=== PATIENT | male | born 1950 | race Caucasian/White ===

== ENCOUNTER → 2019-04-24 | Outpatient (CLI) | payer MEDICARE, OTHER ==
[2019-04-24 14:38] LABS: Basophils % (A) 1 %; Eosinophils # (A) 0.2 k/uL (0-0.7); Eosinophils % (A) 5 %; HCT 40.6 % (39.0-53.0); HGB 12.9 gm/dL (13.0-17.5); Lymphocytes # (A) 1.6 k/uL (1.0-4.8); Lymphocytes % (A) 30 %; MCH 29.3 pg (25.0-35.0); MCHC 31.7 g/dL (31.0-37.0); MCV 92.4 fL (80.0-100.0); Mean Platelet Volume 7.8; Monocytes # (A) 0.3 k/uL (0-1.0); Monocytes % (A) 6 %; Neutrophils % (A) 58 %; Platelet Count 178 k/uL (150-450); RBC 4.39 m/uL (4.30-5.90); RDW 13.8 % (11.5-15.5); WBC 5.3 k/uL (3.8-10.6)
[2019-04-24 14:41] LABS: Appearance,Urine Clear (Clear); Bilirubin,Urine Negative (Negative); Blood,Urine Negative (Negative); Color,Urine Light Yellow; Glucose,Urine (UA) Negative (Negative); Ketones,Urine Negative (Negative); Leukocyte Esterase,Urine Negative (Negative); Nitrite,Urine Negative (Negative); Protein,Urine Negative (Negative); Urobilinogen,Urine <2.0 mg/dL (<2.0)
[2019-04-24 14:49] LABS: Magnesium 1.8 mg/dL (1.6-2.3); Potassium 4.3 mmol/L (3.5-5.1)
[2019-04-24 14:54] LABS: INR 0.9 (<1.2); Partial Thromboplastin Time 28.3 sec (22.0-30.0); Prothrombin Time 9.8 sec (9.0-12.0)
== END | disposition home or self-care (01) ==
LOC: LABPAT 14:08
PROVIDERS: ATTEND Thoracic Surgery (Cardiothoracic Vascular Surgery)
DX: Z01.812 Encounter for preprocedural laboratory examination (principal); C34.11 Malignant neoplasm of upper lobe, right bronchus or lung
CPT/HCPCS: 36415; 80051; 81003; 82565; 83735; 84520; 85025; 85610; 85730; 86850; 86900; 86901; 87086

== ENCOUNTER 2019-04-30 05:58 | Inpatient (IN) | payer MEDICARE, OTHER ==
[~2019-04-30 05:58] MED LIST: DEXAMETHASONE SOD PHOSPHATE 10 MG/ML 1 ML VIAL IV ONE; HYDROmorphone 0.5 MG/0.5 ML SYRINGE IVP PRN; MIDAZOLAM 2 MG/2 ML VIAL IV PRN; ONDANSETRON 4 MG/2 ML VIAL IVP ONE; SCOPOLAMINE 1.5MG/72HR PATCH TRANSDERM ONE
[2019-04-30 06:24] LABS: Glucose,Whole Blood 106 mg/dL (75-99)
[2019-04-30] MEDS: LACTATED RINGERS 1,000 ML IV SCH ×3 (06:24→07:44)
[2019-04-30] MEDS: LIDOCAINE 1% 20 ML VIAL (10MG/ML) FOR IV START INTRADERMA PRN ×2 (06:25→06:48)
[2019-04-30] MEDS ORDERED: fentaNYL (PF) 50 MCG/ML 2 ML AMP ONE (07:32)
[2019-04-30] MEDS ORDERED: ROCURONIUM BROMIDE 10 MG/ML 10 ML VIAL IV ONE (07:32)
[2019-04-30] MEDS ORDERED: NEOSTIGMINE 1 MG/ML 10 ML VIAL ONE (07:32)
[2019-04-30] MEDS ORDERED: ePHEDrine SULFATE/0.9% NACL/PF 50 MG/5 ML SYRINGE IV ONE (07:32)
[2019-04-30] MEDS ORDERED: PROPOFOL 10 MG/ML 20 ML VIAL IV ONE (07:32)
[2019-04-30] MEDS ORDERED: HYDROmorphone (PF) 1 MG/ML ONE (07:32)
[2019-04-30] MEDS ORDERED: DOXAPRAM 20 MG/ML 20 ML VIAL IV ONE (07:32)
[2019-04-30] MEDS ORDERED: GLYCOPYRROLATE 0.2 MG/ML 2 ML VIAL ONE (07:32)
[2019-04-30] MEDS ORDERED: SUCCINYLCHOLINE CHLORIDE 100 MG/5 ML SYR IV ONE (07:32)
[2019-04-30] MEDS ORDERED: hydrALAZINE HCL 20 MG/ML 1 ML VIAL ONE (07:32)
[2019-04-30] MEDS ORDERED: diphenhydrAMINE 50 MG/ML 1 ML VIAL ONE (07:32)
[2019-04-30] MEDS ORDERED: BUPIVACAINE (PF) 0.25% 30 ML VIAL MISCELLANE ONE ×2 (10:42)
--- NOTE | 2019-04-30 12:24 | P.OP ---
Date of Procedure: 04/30/19 Preoperative Diagnosis: Right upper lobe mass consistent with carcinoma Postoperative Diagnosis: Same, squamous cell carcinoma right upper lobe Procedure(s) Performed: Right thoracoscopy, robotic-assisted thoracoscopic right upper lobectomy with mediastinal lymph node dissection, fiberoptic bronchoscopy Anesthesia: SIDDHARTHA Surgeon: Rhys Brock Psychiatric Technician Assistant #1: Benson Chow Estimated Blood Loss (ml): 50 IV fluids (ml): 1,200 Urine output (ml): 160 Pathology: other (Right upper lobe with frozen section of bronchial margin negative and primary tumor positive for squamous cell carcinoma, lymph node stations 4R, 7, 8R, 10 R, 11 R) Condition: stable Disposition: PACU Indications for Procedure: 69-year-old male presents with new mass in right upper lobe. This is suspicious for carcinoma on CT. He has significant lymphadenopathy with calcification suggesting chronicity. PET scan was highly positive for uptake in the tumor and negative for uptake elsewhere. Was high suspicion for carcinoma of the lung. This was felt to likely be early stage. The patient had significant lung disease which made him high risk for pneumothorax in the event of needle biopsy. Pulmonary function was adequate to tolerate lobectomy. Lobectomy was recommended by Dr. Soliman and discussed with the patient. The patient was agreeable.'s surgery was scheduled. Operative Findings: Fissures were only partially complete. The lung was markedly emphysematous. There was a palpable tumor was overlying pleural retraction consistent with pulmonary malignancy in the right upper lobe. There was extensive hilar and mediastinal adenopathy. Some of this was heavily calcified. Some was just anthracotic and soft. There was marketed inflammation in the hilum throughout Description of Procedure: The patient was brought to the operating room, placed supine on the operating table, anesthetized and intubated with a double-lumen endotracheal tube. Tube was positioned with fiberoptic bronchoscopy and secured. The patient was turned in the left lateral decubitus position and appropriately positioned for robotic lobectomy. The right chest was sterilely prepped and draped. Initial incision was made in the anterior axillary line in the seventh interspace and a 8 mm robotic port was placed here. Thoracoscopy confirm presence within the pleural space along was deflated and CO2 insufflation was begun. A 12 mm port was placed posterior to this and the posterior axillary line in the eighth interspace. A second 12 mm port was placed 12 cm anterior to the initial port in the seventh interspace. A second 8 mm port was placed posteriorly and the paraspinous position in the fourth interspace. The robot was docked. A working port was placed between the 2 most anterior ports in the 10th interspace. The chest was explored with the robot with findings as noted above. Inferior pulmonary ligament was taken down. Dissection was carried posteriorly along the pleural reflection and the level VIII and level VII lymph nodes were dissected and sent for permanent section. Dissection was begun around the right upper lobe bronchus. There were actually 2 branches of the right upper lobe bronchus that bifurcated very early and led to the right upper lobe. These were taken separately with a thick robotic stapler.. The second one developed a tear in the membranous portion requiring a couple of 4-0 Vicryl suture placements prior to stapling. Further dissection was carried out and the R 11 lymph nodes were resected. The posterior segmental branch to the upper lobe of the pulmonary artery was encircled and ligated and divided with robotic stapler. We now moved anteriorly. There were lymph nodes along the phrenic nerve overlying the superior pulmonary vein. These were resected and sent as level X lymph nodes. Dissection was carried out over brown the superior pulmonary vein branches draining the upper lobe sparing the middle lobe branches. These branches were then taken with a robotic vascular stapler. Dissection was carried onto the pulmonary artery. The truncus anteriosus this was dissected out. Further R 11 lymph nodes were resected in order to clear the truncus anteriosus. This branch of the pulmonary artery was then encircled and ligated and divided with a robotic vascular stapler. Further hilar lymph nodes were resected en bloc with the specimen. Dissection was carried back connecting the anterior and posterior portions of the dissection. The fissures were then completed with multiple firings of a robotic medium stapler. The lobectomy specimen was retracted into the apex and the lymph nodes just inferior to the azygos vein were resected and sent as R 10 lymph nodes. This dissection was then carried up above the azygos vein and the R4 lymph nodes were resected. The lobectomy specimen was then placed in an Endo Catch bag. The robot was undocked and the Endo Catch bag was brought through the working port after enlarging it adequately to allow passage of the specimen. The specimen was sent for frozen section with findings as noted above. The chest was irrigated with warm water. There was some air leak from diffusely from the staple lines of the pulmonary parenchyma but there was no air leak from the bronchial stump. A 28-Portuguese chest tube was placed through separate leak. Good hemostasis observed lung wasn't the thoracoscope was removed. The chest tube was secured with 0 Ethibond suture. Rib blocks were performed at the level of the incisions with half percent Marcaine. Incisions were closed with layers of Vicryl suture. Dry sterile dressings were applied the patient was extubated and transferred to recovery in stable condition. Prior to leaving the operating room and prior to extubation we did re-bronchoscoped the patient due to presence of significant air leak. The upper lobe bronchial stump was intact and there was no evidence of leak here. This completes the dictation
[2019-04-30 12:25] LABS: Glucose,Whole Blood 173 mg/dL (75-99)
[2019-04-30] MEDS ORDERED: CHLORHEXIDINE GLUCONATE 15 ML CUP MUCOUS MEM ONE (12:29)
[2019-04-30] MEDS ORDERED: BISACODYL 10 MG SUPP RECTAL PRN (12:52)
[2019-04-30] MEDS: IPRATROPIUM-ALBUTEROL 3 ML NEB IH SCH ×3 (12:55→19:42)
[2019-04-30 13:06] LABS: Basophils % (A) 0 %; Eosinophils # (A) 0.1 k/uL (0-0.7); Eosinophils % (A) 1 %; HCT 40.2 % (39.0-53.0); Lymphocytes # (A) 0.5 k/uL (1.0-4.8); Lymphocytes % (A) 5 %; MCH 29.4 pg (25.0-35.0); MCHC 32.3 g/dL (31.0-37.0); MCV 90.8 fL (80.0-100.0); Mean Platelet Volume 8.2; Monocytes # (A) 0.4 k/uL (0-1.0); Monocytes % (A) 4 %; Neutrophils # (A) 9.1 k/uL (1.3-7.7); Neutrophils % (A) 90 %; Platelet Count 159 k/uL (150-450); RBC 4.42 m/uL (4.30-5.90); WBC 10.2 k/uL (3.8-10.6)
[2019-04-30 13:24] LABS: ALT 35 U/L (21-72); AST 36 U/L (17-59); African American GFR (CKD) >90 (>60 ml/min/1.73 sqM); Albumin 3.3 g/dL (3.5-5.0); Alkaline Phosphatase 166 U/L (38-126); Anion Gap 8 mmol/L; Blood Urea Nitrogen 11 mg/dL (9-20); Calcium 8.4 mg/dL (8.4-10.2); Carbon Dioxide 25 mmol/L (22-30); Chloride 108 mmol/L (98-107); Glucose 166 mg/dL (74-99); Potassium 3.9 mmol/L (3.5-5.1); Sodium 141 mmol/L (137-145); Total Bilirubin 0.3 mg/dL (0.2-1.3); Total Protein 6.3 g/dL (6.3-8.2)
--- NOTE | 2019-04-30 13:27 | XR ---
EXAMINATION TYPE: XR chest 1V DATE OF EXAM: 04/30/2019 COMPARISON: Prior chest x-ray 03/04/2019 HISTORY: Postop right upper lobectomy TECHNIQUE: Single frontal view of the chest is obtained. FINDINGS: Left-sided pacemaker shows a stable appearance, there are leads in the right atrium and ve ntricle. There is volume loss in the right hemithorax, right-sided chest tube is present. There is teixeira bcutaneous emphysema the right chest and neck. Apical right-sided pneumothorax is present. Postop fadia nges are noted in the right hilar region, there are surgical quincy. There are overlying cardiac shade ds. Some right lung parenchymal density may be due to postop contusion or atelectasis. No sizable eff usion. Surgical clips present at the lower chest upper abdomen level superimposed over the midline. IMPRESSION: Postop changes as described.
[2019-04-30] MEDS: KETOROLAC 30 MG/ML 1 ML VIAL IVP SCH ×3 (13:31→23:59)
[2019-04-30] MEDS: DEXTROSE 5%-0.45% NACL 1,000 ML IV SCH (13:47)
--- NOTE | 2019-04-30 13:53 | P.CNPUL ---
History of Present Illness Consult date: 04/30/19 Requesting physician: Rhys Brock Reason for consult: other (Pulmonary and Critical care management) Chief complaint: Right lung nodule History of present illness: This is a very pleasant 69-year-old gentleman who follows with Dr. Vanessa as his primary care physician. 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 He had been seen and evaluated by Dr. Soliman after being found to have a right lung pulmonary nodule. He performed a PET scan which did show significant hypermetabolic uptake without metastasis and subsequently referred to Dr. Brock. He was admitted here today and had undergone a right thoracoscopy, robotic-assisted thoracoscopic right upper lobectomy and mediastinal lymph node dissection with fiberoptic bronchoscopy. Primary tumor positive for squamous cell carcinoma. He is seen in consultation in the intensive care unit. He is awake and alert in no acute distress. His pain is well controlled at this point. He has a right-sided chest tube in place is positive for a leak and currently to low continuous suction. He denies any worsening shortness of breath. He has a loose nonproductive cough. No chills or night sweats. Continue and O2 saturation in the 90s on 6 L/m per nasal cannula. White count 10.2. Hemoglobin 13.0. Creatinine 0.79. He's been initiated on DuoNeb inhalations, cefazolin, subcutaneous heparin. He has an IV of D5.45 at 40 ML's per hour. Review of Systems REVIEW OF SYSTEMS: CONSTITUTIONAL: Denies any recent significant weight loss or weight gain. EYES: Denies change in vision. EARS, NOSE, MOUTH, THROAT: Denies headaches, denies sore throat. CARDIOVASCULAR: Positive for surgical site right-sided chest pain, no palpitations or syncopal episodes. RESPIRATORY: Positive for shortness of breath, cough, congestion no hemoptysis. GASTROINTESTINAL: Denies change in appetite, denies abdominal pain GENITOURINARY: Denies hematuria, denies infections. MUSKULOSKELETAL: Denies pain, denies swelling. INTEGUMENTARY: Denies rash, denies eczema. NEUROLOGICAL: Denies recent memory loss, no recent seizure activity. PSYCHIATRIC: Denies anxiety, denies depression. HEMATOLOGIC/LYMPHATIC: Denies anemia, denies enlarged lymph nodes. Past Medical History Past Medical History: COPD, GERD/Reflux, Hyperlipidemia, Hypertension, Musculoskeletal Disorder, Osteoarthritis (OA), Seizure Disorder, Vascular Disorder Additional Past Medical History / Comment(s): chronic back pain, lung mass, SOB w/exertion, had some kind of ?seizure activity couple months ago, sitting outside, started having shaking-weren't sure if it had something to do w/pacemaker-went to [facility] for observation & sent home-not sure what it was History of Any Multi-Drug Resistant Organisms: None Reported Past Surgical History: Appendectomy, Heart Catheterization, Orthopedic Surgery, Pacemaker Additional Past Surgical History / Comment(s): recent battery change to pacemaker 04-21-19-healing incision, stent right leg, right hand surg., trigger finger left hand Past Anesthesia/Blood Transfusion Reactions: No Reported Reaction Type of Cardiac Device: Permanent Pacemaker Device Placement Date:: 2010 Smoking Status: Current every day smoker - Past Family History Mother Family Medical History: No Reported History Medications and Allergies Home Medications Medication Instructions Recorded Confirmed Type ALPRAZolam [Xanax] 1 mg PO BID PRN 04/24/19 04/30/19 History ARIPiprazole [Abilify] 30 mg PO HS 04/24/19 04/30/19 History Albuterol Inhaler [Ventolin Hfa 1 - 2 puff INHALATION RT-Q6H PRN 04/24/19 04/30/19 History Inhaler] Aspirin 81 mg PO DAILY 04/24/19 04/30/19 History Atorvastatin [Lipitor] 40 mg PO HS 04/24/19 04/30/19 History Cephalexin [Keflex] 500 mg PO Q8HR 04/24/19 04/30/19 History Clopidogrel [Plavix] 75 mg PO DAILY 04/24/19 04/30/19 History DULoxetine HCL [Cymbalta] 60 mg PO HS 04/24/19 04/30/19 History Donepezil [Aricept] 5 mg PO HS 04/24/19 04/30/19 History HYDROcodone/APAP 10-325MG [[place] 1 tab PO Q6HR PRN 04/24/19 04/30/19 History 10-325] Losartan [Cozaar] 50 mg PO DAILY 04/24/19 04/30/19 History Lyrica(Unknown Dose) 1 tab PO HS 04/24/19 04/30/19 History Metoprolol Tartrate [Lopressor] 100 mg PO BID 04/24/19 04/30/19 History Nitroglycerin Sl Tabs [Nitrostat] 0.4 mg SUBLINGUAL Q5M PRN 04/24/19 04/30/19 History Pantoprazole Sodium [Protonix] 40 mg PO DAILY 04/24/19 04/30/19 History Allergies Allergy/AdvReac Type Severity Reaction Status Date / Time adhesive tape Allergy Rash/Hives Verified 04/30/19 06:20 Latex, Natural Rubber Allergy Rash/Hives Verified 04/30/19 06:20 silicone Allergy Rash/Hives Verified 04/30/19 06:20 Physical Exam Vitals: Vital Signs Temp Pulse Resp BP BP Pulse Ox 04/30/19 12:40 96 04/30/19 06:53 97.0 F L 60 16 137/78 143/80 96 04/30/19 06:09 97.0 F L 60 16 143/80 96 Intake and Output 04/29/19 04/30/19 04/30/19 22:59 06:59 14:59 Intake Total 900 Output Total 750 Balance 150 Intake: IV 900 Output: Chest Tube Drainage 270 Chest Tube Right 270 Urine 430 Estimated Blood Loss 50 GENERAL EXAM: Frail, cachectic 69-year-old gentleman. Alert, fairly comfortable in no apparent distress. On 6 L nasal cannula HEAD: Normocephalic. EYES: Normal reaction of pupils, equal size. NOSE: Clear with pink turbinates. THROAT: No erythema or exudates. NECK: No masses, no JVD. CHEST: No chest wall deformity. Right-sided chest tube in place. Positive air leak. To low continuous suction. LUNGS: Equal air entry with bilateral scattered rhonchi more so on the right. CVS: S1 and S2 normal with no audible murmur, regular rhythm. ABDOMEN: No hepatosplenomegaly, normal bowel sounds, no guarding or rigidity. SPINE: No scoliosis or deformity SKIN: No rashes CENTRAL NERVOUS SYSTEM: No focal deficits, tone is normal in all 4 extremities. EXTREMITIES: There is no peripheral edema. No clubbing, no cyanosis. Peripheral pulses are intact. Results - Laboratory Findings CBC and BMP: 04/30/19 12:56 04/30/19 12:56 Abnormal lab findings: Abnormal Labs 04/30/19 04/30/19 04/30/19 06:21 12:23 12:56 Neutrophils # Lymphocytes # Chloride 108 H Glucose 166 H POC Glucose (mg/dL) 106 H 173 H Alkaline Phosphatase 166 H Albumin 3.3 L 04/30/19 12:56 Neutrophils # 9.1 H Lymphocytes # 0.5 L Chloride Glucose POC Glucose (mg/dL) Alkaline Phosphatase Albumin - Diagnostic Findings Chest x-ray: image reviewed Assessment and Plan Assessment: Impression: #1 Right lung nodule with hypermetabolic uptake in the PET scan. Status post right thoracoscopy, robotic-assisted thorascopic right upper lobectomy with med iastinal lymph node dissection, fiberoptic bronchoscopy. Suspect squamous cell carcinoma. Postoperative day #0. #2 Acute hypoxic respiratory failure as an expected outcome of surgery. Currently on 6 L/m per nasal cannula. #3 Chronic and ongoing tobacco dependence of 40 years. #4 Chronic obstructive pulmonary disease #5 Hypertension. #6 Six sinus syndrome status post pacemaker implantation. #7 Anxiety/depression. #8 Hyperlipidemia. Plan: The patient was seen and evaluated by Dr. Oliveira. Chest x-ray and labs reviewed. We'll continue with bronchodilators. Currently on cefazolin. Heparin for DVT prophylaxis. Encourage cough and deep breathing exercises. Increase his activity as tolerated. We will continue to follow and make further recommendations based on his clinical status. I, the cosigning physician, performed a history & physical examination of the p atient. Lungs sounds bilateral scattered rhonchi right greater than left. Maintaining good O2 saturations in the 90s on 6 L/m per nasal cannula. I discussed the assessment and plan of care with my nurse practitioner, Krysta Lopez. I attest to the above consultation as dictated by her. Time with Patient: Greater than 30
[2019-04-30] MEDS: HEPARIN SODIUM,PORCINE 5,000 UNIT/ML 1 ML VIAL SQ SCH ×2 (15:27→23:59)
[2019-04-30] MEDS: HYDROcodone/APAP 10-325MG 1 EACH TAB PO PRN ×2 (15:27→21:36)
[2019-04-30] MEDS: ATORVASTATIN 40 MG TAB PO SCH (21:33)
[2019-04-30] MEDS: METOPROLOL TARTRATE 50 MG TAB PO SCH (21:38)
[2019-04-30] MEDS: PREGABALIN 75 MG CAP PO SCH (21:38)
[2019-04-30 23:00] LABS: HCT 35.1 % (39.0-53.0); HGB 11.1 gm/dL (13.0-17.5); MCH 29.4 pg (25.0-35.0); MCHC 31.6 g/dL (31.0-37.0); MCV 92.9 fL (80.0-100.0); Mean Platelet Volume 7.9; Platelet Count 128 k/uL (150-450); RBC 3.77 m/uL (4.30-5.90); RDW 14.1 % (11.5-15.5)
[2019-04-30 23:19] LABS: Calcium 7.6 mg/dL (8.4-10.2); Potassium 4.2 mmol/L (3.5-5.1)
[2019-04-30] MEDS: ARIPiprazole 15 MG TAB PO SCH (23:39)
[2019-04-30] MEDS: DONEPEZIL 5 MG TAB PO SCH (23:39)
[2019-04-30] MEDS: DULoxetine HCL 60 MG CAPSULE.DR PO SCH (23:40)
[2019-04-30] MEDS: ALBUMIN HUMAN 5% 500 ML in EMPTY BAG 1 BAG IVPB ONE (23:41)
[2019-05-01] MEDS ORDERED: ALBUMIN HUMAN 5% 500 ML in EMPTY BAG 1 BAG IVPB ONE (00:06)
[2019-05-01] MEDS: ALBUMIN HUMAN 5% 500 ML in EMPTY BAG 1 BAG IVPB ONE (00:28)
[2019-05-01] MEDS: DEXTROSE/WATER 1 250ML.BAG with DOPamine DRIP 800 MG IV SCH (00:43)
[2019-05-01 02:12] LABS: ABG Base Excess -1.3 mmol/L; ABG HCO3 23 mmol/L (21-25); ABG Oxygen Saturation 96.8 % (94-97); ABG PCO2 36 mmHg (35-45); ABG PH 7.42 (7.35-7.45); ABG PO2 84 mmHg (83-108); ABG TCO2 24 mmol/L (19-24); Allen Test Performed? Yes
[2019-05-01 04:39] LABS: Basophils % (A) 0 %; Eosinophils % (A) 0 %; HCT 29.6 % (39.0-53.0); Lymphocytes # (A) 0.6 k/uL (1.0-4.8); Lymphocytes % (A) 11 %; MCH 29.6 pg (25.0-35.0); MCHC 32.5 g/dL (31.0-37.0); MCV 91.2 fL (80.0-100.0); Mean Platelet Volume 8.3; Monocytes # (A) 0.2 k/uL (0-1.0); Monocytes % (A) 3 %; Neutrophils # (A) 4.7 k/uL (1.3-7.7); Neutrophils % (A) 84 %; Platelet Count 124 k/uL (150-450); RBC 3.25 m/uL (4.30-5.90); RDW 14.5 % (11.5-15.5); WBC 5.6 k/uL (3.8-10.6)
[2019-05-01 04:46] LABS: HGB 9.6 gm/dL (13.0-17.5)
[2019-05-01 04:48] LABS: African American GFR (CKD) >90 (>60 ml/min/1.73 sqM); Anion Gap 8 mmol/L; Blood Urea Nitrogen 13 mg/dL (9-20); Calcium 7.9 mg/dL (8.4-10.2); Carbon Dioxide 24 mmol/L (22-30); Chloride 108 mmol/L (98-107); Glucose 152 mg/dL (74-99); Potassium 3.9 mmol/L (3.5-5.1); Sodium 140 mmol/L (137-145)
--- NOTE | 2019-05-01 07:31 | PN ---
PROGRESS NOTE DATE OF SERVICE: May 01, 2019 This is a 69-year-old male who is postop day #1 status post right upper lobectomy and mediastinal lymph node dissection. Apparently, the patient may have had a frozen section done and we suspect squamous cell carcinoma. The patient is doing relatively well. He is postop day #1. Blood gases were done on 2 L and showed a pO2 of 84, pCO2 of 36, and pH 7.4. He is currently remains on 2 L nasal cannula. His IV is D5 0.45 at 40 mL an hour. He received some dopamine at 5 mcg/kg per minute for blood pressure support. The surgery was done by Dr. Brock. Currently, he has a history of chronic and ongoing tobacco dependence for 40 years, COPD, hypertension, sick sinus syndrome, status post pacemaker implantation, anxiety, depression and hyperlipidemia. Again, the patient is resting comfortably. He denies any particular issues or problems. No breathing issues. He does have some pain at the surgical site. Other than that though, he is doing very well. PHYSICAL EXAMINATION: VITAL SIGNS: Current vital signs are reviewed. His temperature is 98 degrees, heart rate 77, respiratory rate 16, blood pressure 107/42 and 2 L saturation 94%. Appears in no acute distress. HEENT: Examination is grossly unremarkable. Nasal O2 noted. NECK: Supple. Full range of motion. No adenopathy or thyromegaly. Neck veins are flat. CARDIOVASCULAR: Examination reveals regular rhythm and rate. S1, S2 normal. Heart rate 77. No S3, S4, or murmur. LUNGS: Reveal diminished breath sounds throughout. He has not really taken deep breaths. A few scattered rhonchi noted. No wheezes or crackles. ABDOMEN: Is soft. Bowel sounds are heard. No masses or tenderness. EXTREMITIES: Are intact. No cyanosis, clubbing, or edema. SKIN: Without rash. NEUROLOGIC: Examination is brief but nonfocal. LABS: Labs are reviewed. The blood gases have been mentioned. The rest of his labs are not back yet. Chest x-rays reviewed. MEDICATIONS: Medications are reviewed. Again currently he is on D5 0.45 at 40 mL an hour, dopamine at 5 mcg/kg per minute. ASSESSMENT: 1. Postoperative day #1 robotically assisted right upper lobectomy for presumed squamous cell carcinoma of the lung. The patient also had mediastinal lymph node dissection. 2. Chronic and ongoing tobacco dependence of 40 years. 3. Chronic obstructive pulmonary disease. 4. Hypertension. 5. Sick sinus syndrome, status post pacemaker implantation. 6. Anxiety/depression. 7. Hyperlipidemia. PLAN: Currently, the patient is doing well. He remains on some O2. We encourage deep breathing, coughing and clearing of secretions. We also encouraged the use of the incentive spirometer. No additional recommendations are made. The patient will follow up with my partner, Dr. Soliman. Dr. Soliman referred the patient to Dr. Brock for surgery. No additional recommendations are made. Prognosis is guarded. MMODL / IJN: [id number] /
--- NOTE | 2019-05-01 07:35 | XR ---
EXAMINATION TYPE: XR chest 1V DATE OF EXAM: 05/01/2019 COMPARISON: 04/30/2019 HISTORY: Postoperative right upper lobectomy TECHNIQUE: Single frontal view of the chest is obtained. FINDINGS: There is slight improvement in degree of right-sided pneumothorax now with maximal apical pleural separation of approximately 2.5 cm. Right thoracostomy tube terminates in the right lung apex . Multifocal right-sided airspace disease or shifting and likely related to atelectasis. Left lung is hyperexpanded with interstitial prominence that appears chronic. Cardiomediastinal silhouette is sta ble. Postoperative changes of the right hilum are seen as well as of the gastroesophageal junction. D iffuse osseous demineralization is noted. IMPRESSION: 1. Decreasing right pneumothorax with similar positioning of the right thoracostomy tube. 2. Shifting right-sided airspace disease most pronounced in the right hilum likely relates to postope rative atelectasis.
[2019-05-01] MEDS: IPRATROPIUM-ALBUTEROL 3 ML NEB IH SCH ×4 (07:37→20:04)
[2019-05-01] MEDS: KETOROLAC 30 MG/ML 1 ML VIAL IVP SCH ×4 (08:35→23:08)
[2019-05-01] MEDS: PANTOPRAZOLE 40 MG TABLET PO SCH (08:36)
[2019-05-01] MEDS: METOPROLOL TARTRATE 50 MG TAB PO SCH ×2 (08:46→19:48)
[2019-05-01] MEDS: HEPARIN SODIUM,PORCINE 5,000 UNIT/ML 1 ML VIAL SQ SCH ×3 (08:46→23:08)
[2019-05-01] MEDS ORDERED: ASPIRIN 81 MG PO SCH (09:00)
[2019-05-01] MEDS ORDERED: LOSARTAN 50 MG TAB PO SCH (09:00)
--- NOTE | 2019-05-01 10:09 | P.PN ---
Subjective Progress Note Date: 05/01/19 Principal diagnosis: Squamous cell carcinoma right upper lobe, history of hypertension, hyperlipidemia, bipolar disorder, history of sick sinus syndrome status post permanent pacemaker implantation in May 2011, coronary artery disease status post circumflex flex coronary artery stenting in 2017, anxiety, depression, chronic obstructive pulmonary disease, gastroesophageal reflux disease and tobacco dependence with a 40 pack year smoking history. POD #1 right thoracoscopic, robotic assisted thorascopic right upper lobectomy with mediastinal lymph node dissection, fiberoptic bronchoscopy. Postoperative acute blood loss anemia, an expected outcome. The patient is currently laying in bed in the intensive care unit. He is in no acute distress. Patient did have an episode of hypotension last evening and was given 1 L of albumin and started on dopamine at 5 mcg/kg/m. Currently he denies any complaints of pain or shortness of breath. Oxygen saturations are 93% on 2 L nasal cannula. Achieving 750 mL on his incentive spirometry with encouragement. Right pleural chest tubes remain in place to low continuous wall suction at -20 cm H2O, draining thin serosanguineous drainage. Air leak is present. He remains afebrile. He is awake, alert and oriented 3. His daughter is present at his bedside. Chest x-ray completed this morning and is showing a small right apical pneumothorax. Objective - Vital Signs Vital signs: Vital Signs Temp 99 F 05/01/19 08:00 Pulse 75 05/01/19 09:00 Resp 22 05/01/19 09:00 BP 117/70 05/01/19 08:00 Pulse Ox 97 05/01/19 09:00 Intake & Output 04/30/19 05/01/19 05/01/19 18:59 06:59 18:59 Intake Total 1200 1530 80 Output Total 1225 1325 270 Balance -25 205 -190 Weight 71.3 kg Intake: IV 900 1530 80 Albumin Human 5% 500 ml 1000 In Empty Bag 1 bag @ 500 mls/hr IVPB ONCE ONE Rx#: [id number] Dextrose 5%-0.45% NaCl 1, 480 80 000 ml @ 40 mls/hr IV . Q24H [facility] Rx#:[id number] ceFAZolin 2 gm In Sodium 50 Chloride 0.9% 50 ml @ 100 mls/hr IVPB ONCE ONE Rx# :[id number] Intake, IV Titration 300 Amount Dextrose 5%-0.45% NaCl 1, 200 000 ml @ 40 mls/hr IV . Q24H [facility] Rx#:[id number] ceFAZolin 2 gm In Sodium 100 Chloride 0.9% 50 ml @ 100 mls/hr IVPB Q8HR [facility] Rx# :[id number] Output: Chest Tube Drainage 470 350 70 Chest Tube Right 470 350 70 Urine 705 975 200 Estimated Blood Loss 50 Other: Voiding Method Indwelling Catheter Indwelling Catheter Indwelling Catheter ABP, PAP, CO, CI - Last Documented Arterial Blood Pressure 154/65 - Constitutional General appearance: Present: average body habitus, cooperative, no acute distress - Respiratory Details: Lung sounds with scattered rhonchi throughout. Respirations are symmetrical and nonlabored. Oxygen saturation 93% on 2 L nasal cannula. Achieving 750 mL on his incentive spirometry. Right pleural chest tubes in place to low continuous wall suction at -20 cm H2O. Air leak is present. Draining thin serosanguineous drainage with 850 mL output since surgery, 350 mL output in the last 8 hours. - Cardiovascular Details: Regular rhythm and rate. S1 and S2 present, negative for S3, gallop or murmur. Bedside telemetry showing normal sinus rhythm heart rate 93. No edema present. Dopamine drip remains at 5 mcg/kg/m. Sequential compression devices in place to his bilateral lower extremities. - Gastrointestinal Gastrointestinal Comment(s): Abdomen is soft, nontender and nondistended. Active bowel sounds all 4 abdominal quadrants. No guarding or rigidity. No organomegaly. Tolerating oral intake. - Genitourinary Genitourinary Comment(s): Castorena catheter for accurate I&O. Draining clear yellow urine. 900 mL output in the last 8 hours. - Integumentary Integumentary Comment(s): Skin is warm and dry. No clubbing or cyanosis is present. Right chest incisions are clean, dry and approximated. No drainage or redness is present. Dressing clean, dry and in place. No rash or abnormal pigmentation present. - Neurologic Neurologic: Present: CNII-XII intact - Musculoskeletal Musculoskeletal Comment(s): Chronic right hand weakness and contracture Musculoskeletal: Present: gait normal, generalized weakness, strength equal bilaterally - Psychiatric Psychiatric: Present: A&O x's 3, appropriate affect, intact judgment & insight - Allied health notes Allied health notes reviewed: nursing - Labs CBC & Chem 7: 05/01/19 04:21 05/01/19 04:21 Labs: Abnormal Lab Results - Last 24 Hours (Table) 04/30/19 04/30/19 04/30/19 Range/Units 12:23 12:56 12:56 RBC (4.30-5.90) m/uL Hgb (13.0-17.5) gm/dL Hct (39.0-53.0) % Plt Count (150-450) k/uL Neutrophils # 9.1 H (1.3-7.7) k/uL Lymphocytes # 0.5 L (1.0-4.8) k/uL Chloride 108 H (98-107) mmol/L Glucose 166 H (74-99) mg/dL POC Glucose (mg/dL) 173 H (75-99) mg/dL Calcium (8.4-10.2) mg/dL Alkaline Phosphatase 166 H (38-126) U/L Albumin 3.3 L (3.5-5.0) g/dL 04/30/19 04/30/19 05/01/19 Range/Units 22:16 22:16 04:21 RBC 3.77 L 3.25 L (4.30-5.90) m/uL Hgb 11.1 L 9.6 L D (13.0-17.5) gm/dL Hct 35.1 L 29.6 L (39.0-53.0) % Plt Count 128 L 124 L (150-450) k/uL Neutrophils # (1.3-7.7) k/uL Lymphocytes # 0.6 L (1.0-4.8) k/uL Chloride (98-107) mmol/L Glucose 144 H (74-99) mg/dL POC Glucose (mg/dL) (75-99) mg/dL Calcium 7.6 L (8.4-10.2) mg/dL Alkaline Phosphatase (38-126) U/L Albumin (3.5-5.0) g/dL 05/01/19 Range/Units 04:21 RBC (4.30-5.90) m/uL Hgb (13.0-17.5) gm/dL Hct (39.0-53.0) % Plt Count (150-450) k/uL Neutrophils # (1.3-7.7) k/uL Lymphocytes # (1.0-4.8) k/uL Chloride 108 H (98-107) mmol/L Glucose 152 H (74-99) mg/dL POC Glucose (mg/dL) (75-99) mg/dL Calcium 7.9 L (8.4-10.2) mg/dL Alkaline Phosphatase (38-126) U/L Albumin (3.5-5.0) g/dL - Imaging and Cardiology Chest x-ray: report reviewed, image reviewed Assessment and Plan Assessment: 1. Squamous cell carcinoma right upper lobe, status post right upper lobectomy 2. Hypertension 3. Hyperlipidemia 4. Bipolar disorder 5. History of sick sinus syndrome status post permanent pacemaker implantation May 2011 6. Coronary artery disease status post circumflex coronary artery stenting in 2017 7. Anxiety 8. History of depression 9. Chronic proximal pulmonary disease 10. Gastroesophageal reflux disease 11. Chronic tobacco dependence, [id number] smoking history 12. Postoperative acute blood loss anemia, an expected outcome Plan: 1. Continue right pleural chest tube to continuous wall suction -20 cm H2O. 2. Encourage use of incentive spirometry every hour while awake. 3. Wean oxygen as tolerated. 4. Bronchodilator management per pulmonary medicine. 5. Increase activity as tolerated, out of bed for all meals. Physical and occupational therapy consulted. 6. Pain control per current when necessary orders. 7. Pathology results pending. 8. Encourage smoking cessation. Discussed with the patient importance of smoking cessation. 9. Continue dopamine drip at 5 mcg/kg/m. 10. More recommendations to follow based on patient's clinical course. Time with Patient: Greater than 30
--- NOTE | 2019-05-01 12:38 | XR ---
EXAMINATION TYPE: XR chest 1V portable DATE OF EXAM: 05/01/2019 CLINICAL HISTORY: Right-sided pneumothorax. TECHNIQUE: Single AP portable upright view of the chest is obtained. COMPARISON: Chest x-ray from earlier today an older study. PET/CT March 14. FINDINGS: There is persistent right apical chest tube. There is increasing right-sided pneumothorax now measuring 5.4 cm from apex to lung versus 2.5 cm on prior study. There is persistent small to mod erate size right pleural fluid collection inferiorly. Background chronic emphysematous change. Persis tent right hilar masslike consolidation with diffuse right mid to lower lung edema and/or infiltrate. Reticular interstitial prominence left lower lung suggesting interstitial edema still present. Cardi ac silhouette size is stable and upper limits of normal with dual-lead pacemaker. Osseous structures are intact. Right hilar surgical changes are present. IMPRESSION: Small to moderate-sized right apical pneumothorax increased in size from most recent x-ra y despite chest tube redemonstrated. Other findings stable. Persistent background chronic emphysemato us change with mild interstitial edema and some right-sided volume loss with persistent [id number] rate right pleural fluid collection and diffuse right lower lung edema and/or infiltrate. Case discussed with the patient's ICU nurse by telephone at time of dictation. Chest tube was turned off suction likely accounting for above findings.
[2019-05-01] MEDS: DEXTROSE 5%-0.45% NACL 1,000 ML IV SCH (13:39)
[2019-05-01] MEDS ORDERED: DEXTROSE 5% IN WATER 100 ML with AMIODARONE 150 MG IV ONE ×2 (13:45→15:50)
[2019-05-01] MEDS ORDERED: AMIODARONE 360 MG in DEXTROSE 5% IN WATER 200 ML IV ONE ×2 (13:55)
--- NOTE | 2019-05-01 14:48 | P.CRDCN ---
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 Recently the patient was seen by his primary sales and management trainee Dr. Soliman who diagnosed the patient with right upper long pulmonary nodule. A PET scan was performed and showed significant hypermetabolic uptake. Because of that the patient was referred to undergo the above procedure. Postprocedure, the patient was hypotensive requiring a small dose of dopamine. Initially the dose of dopamine was weaned off completely but the patient started being hypotensive and then he was placed on dopamine again also for low urine output. Subsequently the patient went into atrial fibrillation. The dopamine was stopped and the patient after that converted to normal sinus mechanism. Since then he has been in and out atrial fibrillation. The blood pressure has been marginally low. Currently he is in normal sinus mechanism but throwing intermittent episodes of narrow complex tachycardia. The patient himself somewhat is a poor historian but he denies any symptoms of chest pain or chest discomfort, difficulty breathing at this point, heart racing or fluttering, dizziness or lightheadedness, or fever or chills. The cardiothoracic surgical team started the patient on amiodarone with bolus and drip at this point. He is on anticoagulation with heparin subcu only. The patient does have history of coronary artery disease and he underwent stenting for myocardial infarction about a year ago. No history of atrial fibrillation in the past. Past Medical History Past Medical History: COPD, GERD/Reflux, Hyperlipidemia, Hypertension, Musc uloskeletal Disorder, Osteoarthritis (OA), Seizure Disorder, Vascular Disorder Additional Past Medical History / Comment(s): chronic back pain, lung mass, SOB w/exertion, had some kind of ?seizure activity couple months ago, sitting outside, started having shaking-weren't sure if it had something to do w/pacemaker-went to [facility] for observation & sent home-not sure what it was History of Any Multi-Drug Resistant Organisms: None Reported Past Surgical History: Appendectomy, Heart Catheterization, Orthopedic Surgery, Pacemaker Additional Past Surgical History / Comment(s): recent battery change to pacemaker 04-21-19-healing incision, stent right leg, right hand surg., trigger finger left hand Past Anesthesia/Blood Transfusion Reactions: No Reported Reaction Type of Cardiac Device: Permanent Pacemaker Device Placement Date:: 2010 Smoking Status: Current every day smoker - Past Family History Mother Family Medical History: No Reported History Medications and Allergies Home Medications Medication Instructions Recorded Confirmed Type ALPRAZolam [Xanax] 1 mg PO BID PRN 04/24/19 04/30/19 History ARIPiprazole [Abilify] 30 mg PO HS 04/24/19 04/30/19 History Albuterol Inhaler [Ventolin Hfa 1 - 2 puff INHALATION RT-Q6H PRN 04/24/19 04/30/19 History Inhaler] Aspirin 81 mg PO DAILY 04/24/19 04/30/19 History Atorvastatin [Lipitor] 40 mg PO HS 04/24/19 04/30/19 History Cephalexin [Keflex] 500 mg PO Q8HR 04/24/19 04/30/19 History Clopidogrel [Plavix] 75 mg PO DAILY 04/24/19 04/30/19 History DULoxetine HCL [Cymbalta] 60 mg PO HS 04/24/19 04/30/19 History Donepezil [Aricept] 5 mg PO HS 04/24/19 04/30/19 History HYDROcodone/APAP 10-325MG [[place] 1 tab PO Q6HR PRN 04/24/19 04/30/19 History 10-325] Losartan [Cozaar] 50 mg PO DAILY 04/24/19 04/30/19 History Metoprolol Tartrate [Lopressor] 100 mg PO BID 04/24/19 04/30/19 History Nitroglycerin Sl Tabs [Nitrostat] 0.4 mg SUBLINGUAL Q5M PRN 04/24/19 04/30/19 History Pantoprazole Sodium [Protonix] 40 mg PO DAILY 04/24/19 04/30/19 History Pregabalin [Lyrica] 75 mg PO DAILY 04/30/19 04/30/19 History Allergies Allergy/AdvReac Type Severity Reaction Status Date / Time adhesive tape Allergy Rash/Hives Verified 04/30/19 06:20 Latex, Natural Rubber Allergy Rash/Hives Verified 04/30/19 06:20 silicone Allergy Rash/Hives Verified 04/30/19 06:20 Physical Exam Vitals: Vital Signs Temp Pulse Pulse Resp BP Pulse Ox 05/01/19 14:00 86 26 H 88/76 95 05/01/19 13:00 137 H 24 113/85 92 L 05/01/19 12:00 98.3 F 64 21 109/72 86 L 05/01/19 11:35 75 05/01/19 11:22 69 05/01/19 11:00 73 21 114/76 96 05/01/19 10:00 70 29 H 106/75 94 L 05/01/19 09:00 75 22 97 05/01/19 08:00 99 F 75 19 117/70 97 05/01/19 07:54 89 05/01/19 07:38 88 05/01/19 07:00 74 17 108/63 95 05/01/19 06:00 82 18 105/64 95 05/01/19 05:00 80 14 101/62 94 L 05/01/19 04:30 79 25 H 105/55 94 L 05/01/19 04:00 98.8 F 80 18 102/60 94 L 05/01/19 03:30 87 21 99/56 95 05/01/19 03:00 77 16 94 L 05/01/19 02:30 81 21 94 L 05/01/19 02:00 74 18 94 L 05/01/19 01:30 79 19 94 L 05/01/19 01:00 85 22 95 05/01/19 00:30 80 21 82/55 95 05/01/19 00:00 98 F 80 20 80/55 95 04/30/19 23:30 87 23 80/56 95 04/30/19 23:00 86 15 88/57 95 04/30/19 22:30 84 16 88/57 95 04/30/19 22:00 96 15 95 04/30/19 21:30 96 17 88/63 94 L 04/30/19 21:00 95 17 89/66 95 04/30/19 20:30 98 15 96 04/30/19 20:00 98.1 F 60 14 95 04/30/19 19:52 90 18 04/30/19 19:42 89 18 04/30/19 19:30 89 17 96 04/30/19 19:12 87 17 95 04/30/19 19:10 89 18 90/63 95 04/30/19 19:00 89 8 L 94 L 04/30/19 18:50 86 23 99/71 91 L 04/30/19 18:40 85 22 99/71 91 L 04/30/19 18:30 86 17 99/71 91 L 04/30/19 18:20 87 29 H 99/71 94 L 04/30/19 18:10 92 18 99/71 96 04/30/19 18:00 93 10 L 109/77 95 04/30/19 17:50 95 14 109/77 96 04/30/19 17:40 96 16 109/77 96 04/30/19 17:30 98 24 109/77 95 04/30/19 17:20 98 20 109/77 96 04/30/19 17:10 96 21 109/77 96 04/30/19 17:00 97.8 F 96 24 139/93 96 04/30/19 16:50 89 19 139/93 97 04/30/19 16:40 80 12 139/93 97 04/30/19 16:30 88 12 139/93 96 04/30/19 16:20 80 22 97 04/30/19 16:10 81 13 139/93 97 04/30/19 16:00 79 20 113/75 98 04/30/19 15:50 87 12 113/75 99 04/30/19 15:42 70 21 04/30/19 15:40 73 26 H 113/75 100 04/30/19 15:30 80 26 H 113/75 98 04/30/19 15:20 76 26 H 113/75 98 04/30/19 15:10 72 21 113/75 99 04/30/19 15:00 75 19 97/68 99 04/30/19 14:50 87 10 L 97/68 99 Intake and Output 04/30/19 05/01/19 05/01/19 22:59 06:59 14:59 Intake Total 1430 360 280 Output Total 500 1250 780 Balance 930 -890 -500 Intake: IV 1170 360 280 Albumin Human 5% 500 ml 1000 In Empty Bag 1 bag @ 500 mls/hr IVPB ONCE ONE Rx#: [id number] Dextrose 5%-0.45% NaCl 1, 120 360 280 000 ml @ 40 mls/hr IV . Q24H [facility] Rx#:[id number] ceFAZolin 2 gm In Sodium 50 Chloride 0.9% 50 ml @ 100 mls/hr IVPB ONCE ONE Rx# :[id number] Intake, IV Titration 260 Amount Dextrose 5%-0.45% NaCl 1, 160 000 ml @ 40 mls/hr IV . Q24H [facility] Rx#:[id number] ceFAZolin 2 gm In Sodium 100 Chloride 0.9% 50 ml @ 100 mls/hr IVPB Q8HR [facility] Rx# :[id number] Output: Chest Tube Drainage 200 350 90 Chest Tube Right 200 350 90 Urine 300 900 690 Other: Voiding Method Indwelling Catheter Indwelling Catheter Indwelling Catheter Weight 71.3 kg ABP, PAP, CO, CI - Last 8 Hours Arterial Blood Pressure 118/69 Arterial Blood Pressure 129/82 Arterial Blood Pressure 135/59 Arterial Blood Pressure 135/62 Arterial Blood Pressure 135/62 Arterial Blood Pressure 154/65 Arterial Blood Pressure 130/47 Arterial Blood Pressure 136/53 - Constitutional General appearance: no acute distress - Respiratory Respiratory: bilateral: diminished - Cardiovascular Rhythm: regular Heart sounds: normal: S1, S2 Results 05/01/19 04:21 05/01/19 04:21 CBC 04/30/19 05/01/19 Range/Units 22:16 04:21 WBC 6.0 5.6 (3.8-10.6) k/uL RBC 3.77 L 3.25 L (4.30-5.90) m/uL Hgb 11.1 L 9.6 L D (13.0-17.5) gm/dL Hct 35.1 L 29.6 L (39.0-53.0) % Plt Count 128 L 124 L (150-450) k/uL Comprehensive Metabolic Panel 04/30/19 05/01/19 Range/Units 22:16 04:21 Sodium 138 140 (137-145) mmol/L Potassium 4.2 3.9 (3.5-5.1) mmol/L Chloride 105 108 H (98-107) mmol/L Carbon Dioxide 26 24 (22-30) mmol/L BUN 14 13 (9-20) mg/dL Creatinine 1.09 0.98 (0.66-1.25) mg/dL Glucose 144 H 152 H (74-99) mg/dL Calcium 7.6 L 7.9 L (8.4-10.2) mg/dL Current Medications Generic Name Dose Route Start Last Admin Trade Name [place] PRN Reason Stop Dose Admin Acetaminophen 1,000 mg 05/01/19 07:45 Tylenol Tab PO Q6HR PRN Fever and/ or Mild Pain Albuterol/Ipratropium 3 ml 04/30/19 12:52 Duoneb 0.5 Mg-3 Mg/3 Ml Soln IH RT-Q1H PRN Shortness Of Breath Or Wheezing Albuterol/Ipratropium 3 ml 04/30/19 12:52 05/01/19 11:21 Duoneb 0.5 Mg-3 Mg/3 Ml Soln IH 3 ml RT-QID [facility] Administration Amiodarone HCl 400 mg 05/02/19 21:00 Cordarone PO BID [facility] Aripiprazole 30 mg 04/30/19 21:00 04/30/19 23:39 Abilify PO Not Given HS [facility] Aspirin 81 mg 05/01/19 09:00 05/01/19 08:46 Aspirin PO 81 mg DAILY [facility] Administration Atorvastatin Calcium 40 mg 04/30/19 21:00 04/30/19 21:33 Lipitor PO 40 mg HS [facility] Administration Bisacodyl 10 mg 04/30/19 12:52 Dulcolax RECTAL DAILY PRN Constipation Donepezil HCl 5 mg 04/30/19 21:00 04/30/19 23:39 Aricept PO Not Given HS [facility] Duloxetine HCl 60 mg 04/30/19 21:00 04/30/19 23:40 Cymbalta PO Not Given HS [facility] Heparin Sodium (Porcine) 5,000 unit 04/30/19 16:00 05/01/19 08:46 Heparin SQ 5,000 unit Q8HR [facility] Administration Dextrose/Sodium Chloride 1,000 mls @ 40 mls/hr 04/30/19 13:00 05/01/19 13:39 Dextrose 5%-1/2ns Iv Soln IV 40 mls/hr .Q24H [facility] Administration Dopamine HCl/Dextrose 800 mg/ 250 mls @ 3.7 mls/hr 05/01/19 00:15 05/01/19 00:43 IV Solution IV 3.7 mls/hr .Q24H [facility] Administration Protocol 3 MCG/KG/MIN Amiodarone HCl 360 mg/ 200 mls @ 33.333 mls/hr 05/01/19 13:55 05/01/19 13:36 Dextrose/Water IV 05/01/19 19:54 1 mg/min .Q6H ONE 33.333 mls/hr Administration Protocol 1 MG/MIN Amiodarone HCl 300 mg/ 250 mls @ 25 mls/hr 05/01/19 19:55 Dextrose/Water IV 05/02/19 13:54 .Q10H [facility] Protocol 0.5 MG/MIN Ketorolac Tromethamine 15 mg 04/30/19 13:00 05/01/19 12:10 Toradol IVP 05/04/19 13:01 15 mg Q6HR [facility] Administration Metoprolol Tartrate 100 mg 04/30/19 21:00 05/01/19 08:46 Lopressor PO 100 mg BID [facility] Administration Ondansetron HCl 4 mg 04/30/19 12:52 Zofran IVP Q8HR PRN Nausea And Vomiting Pantoprazole Sodium 40 mg 05/01/19 07:30 05/01/19 08:36 Protonix PO 40 mg [id number] [facility] Administration Pregabalin 75 mg 04/30/19 21:00 04/30/19 21:38 Lyrica PO 75 mg HS [facility] Administration Intake and Output 04/30/19 05/01/19 05/01/19 22:59 06:59 14:59 Intake Total 1430 360 280 Output Total 500 1250 780 Balance 930 -890 -500 Intake: IV 1170 360 280 Albumin Human 5% 500 ml 1000 In Empty Bag 1 bag @ 500 mls/hr IVPB ONCE ONE Rx#: [id number] Dextrose 5%-0.45% NaCl 1, 120 360 280 000 ml @ 40 mls/hr IV . Q24H [facility] Rx#:[id number] ceFAZolin 2 gm In Sodium 50 Chloride 0.9% 50 ml @ 100 mls/hr IVPB ONCE ONE Rx# :[id number] Intake, IV Titration 260 Amount Dextrose 5%-0.45% NaCl 1, 160 000 ml @ 40 mls/hr IV . Q24H [facility] Rx#:[id number] ceFAZolin 2 gm In Sodium 100 Chloride 0.9% 50 ml @ 100 mls/hr IVPB Q8HR [facility] Rx# :[id number] Output: Chest Tube Drainage 200 350 90 Chest Tube Right 200 350 90 Urine 300 900 690 Other: Voiding Method Indwelling Catheter Indwelling Catheter Indwelling Catheter Weight 71.3 kg 05/01/19 04:21 05/01/19 04:21 Assessment and Plan Assessment: Assessment #1 status post right robotic-assisted thoracoscopic right upper lobectomy. #2 paroxysmal atrial fibrillation. #3 hypertension which has resolved #4 coronary artery disease and prior coronary revascularization #5 sick sinus syndrome and status post permanent pacemaker #6 multiple comorbid conditions Plan #1 agree to start the patient on amiodarone with bolus and drip #2 switch him to amiodarone by mouth down the line #3 consider oral anticoagulation once is safe from a surgical standpoint overview #4 obtain an echocardiogram was Doppler #5 continue the current dose of metoprolol #6 follow-up with the patient Thank you for allowing us participate in his care and we will continue following up with the patient
--- NOTE | 2019-05-01 17:44 | ECHOF ---
Referral Reason:afib MEASUREMENTS -------- HEIGHT: 170.2 cm WEIGHT: 71.2 kg BP: RVIDd: 2.8 cm (< 3.3) IVSd: 1.3 cm (0.6 - 1.1) LVIDd: 3.6 cm (3.9 - 5.3) LVPWd: 1.2 cm (0.6 - 1.1) IVSs: 1.6 cm LVIDs: 3.3 cm LVPWs: 1.3 cm LA Diam: 3.2 cm (2.7 - 3.8) Ao Diam: 3.5 cm (2.0 - 3.7) AV Cusp: 2.3 cm (1.5 - 2.6) LA Diam: 2.9 cm (2.7 - 3.8) MV EXCURSION: 17.354 mm (> 18.000) MV EF SLOPE: 80 mm/s (70 - 150) EPSS: 0.7 cm MV E Giovani: 0.56 m/s MV DecT: 233 ms MV A Giovani: 0.56 m/s MV E/A Ratio: 1.00 RAP: 5.00 mmHg RVSP: 17.74 mmHg FINDINGS -------- Paced rhythm. This was a technically adequate study. The left ventricular size is normal. There is mild concentric left ventricular hypertrophy. Overa ll left ventricular systolic function is low-normal with, an EF between 50 - 55 %. The right ventricle is normal in size. The left atrial size is normal. The right atrial size is normal. There is mild aortic valve sclerosis. There is no evidence of aortic regurgitation. Mild mitral annular calcification present. Mild mitral regurgitation is present. Mild tricuspid regurgitation present. Right ventricular systolic pressure is normal at < 35 mmHg. There is no evidence of pulmonary hypertension. There is no pulmonic regurgitation present. The aortic root size is normal. There is no pericardial effusion. CONCLUSIONS -------- 1. This was a technically adequate study. 2. The left ventricular size is normal. 3. There is mild concentric left ventricular hypertrophy. 4. Overall left ventricular systolic function is low-normal with, an EF between 50 - 55 %. 5. The right ventricle is normal in size. 6. The left atrial size is normal. 7. The right atrial size is normal. 8. There is mild aortic valve sclerosis. 9. Mild mitral annular calcification present. 10. Mild mitral regurgitation is present. 11. Mild tricuspid regurgitation present. 12. Right ventricular systolic pressure is normal at < 35 mmHg. 13. There is no evidence of pulmonary hypertension. 14. There is no pulmonic regurgitation present. 15. The aortic root size is normal. 16. There is no pericardial effusion. SENIOR TECHNICAL PROJECT MANAGER: Chantelle Wilson RDCS
[2019-05-01] MEDS: ARIPiprazole 15 MG TAB PO SCH (19:48)
[2019-05-01] MEDS: DULoxetine HCL 60 MG CAPSULE.DR PO SCH (19:48)
[2019-05-01] MEDS: DONEPEZIL 5 MG TAB PO SCH (19:48)
[2019-05-01] MEDS: ATORVASTATIN 40 MG TAB PO SCH (19:48)
[2019-05-01] MEDS: PREGABALIN 75 MG CAP PO SCH (19:49)
[2019-05-01] MEDS: AMIODARONE 300 MG in DEXTROSE 5% IN WATER 250 ML IV SCH ×2 (19:51)
[2019-05-02] MEDS: DEXTROSE/WATER 1 250ML.BAG with DOPamine DRIP 800 MG IV SCH (02:55)
[2019-05-02] MEDS: ACETAMINOPHEN TAB 500 MG TAB PO PRN (03:21)
[2019-05-02] MEDS: KETOROLAC 30 MG/ML 1 ML VIAL IVP SCH ×4 (05:12→23:20)
[2019-05-02 05:32] LABS: Basophils % (A) 0 %; Eosinophils # (A) 0.1 k/uL (0-0.7); Eosinophils % (A) 2 %; HCT 27.5 % (39.0-53.0); HGB 8.9 gm/dL (13.0-17.5); Lymphocytes # (A) 0.7 k/uL (1.0-4.8); Lymphocytes % (A) 14 %; MCH 29.6 pg (25.0-35.0); MCHC 32.5 g/dL (31.0-37.0); MCV 91.2 fL (80.0-100.0); Mean Platelet Volume 8.9; Monocytes # (A) 0.3 k/uL (0-1.0); Monocytes % (A) 5 %; Neutrophils # (A) 3.9 k/uL (1.3-7.7); Neutrophils % (A) 77 %; RBC 3.02 m/uL (4.30-5.90); RDW 14.2 % (11.5-15.5)
[2019-05-02 05:33] LABS: Platelet Count 106 k/uL (150-450)
[2019-05-02 05:41] LABS: African American GFR (CKD) >90 (>60 ml/min/1.73 sqM); Anion Gap 6 mmol/L; Blood Urea Nitrogen 13 mg/dL (9-20); Carbon Dioxide 25 mmol/L (22-30); Chloride 108 mmol/L (98-107); Glucose 115 mg/dL (74-99); Potassium 3.6 mmol/L (3.5-5.1); Sodium 139 mmol/L (137-145)
[2019-05-02] MEDS: AMIODARONE 300 MG in DEXTROSE 5% IN WATER 250 ML IV SCH ×2 (05:57)
[2019-05-02] MEDS ORDERED: POTASSIUM CHLORIDE ER 20 MEQ TAB.ER PO SCH ×2 (06:00)
[2019-05-02] MEDS: PANTOPRAZOLE 40 MG TABLET PO SCH (06:03)
[2019-05-02] MEDS: IPRATROPIUM-ALBUTEROL 3 ML NEB IH SCH ×4 (07:14→19:01)
--- NOTE | 2019-05-02 07:31 | P.PN ---
Subjective Progress Note Date: 05/02/19 Principal diagnosis: Paroxysmal atrial fibrillation This is a pleasant 69-year-old gentleman who does follow with a erp implementation consultant out of the town with a past medical history significant for permanent pacemaker implantation related to sick sinus syndrome, hypertension, dyslipidemia, bipolar disorder, and significant history of smoking, was admitted to the intensive care unit after he underwent yesterday a right thoracoscopy with robotic-assisted right upper lobe lobectomy and mediastinal lymph node dissection. Recently the patient was seen by his primary reserve officer Dr. Soliman who diagnosed the patient with right upper long pulmonary nodule. A PET scan was performed and showed significant hypermetabolic uptake. Because of that the patient was referred to undergo the above procedure. Postprocedure, the patient was hypotensive requiring a small dose of dopamine. Initially the dose of dopamine was weaned off completely but the patient started being hypotensive and then he was placed on dopamine again also for low urine output. Subsequently the patient went into atrial fibrillation. The dopamine was stopped and the patient after that converted to normal sinus mechanism. Since then he has been in and out atrial fibrillation. The blood pressure has been marginally low. Currently he is in normal sinus mechanism but throwing intermittent episodes of narrow complex tachycardia. The patient himself somewhat is a poor historian but he denies any symptoms of chest pain or chest discomfort, difficulty breathing at this point, heart racing or fluttering, dizziness or lightheadedness, or fever or chills. The cardiothoracic surgical team started the patient on amiodarone with bolus and drip at this point. He is on anticoagulation with heparin subcu only. The patient does have history of coronary artery disease and he underwent stenting for myocardial infarction about a year ago. No history of atrial fibrillation in the past. On follow-up with the patient today, April, the patient has been maintaining normal sinus mechanism. He is off dopamine at this point. Currently he is on amiodarone IV and going to be switched to amiodarone by mouth later on today. He remains asymptomatic from the cardiac standpoint of view. I discussed with the cardiothoracic team the need to start the patient on oral anticoagulation once the chest tube is out. Objective - Vital Signs Vital signs: Vital Signs Temp 98.5 F 05/02/19 04:00 Pulse 82 05/02/19 07:28 Resp 19 05/02/19 07:00 BP 105/62 05/02/19 03:00 Pulse Ox 95 05/02/19 07:15 Intake & Output 05/01/19 05/02/19 05/02/19 18:59 06:59 18:59 Intake Total 440 855 40 Output Total 1235 1475 80 Balance -795 -620 -40 Weight 68.4 kg Intake: IV 440 480 40 Dextrose 5%-0.45% NaCl 1, 440 480 40 000 ml @ 40 mls/hr IV . Q24H [facility] Rx#:[id number] Intake, IV Titration 255 0 Amount Amiodarone 300 mg In 250 Dextrose 5% in Water 250 ml @ 0.5 MG/MIN 25 mls/hr IV .Q10H [facility] Rx#: [id number] Dextrose/Water 1 250ml. 5 0 bag @ 3 MCG/KG/MIN 3.7 mls/hr IV .Q24H [facility] with DOPamine DRIP 800 mg Rx#: [id number] Oral 120 Output: Chest Tube Drainage 330 210 Chest Tube Right 330 210 Urine 905 1265 80 Other: Voiding Method Indwelling Catheter Indwelling Catheter ABP, PAP, CO, CI - Last Documented Arterial Blood Pressure 138/66 - Constitutional General appearance: Present: no acute distress - Respiratory Respiratory: bilateral: CTA - Cardiovascular Rhythm: regular Heart sounds: normal: S1, S2 - Labs CBC & Chem 7: 05/02/19 05:20 05/02/19 05:20 Labs: Abnormal Lab Results - Last 24 Hours (Table) 05/02/19 05/02/19 Range/Units 05:20 05:20 RBC 3.02 L (4.30-5.90) m/uL Hgb 8.9 L (13.0-17.5) gm/dL Hct 27.5 L (39.0-53.0) % Plt Count 106 L (150-450) k/uL Lymphocytes # 0.7 L (1.0-4.8) k/uL Chloride 108 H (98-107) mmol/L Glucose 115 H (74-99) mg/dL Calcium 8.0 L (8.4-10.2) mg/dL Assessment and Plan Assessment: Assessment #1 status post right robotic-assisted thoracoscopic right upper lobectomy. #2 paroxysmal atrial fibrillation. #3 hypertension which has resolved #4 coronary artery disease and prior coronary revascularization #5 sick sinus syndrome and status post permanent pacemaker #6 multiple comorbid conditions Plan #1 continue the current dose of metoprolol. The patient is on high-dose. #2 DC amiodarone IV and start the patient on amiodarone by mouth #3 he needs to be on oral anticoagulation down the line #4 follow-up with the patient Thank you for allowing us participate in his care and we will continue following up with the patient
--- NOTE | 2019-05-02 07:47 | XR ---
EXAMINATION TYPE: XR chest 1V portable DATE OF EXAM: 05/02/2019 COMPARISON: 05/01/2019 HISTORY: Chest tube placement TECHNIQUE: Single frontal view of the chest is obtained. FINDINGS: There is improvement of the right apical pneumothorax measuring approximately 10-15 %. Rig ht-sided consolidation and hilar prominence with pleural effusion stable. Left basilar subsegmental i nfiltrate stable. Underlying interstitial lung disease suspected. Cardiac device noted. IMPRESSION: 1. interval improvement of the right apical pneumothorax now measuring 10-15%. 2. Underlying COPD and chronic interstitial lung disease or venous congestion is stable
--- NOTE | 2019-05-02 07:53 | P.PN ---
Subjective Progress Note Date: 05/02/19 Principal diagnosis: Right lung nodule. This is a very pleasant 69-year-old gentleman who follows with Dr. Vanessa as his primary care physician. 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 He had been seen and evaluated by Dr. Soliman after being found to have a right lung pulmonary nodule. He performed a PET scan which did show significant hypermetabolic uptake without metastasis and subsequently referred to Dr. Brock. He was admitted here today and had undergone a right thoracoscopy, robotic-assisted thoracoscopic right upper lobectomy and mediastinal lymph node dissection with fiberoptic bronchoscopy. Primary tumor positive for squamous cell carcinoma. He is seen in consultation in the intensive care unit. He is awake and alert in no acute distress. His pain is well controlled at this point. He has a right-sided chest tube in place is positive for a leak and currently to low continuous suction. He denies any worsening shortness of breath. He has a loose nonproductive cough. No chills or night sweats. Continue and O2 saturation in the 90s on 6 L/m per nasal cannula. White count 10.2. Hemoglobin 13.0. Creatinine 0.79. He's been initiated on DuoNeb inhalations, cefazolin, subcutaneous heparin. He has an IV of D5.45 at 40 ML's per hour. The patient is seen today 05/02/2019 in follow-up in the intensive care unit. Postoperative day #2. He is currently maintaining good O2 saturations in the 90s on 2 L/m per nasal cannula. He is pulling approximately 1000 ML's on the incentive spirometer. Chest x-ray shows continued right apical pneumothorax with some improvement. Chest tube remains in place. He did have issues with atrial fibrillation and is currently on amiodarone at 0.5 mg/m. D5.45 at 40 ML's per hour. White count 5.0. Hemoglobin 8.9. Creatinine 0.95. Objective - Vital Signs Vital signs: Vital Signs Temp 98.5 F 05/02/19 04:00 Pulse 82 05/02/19 07:28 Resp 19 05/02/19 07:00 BP 105/62 05/02/19 03:00 Pulse Ox 95 05/02/19 07:15 Intake & Output 05/01/19 05/02/19 05/02/19 18:59 06:59 18:59 Intake Total 440 855 40 Output Total 1235 1475 80 Balance -795 -620 -40 Weight 68.4 kg Intake: IV 440 480 40 Dextrose 5%-0.45% NaCl 1, 440 480 40 000 ml @ 40 mls/hr IV . Q24H [facility] Rx#:[id number] Intake, IV Titration 255 0 Amount Amiodarone 300 mg In 250 Dextrose 5% in Water 250 ml @ 0.5 MG/MIN 25 mls/hr IV .Q10H [facility] Rx#: [id number] Dextrose/Water 1 250ml. 5 0 bag @ 3 MCG/KG/MIN 3.7 mls/hr IV .Q24H [facility] with DOPamine DRIP 800 mg Rx#: [id number] Oral 120 Output: Chest Tube Drainage 330 210 Chest Tube Right 330 210 Urine 905 1265 80 Other: Voiding Method Indwelling Catheter Indwelling Catheter ABP, PAP, CO, CI - Last Documented Arterial Blood Pressure 138/66 - Exam GENERAL EXAM: Frail, cachectic 69-year-old gentleman. Alert, fairly comfortable in no apparent distress. On 2 L nasal cannula HEAD: Normocephalic. EYES: Normal reaction of pupils, equal size. NOSE: Clear with pink turbinates. THROAT: No erythema or exudates. NECK: No masses, no JVD. CHEST: No chest wall deformity. Right-sided chest tube in place. Positive air leak. To low continuous suction. LUNGS: Equal air entry with bilateral scattered rhonchi more so on the right. CVS: S1 and S2 normal with no audible murmur, regular rhythm. ABDOMEN: No hepatosplenomegaly, normal bowel sounds, no guarding or rigidity. SPINE: No scoliosis or deformity SKIN: No rashes CENTRAL NERVOUS SYSTEM: No focal deficits, tone is normal in all 4 extremities. EXTREMITIES: There is no peripheral edema. No clubbing, no cyanosis. Peripheral pulses are intact. - Labs CBC & Chem 7: 05/02/19 05:20 05/02/19 05:20 Labs: Abnormal Lab Results - Last 24 Hours (Table) 05/02/19 05/02/19 Range/Units 05:20 05:20 RBC 3.02 L (4.30-5.90) m/uL Hgb 8.9 L (13.0-17.5) gm/dL Hct 27.5 L (39.0-53.0) % Plt Count 106 L (150-450) k/uL Lymphocytes # 0.7 L (1.0-4.8) k/uL Chloride 108 H (98-107) mmol/L Glucose 115 H (74-99) mg/dL Calcium 8.0 L (8.4-10.2) mg/dL Assessment and Plan Assessment: Impression: #1 Right lung nodule with hypermetabolic uptake in the PET scan. Status post right thoracoscopy, robotic-assisted thorascopic right upper lobectomy with mediastinal lymph node dissection, fiberoptic bronchoscopy. Suspect squamous cell carcinoma. Postoperative day #2. #2 Acute hypoxic respiratory failure as an expected outcome of surgery. Apical pneumothorax present. Chest tube in place. Currently on 2 L/m per nasal cannula. #3 Chronic and ongoing tobacco dependence of 40 years. #4 Chronic obstructive pulmonary disease #5 Hypertension. #6 Six sinus syndrome status post pacemaker implantation. #7 Anxiety/depression. #8 Hyperlipidemia. Plan: The patient was seen and evaluated by Dr. Oliveira. Chest x-ray and labs reviewed. Right apical pneumothorax remains. Chest tube remains in place. We'll continue with bronchodilators. Continues to work well with the incentive spirometer and encouraged cough and deep breathing exercises. On amiodarone drip for atrial fibrillation. Heparin for DVT prophylaxis. Increase his activity as tolerated. We will continue to follow and make further recommendations based on his clinical status. I, the cosigning physician, performed a history & physical examination of the patient. Lungs sounds bilateral scattered rhonchi right greater than left. Maintaining good O2 saturations in the 90s on 2 L/m per nasal cannula. I discussed the assessment and plan of care with my nurse practitioner, Krysta Lopez. I attest to the above consultation as dictated by her.
[2019-05-02] MEDS: HEPARIN SODIUM,PORCINE 5,000 UNIT/ML 1 ML VIAL SQ SCH (08:35)
[2019-05-02] MEDS: METOPROLOL TARTRATE 50 MG TAB PO SCH ×2 (08:36→21:04)
[2019-05-02] MEDS ORDERED: ASPIRIN 325 MG TAB PO SCH (09:00)
--- NOTE | 2019-05-02 09:16 | P.PN ---
Subjective Progress Note Date: 05/02/19 Principal diagnosis: Squamous cell carcinoma right upper lobe, history of hypertension, hyperlipidemia, bipolar disorder, history of sick sinus syndrome status post permanent pacemaker implantation in May 2011, coronary artery disease status post circumflex flex coronary artery stenting in 2017, anxiety, depression, chronic obstructive pulmonary disease, gastroesophageal reflux disease and tobacco dependence with a 40 pack year smoking history. POD #2 right thoracoscopic, robotic assisted thorascopic right upper lobectomy with mediastinal lymph node dissection, fiberoptic bronchoscopy. Postoperative acute blood loss anemia, an expected outcome. Postoperative paroxysmal atrial fibrillation and on expected outcome. The patient is currently laying in bed in the intensive care unit. He is in no acute distress. He denies any complaints of pain or shortness of breath at this time. The patient went into atrial fibrillation with RVR yesterday and was started on an amiodarone drip per protocol. Currently the patient is in a normal sinus rhythm with intermittent episodes of narrow complex tachycardia. His dopamine drip has been on hold since yesterday afternoon and he has had no further episodes of hypotension. Oxygen saturations are 97% on 2 L nasal can nula. Achieving 1000 mL on his incentive spirometry with encouragement. Right pleural chest tubes remain in place to low continuous wall suction at -20 cm H2O, draining thin serosanguineous drainage. Air leak is present. He remains afebrile. He is awake, alert and oriented 3. Chest x-ray completed this morning and is showing a tiny right apical pneumothorax. Objective - Vital Signs Vital signs: Vital Signs Temp 98.5 F 05/02/19 04:00 Pulse 82 05/02/19 07:28 Resp 19 05/02/19 07:00 BP 105/62 05/02/19 03:00 Pulse Ox 95 05/02/19 07:15 Intake & Output 05/01/19 05/02/19 05/02/19 18:59 06:59 18:59 Intake Total 440 855 40 Output Total 1235 1475 80 Balance -795 -620 -40 Weight 68.4 kg Intake: IV 440 480 40 Dextrose 5%-0.45% NaCl 1, 440 480 40 000 ml @ 40 mls/hr IV . Q24H [facility] Rx#:[id number] Intake, IV Titration 255 0 Amount Amiodarone 300 mg In 250 Dextrose 5% in Water 250 ml @ 0.5 MG/MIN 25 mls/hr IV .Q10H [facility] Rx#: [id number] Dextrose/Water 1 250ml. 5 0 bag @ 3 MCG/KG/MIN 3.7 mls/hr IV .Q24H [facility] with DOPamine DRIP 800 mg Rx#: [id number] Oral 120 Output: Chest Tube Drainage 330 210 Chest Tube Right 330 210 Urine 905 1265 80 Other: Voiding Method Indwelling Catheter Indwelling Catheter ABP, PAP, CO, CI - Last Documented Arterial Blood Pressure 138/66 - Constitutional General appearance: Present: average body habitus, cooperative, no acute distress - Respiratory Details: Lung sounds with few scattered rhonchi throughout, right greater than left. D iminished to his right lower lobe. Respirations are symmetrical and nonlabored. Oxygen saturation are 97% on 2 L nasal cannula. Achieving 1000 mL on his incentive spirometry. Right pleural chest tube in place to low continuous wall suction -20 cm H2O and is draining thin serosanguineous drainage. Air leak is present. 670 mL output in the last 24 hours, 210 mL output in the last 8 hours. - Cardiovascular Details: Regular rhythm and rate. S1 and S2 present, negative for S3, gallop or murmur. Bedside telemetry showing normal sinus rhythm with occasional paced beats and intermittent episodes of narrow complex tachycardia heart rate currently 73. Knee-high ABNER hose and sequential compression devices in place to his bilateral lower extremities. No edema present. - Gastrointestinal Gastrointestinal Comment(s): Abdomen soft, nontender and nondistended. Hypoactive bowel sounds present all 4 abdominal quadrants. No guarding or rigidity. No organomegaly appreciated. Tolerating oral intake. - Genitourinary Genitourinary Comment(s): [place] catheter for accurate I&O. Draining clear yellow urine. 515 mL output in the last 8 hours. - Integumentary Integumentary Comment(s): Skin is warm and dry. No clubbing or cyanosis present. Right chest thoracoscopy incision sites clean, dry and approximated. No drainage or redness is present. Right pleural chest tube site dressing clean, dry and intact. - Neurologic Neurologic Comment(s): No focal deficits. Neurologic: Present: CNII-XII intact - Musculoskeletal Musculoskeletal Comment(s): Right hand weakness and contracture from a previous injury Musculoskeletal: Present: gait normal, generalized weakness, strength equal bilaterally - Psychiatric Psychiatric: Present: A&O x's 3, appropriate affect, intact judgment & insight - Allied health notes Allied health notes reviewed: nursing - Labs CBC & Chem 7: 05/02/19 05:20 05/02/19 05:20 Labs: Abnormal Lab Results - Last 24 Hours (Table) 05/02/19 05/02/19 Range/Units 05:20 05:20 RBC 3.02 L (4.30-5.90) m/uL Hgb 8.9 L (13.0-17.5) gm/dL Hct 27.5 L (39.0-53.0) % Plt Count 106 L (150-450) k/uL Lymphocytes # 0.7 L (1.0-4.8) k/uL Chloride 108 H (98-107) mmol/L Glucose 115 H (74-99) mg/dL Calcium 8.0 L (8.4-10.2) mg/dL - Imaging and Cardiology Chest x-ray: report reviewed, image reviewed Assessment and Plan Assessment: 1. Squamous cell carcinoma right upper lobe, status post right upper lobectomy 2. Hypertension 3. Hyperlipidemia 4. Bipolar disorder 5. History of sick sinus syndrome status post permanent pacemaker implantation May 2011 6. Coronary artery disease status post circumflex coronary artery stenting in 2017 7. Anxiety 8. History of depression 9. Chronic proximal pulmonary disease 10. Gastroesophageal reflux disease 11. Chronic tobacco dependence, [id number] smoking history 12. Postoperative acute blood loss anemia, an expected outcome 13. Postoperative paroxysmal atrial fibrillation and an expected outcome Plan: 1. Continue right pleural chest tube to continuous wall suction -20 cm H2O. 2. Encourage use of incentive spirometry every hour while awake. 3. Wean oxygen as tolerated. 4. Bronchodilator management per pulmonary medicine. 5. Increase activity as tolerated, out of bed for all meals. Physical and occupational therapy following. 6. Pain control per current when necessary orders. 7. Pathology results pending. 8. Encourage smoking cessation. Discussed with the patient importance of smoking cessation. 9. Amiodarone drip has been discontinued by cardiology and he has been started on amiodarone 400 mg by mouth twice a day for atrial fibrillation prophylaxis. 10. GI and DVT prophylaxis. 11. We will start anticoagulation once the chest tube has been removed. 12. Increase aspirin to 325 mg by mouth daily. 13. More recommendations to follow based on patient's clinical course. Time with Patient: Greater than 30
[2019-05-02] MEDS ORDERED: AMIODARONE 200 MG TAB PO ONE (11:15)
[2019-05-02] MEDS: ATORVASTATIN 40 MG TAB PO SCH (21:04)
[2019-05-02] MEDS: DONEPEZIL 5 MG TAB PO SCH (21:04)
[2019-05-02] MEDS: DULoxetine HCL 60 MG CAPSULE.DR PO SCH (21:04)
[2019-05-02] MEDS: AMIODARONE 200 MG TAB PO SCH (21:04)
[2019-05-02] MEDS: PREGABALIN 75 MG CAP PO SCH (21:04)
[2019-05-02] MEDS: ARIPiprazole 15 MG TAB PO SCH (21:04)
[2019-05-02] MEDS: APIXABAN 5 MG TAB PO SCH (21:05)
[2019-05-03 04:44] LABS: Basophils % (A) 0 %; Eosinophils # (A) 0.2 k/uL (0-0.7); Eosinophils % (A) 4 %; HCT 29.9 % (39.0-53.0); HGB 9.7 gm/dL (13.0-17.5); Lymphocytes # (A) 0.8 k/uL (1.0-4.8); Lymphocytes % (A) 17 %; MCHC 32.4 g/dL (31.0-37.0); MCV 92.5 fL (80.0-100.0); Mean Platelet Volume 8.1; Monocytes # (A) 0.2 k/uL (0-1.0); Monocytes % (A) 5 %; Neutrophils # (A) 3.5 k/uL (1.3-7.7); Neutrophils % (A) 73 %; Platelet Count 121 k/uL (150-450); RBC 3.23 m/uL (4.30-5.90); RDW 14.2 % (11.5-15.5); WBC 4.7 k/uL (3.8-10.6)
[2019-05-03 04:50] LABS: Calcium 8.2 mg/dL (8.4-10.2); Potassium 4.4 mmol/L (3.5-5.1)
[2019-05-03] MEDS: KETOROLAC 30 MG/ML 1 ML VIAL IVP SCH ×4 (06:24→23:51)
[2019-05-03] MEDS: PANTOPRAZOLE 40 MG TABLET PO SCH (06:24)
[2019-05-03] MEDS: IPRATROPIUM-ALBUTEROL 3 ML NEB IH SCH ×4 (07:21→19:48)
[2019-05-03] MEDS: SYMBICORT 160-4.5 MCG INHALER INHALATION SCH ×2 (07:21→19:48)
--- NOTE | 2019-05-03 07:47 | XR ---
EXAMINATION TYPE: XR chest 1V DATE OF EXAM: 05/03/2019 COMPARISON: 05/02/2019 INDICATION: Right lobectomy TECHNIQUE: Single frontal view of the chest is obtained. FINDINGS: The heart size is normal. The pulmonary vasculature is normal. Fullness of the right hilar region is stable. There is diffuse increased lung markings to the right p eripheral and lower lung field. A small right pleural fluid collection is likely present. Chest tube is present on the right with the tip directed towards the right apex. There is a right api carlos pneumothorax post lobectomy which is essentially stable from comparison. IMPRESSION: 1. Residual pneumothorax right apex post lobectomy. 2. Infiltrate and small right pleural effusion, stable
--- NOTE | 2019-05-03 07:56 | P.PN ---
Subjective Progress Note Date: 05/03/19 Principal diagnosis: Paroxysmal atrial fibrillation This is a pleasant 69-year-old gentleman who does follow with a community chest officer out of the town with a past medical history significant for permanent pacemaker implantation related to sick sinus syndrome, hypertension, dyslipidemia, bipolar disorder, and significant history of smoking, was admitted to the intensive care unit after he underwent yesterday a right thoracoscopy with robotic-assisted right upper lobe lobectomy and mediastinal lymph node dissection. Recently the patient was seen by his primary making department preparer Dr. Soliman who diagnosed the patient with right upper long pulmonary nodule. A PET scan was performed and showed significant hypermetabolic uptake. Because of that the patient was referred to undergo the above procedure. Postprocedure, the patient was hypotensive requiring a small dose of dopamine. Initially the dose of dopamine was weaned off completely but the patient started being hypotensive and then he was placed on dopamine again also for low urine output. Subsequently the patient went into atrial fibrillation. The dopamine was stopped and the patient after that converted to normal sinus mechanism. Since then he has been in and out atrial fibrillation. The blood pressure has been marginally low. Currently he is in normal sinus mechanism but throwing intermittent episodes of narrow complex tachycardia. The patient himself somewhat is a poor historian but he denies any symptoms of chest pain or chest discomfort, difficulty breathing at this point, heart racing or fluttering, dizziness or lightheadedness, or fever or chills. The cardiothoracic surgical team started the patient on amiodarone with bolus and drip at this point. He is on anticoagulation with heparin subcu only. The patient does have history of coronary artery disease and he underwent stenting for myocardial infarction about a year ago. No history of atrial fibrillation in the past. On follow-up with the patient today, 05/03/2019, clinically he is doing better. He has been maintaining normal sinus mechanism. Currently she is on amiodarone as well as metoprolol. He was started on oral anticoagulation with Eliquis yesterday. The chest decubitus told they are but the plan is to take the chest tube in the next 24 hours. Objective - Vital Signs Vital signs: Vital Signs Temp 97.9 F 05/03/19 04:00 Pulse 74 05/03/19 07:38 Resp 15 05/03/19 07:00 BP 125/84 05/03/19 07:00 Pulse Ox 96 05/03/19 07:21 Intake & Output 05/02/19 05/03/19 05/03/19 18:59 06:59 18:59 Intake Total 1400 200 Output Total 855 810 0 Balance 545 -610 0 Weight 64.8 kg Intake: IV 160 Dextrose 5%-0.45% NaCl 1, 160 000 ml @ 40 mls/hr IV . Q24H [facility] Rx#:[id number] Intake, IV Titration 0 Amount Dextrose/Water 1 250ml. 0 bag @ 3 MCG/KG/MIN 3.7 mls/hr IV .Q24H [facility] with DOPamine DRIP 800 mg Rx#: [id number] Oral 1240 200 Output: Chest Tube Drainage 180 160 Chest Tube Right 180 160 Urine 675 650 0 Other: Voiding Method Toilet Toilet Urinal Urinal # Voids 0 0 ABP, PAP, CO, CI - Last Documented Arterial Blood Pressure 113/55 - Constitutional General appearance: Present: no acute distress - Respiratory Respiratory: bilateral: diminished - Cardiovascular Rhythm: regular Heart sounds: normal: S1, S2 - Labs CBC & Chem 7: 05/03/19 04:02 05/03/19 04:02 Labs: Abnormal Lab Results - Last 24 Hours (Table) 05/03/19 05/03/19 Range/Units 04:02 04:02 RBC 3.23 L (4.30-5.90) m/uL Hgb 9.7 L (13.0-17.5) gm/dL Hct 29.9 L (39.0-53.0) % Plt Count 121 L (150-450) k/uL Lymphocytes # 0.8 L (1.0-4.8) k/uL Calcium 8.2 L (8.4-10.2) mg/dL Assessment and Plan Assessment: Assessment #1 status post right robotic-assisted thoracoscopic right upper lobectomy. #2 paroxysmal atrial fibrillation. #3 hypertension which has resolved #4 coronary artery disease and prior coronary revascularization #5 sick sinus syndrome and status post permanent pacemaker #6 multiple comorbid conditions Plan #1 continue the current medical regimen including amiodarone and metoprolol #2 continue oral anticoagulation #3 the echo was reviewed and showed normal LV function Thank you for allowing us participate in his care and we will continue following up with the patient
[2019-05-03] MEDS: APIXABAN 5 MG TAB PO SCH ×2 (08:03→20:31)
[2019-05-03] MEDS: AMIODARONE 200 MG TAB PO SCH ×2 (08:03→20:31)
[2019-05-03] MEDS: METOPROLOL TARTRATE 50 MG TAB PO SCH ×2 (08:03→20:31)
--- NOTE | 2019-05-03 08:27 | PN ---
PROGRESS NOTE DATE OF SERVICE: May 03, 2019 This is a 69-year-old male, status post right upper lobe lobectomy for a right upper lobe nodule. He had a hypermetabolic PET scan. The patient is status post robotically assisted right upper lobectomy with mediastinal lymph node dissection. Anyway, apparently they must a frozen section at the time as Dr. Brock mentions that the patient has suspected squamous cell carcinoma. He is postop day #3. Yesterday, he was in atrial fibrillation. He is currently in sinus rhythm. He is doing well. He is on O2 at 3 L. Not getting any IV fluids. The patient does have a history of COPD, hypertension, sick sinus syndrome, status post pacemaker insertion, anxiety and depression and hyperlipidemia. He has been smoking for more than 40 years. Currently, as I mentioned, he is doing well. Resting comfortably. Feeling much better. Unfortunately, the patient has significant leak from his right-sided chest tube. PHYSICAL EXAMINATION: VITAL SIGNS: Current vital signs are reviewed. Temperature is 97.9. Heart rate 63, respiratory rate 18, blood pressure 128/85 mean 99, 2 L saturation 98%. Appears in no acute distress. HEENT examination is unremarkable. Mucous membranes are moist. No oral lesions. NECK: Supple. Full range of motion. No adenopathy, thyromegaly or neck vein distention. CARDIOVASCULAR: Examination reveals regular rhythm and rate. Heart rate 83. S1, S2 normal. No murmur. LUNGS: Diminished breath sounds throughout. A few scattered wheezes. No rhonchi. No crackles. ABDOMEN: Soft. Bowel sounds are heard. EXTREMITIES are intact. No cyanosis, clubbing, or edema. SKIN: Without rash. NEUROLOGIC examination is brief but nonfocal. The right-sided pleural chest tube has a significant air leak. LABS: Reviewed. White count 4.7, hemoglobin 9.7, hematocrit 29.9, platelet count 121,000. Sodium, potassium, chloride and CO2 all normal. Anion gap is 6 BUN and creatinine were 16 and 1.07. Microbiology is negative. Chest x-ray shows a well-positioned chest tube. There may be an apical pneumothorax on the right side. There is loss of lung volume on the right side. There is a small right-sided pleural effusion. Medications are reviewed. I did add Symbicort to his regimen. ASSESSMENT: 1. Postoperative day #3, status post robotically assisted right upper lobectomy with mediastinal lymph node dissection and fiberoptic bronchoscopy, for suspected squamous cell carcinoma. Final pathology pending. 2. Hypermetabolic nodule/mass, right upper lobe. 3. Hypoxemic respiratory failure, resolved. 4. Right apical pneumothorax. 5. Significant air leak from right chest tube. 6. Chronic and ongoing tobacco dependence for more than 40 years. 7. Chronic obstructive pulmonary disease. 8. Benign essential hypertension. 9. Sick sinus syndrome, status post pacemaker implantation. 10.Anxiety/depression. 11.Hyperlipidemia. PLAN: Today I added Symbicort to his regimen. 160/4.5, 2 puffs twice a day. The patient will continue here in the ICU. Has significant air leak. No additional recommendations are made. Prognosis is guarded. He is encouraged to deep breathe, cough and clear secretions as well as using incentive spirometer q.1 hour. No additional recommendations are made. MMODL / IJN: [id number] /
--- NOTE | 2019-05-03 08:53 | P.PN ---
Subjective Progress Note Date: 05/03/19 Principal diagnosis: Squamous cell carcinoma right upper lobe, history of hypertension, hyperlipidemia, bipolar disorder, history of sick sinus syndrome status post permanent pacemaker implantation in May 2011, coronary artery disease status post circumflex flex coronary artery stenting in 2017, anxiety, depression, chronic obstructive pulmonary disease, gastroesophageal reflux disease and tobacco dependence with a 40 pack year smoking history. POD #3 right thoracoscopic, robotic assisted thorascopic right upper lobectomy with mediastinal lymph node dissection, fiberoptic bronchoscopy. Postoperative acute blood loss anemia, an expected outcome. Postoperative paroxysmal atrial fibrillation and on expected outcome. The patient is currently sitting up to the bedside chair in the intensive care unit. He is in no acute distress. He denies any complaints of pain or shortness of breath at this time. The patient has had no further episodes of atrial fibrillation and his bedside monitor is currently showing normal sinus rhythm heart rate 66. Oxygen saturations are 93% on room air. Achieving 1000 mL on his incentive spirometry with encouragement. Right pleural chest tubes remain in place to low continuous wall suction at -20 cm H2O, draining thin serosanguineous drainage. Air leak is present. 100 mL output in the last 8 hours and 380 mL output in the last 24 hours from his right pleural chest tube. He remains afebrile. He is awake, alert and oriented 3. Chest x-ray completed this morning and is showing a small right apical pneumothorax. Due to the patient's paroxysmal atrial fibrillation he was started on Eliquis 5 mg by mouth twice a day yesterday. Objective - Vital Signs Vital signs: Vital Signs Temp 97.9 F 05/03/19 08:00 Pulse 67 05/03/19 08:00 Resp 20 05/03/19 08:00 BP 142/84 05/03/19 08:00 Pulse Ox 93 L 05/03/19 08:00 Intake & Output 05/02/19 05/03/19 05/03/19 18:59 06:59 18:59 Intake Total 1400 200 240 Output Total 855 810 0 Balance 545 -610 240 Weight 64.8 kg Intake: IV 160 Dextrose 5%-0.45% NaCl 1, 160 000 ml @ 40 mls/hr IV . Q24H [facility] Rx#:[id number] Intake, IV Titration 0 Amount Dextrose/Water 1 250ml. 0 bag @ 3 MCG/KG/MIN 3.7 mls/hr IV .Q24H [facility] with DOPamine DRIP 800 mg Rx#: [id number] Oral 1240 200 240 Output: Chest Tube Drainage 180 160 Chest Tube Right 180 160 Urine 675 650 0 Other: Voiding Method Toilet Toilet Toilet Urinal Urinal Urinal # Voids 0 0 1 # Bowel Movements 1 ABP, PAP, CO, CI - Last Documented Arterial Blood Pressure 113/55 - Constitutional General appearance: Present: average body habitus, cooperative, no acute distress - Respiratory Details: Lung sounds essentially clear to his bilateral upper lobes with few scattered rhonchi, diminished to his right lower lobe. Respirations are symmetrical and nonlabored. Oxygen saturation is 93% on room air. Achieving 1000 mL on his incentive spirometry. Right pleural chest tube remains in place to low continuous wall suction at -20 cm H2O and is draining thin serosanguineous drainage. Intermittent air leak is present. - Cardiovascular Details: Regular rhythm and rate. S1 and S2 present, negative for S3, gallop or murmur. Bedside telemetry showing normal sinus rhythm heart rate 66. No edema present. Knee-high ABNER hose and sequential compression devices in place to his bilateral lower extremities. - Gastrointestinal Gastrointestinal Comment(s): Abdomen is soft, nontender and nondistended. Active bowel sounds to all 4 abdominal quadrants. Passing flatus. No guarding or rigidity. Tolerating oral intake. - Genitourinary Genitourinary Comment(s): Voiding clear yellow urine. 650 mL output in the last 8 hours. - Integumentary Integumentary Comment(s): Skin is warm and dry. No clubbing or cyanosis is present. Right chest thoracoscopic incisions clean, dry and approximated. No drainage or redness is present. Right pleural chest tube insertion site dressing is clean, dry and in place. - Neurologic Neurologic Comment(s): No focal deficits. Neurologic: Present: CNII-XII intact - Musculoskeletal Musculoskeletal Comment(s): Right hand weakness and contractures chronic from a previous injury. Musculoskeletal: Present: gait normal, generalized weakness, strength equal bilaterally - Psychiatric Psychiatric: Present: A&O x's 3, appropriate affect, intact judgment & insight - Allied health notes Allied health notes reviewed: nursing - Labs CBC & Chem 7: 05/03/19 04:02 05/03/19 04:02 Labs: Abnormal Lab Results - Last 24 Hours (Table) 05/03/19 05/03/19 Range/Units 04:02 04:02 RBC 3.23 L (4.30-5.90) m/uL Hgb 9.7 L (13.0-17.5) gm/dL Hct 29.9 L (39.0-53.0) % Plt Count 121 L (150-450) k/uL Lymphocytes # 0.8 L (1.0-4.8) k/uL Calcium 8.2 L (8.4-10.2) mg/dL - Imaging and Cardiology Chest x-ray: report reviewed, image reviewed Assessment and Plan Assessment: 1. Squamous cell carcinoma right upper lobe, status post right upper lobectomy 2. Hypertension 3. Hyperlipidemia 4. Bipolar disorder 5. History of sick sinus syndrome status post permanent pacemaker implantation May 2011 6. Coronary artery disease status post circumflex coronary artery stenting in 2016 7. Anxiety 8. History of depression 9. Chronic proximal pulmonary disease 10. Gastroesophageal reflux disease 11. Chronic tobacco dependence, [id number] smoking history 12. Postoperative acute blood loss anemia, an expected outcome 13. Postoperative paroxysmal atrial fibrillation and an expected outcome Plan: 1. Continue right pleural chest tube to continuous wall suction -20 cm H2O. Remove chest tube from wall suction in the a.m. at 5:30. Obtain a chest x-ray in hour after suction has been removed from the chest tube. 2. Encourage use of incentive spirometry every hour while awake. 3. GI and DVT prophylaxis. 4. Bronchodilator management per pulmonary medicine. 5. Increase activity as tolerated, out of bed for all meals. Physical and occupational therapy following. 6. Pain control per current when necessary orders. 7. Pathology results pending. 8. Encourage smoking cessation. Discussed with the patient importance of smoking cessation. 9. Continue amiodarone 400 mg by mouth twice a day for atrial fibrillation prophylaxis. 10. Continue Eliquis 5 mg by mouth twice a day for anticoagulation due to his paroxysmal atrial fibrillation. 11. Discharge planning is in place, the patient may benefit from rehab placement prior to being discharged home. 12. More recommendations to follow based on patient's clinical course. Time with Patient: Greater than 30
[2019-05-03] MEDS: ATORVASTATIN 40 MG TAB PO SCH (20:31)
[2019-05-03] MEDS: DULoxetine HCL 60 MG CAPSULE.DR PO SCH (20:32)
[2019-05-03] MEDS: DONEPEZIL 5 MG TAB PO SCH (21:09)
[2019-05-03] MEDS: PREGABALIN 75 MG CAP PO SCH (21:09)
[2019-05-03] MEDS: ARIPiprazole 15 MG TAB PO SCH (21:09)
[2019-05-04] MEDS: ACETAMINOPHEN TAB 500 MG TAB PO PRN ×2 (03:50→20:26)
[2019-05-04 05:02] LABS: Calcium 8.4 mg/dL (8.4-10.2); Potassium 4.1 mmol/L (3.5-5.1)
[2019-05-04 05:06] LABS: Basophils % (A) 0 %; Eosinophils # (A) 0.2 k/uL (0-0.7); Eosinophils % (A) 4 %; HCT 30.2 % (39.0-53.0); HGB 9.6 gm/dL (13.0-17.5); Lymphocytes # (A) 0.8 k/uL (1.0-4.8); Lymphocytes % (A) 17 %; MCH 29.6 pg (25.0-35.0); MCHC 31.9 g/dL (31.0-37.0); MCV 92.8 fL (80.0-100.0); Monocytes # (A) 0.4 k/uL (0-1.0); Monocytes % (A) 7 %; Neutrophils # (A) 3.5 k/uL (1.3-7.7); Neutrophils % (A) 70 %; Platelet Count 174 k/uL (150-450); RBC 3.25 m/uL (4.30-5.90); RDW 14.2 % (11.5-15.5)
[2019-05-04] MEDS: KETOROLAC 30 MG/ML 1 ML VIAL IVP SCH ×2 (06:04→12:26)
[2019-05-04] MEDS: PANTOPRAZOLE 40 MG TABLET PO SCH (06:04)
--- NOTE | 2019-05-04 07:04 | XR ---
EXAMINATION TYPE: XR chest 1V DATE OF EXAM: 05/04/2019 HISTORY: Right-sided lobectomy follow-up COMPARISON: May 03, 2019 TECHNIQUE: Single view of the chest is submitted. FINDINGS: Right apical chest tube is noted to be in place. There is enlarging right-sided pneumothorax identifi ed with apical pleural distance of 8.3 cm versus 3.1 cm previously. Persistent patchy density right lower lobe. Mild stable fibrotic change left lung base. The heart is stable. Dual-lead pacer is in place. Hilar and mediastinal structures are within normal limits. Degenerative changes are seen of the dorsal spine. IMPRESSION: 1. There is enlarging right-sided pneumothorax identified with apical pleural distance of 8.3 cm pa raul 3.1 cm previously. Persistent right lower lobe patchy density.
--- NOTE | 2019-05-04 07:11 | P.PN ---
Subjective Progress Note Date: 05/04/19 Principal diagnosis: Paroxysmal atrial fibrillation This is a pleasant 69-year-old gentleman who does follow with a family helper out of the town with a past medical history significant for permanent pacemaker implantation related to sick sinus syndrome, hypertension, dyslipidemia, bipolar disorder, and significant history of smoking, was admitted to the intensive care unit after he underwent yesterday a right thoracoscopy with robotic-assisted right upper lobe lobectomy and mediastinal lymph node dissection. Recently the patient was seen by his primary amortization clerk Dr. Soliman who diagnosed the patient with right upper long pulmonary nodule. A PET scan was performed and showed significant hypermetabolic uptake. Because of that the patient was referred to undergo the above procedure. Postprocedure, the patient was hypotensive requiring a small dose of dopamine. Subsequently the patient went into atrial fibrillation. The dopamine was stopped and the patient after that converted to normal sinus mechanism. Since then he has been in and out atrial fibrillation. The patient does have history of coronary artery disease and he underwent stenting for myocardial infarction about a year ago. No history of atrial fibrillation in the past. He underwent an echocardiogram which revealed normal LV function with mild valvular abnormalities. On follow-up with the patient today, 05/04/2019, the patient is doing good clinically. Hemodynamically he is stable and he has been maintaining normal sinus mechanism. He is on amiodarone by mouth. Anticoagulation was initiated as well with Eliquis. History have the chest tube and and he underwent a chest x-ray today. The chest tube might be able to be taken out later on today. Objective - Vital Signs Vital signs: Vital Signs Temp 98.0 F 05/04/19 04:00 Pulse 67 05/04/19 07:00 Resp 20 05/04/19 07:00 BP 133/80 05/04/19 07:00 Pulse Ox 93 L 05/04/19 07:00 Intake & Output 05/03/19 05/04/19 05/04/19 18:59 06:59 18:59 Intake Total 480 480 Output Total 140 665 0 Balance 340 -185 0 Intake: Oral 480 480 Output: Chest Tube Drainage 140 125 Chest Tube Right 140 125 Urine 0 540 0 Other: Voiding Method Toilet Toilet Urinal Urinal # Voids 0 0 0 # Bowel Movements 2 ABP, PAP, CO, CI - Last Documented Arterial Blood Pressure 113/55 - Constitutional General appearance: Present: no acute distress - Respiratory Respiratory: bilateral: diminished - Cardiovascular Rhythm: regular Heart sounds: normal: S1, S2 - Labs CBC & Chem 7: 05/04/19 04:02 05/04/19 04:02 Labs: Abnormal Lab Results - Last 24 Hours (Table) 05/04/19 Range/Units 04:02 RBC 3.25 L (4.30-5.90) m/uL Hgb 9.6 L (13.0-17.5) gm/dL Hct 30.2 L (39.0-53.0) % Lymphocytes # 0.8 L (1.0-4.8) k/uL Assessment and Plan Assessment: Assessment #1 status post right robotic-assisted thoracoscopic right upper lobectomy. #2 paroxysmal atrial fibrillation. #3 hypertension which has resolved #4 coronary artery disease and prior coronary revascularization #5 sick sinus syndrome and status post permanent pacemaker #6 multiple comorbid conditions Plan #1 continue the current medical regimen including amiodarone and metoprolol #2 continue oral anticoagulation with Eliquis. #3 the echo was reviewed and showed normal LV function #4 the patient might be transferred out of the ICU Thank you for allowing us participate in his care and we will continue following up with the patient
[2019-05-04] MEDS: SYMBICORT 160-4.5 MCG INHALER INHALATION SCH ×2 (07:39→19:24)
[2019-05-04] MEDS: IPRATROPIUM-ALBUTEROL 3 ML NEB IH SCH ×4 (07:39→19:24)
[2019-05-04] MEDS: METOPROLOL TARTRATE 50 MG TAB PO SCH ×2 (08:10→23:26)
[2019-05-04] MEDS: AMIODARONE 200 MG TAB PO SCH ×2 (08:10→20:21)
[2019-05-04] MEDS: APIXABAN 5 MG TAB PO SCH ×2 (08:10→20:21)
--- NOTE | 2019-05-04 09:57 | P.PN ---
Subjective Progress Note Date: 05/04/19 Principal diagnosis: Squamous cell carcinoma right upper lobe, history of hypertension, hyperlipidemia, bipolar disorder, history of sick sinus syndrome status post permanent pacemaker implantation in May 2011, coronary artery disease status post circumflex flex coronary artery stenting in 2017, anxiety, depression, chronic obstructive pulmonary disease, gastroesophageal reflux disease and tobacco dependence with a 40 pack year smoking history. POD #4 right thoracoscopic, robotic assisted thorascopic right upper lobectomy with mediastinal lymph node dissection, fiberoptic bronchoscopy. Postoperative acute blood loss anemia, an expected outcome. Postoperative paroxysmal atrial fibrillation and on expected outcome. The patient is currently sitting up to the bedside chair in the intensive care unit. He is in no acute distress. He denies any complaints of pain or shortness of breath at this time. The patient's chest x-ray this morning is showing an enlarging right-sided pneumothorax. The chest tube was taken off suction at 5:30 AM this morning and after reviewing the chest x-ray was placed back to low continuous wall suction -20 cm H2O. His chest tube does have a intermittent air leak present on low continuous wall suction. No further episodes of atrial fibrillation, bedside telemetry is currently showing normal sinus rhythm heart rate 63. He continueson Eliquis for anticoagulation. Oxygen saturations are 94% on room air and he is achieving 1250 mL on his incentive spirometry. The patient reports he has been ambulating in his room with minimal assistance and has been tolerating well. Physical therapy continues to work with the patient. Objective - Vital Signs Vital signs: Vital Signs Temp 98.0 F 05/04/19 08:00 Pulse 66 05/04/19 08:00 Resp 22 05/04/19 08:00 BP 133/80 05/04/19 08:00 Pulse Ox 94 L 05/04/19 08:00 Intake & Output 05/03/19 05/04/19 05/04/19 18:59 06:59 18:59 Intake Total 480 480 360 Output Total 140 665 0 Balance 340 -185 360 Intake: Oral 480 480 360 Output: Chest Tube Drainage 140 125 Chest Tube Right 140 125 Urine 0 540 0 Other: Voiding Method Toilet Toilet Toilet Urinal Urinal Urinal # Voids 0 0 1 # Bowel Movements 2 1 ABP, PAP, CO, CI - Last Documented Arterial Blood Pressure 113/55 - Constitutional General appearance: Present: average body habitus, cooperative, no acute distress - Respiratory Details: Lung sounds with few scattered rhonchi throughout, diminished to his right lower lobe. Respirations are symmetrical and nonlabored. Oxygen saturation is 94% on room air. Achieving 1250 mL on his incentive spirometry. Right pleural chest tube in place to low continuous wall suction -20 cm H2O. Intermittent air leak is present. Draining thin serosanguineous drainage was 65 mL output in the last 8 hours, 190 mL output in the last 24 hours. - Cardiovascular Details: Regular rhythm and rate. S1 and S2 present, negative for S3, gallop or murmur. No edema present. Knee-high ABNER hose and sequential compression devices in place to his bilateral lower extremities. - Gastrointestinal Gastrointestinal Comment(s): Abdomen is soft, nontender and nondistended. Active bowel sounds all 4 abdom inal quadrants. Tolerating oral intake. Passing flatus. No organomegaly appreciated. - Genitourinary Genitourinary Comment(s): Voiding clear yellow urine. - Integumentary Integumentary Comment(s): Skin is warm and dry. No clubbing or cyanosis is present. No rash or abnormal pigmentation is present. Right chest thoracoscopic incisions are clean, dry and approximated. No drainage or redness is present. - Neurologic Neurologic Comment(s): No focal deficits. Neurologic: Present: CNII-XII intact - Musculoskeletal Musculoskeletal: Present: gait normal, generalized weakness, strength equal bilaterally - Psychiatric Psychiatric: Present: A&O x's 3, appropriate affect, intact judgment & insight - Allied health notes Allied health notes reviewed: nursing - Labs CBC & Chem 7: 05/04/19 04:02 05/04/19 04:02 Labs: Abnormal Lab Results - Last 24 Hours (Table) 05/04/19 Range/Units 04:02 RBC 3.25 L (4.30-5.90) m/uL Hgb 9.6 L (13.0-17.5) gm/dL Hct 30.2 L (39.0-53.0) % Lymphocytes # 0.8 L (1.0-4.8) k/uL - Imaging and Cardiology Chest x-ray: report reviewed, image reviewed Assessment and Plan Assessment: 1. Squamous cell carcinoma right upper lobe, status post right upper lobectomy 2. Hypertension 3. Hyperlipidemia 4. Bipolar disorder 5. History of sick sinus syndrome status post permanent pacemaker implantation May 2011 6. Coronary artery disease status post circumflex coronary artery stenting in 2017 7. Anxiety 8. History of depression 9. Chronic proximal pulmonary disease 10. Gastroesophageal reflux disease 11. Chronic tobacco dependence, [id number] smoking history 12. Postoperative acute blood loss anemia, an expected outcome 13. Postoperative paroxysmal atrial fibrillation and an expected outcome Plan: 1. Place right pleural chest tube back to continuous wall suction -20 cm H2O. 2. Encourage use of incentive spirometry every hour while awake. 3. GI and DVT prophylaxis. 4. Bronchodilator management per pulmonary medicine. 5. Increase activity as tolerated, out of bed for all meals. Physical and occupational therapy following. 6. Pain control per current when necessary orders. 7. Pathology results pending. 8. Encourage smoking cessation. Discussed with the patient importance of smoking cessation. 9. Continue amiodarone 400 mg by mouth twice a day for atrial fibrillation prophylaxis. 10. Continue Eliquis 5 mg by mouth twice a day for anticoagulation due to his paroxysmal atrial fibrillation. 11. Discharge planning is in place, the patient may benefit from rehab placement prior to being discharged home. 12. Transferred to 3 S. cardiac stepdown unit when bed available. 13. Continue to monitor daily chest x-rays. 14. More recommendations to follow based on patient's clinical course. Time with Patient: Greater than 30
--- NOTE | 2019-05-04 14:22 | P.PN ---
Subjective Progress Note Date: 05/04/19 This is a very pleasant 69-year-old gentleman who follows with Dr. Vanessa as his primary care physician. 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 He had been seen and evaluated by Dr. Soliman after being found to have a right lung pulmonary nodule. He performed a PET scan which did show significant hypermetabolic uptake without metastasis and subsequently referred to Dr. Brock. He was admitted here today and had undergone a right thoracoscopy, robotic-assisted thoracoscopic right upper lobectomy and mediastinal lymph node dissection with fiberoptic bronchoscopy. Primary tumor positive for squamous cell carcinoma. He is seen in consultation in the intensive care unit. The patient is being seen today for a follow-up. Today he is postop day #4 following his surgery. The patient still has a right-sided chest tube. The patient continues to have a right-sided pneumothorax. The patient was placed on water seal and the size of pneumothorax increased and following that the patient was placed back to suction. There is ongoing air leak for the time being. Output from the chest tube is minimal. Despite all this, the patient is quite comfortable is on room air oxygen. His cardiac rhythm is sinus. He did develop atrial fibrillation which is an expected outcome of the seventh surgery and the patient is back to normal sinus rhythm. The patient is on long-term anticoagulation with Eliquis. The patient is using incentive spirometer and is pulling approximately 750. Pulse ox on room air is 94%. The patient is able to ambulate. He is tolerating his diet. No nausea. No vomiting. No abdominal pain. He is an ex-smoker. Other comorbidities include anxiety/depression addition to COPD and coronary artery disease with previous stenting of the circumflex back in 2017. He has history of bipolar disorder. Hypertension. Hyperlipidemia and history of sick sinus syndrome and he has a permanent pacemaker in place. No altered mentation. No other complaints otherwise for now. Objective - Vital Signs Vital signs: Vital Signs Temp 97.5 F L 05/04/19 12:00 Pulse 66 05/04/19 12:00 Resp 17 05/04/19 12:00 BP 142/89 05/04/19 12:00 Pulse Ox 93 L 05/04/19 12:00 Intake & Output 05/03/19 05/04/19 05/04/19 18:59 06:59 18:59 Intake Total 480 480 600 Output Total 140 665 400 Balance 340 -185 200 Intake: Oral 480 480 600 Output: Chest Tube Drainage 140 125 Chest Tube Right 140 125 Urine 0 540 400 Other: Voiding Method Toilet Toilet Toilet Urinal Urinal Urinal # Voids 0 0 1 # Bowel Movements 2 1 ABP, PAP, CO, CI - Last Documented Arterial Blood Pressure 113/55 - Exam - Constitutional General appearance: Present: average body habitus, cooperative, no acute distress - Respiratory Details: Lung sounds with few scattered rhonchi throughout, diminished to his right lower lobe. Respirations are symmetrical and nonlabored. Oxygen saturation is 94% on room air. Achieving 1250 mL on his incentive spirometry. Right pleural chest tube in place to low continuous wall suction -20 cm H2O. Intermittent air leak is present. Draining thin serosanguineous drainage was 65 mL output in the last 8 hours, 190 mL output in the last 24 hours. - Cardiovascular Details: Regular rhythm and rate. S1 and S2 present, negative for S3, gallop or murmur. No edema present. Knee-high ABNER hose and sequential compression devices in place to his bilateral lower extremities. - Gastrointestinal Gastrointestinal Comment(s): Abdomen is soft, nontender and nondistended. Active bowel sounds all 4 abdominal quadrants. Tolerating oral intake. Passing flatus. No organomegaly appreciated. - Genitourinary Genitourinary Comment(s): Voiding clear yellow urine. - Integumentary Integumentary Comment(s): Skin is warm and dry. No clubbing or cyanosis is present. No rash or abnormal pigmentation is present. Right chest thoracoscopic incisions are clean, dry and approximated. No drainage or redness is present. - Neurologic Neurologic Comment(s): No focal deficits. 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 Status post right thoracos copy, robotic-assisted thorascopic right upper lobectomy with mediastinal lymph node dissection, fiberoptic bronchoscopy. Suspect squamous cell carcinoma. Postoperative day #4. #2 right-sided pneumothorax, expected outcome of surgery, chest tube is in place and there is ongoing air leak. The size of pneumothorax is larger on today's chest x-ray as the patient was placed on water seal and suction was restarted after reviewing today's chest x-ray. Despite all this, the patient not having any chest pain. Output from the chest tube is minimal for now. He continues to use the incentive spirometer is on room air oxygen. #3 Chronic and ongoing tobacco dependence of 40 years. #4 Chronic obstructive pulmonary disease #5 Hypertension. #6 sick sinus syndrome status post pacemaker implantation. #7 Anxiety/depression. #8 Hyperlipidemia. #9 bipolar disorder #1040 pack smoking history #11 postoperative acute blood loss anemia, expected outcome of surgery #12 postoperative paroxysmal atrial fibrillation, and expected outcome of surgery Plan Put the patient back on suction at 20 cm of water. Continue using incentive spirometer. Keep the chest tube in place. Daily chest x-ray. Continue bronchodilators. Monitored hemodynamics. Advance diet. As far as the A. fib the patient is on amiodarone orally and Eliquis. The patient is in sinus rhythm for now. The patient will be kept in ICU for further monitoring. We'll continue to follow make further recommendations based on his progress. Hemodynamically stable for the time being.
[2019-05-04] MEDS ORDERED: METOPROLOL TARTRATE 50 MG TAB PO STA (18:51)
[2019-05-04] MEDS: PREGABALIN 75 MG CAP PO SCH (20:21)
[2019-05-04] MEDS: DULoxetine HCL 60 MG CAPSULE.DR PO SCH (20:21)
[2019-05-04] MEDS: ATORVASTATIN 40 MG TAB PO SCH (20:21)
[2019-05-04] MEDS: ARIPiprazole 15 MG TAB PO SCH (20:56)
[2019-05-04] MEDS: DONEPEZIL 5 MG TAB PO SCH (20:56)
[2019-05-05] MEDS: ACETAMINOPHEN TAB 500 MG TAB PO PRN ×3 (01:58→20:38)
[2019-05-05] MEDS: PANTOPRAZOLE 40 MG TABLET PO SCH (06:21)
[2019-05-05 06:27] LABS: HCT 28.8 % (39.0-53.0); HGB 9.4 gm/dL (13.0-17.5); MCHC 32.7 g/dL (31.0-37.0); Mean Platelet Volume 7.7; Platelet Count 192 k/uL (150-450); RBC 3.13 m/uL (4.30-5.90); RDW 14.2 % (11.5-15.5); WBC 6.1 k/uL (3.8-10.6)
[2019-05-05 06:36] LABS: Calcium 8.1 mg/dL (8.4-10.2); Potassium 4.2 mmol/L (3.5-5.1)
[2019-05-05] MEDS: IPRATROPIUM-ALBUTEROL 3 ML NEB IH SCH ×4 (07:20→19:24)
[2019-05-05] MEDS: SYMBICORT 160-4.5 MCG INHALER INHALATION SCH ×2 (07:20→19:24)
--- NOTE | 2019-05-05 08:49 | XR ---
EXAMINATION TYPE: XR chest 1V portable DATE OF EXAM: 05/05/2019 COMPARISON: 05/04/2019 HISTORY: Postoperative right upper lobe lobectomy. TECHNIQUE: Single frontal view of the chest is obtained. FINDINGS: Change in position of the right chest tube with the tip projecting at the medial right oswald g apex. Decreasing size of the right-sided pneumothorax which now measures 3.5 cm in craniocaudad dim ension with previous measurement of 8.2 cm. Pneumothorax size is less than 10%. Redemonstration of a right-sided consolidation and the hilar prominence with small right pleural effusion. Left basilar pa tchy opacities are again seen. Chronic interstitial changes are suspected lung bases. Left-sided card iac device. Cardiac silhouette and pulmonary vasculature are stable. IMPRESSION: Reposition of the right chest tube with decreasing size of right apical pneumothorax which is now les s than 10%. Chronic interstitial lung disease, similar to prior.
[2019-05-05] MEDS: METOPROLOL TARTRATE 50 MG TAB PO SCH ×2 (09:49→20:39)
[2019-05-05] MEDS: AMIODARONE 200 MG TAB PO SCH ×2 (09:49→20:39)
[2019-05-05] MEDS: APIXABAN 5 MG TAB PO SCH ×2 (09:50→20:38)
--- NOTE | 2019-05-05 09:52 | P.PN ---
Subjective Progress Note Date: 05/05/19 Principal diagnosis: Paroxysmal atrial fibrillation This is a pleasant 69-year-old gentleman who does follow with a salt manager out of the town with a past medical history significant for permanent pacemaker implantation related to sick sinus syndrome, hypertension, dyslipidemia, bipolar disorder, and significant history of smoking, was admitted to the intensive care unit after he underwent yesterday a right thoracoscopy with robotic-assisted right upper lobe lobectomy and mediastinal lymph node dissection. Recently the patient was seen by his primary banking teacher Dr. Soliman who diagnosed the patient with right upper long pulmonary nodule. A PET scan was performed and showed significant hypermetabolic uptake. Because of that the patient was referred to undergo the above procedure. Postprocedure, the patient was hypotensive requiring a small dose of dopamine. Subsequently the patient went into atrial fibrillation. The dopamine was stopped and the patient after that converted to normal sinus mechanism. Since then he has been in and out atrial fibrillation. The patient does have history of coronary artery disease and he underwent stenting for myocardial infarction about a year ago. No history of atrial fibrillation in the past. He underwent an echocardiogram which revealed normal LV function with mild valvular abnormalities. On follow-up with the patient today, May 052018, the patient continues to be doing well clinically. He is asymptomatic. He still have the chest tube. He has been maintaining normal sinus mechanism. He continues to be on amiodarone, metoprolol, and oral anticoagulation with Eliquis. Objective - Vital Signs Vital signs: Vital Signs Temp 98.2 F 05/05/19 04:20 Pulse 62 05/05/19 07:35 Resp 18 05/05/19 04:20 BP 136/79 05/05/19 04:20 Pulse Ox 95 05/05/19 04:20 Intake & Output 05/04/19 05/05/19 05/05/19 18:59 06:59 18:59 Intake Total 600 240 Output Total 700 240 Balance -100 -240 240 Weight 64.8 kg Intake: Oral 600 240 Output: Chest Tube Drainage 140 Chest Tube Right 140 Drainage 100 Right Lateral Chest 100 Urine 700 Other: Voiding Method Urinal Urinal # Voids 1 2 # Bowel Movements 1 ABP, PAP, CO, CI - Last Documented Arterial Blood Pressure 113/55 - Constitutional General appearance: Present: no acute distress - Respiratory Respiratory: bilateral: wheezing - Cardiovascular Rhythm: regular Heart sounds: normal: S1, S2 - Labs CBC & Chem 7: 05/05/19 06:00 05/05/19 06:00 Labs: Abnormal Lab Results - Last 24 Hours (Table) 05/05/19 05/05/19 Range/Units 06:00 06:00 RBC 3.13 L (4.30-5.90) m/uL Hgb 9.4 L (13.0-17.5) gm/dL Hct 28.8 L (39.0-53.0) % Calcium 8.1 L (8.4-10.2) mg/dL Assessment and Plan Assessment: Assessment #1 status post right robotic-assisted thoracoscopic right upper lobectomy. #2 paroxysmal atrial fibrillation. #3 hypertension which has resolved #4 coronary artery disease and prior coronary revascularization #5 sick sinus syndrome and status post permanent pacemaker #6 multiple comorbid conditions Plan #1 continue the current medical regimen including amiodarone and metoprolol #2 continue oral anticoagulation with Eliquis. #3 the echo was reviewed and showed normal LV function #4 the chest x-ray showed pneumothorax less than 10%. Thank you for allowing us participate in his care and we will continue following up with the patient
--- NOTE | 2019-05-05 10:08 | P.PN ---
Subjective Progress Note Date: 05/05/19 Principal diagnosis: Squamous cell carcinoma right upper lobe, history of hypertension, hyperlipidemia, bipolar disorder, history of sick sinus syndrome status post permanent pacemaker implantation in May 2011, coronary artery disease status post circumflex flex coronary artery stenting in 2017, anxiety, depression, chronic obstructive pulmonary disease, gastroesophageal reflux disease and tobacco dependence with a 40 pack year smoking history. POD #5 right thoracoscopic, robotic assisted thorascopic right upper lobectomy with mediastinal lymph node dissection, fiberoptic bronchoscopy. Postoperative acute blood loss anemia, an expected outcome. Postoperative paroxysmal atrial fibrillation and on expected outcome. The patient is currently sitting up to the bedside chair on the 3 S. cardiac stepdown unit. He is in no acute distress. He denies any complaints of pain or shortness of breath at this time. The patient's chest x-ray this morning is showing a less than 10% right apical pneumothorax. The chest tube remains on low continuous wall suction -20 cm H2O. His chest tube continues to have an intermittent air leak present and is on low continuous wall suction -20 cm H2O. No further episodes of atrial fibrillation, bedside telemetry is currently showing normal sinus rhythm with occasional paced beats heart rate 65. He was placed on Eliquis for anticoagulation due to the atrial fibrillation. Oxygen saturations are 95% on room air and he is achieving 1250 mL on his incentive spirometry. The patient reports he has been ambulating in his room with minimal assistance and has been tolerating well. Physical therapy continues to work with the patient. The patient's pathology results remain pending. Objective - Vital Signs Vital signs: Vital Signs Temp 98.2 F 05/05/19 04:20 Pulse 62 05/05/19 07:35 Resp 18 05/05/19 04:20 BP 136/79 05/05/19 04:20 Pulse Ox 95 05/05/19 04:20 Intake & Output 05/04/19 05/05/19 05/05/19 18:59 06:59 18:59 Intake Total 600 240 Output Total 700 240 Balance -100 -240 240 Weight 64.8 kg Intake: Oral 600 240 Output: Chest Tube Drainage 140 Chest Tube Right 140 Drainage 100 Right Lateral Chest 100 Urine 700 Other: Voiding Method Urinal Urinal # Voids 1 2 # Bowel Movements 1 ABP, PAP, CO, CI - Last Documented Arterial Blood Pressure 113/55 - Constitutional General appearance: Present: average body habitus, cooperative, no acute distress - Respiratory Details: Lung sounds with scattered expiratory wheezes, diminished to his bilateral bases right greater than left. Respirations are symmetrical and nonlabored. Oxygen saturation is 95% on room air. Achieving 1500 mL on his incentive spirometry. Right pleural chest tube remains in place to low continuous wall suction and is draining thin serosanguineous drainage. 140 mL output in the last 8 hours, 540 mL output in the last 24 hours. Intermittent air leak is present. - Cardiovascular Details: Regular rhythm and rate. S1 and S2 present, negative for S3, gallop or murmur. Remote telemetry showing normal sinus rhythm with occasional paced beats heart rate 65. No edema present. Knee-high sequential compression devices in place to his bilateral lower extremities. - Gastrointestinal Gastrointestinal Comment(s): Abdomen is soft, nontender and nondistended. Active bowel sounds present in all 4 abdominal quadrants. No guarding or rigidity. No organomegaly appreciated. - Genitourinary Genitourinary Comment(s): Voiding clear shira urine. - Integumentary Integumentary Comment(s): Skin is warm and dry. No clubbing or cyanosis is present. Right thoracoscopic incisions are clean, dry and approximated. No drainage or redness is present. No rash or abnormal pigmentation is present. - Neurologic Neurologic Comment(s): No focal deficits. Neurologic: Present: CNII-XII intact - Musculoskeletal Musculoskeletal Comment(s): Contractures to his right hand which are chronic. Musculoskeletal: Present: gait normal, generalized weakness, strength equal bilaterally - Psychiatric Psychiatric: Present: A&O x's 3, appropriate affect, intact judgment & insight - Allied health notes Allied health notes reviewed: nursing - Labs CBC & Chem 7: 05/05/19 06:00 05/05/19 06:00 Labs: Abnormal Lab Results - Last 24 Hours (Table) 05/05/19 05/05/19 Range/Units 06:00 06:00 RBC 3.13 L (4.30-5.90) m/uL Hgb 9.4 L (13.0-17.5) gm/dL Hct 28.8 L (39.0-53.0) % Calcium 8.1 L (8.4-10.2) mg/dL - Imaging and Cardiology Chest x-ray: report reviewed, image reviewed Assessment and Plan Assessment: 1. Squamous cell carcinoma right upper lobe, status post right upper lobectomy 2. Hypertension 3. Hyperlipidemia 4. Bipolar disorder 5. History of sick sinus syndrome status post permanent pacemaker implantation May 2011 6. Coronary artery disease status post circumflex coronary artery stenting in 2017 7. Anxiety 8. History of depression 9. Chronic proximal pulmonary disease 10. Gastroesophageal reflux disease 11. Chronic tobacco dependence, [id number] smoking history 12. Postoperative acute blood loss anemia, an expected outcome 13. Postoperative paroxysmal atrial fibrillation and an expected outcome Plan: 1. Keep right pleural chest tube back to continuous wall suction -20 cm H2O. 2. Encourage use of incentive spirometry every hour while awake. 3. GI and DVT prophylaxis. 4. Bronchodilator management per pulmonary medicine. 5. Increase activity as tolerated, out of bed for all meals. Physical and occupational therapy following. 6. Pain control per current when necessary orders. 7. Pathology results remain pending. 8. Continue to encourage smoking cessation. Discussed with the patient importance of smoking cessation. 9. Continue amiodarone 400 mg by mouth twice a day for atrial fibrillation prophylaxis. 10. Continue Eliquis 5 mg by mouth twice a day for anticoagulation due to his paroxysmal atrial fibrillation. 11. Discharge planning is in place, the patient would like to be discharged home upon discharge as he has home care arranged and meals on wheels.. 12. Atrial fibrillation per cardiology management. 13. Continue to monitor daily chest x-rays. 14. More recommendations to follow based on patient's clinical course. Time with Patient: Greater than 30
--- NOTE | 2019-05-05 12:56 | P.PN ---
Subjective Progress Note Date: 05/05/19 Principal diagnosis: Right lung nodule. This is a very pleasant 69-year-old gentleman who follows with Dr. Vanessa as his primary care physician. 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 Soliman after being found to have a right lung pulmonary nodule. He performed a PET scan which did show significant hypermetabolic uptake without metastasis and subsequently referred to Dr. Brock. He was admitted here today and had undergone a right thoracoscopy, robotic-assisted thoracoscopic right upper lobectomy and mediastinal lymph node dissection with fiberoptic bronchoscopy. Primary tumor positive for squamous cell carcinoma. He is seen in consultation in the intensive care unit. He is awake and alert in no acute distress. His pain is well controlled at this point. He has a right-sided chest tube in place is positive for a leak and currently to low continuous suction. He denies any worsening shortness of breath. He has a loose nonproductive cough. No chills or night sweats. Continue and O2 saturation in the 90s on 6 L/m per nasal cannula. White count 10.2. Hemoglobin 13.0. Creatinine 0.79. He's been initiated on DuoNeb inhalations, cefazolin, subcutaneous heparin. He has an IV of D5.45 at 40 ML's per hour. The patient is seen today 05/05/2019 in follow-up on the selective care unit. He is awake and alert in no acute distress. He is maintaining good O2 sa turations in the 90s on room air. Right-sided chest tube remains in place. Positive leak still. Chest x-ray shows a 10% right apical pneumothorax. Working well with the incentive spirometer. White count 6.1. Hemoglobin 9.4. Creatinine 1.06. Objective - Vital Signs Vital signs: Vital Signs Temp 98.2 F 05/05/19 04:20 Pulse 63 05/05/19 11:39 Resp 18 05/05/19 04:20 BP 136/79 05/05/19 04:20 Pulse Ox 95 05/05/19 04:20 Intake & Output 05/04/19 05/05/19 05/05/19 18:59 06:59 18:59 Intake Total 600 240 Output Total 700 240 Balance -100 -240 240 Weight 64.8 kg Intake: Oral 600 240 Output: Chest Tube Drainage 140 Chest Tube Right 140 Drainage 100 Right Lateral Chest 100 Urine 700 Other: Voiding Method Urinal Urinal # Voids 1 2 # Bowel Movements 1 ABP, PAP, CO, CI - Last Documented Arterial Blood Pressure 113/55 - Exam GENERAL EXAM: Frail, cachectic 69-year-old gentleman. Alert, comfortable in no apparent distress. On room air. EYES: Normal reaction of pupils, equal size. NOSE: Clear with pink turbinates. THROAT: No erythema or exudates. NECK: No masses, no JVD. CHEST: No chest wall deformity. Right-sided chest tube in place. Positive air leak. To low continuous suction. LUNGS: Equal air entry with bilateral scattered rhonchi more so on the right. CVS: S1 and S2 normal with no audible murmur, regular rhythm. ABDOMEN: No hepatosplenomegaly, normal bowel sounds, no guarding or rigidity. SPINE: No scoliosis or deformity SKIN: No rashes CENTRAL NERVOUS SYSTEM: No focal deficits, tone is normal in all 4 extremities. EXTREMITIES: There is no peripheral edema. No clubbing, no cyanosis. Peripheral pulses are intact. - Labs CBC & Chem 7: 05/05/19 06:00 05/05/19 06:00 Labs: Abnormal Lab Results - Last 24 Hours (Table) 05/05/19 05/05/19 Range/Units 06:00 06:00 RBC 3.13 L (4.30-5.90) m/uL Hgb 9.4 L (13.0-17.5) gm/dL Hct 28.8 L (39.0-53.0) % Calcium 8.1 L (8.4-10.2) mg/dL Assessment and Plan Assessment: Impression: #1 Right lung nodule with hypermetabolic uptake in the PET scan. Status post right thoracoscopy, robotic-assisted thorascopic right upper lobectomy with mediastinal lymph node dissection, fiberoptic bronchoscopy. Suspect squamous cell carcinoma. #2 Acute hypoxic respiratory failure as an expected outcome of surgery. Apical pneumothorax present. Chest tube in place. Currently on 2 L/m per nasal cannula. #3 Chronic and ongoing tobacco dependence of 40 years. #4 Chronic obstructive pulmonary disease #5 Hypertension. #6 Six sinus syndrome status post pacemaker implantation. #7 Anxiety/depression. #8 Hyperlipidemia. Plan: The patient was seen and evaluated by Dr. Hays. Chest x-ray and labs r yris. Right apical pneumothorax remains, 10%. Chest tube remains in place. We'll continue with bronchodilators. Continues to work well with the incentive spirometer and encouraged cough and deep breathing exercises. Increase his activity as tolerated. We will continue to follow and make further recommendations based on his clinical status. I, the cosigning physician, performed a history & physical examination of the patient. Lungs sounds bilateral scattered rhonchi right greater than left. Maintaining good O2 saturations in the 90s on room air.. I discussed the ass essment and plan of care with my nurse practitioner, Krysta Lopez. I attest to the above consultation as dictated by her.
[2019-05-05] MEDS: PREGABALIN 75 MG CAP PO SCH (20:39)
[2019-05-05] MEDS: DULoxetine HCL 60 MG CAPSULE.DR PO SCH (20:39)
[2019-05-05] MEDS: ATORVASTATIN 40 MG TAB PO SCH (20:39)
[2019-05-05] MEDS: ARIPiprazole 15 MG TAB PO SCH (21:16)
[2019-05-05] MEDS: DONEPEZIL 5 MG TAB PO SCH (21:16)
[2019-05-06] MEDS: ACETAMINOPHEN TAB 500 MG TAB PO PRN ×3 (02:42→21:02)
[2019-05-06] MEDS: PANTOPRAZOLE 40 MG TABLET PO SCH (06:16)
--- NOTE | 2019-05-06 07:29 | XR ---
EXAMINATION TYPE: XR chest 1V portable DATE OF EXAM: 05/06/2019 COMPARISON: 05/05/2019 HISTORY: Right thoracostomy tube placement TECHNIQUE: Single frontal view of the chest is obtained. FINDINGS: There is increasing degree of a right-sided pneumothorax now estimated at approximately 30 %. Maximum apical pleural separation of 11 point for centimeters at the most medial aspect. This is c ompared to previous of 6.0. Calcified granuloma of the right upper lobe. Right perihilar atelectasis and scattered areas of atelectasis throughout the remainder the right lung. Reticular opacity at the left lung base also likely represents atelectasis or minimal fibrosis. Compensatory hypertrophy of th e left lung is seen. Cardiomediastinal silhouette is stable with multilead left-sided cardiac device. New subcutaneous emphysema along the right lateral chest wall. Right thoracostomy tube has its sideh ole within the chest wall and its distal end at the apex. Postsurgical changes are seen at the gastro esophageal junction. IMPRESSION: Right pneumothorax now estimated at approximately 30%. Retraction of the right thoracost aidan tube slightly is recommended as this does abut the pleural surface of the right lung apex. A Yellow level critical message alert has been initiated for Eddi Vogel MD~[id number] via the [employer] Critical Results System on 05/06/2019 7:27 AM. This message alert has been sent to Eddi Vogel MD~[email or web address] via the preferences provided by the clinician for the receipt of Radiology Critical Finding s. Message ID [id number].
[2019-05-06] MEDS: SYMBICORT 160-4.5 MCG INHALER INHALATION SCH ×2 (07:58→19:15)
[2019-05-06] MEDS: IPRATROPIUM-ALBUTEROL 3 ML NEB IH SCH ×4 (07:58→19:15)
[2019-05-06] MEDS: AMIODARONE 200 MG TAB PO SCH ×2 (08:26→21:00)
[2019-05-06] MEDS: METOPROLOL TARTRATE 50 MG TAB PO SCH ×2 (08:26→21:00)
[2019-05-06] MEDS: APIXABAN 5 MG TAB PO SCH ×2 (08:27→21:00)
--- NOTE | 2019-05-06 09:07 | P.PN ---
Subjective Progress Note Date: 05/06/19 Principal diagnosis: Squamous cell carcinoma right upper lobe. Previous medical history of tobacco dependence with 10-[id number]-gbpa history, chronic obstructive pulmonary disease, hyp ertension, hyperlipidemia, coronary artery disease status post stenting to the circumflex coronary artery in 2016, sick sinus syndrome status post permanent pacemaker placement in 2010, bipolar disorder/anxiety/depression, and gastroesophageal reflux disease. POD #6 right thoracoscopy, robotic assisted thorascopic right upper lobectomy with mediastinal lymph node dissection, fiberoptic bronchoscopy. Postoperative acute blood loss anemia, expected Postoperative paroxysmal atrial fibrillation, unexpected Postoperative right-sided pneumothorax with prolonged air leak, expected and inherent to this type of surgery The patient's currently sitting up in a recliner on the cardiac stepdown unit in no acute distress. Denies pain, shortness of breath. Currently receiving nebulizer breathing treatment. Right pleural chest tube remains to continuous wall suction, intermittent air leak remains present. Remains in normal sinus rhythm, hemodynamically stable. No new concerns. Objective - Vital Signs Vital signs: Vital Signs Temp 97.4 F L 05/06/19 08:10 Pulse 68 05/06/19 08:18 Resp 18 05/06/19 08:10 BP 118/78 05/06/19 08:10 Pulse Ox 97 05/06/19 08:10 Intake & Output 05/05/19 05/06/19 05/06/19 18:59 06:59 18:59 Intake Total 720 360 Output Total 171 600 Balance 549 -600 360 Weight 65.2 kg Intake: Oral 720 360 Output: Chest Tube Drainage 50 150 Chest Tube Right 50 150 Drainage 120 Right Lateral Chest 120 Urine 1 450 Other: Voiding Method Toilet Urinal # Voids 1 ABP, PAP, CO, CI - Last Documented Arterial Blood Pressure 113/55 - Constitutional General appearance: Present: cooperative, no acute distress - Respiratory Details: Lungs sounds diminished bilaterally, right greater than left, faint expiratory wheeze present to left lower lobe. Currently on room air with oxygen saturation 97%. Able to achieve 1500 mL on his incentive spirometry. Right pleural chest tube to continuous wall suction, 110 mL serous drainage overnight, 200 mL the last 24 hours, positive intermittent air leak present. - Cardiovascular Details: S1, S2 present. Regular rate and rhythm, sinus rhythm with occasional PACs and occasional atrially paced beats present on telemetry. Peripheral pulses present bilaterally. No edema present. Peritoneal tenderness noted. SCDs present. - Gastrointestinal Gastrointestinal Comment(s): Abdomen soft, nontender, nondistended. Active bowel sounds present 4 quadrants. Tolerating diet. Positive bowel movement. - Genitourinary Genitourinary Comment(s): Continues to void clear, yellow urine. - Integumentary Integumentary Comment(s): Skin is warm and dry with evidence of good perfusion. - Neurologic Neurologic: Present: CNII-XII intact - Musculoskeletal Musculoskeletal: Present: gait normal, strength equal bilaterally - Psychiatric Psychiatric: Present: A&O x's 3, appropriate affect, intact judgment & insight - Allied health notes Allied health notes reviewed: nursing - Labs CBC & Chem 7: 05/05/19 06:00 05/05/19 06:00 - Imaging and Cardiology Chest x-ray: report reviewed, image reviewed Assessment and Plan Assessment: 1. Squamous cell carcinoma right upper lobe 2. Previous tobacco dependence with [id number]-[id number] history 3. COPD 4. Hypertension 5. Hyperlipidemia 6. Coronary artery disease status post stenting to the circumflex coronary artery 7. Sick sinus syndrome status post permanent pacemaker placement 8. Bipolar disorder 9. GERD 10. Postoperative acute blood loss anemia 11. Postoperative paroxysmal atrial fibrillation 12. Postoperative right-sided pneumothorax with prolonged air leak Plan: 1. Continue right pleural chest tube to continuous wall suction. Will monitor output and for resolution of air leak. Pathology still pending, will monitor. 2. Encourage incentive spirometry use 10 times every hour while awake 3. Bronchodilators per pulmonology. 4. Continue amiodarone for A. fib prophylaxis. Continue Eliquis for anticoagulation. 5. Increase activity, ambulate around the room. Extended suction tubing to increase ambulation distance. 6. Pain controlled current medication regimen. 7. GI/DVT prophylaxis. 8. Encourage continued smoking cessation. 9. Will continue to monitor daily x-rays. 10. Discharge planning in progress, patient may benefit from inpatient rehab, however he wishes to return home and he does have Meals on Wheels and frequent nursing check-ins. 11. More recommendations to follow. Time with Patient: Greater than 30
--- NOTE | 2019-05-06 10:18 | CDI ---
Documentation Clarification Form Date: 05/06/2019 10:10:00 AM From: Eve Kumari Admit Date: 04/30/2019 5:58:00 AM Patient Name: Almas James Visit Number: [id number] Discharge Date: ATTENTION: The Clinical Documentation Specialists (CDI) and [facility] Coding Staff appreciate your assistance in clarifying documentation. Please respond to the clarification below the line at the bottom and electronically sign. The CDI & [facility] Coding staff will review the response and follow-up if needed. Please note: Queries are made part of the Legal Health Record. If you have any questions, please contact the author of this message via ITS. Dr. Eddi Vogel 'Post-procedure, the patient was hypotensive requiring a small dose of dopamine. Initially the dose of dopamine was weaned off completely but the patient started being hypotensive and then was placed on dopamine again also for low urine output' is documented in your note on 05/01/2019. History/Risk Factors: HTN, COPD, sick sinus syndrome with pacer, post robotic- assisted right upper lobe lobectomy and mediastinal lymph node dissection, patient also developed paroxysmal Afib Clinical Indicators: BP as low as 80s over 50s Treatment: IV Dopamine, monitoring of BP In your professional opinion, can you please specify the etiology of the hypotension if known? Iatrogenic Hypotension Drug Induced Hypotension Postoperative Hypotension Shock (please specify type) Other Condition, please specify Unable to determine (Last Revision: June 2017) Postoperative Hypotension MTDD
--- NOTE | 2019-05-06 10:21 | CDI ---
Documentation Clarification Form Date: 05/06/2019 10:15:00 AM From: Eve Kumari Admit Date: 04/30/2019 5:58:00 AM Patient Name: Almas James Visit Number: [id number] Discharge Date: ATTENTION: The Clinical Documentation Specialists (CDI) and [facility] Coding Staff appreciate your assistance in clarifying documentation. Please respond to the clarification below the line at the bottom and electronically sign. The CDI & [facility] Coding staff will review the response and follow-up if needed. Please note: Queries are made part of the Legal Health Record. If you have any questions, please contact the author of this message via ITS. Dr. Eddi Vogel 'Post-procedure, the patient was hypotensive requiring a small dose of dopamine. Initially the dose of dopamine was weaned off completely but the patient started being hypotensive and then was placed on dopamine again also for low urine output' is documented in your note on 05/01/2019. History/Risk Factors: HTN, COPD, sick sinus syndrome with pacer, post robotic- assisted right upper lobe lobectomy and mediastinal lymph node dissection, pt also developed paroxysmal AFib Clinical Indicators: BP as low as 80s over 50s Treatment: IV Dopamine, monitoring of BP In order to accurately reflect this patients severity of illness, please clarify if the post-operative diagnosis of hypotension is: An expected post-procedural or post-surgical condition An unexpected post-procedural or post-surgical condition related to surgical care (a complication of care) An unexpected post-procedural or post-surgical condition, related to the patients underlying medical comorbidities Other, please specify ____ Unable to determine (Last Revision: December 2018) An unexpected post procedural condition MTDD
--- NOTE | 2019-05-06 15:01 | P.PN ---
Subjective Progress Note Date: 05/06/19 Principal diagnosis: Paroxysmal atrial fibrillation This is a pleasant 69-year-old gentleman who does follow with a environmental designer out of the town with a past medical history significant for permanent pacemaker implantation related to sick sinus syndrome, hypertension, dyslipidemia, bipolar disorder, and significant history of smoking, was admitted to the intensive care unit after he underwent yesterday a right thoracoscopy with robotic-assisted right upper lobe lobectomy and mediastinal lymph node dissection. Recently the patient was seen by his primary electrical systems engineer Dr. Soliman who diagnosed the patient with right upper long pulmonary nodule. A PET scan was performed and showed significant hypermetabolic uptake. Because of that the patient was referred to undergo the above procedure. Postprocedure, the patient was hypotensive requiring a small dose of dopamine. Subsequently the patient went into atrial fibrillation. The dopamine was stopped and the patient after that converted to normal sinus mechanism. Since then he has been in and out atrial fibrillation. The patient does have history of coronary artery disease and he underwent stenting for myocardial infarction about a year ago. No history of atrial fibrillation in the past. He underwent an echocardiogram which revealed normal LV function with mild valvular abnormalities. I did see the patient today, May 062018, and the patient continues to be doing clinically. He continues to have the chest tube which seems to be draining. He continues to be in sinus mechanism. He is on amiodarone, metoprolol, and he is also on oral anticoagulation. Objective - Vital Signs Vital signs: Vital Signs Temp 97.4 F L 05/06/19 08:10 Pulse 70 05/06/19 11:43 Resp 18 05/06/19 08:10 BP 118/78 05/06/19 08:10 Pulse Ox 97 05/06/19 08:10 Intake & Output 05/05/19 05/06/19 05/06/19 18:59 06:59 18:59 Intake Total 720 840 Output Total 171 600 200 Balance 549 -600 640 Weight 65.2 kg 65.2 kg Intake: Oral 720 840 Output: Chest Tube Drainage 50 150 Chest Tube Right 50 150 Drainage 120 Right Lateral Chest 120 Urine 1 450 200 Other: Voiding Method Toilet Urinal # Voids 1 1 # Bowel Movements 1 ABP, PAP, CO, CI - Last Documented Arterial Blood Pressure 113/55 - Constitutional General appearance: Present: no acute distress - Respiratory Respiratory: bilateral: CTA - Cardiovascular Rhythm: regular Heart sounds: normal: S1, S2 - Labs CBC & Chem 7: 05/05/19 06:00 05/05/19 06:00 Assessment and Plan Assessment: Assessment #1 status post right robotic-assisted thoracoscopic right upper lobectomy. #2 paroxysmal atrial fibrillation. #3 hypertension which has resolved #4 coronary artery disease and prior coronary revascularization #5 sick sinus syndrome and status post permanent pacemaker #6 multiple comorbid conditions Plan #1 continue the current medical regimen including amiodarone and metoprolol #2 continue oral anticoagulation with Eliquis. Thank you for allowing us participate in his care and we will continue following up with the patient
--- NOTE | 2019-05-06 16:42 | P.PN ---
Subjective Progress Note Date: 05/06/19 Principal diagnosis: Right lung nodule. This is a very pleasant 69-year-old gentleman who follows with Dr. Vanessa as his primary care physician. 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 He had been seen and evaluated by Dr. Soliman after being found to have a right lung pulmonary nodule. He performed a PET scan which did show significant hypermetabolic uptake without metastasis and subsequently referred to Dr. Brock. He was admitted here today and had undergone a right thoracoscopy, robotic-assisted thoracoscopic right upper lobectomy and mediastinal lymph node dissection with fiberoptic bronchoscopy. Primary tumor positive for squamous cell carcinoma. He is seen in consultation in the intensive care unit. He is awake and alert in no acute distress. His pain is well controlled at this point. He has a right-sided chest tube in place is positive for a leak and currently to low continuous suction. He denies any worsening shortness of breath. He has a loose nonproductive cough. No chills or night sweats. Continue and O2 saturation in the 90s on 6 L/m per nasal cannula. White count 10.2. Hemoglobin 13.0. Creatinine 0.79. He's been initiated on DuoNeb inhalations, cefazolin, subcutaneous heparin. He has an IV of D5.45 at 40 ML's per hour. The patient is seen today 05/05/2019 in follow-up on the selective care unit. He is awake and alert in no acute distress. He is maintaining good O2 sa turations in the 90s on room air. Right-sided chest tube remains in place. Positive leak still. Chest x-ray shows a 10% right apical pneumothorax. Working well with the incentive spirometer. White count 6.1. Hemoglobin 9.4. Creatinine 1.06. The patient is seen today 05/06/2019 in follow-up on the selective care unit. He is currently awake and alert in no acute distress. Resting quite comfortably in bed. He denies any worsening shortness of breath, cough or congestion. Maintaining O2 saturations in the 90s on room air. Chest x-ray today shows a 30% right-sided pneumothorax. Chest tube remains in place. Positive air leak. Working well with the incentive spirometer. Pathology report is positive for squamous cell carcinoma. Bronchovascular margin negative for malignancy. 0 lym ph nodes involved. Objective - Vital Signs Vital signs: Vital Signs Temp 97.4 F L 05/06/19 08:10 Pulse 73 05/06/19 15:55 Resp 18 05/06/19 08:10 BP 118/78 05/06/19 08:10 Pulse Ox 97 05/06/19 08:10 Intake & Output 05/05/19 05/06/19 05/06/19 18:59 06:59 18:59 Intake Total 720 840 Output Total 171 600 200 Balance 549 -600 640 Weight 65.2 kg 65.2 kg Intake: Oral 720 840 Output: Chest Tube Drainage 50 150 Chest Tube Right 50 150 Drainage 120 Right Lateral Chest 120 Urine 1 450 200 Other: Voiding Method Toilet Urinal # Voids 1 1 # Bowel Movements 1 ABP, PAP, CO, CI - Last Documented Arterial Blood Pressure 113/55 - Exam GENERAL EXAM: Pleasant 69-year-old gentleman. Alert, comfortable in no apparent distress. On room air. EYES: Normal reaction of pupils, equal size. NOSE: Clear with pink turbinates. THROAT: No erythema or exudates. NECK: No masses, no JVD. CHEST: No chest wall deformity. Right-sided chest tube in place. Positive air leak. To low continuous suction. LUNGS: Equal air entry with bilateral scattered rhonchi more so on the right. CVS: S1 and S2 normal with no audible murmur, regular rhythm. ABDOMEN: No hepatosplenomegaly, normal bowel sounds, no guarding or rigidity. SPINE: No scoliosis or deformity SKIN: No rashes CENTRAL NERVOUS SYSTEM: No focal deficits, tone is normal in all 4 extremities. EXTREMITIES: There is no peripheral edema. No clubbing, no cyanosis. Peripher al pulses are intact. - Labs CBC & Chem 7: 05/05/19 06:00 05/05/19 06:00 Assessment and Plan Assessment: Impression: #1 Right lung nodule with hypermetabolic uptake in the PET scan. Status post right thoracoscopy, robotic-assisted thorascopic right upper lobectomy with mediastinal lymph node dissection, fiberoptic bronchoscopy. Pathology positive for squamous cell carcinoma. Margins clear. Nodes negative. #2 Acute hypoxic respiratory failure as an expected outcome of surgery. Apical pneumothorax present. Chest tube in place. Currently on room air.. #3 Chronic and ongoing tobacco dependence of 40 years. #4 Chronic obstructive pulmonary disease #5 Hypertension. #6 Six sinus syndrome status post pacemaker implantation. #7 Anxiety/depression. #8 Hyperlipidemia. Plan: The patient was seen and evaluated by Dr. Hays. Chest x-ray and pathology reviewed. Right apical pneumothorax remains, 30%. Chest tube remains in place. Positive air leak. Continues to work well with the incentive spirometer and encouraged cough and deep breathing exercises. Increase his activity as tolerated. We will continue to follow and make further recommendations based on his clinical status. I, the cosigning physician, performed a history & physical examination of the patient. Lungs sounds bilateral scattered rhonchi right greater than left. Maintaining good O2 saturations in the 90s on room air.. I discussed the assessment and plan of care with my nurse practitioner, Krysta Lopez. I attest to the above consultation as dictated by her.
[2019-05-06] MEDS: PREGABALIN 75 MG CAP PO SCH (21:00)
[2019-05-06] MEDS: ARIPiprazole 15 MG TAB PO SCH (21:00)
[2019-05-06] MEDS: ATORVASTATIN 40 MG TAB PO SCH (21:00)
[2019-05-06] MEDS: DONEPEZIL 5 MG TAB PO SCH (21:00)
[2019-05-06] MEDS: DULoxetine HCL 60 MG CAPSULE.DR PO SCH (21:00)
[2019-05-07] MEDS: PANTOPRAZOLE 40 MG TABLET PO SCH (06:32)
[2019-05-07] MEDS: ACETAMINOPHEN TAB 500 MG TAB PO PRN ×2 (06:33→19:36)
[2019-05-07 07:03] LABS: HCT 30.1 % (39.0-53.0); HGB 9.8 gm/dL (13.0-17.5); MCH 29.7 pg (25.0-35.0); MCHC 32.6 g/dL (31.0-37.0); MCV 91.3 fL (80.0-100.0); Mean Platelet Volume 7.1; Platelet Count 289 k/uL (150-450); RBC 3.29 m/uL (4.30-5.90); RDW 14.1 % (11.5-15.5); WBC 7.5 k/uL (3.8-10.6)
[2019-05-07 07:18] LABS: Calcium 8.2 mg/dL (8.4-10.2); Potassium 3.9 mmol/L (3.5-5.1)
--- NOTE | 2019-05-07 07:30 | XR ---
EXAMINATION TYPE: XR chest 1V portable DATE OF EXAM: 05/07/2019 COMPARISON: NONE HISTORY: Status post right upper lobectomy TECHNIQUE: Single frontal view of the chest is obtained. FINDINGS: Right-sided thoracostomy tube terminates at the right lung apex. There is slight improveme nt of the right apical pneumothorax with maximal apical pleural separation now of 6.3 cm and previous ly 11.4 cm. Multifocal right-sided atelectasis and compensatory hyperexpansion of the left lung. Part icular opacities at the lung bases represent atelectasis or more likely a component of interstitial l amita disease/fibrosis. Cardia mediastinal silhouette is stable and nonenlarged with multilead left-emmanuel ed cardiac device. Persistent right hemidiaphragm elevation with new tenting from atelectasis. Subcut aneous emphysema along the chest wall has slightly improved. Cervical fusion device is also seen. IMPRESSION: Slightly improving right apical pneumothorax and right chest wall subcutaneous emphysema . Other findings are stable.
[2019-05-07] MEDS: AMIODARONE 200 MG TAB PO SCH ×2 (08:07→20:02)
[2019-05-07] MEDS: APIXABAN 5 MG TAB PO SCH ×2 (08:07→20:02)
[2019-05-07] MEDS: METOPROLOL TARTRATE 50 MG TAB PO SCH ×2 (08:08→20:02)
[2019-05-07] MEDS: SYMBICORT 160-4.5 MCG INHALER INHALATION SCH ×2 (08:32→20:06)
[2019-05-07] MEDS: IPRATROPIUM-ALBUTEROL 3 ML NEB IH SCH ×4 (08:32→20:06)
--- NOTE | 2019-05-07 09:45 | P.PN ---
Subjective Progress Note Date: 05/07/19 Principal diagnosis: Squamous cell carcinoma right upper lobe. Previous medical history of tobacco dependence with 22-cfxr-mvpi history, chronic obstructive pulmonary disease, hyp ertension, hyperlipidemia, coronary artery disease status post stenting to the circumflex coronary artery in 2016, sick sinus syndrome status post permanent pacemaker placement in 2010, bipolar disorder/anxiety/depression, and gastroesophageal reflux disease. POD #7 right thoracoscopy, robotic assisted thorascopic right upper lobectomy with mediastinal lymph node dissection, fiberoptic bronchoscopy. Postoperative acute blood loss anemia, expected Postoperative paroxysmal atrial fibrillation, unexpected Postoperative right-sided pneumothorax with prolonged air leak, expected and inherent to this type of surgery The patient's currently sitting up in bed on the cardiac stepdown unit in no acute distress. Denies pain, shortness of breath. Right pleural chest tube remains to continuous wall suction, intermittent air leak remains present, mostly with expiration and coughing. Remains in normal sinus rhythm, hemodynamically stable. No new concerns. Objective - Vital Signs Vital signs: Vital Signs Temp 98.3 F 05/07/19 08:00 Pulse 60 05/07/19 08:53 Resp 16 05/07/19 08:00 BP 122/73 05/07/19 08:00 Pulse Ox 94 L 05/07/19 08:00 Intake & Output 05/06/19 05/07/19 05/07/19 18:59 06:59 18:59 Intake Total 1080 360 Output Total 200 610 Balance 880 -610 360 Weight 65.2 kg 61.1 kg Intake: Oral 1080 360 Output: Chest Tube Drainage 200 Chest Tube Right 200 Urine 200 410 Other: Voiding Method Toilet Urinal # Voids 1 # Bowel Movements 1 ABP, PAP, CO, CI - Last Documented Arterial Blood Pressure 113/55 - Constitutional General appearance: Present: cooperative, no acute distress - Respiratory Details: Lungs sounds diminished bilaterally, right greater than left. Currently on room air with oxygen saturation 96%. Able to achieve 1500 mL on his incentive spirometry. Right pleural chest tube to continuous wall suction, 110 mL serous drainage overnight, 350 mL the last 24 hours, positive intermittent air leak present. - Cardiovascular Details: S1, S2 present. Regular rate and rhythm, atrially paced on telemetry. Peripheral pulses present bilaterally. No edema present. No calf pain or tenderness noted. SCDs present. - Gastrointestinal Gastrointestinal Comment(s): Abdomen soft, nontender, nondistended. Active bowel sounds present 4 quadrants. Tolerating diet. Positive bowel movement. - Genitourinary Genitourinary Comment(s): Continues to void clear, yellow urine. - Integumentary Integumentary Comment(s): Skin is warm and dry with evidence of good perfusion. - Neurologic Neurologic: Present: CNII-XII intact - Musculoskeletal Musculoskeletal: Present: gait normal, strength equal bilaterally - Psychiatric Psychiatric: Present: A&O x's 3, appropriate affect, intact judgment & insight - Allied health notes Allied health notes reviewed: nursing - Labs CBC & Chem 7: 05/07/19 06:23 05/07/19 06:23 Labs: Abnormal Lab Results - Last 24 Hours (Table) 05/07/19 05/07/19 Range/Units 06:23 06:23 RBC 3.29 L (4.30-5.90) m/uL Hgb 9.8 L (13.0-17.5) gm/dL Hct 30.1 L (39.0-53.0) % Calcium 8.2 L (8.4-10.2) mg/dL - Imaging and Cardiology Chest x-ray: report reviewed, image reviewed Assessment and Plan Assessment: 1. Squamous cell carcinoma right upper lobe, [id number], status post right robotic-assisted upper lobectomy with mediastinal lymph node dissection 2. Previous tobacco dependence with [id number] history 3. COPD 4. Hypertension 5. Hyperlipidemia 6. Coronary artery disease status post stenting to the circumflex coronary artery 7. Sick sinus syndrome status post permanent pacemaker placement 8. Bipolar disorder 9. GERD 10. Postoperative acute blood loss anemia 11. Postoperative paroxysmal atrial fibrillation 12. Postoperative right-sided pneumothorax with prolonged air leak Plan: 1. Continue right pleural chest tube to continuous wall suction. Will monitor for resolution of air leak. 2. Encourage incentive spirometry use 10 times every hour while awake 3. Bronchodilators per pulmonology. 4. Continue amiodarone for A. fib prophylaxis. Continue Eliquis for anticoa gulation. 5. Increase activity, ambulate around the room. Extended suction tubing to increase ambulation distance. 6. Pain controlled current medication regimen. 7. GI/DVT prophylaxis. 8. Encourage continued smoking cessation. 9. Will continue to monitor daily x-rays. 10. Discharge planning in progress, patient may benefit from inpatient rehab, however he wishes to return home and he does have Meals on Wheels and frequent nursing check-ins. 11. More recommendations to follow. Time with Patient: Greater than 30
--- NOTE | 2019-05-07 12:21 | P.PN ---
Subjective Progress Note Date: 05/07/19 Principal diagnosis: Paroxysmal atrial fibrillation This is a pleasant 69-year-old gentleman who does follow with a chief mechanical officer out of the town with a past medical history significant for permanent pacemaker implantation related to sick sinus syndrome, hypertension, dyslipidemia, bipolar disorder, and significant history of smoking, was admitted to the intensive care unit after he underwent yesterday a right thoracoscopy with robotic-assisted right upper lobe lobectomy and mediastinal lymph node dissection. Recently the patient was seen by his primary clinical research specialist Dr. Soliman who diagnosed the patient with right upper long pulmonary nodule. A PET scan was performed and showed significant hypermetabolic uptake. Because of that the patient was referred to undergo the above procedure. Postprocedure, the patient was hypotensive requiring a small dose of dopamine. Subsequently the patient went into atrial fibrillation. The dopamine was stopped and the patient after that converted to normal sinus mechanism. Since then he has been in and out atrial fibrillation. The patient does have history of coronary artery disease and he underwent stenting for myocardial infarction about a year ago. No history of atrial fibrillation in the past. He underwent an echocardiogram which revealed normal LV function with mild valvular abnormalities. On follow-up with the patient today, 05/07/2019, he continues to be doing good from a cardiovascular standpoint of view. He is hemodynamically stable beside being on the bradycardic side. Because of that and going to lower the dose of amiodarone to 200 mg by mouth 3 times a day. Continue oral anticoagulation. Objective - Vital Signs Vital signs: Vital Signs Temp 98.3 F 05/07/19 08:00 Pulse 64 05/07/19 11:55 Resp 16 05/07/19 08:00 BP 122/73 05/07/19 08:00 Pulse Ox 94 L 05/07/19 08:00 Intake & Output 05/06/19 05/07/19 05/07/19 18:59 06:59 18:59 Intake Total 1080 360 Output Total 200 610 100 Balance 880 -610 260 Weight 65.2 kg 61.1 kg Intake: Oral 1080 360 Output: Chest Tube Drainage 200 Chest Tube Right 200 Urine 200 410 100 Other: Voiding Method Toilet Urinal # Voids 1 1 # Bowel Movements 1 ABP, PAP, CO, CI - Last Documented Arterial Blood Pressure 113/55 - Constitutional General appearance: Present: no acute distress - Respiratory Respiratory: bilateral: CTA - Cardiovascular Rhythm: regular Heart sounds: normal: S1, S2 - Labs CBC & Chem 7: 05/07/19 06:23 05/07/19 06:23 Labs: Abnormal Lab Results - Last 24 Hours (Table) 05/07/19 05/07/19 Range/Units 06:23 06:23 RBC 3.29 L (4.30-5.90) m/uL Hgb 9.8 L (13.0-17.5) gm/dL Hct 30.1 L (39.0-53.0) % Calcium 8.2 L (8.4-10.2) mg/dL Assessment and Plan Assessment: Assessment #1 status post right robotic-assisted thoracoscopic right upper lobectomy. #2 paroxysmal atrial fibrillation. #3 hypertension which has resolved #4 coronary artery disease and prior coronary revascularization #5 sick sinus syndrome and status post permanent pacemaker #6 multiple comorbid conditions Plan #1 lower the dose of amiodarone #2 continue oral anticoagulation with Eliquis. Thank you for allowing us participate in his care and we will continue following up with the patient
--- NOTE | 2019-05-07 15:21 | P.PN ---
Subjective Progress Note Date: 05/07/19 Principal diagnosis: Right lung nodule. This is a very pleasant 69-year-old gentleman who follows with Dr. Vanessa as his primary care physician. 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 He had been seen and evaluated by Dr. Soliman after being found to have a right lung pulmonary nodule. He performed a PET scan which did show significant hypermetabolic uptake without metastasis and subsequently referred to Dr. Brock. He was admitted here today and had undergone a right thoracoscopy, robotic-assisted thoracoscopic right upper lobectomy and mediastinal lymph node dissection with fiberoptic bronchoscopy. Primary tumor positive for squamous cell carcinoma. He is seen in consultation in the intensive care unit. He is awake and alert in no acute distress. His pain is well controlled at this point. He has a right-sided chest tube in place is positive for a leak and currently to low continuous suction. He denies any worsening shortness of breath. He has a loose nonproductive cough. No chills or night sweats. Continue and O2 saturation in the 90s on 6 L/m per nasal cannula. White count 10.2. Hemoglobin 13.0. Creatinine 0.79. He's been initiated on DuoNeb inhalations, cefazolin, subcutaneous heparin. He has an IV of D5.45 at 40 ML's per hour. The patient is seen today 05/05/2019 in follow-up on the selective care unit. He is awake and alert in no acute distress. He is maintaining good O2 sa turations in the 90s on room air. Right-sided chest tube remains in place. Positive leak still. Chest x-ray shows a 10% right apical pneumothorax. Working well with the incentive spirometer. White count 6.1. Hemoglobin 9.4. Creatinine 1.06. The patient is seen today 05/06/2019 in follow-up on the selective care unit. He is currently awake and alert in no acute distress. Resting quite comfortably in bed. He denies any worsening shortness of breath, cough or congestion. Maintaining O2 saturations in the 90s on room air. Chest x-ray today shows a 30% right-sided pneumothorax. Chest tube remains in place. Positive air leak. Working well with the incentive spirometer. Pathology report is positive for squamous cell carcinoma. Bronchovascular margin negative for malignancy. 0 lym ph nodes involved. The patient is seen today 05/07/2018 in follow-up on selective care unit. He is resting comfortably in bed. Awake and alert in no acute distress. He is maintaining good O2 saturations in the 90s on room air. He's been hemodynamically stable. Afebrile. No current pulmonary complaints. Chest tube remains in place with positive air leak. There is slight improvement in the right apical pneumothorax and right chest wall subcutaneous emphysema. Working well with the incentive spirometer. Objective - Vital Signs Vital signs: Vital Signs Temp 98.3 F 05/07/19 08:00 Pulse 64 05/07/19 11:55 Resp 16 05/07/19 08:00 BP 122/73 05/07/19 08:00 Pulse Ox 94 L 05/07/19 08:00 Intake & Output 05/06/19 05/07/19 05/07/19 18:59 06:59 18:59 Intake Total 1080 600 Output Total 200 610 100 Balance 880 -610 500 Weight 65.2 kg 61.1 kg Intake: Oral 1080 600 Output: Chest Tube Drainage 200 Chest Tube Right 200 Urine 200 410 100 Other: Voiding Method Toilet Urinal # Voids 1 1 # Bowel Movements 1 ABP, PAP, CO, CI - Last Documented Arterial Blood Pressure 113/55 - Exam GENERAL EXAM: Pleasant 69-year-old gentleman. Alert, comfortable in no apparent distress. On room air. EYES: Normal reaction of pupils, equal size. NOSE: Clear with pink turbinates. THROAT: No erythema or exudates. NECK: No masses, no JVD. CHEST: No chest wall deformity. Right-sided chest tube in place. Positive air leak. LUNGS: Equal air entry with bilateral scattered rhonchi more so on the right. CVS: S1 and S2 normal with no audible murmur, regular rhythm. ABDOMEN: No hepatosplenomegaly, normal bowel sounds, no guarding or rigidity. SPINE: No scoliosis or deformity SKIN: No rashes CENTRAL NERVOUS SYSTEM: No focal deficits, tone is normal in all 4 extremities. EXTREMITIES: There is no peripheral edema. No clubbing, no cyanosis. Peripheral pulses are intact. - Labs CBC & Chem 7: 05/07/19 06:23 08/15/19 06:23 Labs: Abnormal Lab Results - Last 24 Hours (Table) 05/07/19 05/07/19 Range/Units 06:23 06:23 RBC 3.29 L (4.30-5.90) m/uL Hgb 9.8 L (13.0-17.5) gm/dL Hct 30.1 L (39.0-53.0) % Calcium 8.2 L (8.4-10.2) mg/dL Assessment and Plan Assessment: Impression: #1 Right lung nodule with hypermetabolic uptake in the PET scan. Status post right thoracoscopy, robotic-assisted thorascopic right upper lobectomy with mediastinal lymph node dissection, fiberoptic bronchoscopy. Pathology positive for squamous cell carcinoma. Margins clear. Nodes negative. #2 Acute hypoxic respiratory failure as an expected outcome of surgery. Apical pneumothorax present. Improved on today's chest x-ray. Chest tube in place. Currently on room air. #3 Chronic and ongoing tobacco dependence of 40 years. #4 Chronic obstructive pulmonary disease #5 Hypertension. #6 Six sinus syndrome status post pacemaker implantation. #7 Anxiety/depression. #8 Hyperlipidemia. Plan: The patient was seen and evaluated by Dr. Hays. Right apical pneumothorax improving. Chest tube remains in place. Positive air leak. Continues to work well with the incentive spirometer and encouraged cough and deep breathing exercises. Increase his activity as tolerated. We will continue to follow and make further recommendations based on his clinical status. I, the cosigning physician, performed a history & physical examination of the patient. Lungs sounds bilateral scattered rhonchi right greater than left. Maintaining good O2 saturations in the 90s on room air.. I discussed the assessment and plan of care with my nurse practitioner, Krysta Lopez. I attest to the above consultation as dictated by her.
[2019-05-07] MEDS: ARIPiprazole 15 MG TAB PO SCH (20:02)
[2019-05-07] MEDS: PREGABALIN 75 MG CAP PO SCH (20:02)
[2019-05-07] MEDS: DONEPEZIL 5 MG TAB PO SCH (20:02)
[2019-05-07] MEDS: DULoxetine HCL 60 MG CAPSULE.DR PO SCH (20:02)
[2019-05-07] MEDS: ATORVASTATIN 40 MG TAB PO SCH (20:02)
[2019-05-08] MEDS: ACETAMINOPHEN TAB 500 MG TAB PO PRN ×3 (03:05→20:09)
[2019-05-08] MEDS: PANTOPRAZOLE 40 MG TABLET PO SCH (05:55)
--- NOTE | 2019-05-08 07:13 | XR ---
EXAMINATION TYPE: XR chest 1V portable DATE OF EXAM: 05/08/2019 COMPARISON: 05/07/2019 HISTORY: Status post right upper lobectomy. TECHNIQUE: Single frontal view of the chest is obtained. FINDINGS: Right thoracostomy tube appears stable in position. The measurement on the right apical pne umothorax is similar however there is increasing lateral right midlung pleural separation now measuri ng up to 3.3 cm. Pneumothorax has slightly increased. Multifocal right-sided atelectasis again is not ed. Strand-like peripheral basilar reticular opacities of fibrosis are seen with pulmonary hyperinfla tion on the left and underlying COPD. Cardiomediastinal silhouette is stable with dual lead left-side d cardiac device. Subcutaneous chest wall emphysema is again unchanged. Postsurgical changes of the c ervical spine and gastroesophageal junction. IMPRESSION: Slight increase in size of the right sided pneumothorax status post right upper lobectom y although the right thoracostomy tube is similar in position.
[2019-05-08] MEDS: SYMBICORT 160-4.5 MCG INHALER INHALATION SCH ×2 (07:37→19:24)
[2019-05-08] MEDS: IPRATROPIUM-ALBUTEROL 3 ML NEB IH SCH ×4 (07:37→19:24)
[2019-05-08] MEDS: METOPROLOL TARTRATE 50 MG TAB PO SCH ×2 (09:26→20:08)
[2019-05-08] MEDS: APIXABAN 5 MG TAB PO SCH ×2 (09:26→20:08)
[2019-05-08] MEDS: AMIODARONE 200 MG TAB PO SCH ×2 (09:26→20:08)
--- NOTE | 2019-05-08 09:26 | P.PN ---
Subjective Progress Note Date: 05/08/19 Principal diagnosis: Squamous cell carcinoma right upper lobe. Previous medical history of tobacco dependence with [id number] history, chronic obstructive pulmonary disease, hyp ertension, hyperlipidemia, coronary artery disease status post stenting to the circumflex coronary artery in 2016, sick sinus syndrome status post permanent pacemaker placement in 2010, bipolar disorder/anxiety/depression, and gastroesophageal reflux disease. POD #8 right thoracoscopy, robotic assisted thorascopic right upper lobectomy with mediastinal lymph node dissection, fiberoptic bronchoscopy. Postoperative acute blood loss anemia, expected Postoperative paroxysmal atrial fibrillation, unexpected Postoperative right-sided pneumothorax with prolonged air leak, expected and inherent to this type of surgery The patient's currently sitting up in bed on the cardiac stepdown unit in no acute distress. Denies pain, shortness of breath. Right pleural chest tube remains to continuous wall suction, intermittent air leak remains present, mostly with expiration and coughing. Remains in normal sinus rhythm, hemodynamically stable. No new concerns, no change from yesterday. Objective - Vital Signs Vital signs: Vital Signs Temp 98.6 F 05/08/19 03:00 Pulse 68 05/08/19 07:49 Resp 18 05/08/19 03:00 BP 105/67 05/08/19 03:00 Pulse Ox 94 L 05/08/19 03:00 Intake & Output 05/07/19 05/08/19 05/08/19 18:59 06:59 18:59 Intake Total 840 240 Output Total 550 900 Balance 290 -900 240 Intake: Oral 840 240 Output: Chest Tube Drainage 50 150 Chest Tube Right 50 150 Urine 500 750 Other: Voiding Method Toilet Urinal # Voids 1 1 ABP, PAP, CO, CI - Last Documented Arterial Blood Pressure 113/55 - Constitutional General appearance: Present: cooperative, no acute distress - Respiratory Details: Lungs sounds diminished bilaterally, right greater than left. Currently on room air with oxygen saturation 94%. Able to achieve 1500 mL on his incentive spirometry. Right pleural chest tube to continuous wall suction, 150 mL serous drainage overnight, 300 mL the last 24 hours, positive intermittent air leak present. - Cardiovascular Details: S1, S2 present. Regular rate and rhythm, atrially paced on telemetry. Peripheral pulses present bilaterally. No edema present. No calf pain or tenderness noted. SCDs present. - Gastrointestinal Gastrointestinal Comment(s): Abdomen soft, nontender, nondistended. Active bowel sounds present 4 quadrants. Tolerating diet. Positive bowel movement. - Genitourinary Genitourinary Comment(s): Continues to void clear, yellow urine. - Integumentary Integumentary Comment(s): Skin is warm and dry with evidence of good perfusion. - Neurologic Neurologic: Present: CNII-XII intact - Musculoskeletal Musculoskeletal: Present: gait normal, strength equal bilaterally - Psychiatric Psychiatric: Present: A&O x's 3, appropriate affect, intact judgment & insight - Allied health notes Allied health notes reviewed: nursing - Labs CBC & Chem 7: 05/07/19 06:23 05/07/19 06:23 - Imaging and Cardiology Chest x-ray: report reviewed, image reviewed Assessment and Plan Assessment: 1. Squamous cell carcinoma right upper lobe, [id number], status post right robotic-assisted upper lobectomy with mediastinal lymph node dissection 2. Previous tobacco dependence with [id number] history 3. COPD 4. Hypertension 5. Hyperlipidemia 6. Coronary artery disease status post stenting to the circumflex coronary artery 7. Sick sinus syndrome status post permanent pacemaker placement 8. Bipolar disorder 9. GERD 10. Postoperative acute blood loss anemia 11. Postoperative paroxysmal atrial fibrillation 12. Postoperative right-sided pneumothorax with prolonged air leak Plan: 1. Continue right pleural chest tube to continuous wall suction. Will monitor for resolution of air leak. 2. Encourage incentive spirometry use 10 times every hour while awake 3. Bronchodilators per pulmonology. 4. Continue amiodarone for A. fib prophylaxis. Continue Eliquis for anticoagulation. 5. Increase activity, ambulate around the room. Extended suction tubing to in crease ambulation distance. 6. Pain controlled current medication regimen. 7. GI/DVT prophylaxis. 8. Encourage continued smoking cessation. 9. Will continue to monitor daily x-rays. 10. Discharge planning in progress, patient may benefit from inpatient rehab, however he wishes to return home and he does have Meals on Wheels and frequent nursing check-ins. 11. More recommendations to follow. Time with Patient: Greater than 30
--- NOTE | 2019-05-08 10:44 | P.PN ---
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 Recently the patient was seen by his primary strategic insights lead Dr. Soliman who diagnosed the patient with right upper long pulmonary nodule. A PET scan was performed and showed significant hypermetabolic uptake. Because of that the patient was referred to undergo the above procedure. Postprocedure, the patient was hypotensive requiring a small dose of dopamine. Subsequently the patient went into atrial fibrillation. The dopamine was stopped and the patient after that converted to normal sinus mechanism. Since then he has been in and out atrial fibrillation. The patient does have history of coronary artery disease and he underwent stenting for myocardial infarction about a year ago. No history of atrial fibrillation in the past. He underwent an echocardiogram which revealed normal LV function with mild valvular abnormalities. On follow-up with the patient today, 05/08/2019, he continues to be doing good from a cardiovascular standpoint of view. He is hemodynamically stable beside being on the bradycardic side. Because of that and going to lower the dose of amiodarone to 200 mg by mouth 3 times a day. Continue oral anticoagulation. We will follow-up with the patient on when necessary case. Objective - Vital Signs Vital signs: Vital Signs Temp 98.6 F 05/08/19 03:00 Pulse 68 05/08/19 07:49 Resp 18 05/08/19 03:00 BP 105/67 05/08/19 03:00 Pulse Ox 94 L 05/08/19 03:00 Intake & Output 05/07/19 05/08/19 05/08/19 18:59 06:59 18:59 Intake Total 840 240 Output Total 550 900 Balance 290 -900 240 Intake: Oral 840 240 Output: Chest Tube Drainage 50 150 Chest Tube Right 50 150 Urine 500 750 Other: Voiding Method Toilet Urinal # Voids 1 1 ABP, PAP, CO, CI - Last Documented Arterial Blood Pressure 113/55 - Constitutional General appearance: Present: no acute distress - Respiratory Respiratory: bilateral: diminished - Cardiovascular Rhythm: regular - Labs CBC & Chem 7: 05/07/19 06:23 05/07/19 06:23 Assessment and Plan Assessment: Assessment #1 status post right robotic-assisted thoracoscopic right upper lobectomy. #2 paroxysmal atrial fibrillation. #3 hypertension which has resolved #4 coronary artery disease and prior coronary revascularization #5 sick sinus syndrome and status post permanent pacemaker #6 multiple comorbid conditions Plan #1 continue the current medical regimen #2 we'll follow-up with the patient on when necessary case
--- NOTE | 2019-05-08 15:05 | P.PN ---
Subjective Progress Note Date: 05/08/19 Principal diagnosis: Right lung nodule. This is a very pleasant 69-year-old gentleman who follows with Dr. Vanessa as his primary care physician. 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 He had been seen and evaluated by Dr. Soliman after being found to have a right lung pulmonary nodule. He performed a PET scan which did show significant hypermetabolic uptake without metastasis and subsequently referred to Dr. Brock. He was admitted here today and had undergone a right thoracoscopy, robotic-assisted thoracoscopic right upper lobectomy and mediastinal lymph node dissection with fiberoptic bronchoscopy. Primary tumor positive for squamous cell carcinoma. He is seen in consultation in the intensive care unit. He is awake and alert in no acute distress. His pain is well controlled at this point. He has a right-sided chest tube in place is positive for a leak and currently to low continuous suction. He denies any worsening shortness of breath. He has a loose nonproductive cough. No chills or night sweats. Continue and O2 saturation in the 90s on 6 L/m per nasal cannula. White count 10.2. Hemoglobin 13.0. Creatinine 0.79. He's been initiated on DuoNeb inhalations, cefazolin, subcutaneous heparin. He has an IV of D5.45 at 40 ML's per hour. The patient is seen today 05/05/2019 in follow-up on the selective care unit. He is awake and alert in no acute distress. He is maintaining good O2 sa turations in the 90s on room air. Right-sided chest tube remains in place. Positive leak still. Chest x-ray shows a 10% right apical pneumothorax. Working well with the incentive spirometer. White count 6.1. Hemoglobin 9.4. Creatinine 1.06. The patient is seen today 05/06/2019 in follow-up on the selective care unit. He is currently awake and alert in no acute distress. Resting quite comfortably in bed. He denies any worsening shortness of breath, cough or congestion. Maintaining O2 saturations in the 90s on room air. Chest x-ray today shows a 30% right-sided pneumothorax. Chest tube remains in place. Positive air leak. Working well with the incentive spirometer. Pathology report is positive for squamous cell carcinoma. Bronchovascular margin negative for malignancy. 0 lym ph nodes involved. The patient is seen today 05/07/2018 in follow-up on selective care unit. He is resting comfortably in bed. Awake and alert in no acute distress. He is maintaining good O2 saturations in the 90s on room air. He's been hemodynamically stable. Afebrile. No current pulmonary complaints. Chest tube remains in place with positive air leak. There is slight improvement in the right apical pneumothorax and right chest wall subcutaneous emphysema. Working well with the incentive spirometer. The patient is seen today 05/08/2019 in follow-up on the selective care unit. He is awake and alert in no acute distress. Maintaining good O2 saturations in the 90s and up to 100% on room air. Today's chest x-ray reveals a slight increase in the size of the right-sided pneumothorax status post right upper lobectomy. Chest tube remains in place. Positive air leak. 2 low continuous suction. He continues to work well with the incentive spirometer. He remains on DuoNeb inhalations and Symbicort. Objective - Vital Signs Vital signs: Vital Signs Temp 98.4 F 05/08/19 12:00 Pulse 59 L 05/08/19 12:00 Resp 16 05/08/19 12:00 BP 104/67 05/08/19 12:00 Pulse Ox 100 05/08/19 12:00 Intake & Output 05/07/19 05/08/19 05/08/19 18:59 06:59 18:59 Intake Total 840 480 Output Total 550 900 625 Balance 290 -900 -145 Intake: Oral 840 480 Output: Chest Tube Drainage 50 150 Chest Tube Right 50 150 Urine 500 750 625 Other: Voiding Method Toilet Urinal # Voids 1 1 ABP, PAP, CO, CI - Last Documented Arterial Blood Pressure 113/55 - Exam GENERAL EXAM: Pleasant 69-year-old gentleman. Comfortable in no apparent distr ess. On room air. EYES: Normal reaction of pupils, equal size. NOSE: Clear with pink turbinates. THROAT: No erythema or exudates. NECK: No masses, no JVD. CHEST: No chest wall deformity. Right-sided chest tube in place. Positive air leak. LUNGS: Equal air entry with bilateral scattered rhonchi more so on the right. CVS: S1 and S2 normal with no audible murmur, regular rhythm. ABDOMEN: No hepatosplenomegaly, normal bowel sounds, no guarding or rigidity. SPINE: No scoliosis or deformity SKIN: No rashes CENTRAL NERVOUS SYSTEM: No focal deficits, tone is normal in all 4 extremities. EXTREMITIES: There is no peripheral edema. No clubbing, no cyanosis. Peripheral pulses are intact. - Labs CBC & Chem 7: 05/07/19 06:23 05/07/19 06:23 Assessment and Plan Assessment: Impression: #1 Right lung nodule with hypermetabolic uptake in the PET scan. Status post right thoracoscopy, robotic-assisted thorascopic right upper lobectomy with mediastinal lymph node dissection, fiberoptic bronchoscopy. Pathology positive for squamous cell carcinoma. Margins clear. Nodes negative. #2 Acute hypoxic respiratory failure as an expected outcome of surgery. Right apical pneumothorax present. Chest tube in place. Currently on room air. #3 Chronic and ongoing tobacco dependence of 40 years. #4 Chronic obstructive pulmonary disease #5 Hypertension. #6 Six sinus syndrome status post pacemaker implantation. #7 Anxiety/depression. #8 Hyperlipidemia. Plan: The patient was seen and evaluated by Dr. Hays. Chest x-ray reviewed. Right apical pneumothorax remains. Chest tube remains in place. Positive air leak. Continues to work well with the incentive spirometer. Increase his activity as tolerated. We will continue to follow and make further recommendations based on his clinical status. I, the cosigning physician, performed a history & physical examination of the patient. Lungs sounds bilateral scattered rhonchi on the right. Left lung clear.. Maintaining good O2 saturations in the 90s on room air.. I discussed the assessment and plan of care with my nurse practitioner, Krysta Lopez. I attest to the above consultation as dictated by her.
[2019-05-08] MEDS: ARIPiprazole 15 MG TAB PO SCH (20:08)
[2019-05-08] MEDS: PREGABALIN 75 MG CAP PO SCH (20:08)
[2019-05-08] MEDS: DONEPEZIL 5 MG TAB PO SCH (20:08)
[2019-05-08] MEDS: DULoxetine HCL 60 MG CAPSULE.DR PO SCH (20:08)
[2019-05-08] MEDS: ATORVASTATIN 40 MG TAB PO SCH (20:08)
[2019-05-09] MEDS: ACETAMINOPHEN TAB 500 MG TAB PO PRN ×3 (06:10→20:07)
[2019-05-09] MEDS: PANTOPRAZOLE 40 MG TABLET PO SCH (06:10)
--- NOTE | 2019-05-09 07:12 | XR ---
EXAMINATION TYPE: XR chest 1V portable DATE OF EXAM: 05/09/2019 HISTORY: post lobectomy. REFERENCE: Previous study dated 05/08/2019. FINDINGS: There has been a previous ACDF of the lower cervical spine. There is a bipolar pacemaker pl lei on the left. A right pleural drain remains in place. There continues to be a right-sided pneumothorax. This has not changed significantly from previous an d approaches 4050% by volume. There is chronic apparent elevation right hemidiaphragm. I suspect a sm all right effusion. The heart is not enlarged. IMPRESSION: CONTINUING RIGHT-SIDED PNEUMOTHORAX, UNCHANGED FROM PREVIOUS.
[2019-05-09] MEDS: SYMBICORT 160-4.5 MCG INHALER INHALATION SCH ×2 (07:51→19:23)
[2019-05-09] MEDS: IPRATROPIUM-ALBUTEROL 3 ML NEB IH SCH ×4 (07:51→19:23)
[2019-05-09] MEDS: AMIODARONE 200 MG TAB PO SCH ×2 (07:52→20:07)
[2019-05-09] MEDS: APIXABAN 5 MG TAB PO SCH ×2 (07:52→20:06)
[2019-05-09] MEDS: METOPROLOL TARTRATE 50 MG TAB PO SCH ×2 (07:52→20:06)
--- NOTE | 2019-05-09 11:11 | P.PN ---
Subjective Progress Note Date: 05/09/19 Principal diagnosis: Squamous cell carcinoma right upper lobe. Previous medical history of tobacco dependence with [id number]-[id number] history, chronic obstructive pulmonary disease, hyp ertension, hyperlipidemia, coronary artery disease status post stenting to the circumflex coronary artery in 2016, sick sinus syndrome status post permanent pacemaker placement in 2010, bipolar disorder/anxiety/depression, and gastroesophageal reflux disease. POD #9 right thoracoscopy, robotic assisted thorascopic right upper lobectomy with mediastinal lymph node dissection, fiberoptic bronchoscopy. Postoperative acute blood loss anemia, expected Postoperative paroxysmal atrial fibrillation, unexpected Postoperative right-sided pneumothorax with prolonged air leak, expected and inherent to this type of surgery The patient's currently sitting up in bed on the cardiac stepdown unit in no acute distress. Denies pain, shortness of breath. Right pleural chest tube remains to continuous wall suction, intermittent air leak remains present but much less than yesterday. Remains in normal sinus rhythm, hemodynamically stable. No new concerns. Objective - Vital Signs Vital signs: Vital Signs Temp 98.1 F 05/09/19 08:00 Pulse 68 05/09/19 08:04 Resp 20 05/09/19 08:00 BP 94/63 05/09/19 08:00 Pulse Ox 96 05/09/19 08:00 Intake & Output 05/08/19 05/09/19 05/09/19 18:59 06:59 18:59 Intake Total 702 20 Output Total 1335 625 Balance -633 -605 Weight 60.2 kg Intake: IV 20 Invasive Line 5 20 Oral 702 Output: Chest Tube Drainage 200 175 Chest Tube Right 200 175 Drainage 200 Right Lateral Chest 200 Urine 935 450 Other: Voiding Method Urinal # Voids 1 ABP, PAP, CO, CI - Last Documented Arterial Blood Pressure 113/55 - Constitutional General appearance: Present: cooperative, no acute distress - Respiratory Details: Lungs sounds diminished bilaterally, right greater than left. Currently on room air with oxygen saturation 95%. Able to achieve 1500 mL on his incentive spirometry. Right pleural chest tube to continuous wall suction, 175 mL serous drainage overnight, 350 mL the last 24 hours, positive intermittent air leak present. - Cardiovascular Details: S1, S2 present. Regular rate and rhythm, sinus rhythm on telemetry. Peripheral pulses present bilaterally. No edema present. No calf pain or tenderness noted. SCDs present. - Gastrointestinal Gastrointestinal Comment(s): Abdomen soft, nontender, nondistended. Active bowel sounds present 4 quadrants. Tolerating diet. Positive bowel movement. - Genitourinary Genitourinary Comment(s): Continues to void clear, yellow urine. - Integumentary Integumentary Comment(s): Skin is warm and dry with evidence of good perfusion. - Neurologic Neurologic: Present: CNII-XII intact - Musculoskeletal Musculoskeletal: Present: gait normal, strength equal bilaterally - Psychiatric Psychiatric: Present: A&O x's 3, appropriate affect, intact judgment & insight - Allied health notes Allied health notes reviewed: nursing - Labs CBC & Chem 7: 05/07/19 06:23 05/07/19 06:23 - Imaging and Cardiology Chest x-ray: report reviewed, image reviewed Assessment and Plan Assessment: 1. Squamous cell carcinoma right upper lobe, [id number], status post right robotic-assisted upper lobectomy with mediastinal lymph node dissection 2. Previous tobacco dependence with 21-sucn-zcan history 3. COPD 4. Hypertension 5. Hyperlipidemia 6. Coronary artery disease status post stenting to the circumflex coronary artery 7. Sick sinus syndrome status post permanent pacemaker placement 8. Bipolar disorder 9. GERD 10. Postoperative acute blood loss anemia 11. Postoperative paroxysmal atrial fibrillation 12. Postoperative right-sided pneumothorax with prolonged air leak Plan: 1. Right pleural chest tube placed to waterseal. 2. Encourage incentive spirometry use 10 times every hour while awake 3. Bronchodilators per pulmonology. 4. Continue amiodarone for A. fib prophylaxis. Continue Eliquis for anticoagulation. 5. Increase activity, ambulate as tolerated. PT/OT following. 6. Pain controlled current medication regimen. 7. GI/DVT prophylaxis. 8. Encourage continued smoking cessation. 9. Will continue to monitor daily x-rays. 10. Discharge planning in progress, patient may benefit from inpatient rehab, however he wishes to return home and he does have Meals on Wheels and frequent nursing check-ins. 11. More recommendations to follow. Time with Patient: Greater than 30
--- NOTE | 2019-05-09 12:20 | P.PN ---
Subjective Progress Note Date: 05/09/19 This is a very pleasant 69-year-old gentleman who follows with Dr. Vanessa as his primary care physician. 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 He had been seen and evaluated by Dr. Soliman after being found to have a right lung pulmonary nodule. He performed a PET scan which did show significant hypermetabolic uptake without metastasis and subsequently referred to Dr. Brock. He was admitted here today and had undergone a right thoracoscopy, robotic-assisted thoracoscopic right upper lobectomy and mediastinal lymph node dissection with fiberoptic bronchoscopy. Primary tumor positive for squamous cell carcinoma. He is seen in consultation in the intensive care unit. He is awake and alert in no acute distress. His pain is well controlled at this point. He has a right-sided chest tube in place is positive for a leak and currently to low continuous suction. He denies any worsening shortness of breath. He has a loose nonproductive cough. No chills or night sweats. Continue and O2 saturation in the 90s on 6 L/m per nasal cannula. White count 10.2. Hemoglobin 13.0. Creatinine 0.79. He's been initiated on DuoNeb inhalations, cefazolin, subcutaneous heparin. He has an IV of D5.45 at 40 ML's per hour. The patient is seen today 05/05/2019 in follow-up on the selective care unit. He is awake and alert in no acute distress. He is maintaining good O2 saturations in the 90s on room air. Right-sided chest tube remains in place. Positive leak still. Chest x-ray shows a 10% right apical pneumothorax. Working well with the incentive spirometer. White count 6.1. Hemoglobin 9.4. Creatinine 1.06. The patient is seen today 05/06/2019 in follow-up on the selective care unit. He is currently awake and alert in no acute distress. Resting quite comfortably in bed. He denies any worsening shortness of breath, cough or congestion. Maintaining O2 saturations in the 90s on room air. Chest x-ray today shows a 30% right-sided pneumothorax. Chest tube remains in place. Positive air leak. Working well with the incentive spirometer. Pathology report is positive for squamous cell carcinoma. Bronchovascular margin negative for malignancy. 0 lymph nodes involved. The patient is seen today 05/07/2018 in follow-up on selective care unit. He is resting comfortably in bed. Awake and alert in no acute distress. He is maintaining good O2 saturations in the 90s on room air. He's been hemodynamically stable. Afebrile. No current pulmonary complaints. Chest tube remains in place with positive air leak. There is slight improvement in the right apical pneumothorax and right chest wall subcutaneous emphysema. Working well with the incentive spirometer. The patient is seen today 05/08/2019 in follow-up on the selective care unit. He is awake and alert in no acute distress. Maintaining good O2 saturations in the 90s and up to 100% on room air. Today's chest x-ray reveals a slight increase in the size of the right-sided pneumothorax status post right upper lobectomy. Chest tube remains in place. Positive air leak. 2 low continuous suction. He continues to work well with the incentive spirometer. He remains on DuoNeb inhalations and Symbicort. On 05/09/2019, the air leak from the right chest tube is minimal. The pneumothorax has improved in the right lung. No significant complaints. He is resting comfortably in bed. No nausea no vomiting. No chest pain. The patient has stage I non-small cell lung cancer and the mediastinal lymph nodes came back all negative. He is using incentive spirometer. Is tolerating his diet. Objective - Vital Signs Vital signs: Vital Signs Temp 98.1 F 05/09/19 08:00 Pulse 64 05/09/19 12:12 Resp 20 05/09/19 11:52 BP 101/63 05/09/19 11:52 Pulse Ox 95 05/09/19 11:52 Intake & Output 05/08/19 05/09/19 05/09/19 18:59 06:59 18:59 Intake Total 702 20 Output Total 1335 625 20 Balance -633 -605 -20 Weight 60.2 kg Intake: IV 20 Invasive Line 5 20 Oral 702 Output: Chest Tube Drainage 200 175 20 Chest Tube Right 200 175 20 Drainage 200 Right Lateral Chest 200 Urine 935 450 Other: Voiding Method Urinal # Voids 1 ABP, PAP, CO, CI - Last Documented Arterial Blood Pressure 113/55 - Exam - Constitutional General appearance: Present: cooperative, no acute distress - Respiratory Details: Lungs sounds diminished bilaterally, right greater than left. Currently on room air with oxygen saturation 95%. Able to achieve 1500 mL on his incentive spirometry. Right pleural chest tube to continuous wall suction, 175 mL serous drainage overnight, 350 mL the last 24 hours, positive intermittent air leak present. - Cardiovascular Details: S1, S2 present. Regular rate and rhythm, sinus rhythm on telemetry. Peripheral pulses present bilaterally. No edema present. No calf pain or tenderness noted. SCDs present. - Gastrointestinal Gastrointestinal Comment(s): Abdomen soft, nontender, nondistended. Active bowel sounds present 4 quadrants. Tolerating diet. Positive bowel movement. - Genitourinary Genitourinary Comment(s): Continues to void clear, yellow urine. - Integumentary Integumentary Comment(s): Skin is warm and dry with evidence of good perfusion. - Neurologic Neurologic: Present: CNII-XII intact - Musculoskeletal Musculoskeletal: Present: gait normal, strength equal bilaterally - Psychiatric Psychiatric: Present: A&O x's 3, appropriate affect, intact judgment & insight - Labs CBC & Chem 7: 05/07/19 06:23 08 06:23 Assessment and Plan Assessment: #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 Status post right thoracoscopy, robotic-assisted thorascopic right upper lobectomy with mediastinal lymph node dissection, fiberoptic bronchoscopy. Suspect squamous cell carcinoma. Postoperative day #9.. The patient was found to have an early stage I non-small cell lung cancer. #2 right-sided pneumothorax, expected outcome of surgery, chest tube is in place and there is ongoing air leak. The size of pneumothorax is much smaller and the amount of air leak is improving #3 Chronic and ongoing tobacco dependence of 40 years. #4 Chronic obstructive pulmonary disease #5 Hypertension. #6 sick sinus syndrome status post pacemaker implantation. #7 Anxiety/depression. #8 Hyperlipidemia. #9 bipolar disorder #1040 pack smoking history #11 postoperative acute blood loss anemia, expected outcome of surgery #12 postoperative paroxysmal atrial fibrillation, and expected outcome of surgery Plan Repeat chest x-ray in a.m. Continue bronchodilators. Incentive spirometer. Anticoagulation with Eliquis. We'll follow
[2019-05-09] MEDS: PREGABALIN 75 MG CAP PO SCH (20:06)
[2019-05-09] MEDS: ARIPiprazole 15 MG TAB PO SCH (20:06)
[2019-05-09] MEDS: ATORVASTATIN 40 MG TAB PO SCH (20:06)
[2019-05-09] MEDS: DULoxetine HCL 60 MG CAPSULE.DR PO SCH (20:07)
[2019-05-09] MEDS: DONEPEZIL 5 MG TAB PO SCH (20:07)
[2019-05-10] MEDS: PANTOPRAZOLE 40 MG TABLET PO SCH (06:13)
--- NOTE | 2019-05-10 06:48 | XR ---
EXAMINATION TYPE: XR chest 2V DATE OF EXAM: 05/10/2019 HISTORY: Post-lobectomy. REFERENCE: Previous study dated 05/09/2019. FINDINGS: There has been a previous ACDF. There is a bipolar pacemaker place on the left. Right pleural drain remains in place. There continues to be right apical pneumothorax, unchanged from previous. There is apparent elevation of the right hemidiaphragm. There is prominence of the right h ilum. I could not exclude a right-sided effusion. There is underlying COPD. IMPRESSION: CONTINUING RIGHT-SIDED APICAL PNEUMOTHORAX.
[2019-05-10] MEDS: SYMBICORT 160-4.5 MCG INHALER INHALATION SCH ×2 (07:36→20:07)
[2019-05-10] MEDS: IPRATROPIUM-ALBUTEROL 3 ML NEB IH SCH ×4 (07:36→20:06)
[2019-05-10] MEDS: AMIODARONE 200 MG TAB PO SCH ×2 (09:25→21:48)
[2019-05-10] MEDS: APIXABAN 5 MG TAB PO SCH ×2 (09:25→21:49)
[2019-05-10] MEDS: METOPROLOL TARTRATE 50 MG TAB PO SCH ×2 (09:26→21:48)
--- NOTE | 2019-05-10 10:04 | P.PN ---
Subjective Progress Note Date: 05/10/19 Principal diagnosis: Squamous cell carcinoma right upper lobe. Previous medical history of tobacco dependence with 35-nlqq-ngic history, chronic obstructive pulmonary disease, hyp ertension, hyperlipidemia, coronary artery disease status post stenting to the circumflex coronary artery in 2016, sick sinus syndrome status post permanent pacemaker placement in 2010, bipolar disorder/anxiety/depression, and gastroesophageal reflux disease. POD #10 right thoracoscopy, robotic assisted thorascopic right upper lobectomy with mediastinal lymph node dissection, fiberoptic bronchoscopy. Postoperative acute blood loss anemia, expected Postoperative paroxysmal atrial fibrillation, unexpected Postoperative right-sided pneumothorax with prolonged air leak, expected and inherent to this type of surgery The patient's currently sitting up in bed on the cardiac stepdown unit in no acute distress. Denies pain, shortness of breath. Right pleural chest tube placed to waterseal yesterday, no air leak this morning. Remains in normal sinus rhythm, hemodynamically stable. No new concerns. Objective - Vital Signs Vital signs: Vital Signs Temp 98.1 F 05/10/19 08:00 Pulse 67 05/10/19 08:00 Resp 20 05/10/19 08:00 BP 105/71 05/10/19 08:00 Pulse Ox 95 05/10/19 08:00 Intake & Output 05/09/19 05/10/19 05/10/19 18:59 06:59 18:59 Intake Total 1016 358 Output Total 40 410 90 Balance 976 -410 268 Weight 59.7 kg Intake: Oral 1016 358 Output: Chest Tube Drainage 40 90 Chest Tube Right 40 90 Drainage 60 Right Lateral Chest 60 Urine 350 Other: Voiding Method Urinal # Voids 2 ABP, PAP, CO, CI - Last Documented Arterial Blood Pressure 113/55 - Constitutional General appearance: Present: cooperative, no acute distress - Respiratory Details: Lungs sounds diminished bilaterally, right greater than left. Currently on room air with oxygen saturation 95%. Able to achieve 1500 mL on his incentive spirometry. Right pleural chest tube to waterseal, 180 mL serous drainage in the last 24 hours, no air leak present. - Cardiovascular Details: S1, S2 present. Regular rate and rhythm, sinus rhythm on telemetry. Peripheral pulses present bilaterally. No edema present. No calf pain or tenderness noted. SCDs present. - Gastrointestinal Gastrointestinal Comment(s): Abdomen soft, nontender, nondistended. Active bowel sounds present 4 quadrants. Tolerating diet. Positive bowel movement. - Genitourinary Genitourinary Comment(s): Continues to void clear, yellow urine. - Integumentary Integumentary Comment(s): Skin is warm and dry with evidence of good perfusion. - Neurologic Neurologic: Present: CNII-XII intact - Musculoskeletal Musculoskeletal: Present: gait normal, strength equal bilaterally - Psychiatric Psychiatric: Present: A&O x's 3, appropriate affect, intact judgment & insight - Allied health notes Allied health notes reviewed: nursing - Labs CBC & Chem 7: 05/07/19 06:23 05/07/19 06:23 - Imaging and Cardiology Chest x-ray: report reviewed, image reviewed Assessment and Plan Assessment: 1. Squamous cell carcinoma right upper lobe, [id number], status post right robotic-assisted upper lobectomy with mediastinal lymph node dissection 2. Previous tobacco dependence with 79-czxc-[id number] history 3. COPD 4. Hypertension 5. Hyperlipidemia 6. Coronary artery disease status post stenting to the circumflex coronary artery 7. Sick sinus syndrome status post permanent pacemaker placement 8. Bipolar disorder 9. GERD 10. Postoperative acute blood loss anemia 11. Postoperative paroxysmal atrial fibrillation 12. Postoperative right-sided pneumothorax with prolonged air leak Plan: 1. Continue right pleural chest tube to waterseal. If no air leak tomorrow morning will discontinue pleural chest tube. 2. Encourage incentive spirometry use 10 times every hour while awake 3. Bronchodilators per pulmonology. 4. Continue amiodarone for A. fib prophylaxis. Continue Eliquis for anticoagulation. 5. Increase activity, ambulate as tolerated. PT/OT following. 6. Pain controlled current medication regimen. 7. GI/DVT prophylaxis. 8. Encourage continued smoking cessation. 9. Will continue to monitor daily x-rays. 10. Discharge planning in progress, patient may benefit from inpatient rehab, however he wishes to return home and he does have Meals on Wheels and frequent nursing check-ins. 11. More recommendations to follow. Time with Patient: Greater than 30
[2019-05-10] MEDS ORDERED: KETOROLAC 30 MG/ML 1 ML VIAL IVP ONE (11:27)
--- NOTE | 2019-05-10 11:43 | XR ---
EXAMINATION TYPE: XR chest 1V portable DATE OF EXAM: 05/10/2019 HISTORY: Chest pain. REFERENCE: Previous study dated 05/10/2019. FINDINGS: A right pleural drain remains in place. There is been an ACDF in the lower cervical spine. A bipolar pacemaker is in place on the left. There is a worsening pneumothorax on the right. This now exceeds 50% by volume. There is a small asso ciated pleural effusion. There is subcutaneous emphysema on the right. The heart is not enlarged. The re is elevation right hemidiaphragm. There is evidence of old granulomatous disease on the right. IMPRESSION: 1. WORSENING RIGHT-SIDED PNEUMOTHORAX. 2. EVIDENCE OF OLD GRANULOMATOUS DISEASE.
[2019-05-10] MEDS ORDERED: CALCIUM CARBONATE 500 MG CHEWABLE PO PRN (12:22)
--- NOTE | 2019-05-10 13:05 | P.PN ---
Subjective Progress Note Date: 05/10/19 This is a very pleasant 69-year-old gentleman who follows with Dr. Vanessa as his primary care physician. 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 He had been seen and evaluated by Dr. Soliman after being found to have a right lung pulmonary nodule. He performed a PET scan which did show significant hypermetabolic uptake without metastasis and subsequently referred to Dr. Brock. He was admitted here today and had undergone a right thoracoscopy, robotic-assisted thoracoscopic right upper lobectomy and mediastinal lymph node dissection with fiberoptic bronchoscopy. Primary tumor positive for squamous cell carcinoma. He is seen in consultation in the intensive care unit. He is awake and alert in no acute distress. His pain is well controlled at this point. He has a right-sided chest tube in place is positive for a leak and currently to low continuous suction. He denies any worsening shortness of breath. He has a loose nonproductive cough. No chills or night sweats. Continue and O2 saturation in the 90s on 6 L/m per nasal cannula. White count 10.2. Hemoglobin 13.0. Creatinine 0.79. He's been initiated on DuoNeb inhalations, cefazolin, subcutaneous heparin. He has an IV of D5.45 at 40 ML's per hour. The patient is seen today 05/05/2019 in follow-up on the selective care unit. He is awake and alert in no acute distress. He is maintaining good O2 saturations in the 90s on room air. Right-sided chest tube remains in place. Positive leak still. Chest x-ray shows a 10% right apical pneumothorax. Working well with the incentive spirometer. White count 6.1. Hemoglobin 9.4. Creatinine 1.06. The patient is seen today 05/06/2019 in follow-up on the selective care unit. He is currently awake and alert in no acute distress. Resting quite comfortably in bed. He denies any worsening shortness of breath, cough or congestion. Maintaining O2 saturations in the 90s on room air. Chest x-ray today shows a 30% right-sided pneumothorax. Chest tube remains in place. Positive air leak. Working well with the incentive spirometer. Pathology report is positive for squamous cell carcinoma. Bronchovascular margin negative for malignancy. 0 lymph nodes involved. The patient is seen today 05/07/2018 in follow-up on selective care unit. He is resting comfortably in bed. Awake and alert in no acute distress. He is maintaining good O2 saturations in the 90s on room air. He's been hemodynamically stable. Afebrile. No current pulmonary complaints. Chest tube remains in place with positive air leak. There is slight improvement in the right apical pneumothorax and right chest wall subcutaneous emphysema. Working well with the incentive spirometer. The patient is seen today 05/08/2019 in follow-up on the selective care unit. He is awake and alert in no acute distress. Maintaining good O2 saturations in the 90s and up to 100% on room air. Today's chest x-ray reveals a slight increase in the size of the right-sided pneumothorax status post right upper lobectomy. Chest tube remains in place. Positive air leak. 2 low continuous suction. He continues to work well with the incentive spirometer. He remains on DuoNeb inhalations and Symbicort. On 05/09/2019, the air leak from the right chest tube is minimal. The pneumothorax has improved in the right lung. No significant complaints. He is resting comfortably in bed. No nausea no vomiting. No chest pain. The patient has stage I non-small cell lung cancer and the mediastinal lymph nodes came back all negative. He is using incentive spirometer. Is tolerating his diet. On 05/10/2019, the patient does not have any air leak. The right-sided pneumothorax has gotten smaller in size. He is resting comfortably in bed. Using incentive spirometer. No chest pain. No nausea or vomiting. No other new complaints otherwise for now. His condition is stable. Objective - Vital Signs Vital signs: Vital Signs Temp 98.1 F 05/10/19 08:00 Pulse 63 05/10/19 11:52 Resp 20 05/10/19 11:52 BP 114/76 05/10/19 11:52 Pulse Ox 93 L 05/10/19 11:52 Intake & Output 05/09/19 05/10/19 05/10/19 18:59 06:59 18:59 Intake Total 1016 358 Output Total 40 410 290 Balance 976 -410 68 Weight 59.7 kg Intake: Oral 1016 358 Output: Chest Tube Drainage 40 90 Chest Tube Right 40 90 Drainage 60 Right Lateral Chest 60 Urine 350 200 Other: Voiding Method Urinal # Voids 2 2 ABP, PAP, CO, CI - Last Documented Arterial Blood Pressure 113/55 - Exam - Constitutional General appearance: Present: cooperative, no acute distress - Respiratory Details: Lungs sounds diminished bilaterally, right greater than left. Currently on room air with oxygen saturation 95%. Able to achieve 1500 mL on his incentive spirometry. Right pleural chest tube to waterseal, 180 mL serous drainage in the last 24 hours, no air leak present. - Cardiovascular Details: S1, S2 present. Regular rate and rhythm, sinus rhythm on telemetry. Peripheral pulses present bilaterally. No edema present. No calf pain or tenderness noted. SCDs present. - Gastrointestinal Gastrointestinal Comment(s): Abdomen soft, nontender, nondistended. Active bowel sounds present 4 quadrants. Tolerating diet. Positive bowel movement. - Genitourinary Genitourinary Comment(s): Continues to void clear, yellow urine. - Integumentary Integumentary Comment(s): Skin is warm and dry with evidence of good perfusion. 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 Status post right thoracoscopy, robotic-assisted thorascopic right upper lobectomy with mediastinal lymph node dissection, fiberoptic bronchoscopy. Suspect squamous cell carcinoma. Postoperative day #10.. The patient was found to have an early stage I non-small cell lung cancer. #2 right-sided pneumothorax, expected outcome of surgery, chest tube is in place and there is resolution of the previously described air leak. The size of pneumothorax is much smaller and the amount of air leak is improved. Clinically stable on room air oxygen. #3 Chronic and ongoing tobacco dependence of 40 years. #4 Chronic obstructive pulmonary disease #5 Hypertension. #6 sick sinus syndrome status post pacemaker implantation. #7 Anxiety/depression. #8 Hyperlipidemia. #9 bipolar disorder #1040 pack smoking history #11 postoperative acute blood loss anemia, expected outcome of surgery #12 postoperative paroxysmal atrial fibrillation, and expected outcome of surgery Plan Repeat chest x-ray in a.m. Continue bronchodilators. Incentive spirometer. Anticoagulation with Eliquis. Keep the chest tube in place. [facility]. Obtain a follow-up chest x-ray in the morning. No evidence of any air leak. The size of the pneumothorax is improved. We'll follow
[2019-05-10] MEDS: ACETAMINOPHEN TAB 500 MG TAB PO PRN (13:06)
[2019-05-10] MEDS ORDERED: MORPHINE SULFATE 2 MG/ML SYRINGE IVP STA (14:40)
--- NOTE | 2019-05-10 16:24 | CT ---
EXAMINATION TYPE: CT angio chest DATE OF EXAM: 05/10/2019 4:08 PM COMPARISON: 03/14/2019 HISTORY: Difficulty breathing and chest pain. Chest tube placed [address] DLP: 234.9 mGycm Automated exposure control for dose reduction was used. CONTRAST: CTA scan of the thorax is performed with IV Contrast, patient injected with 100 mL of Isovue 370, pul monary embolism protocol. There are 3-D post processed images.. FINDINGS: There is a right posterior chest tube. Tip is at the right lung apex. There is right-sided hydropneum othorax. There is masslike density at the inferior right pulmonary hilum. There is enlarged paratrach eal and right bronchial lymph nodes that measure up to 2.4 cm. There is a 12 mm nodular density in th e anterior segment right upper lobe. I see no filling defects in the pulmonary arteries. Heart size is normal. Thoracic aorta shows no ane urysm or dissection. Ascending aorta measures 3.6 cm. There is coarse of pleural reticular interstiti al infiltrate in the left lung. There is extensive posterior infiltrate and pleural fluid at the righ t lung base. There is diffuse pulmonary emphysema. IMPRESSION: NO EVIDENCE OF PULMONARY EMBOLISM. INCREASED INFILTRATE AND PLEURAL THICKENING IN THE RIGHT LOWER LOBE COMPARED TO OLD EXAM. PULMONARY E MPHYSEMA. THERE IS DECREASED SIZE OF A RIGHT UPPER LOBE MASS COMPARED TO OLD EXAM. HYDROPNEUMOTHORAX. MASSLIKE INFILTRATE AT THE RIGHT PULMONARY HILUM WITH ADENOPATHY INCREASED COMPARE D TO OLD CT SCAN.
[2019-05-10 16:33] LABS: Glucose,Whole Blood 105 mg/dL (75-99)
[2019-05-10 16:57] LABS: Basophils % (A) 0 %; Eosinophils # (A) 0.1 k/uL (0-0.7); Eosinophils % (A) 1 %; HCT 32.5 % (39.0-53.0); HGB 10.4 gm/dL (13.0-17.5); Lymphocytes # (A) 0.6 k/uL (1.0-4.8); Lymphocytes % (A) 4 %; MCH 29.2 pg (25.0-35.0); MCV 91.2 fL (80.0-100.0); Mean Platelet Volume 7.4; Monocytes # (A) 0.5 k/uL (0-1.0); Monocytes % (A) 3 %; Neutrophils # (A) 15.4 k/uL (1.3-7.7); Neutrophils % (A) 92 %; Platelet Count 393 k/uL (150-450); RBC 3.57 m/uL (4.30-5.90); RDW 14.9 % (11.5-15.5); WBC 16.8 k/uL (3.8-10.6)
[2019-05-10] MEDS: ONDANSETRON 4 MG/2 ML VIAL IVP PRN (17:10)
[2019-05-10] MEDS: KETOROLAC 30 MG/ML 1 ML VIAL IVP SCH ×2 (17:10→23:22)
[2019-05-10 17:15] LABS: Albumin 2.6 g/dL (3.5-5.0); Calcium 7.9 mg/dL (8.4-10.2); Magnesium 1.8 mg/dL (1.6-2.3); Potassium 4.6 mmol/L (3.5-5.1); Total Bilirubin 0.4 mg/dL (0.2-1.3); Total Protein 5.2 g/dL (6.3-8.2)
[2019-05-10] MEDS ORDERED: NALOXONE 0.4 MG/ML 1 ML VIAL IV PRN (18:37)
[2019-05-10] MEDS ORDERED: Phosphorus Replacement Protoco 1 EACH MISC MISCELLANE PRN (18:43)
[2019-05-10] MEDS ORDERED: Potassium Replacement Protocol 1 EACH MISC MISCELLANE PRN (18:43)
[2019-05-10] MEDS ORDERED: Magnesium Replacement Protocol 1 EACH MISC MISCELLANE PRN (18:43)
[2019-05-10] MEDS ORDERED: SODIUM CHLORIDE 0.9% 2,000 ML IV ONE (20:03)
[2019-05-10] MEDS: MAGNESIUM SULFATE-D5W PMX 1 GM in DEXTROSE/WATER 1 100ML.BAG IVPB SCH ×2 (20:11→21:49)
[2019-05-10] MEDS: DULoxetine HCL 60 MG CAPSULE.DR PO SCH (21:47)
[2019-05-10] MEDS: ATORVASTATIN 40 MG TAB PO SCH (21:48)
[2019-05-10] MEDS: PREGABALIN 75 MG CAP PO SCH (21:48)
[2019-05-10] MEDS: DONEPEZIL 5 MG TAB PO SCH (21:57)
[2019-05-10] MEDS: ARIPiprazole 15 MG TAB PO SCH (21:57)
[2019-05-10] MEDS: SODIUM CHLORIDE 0.9% 1,000 ML IV SCH (22:03)
[2019-05-10 22:52] LABS: Appearance,Urine Clear (Clear); Bilirubin,Urine Negative (Negative); Blood,Urine Negative (Negative); Color,Urine Yellow; Glucose,Urine (UA) Negative (Negative); Ketones,Urine Negative (Negative); Leukocyte Esterase,Urine Negative (Negative); Nitrite,Urine Negative (Negative); Protein,Urine Negative (Negative); Urobilinogen,Urine <2.0 mg/dL (<2.0)
[2019-05-10 22:56] LABS: Specific Gravity,Urine >1.050 (1.001-1.035)
[2019-05-10] MEDS: PIPERACILLIN-TAZOBACTAM 3.375 GM in SODIUM CHLORIDE 0.9% 100 ML IVPB SCH (23:23)
[2019-05-11] MEDS: KETOROLAC 30 MG/ML 1 ML VIAL IVP SCH ×3 (06:43→17:39)
[2019-05-11] MEDS: PANTOPRAZOLE 40 MG TABLET PO SCH (06:43)
[2019-05-11 07:02] LABS: Calcium 7.9 mg/dL (8.4-10.2); Magnesium 2.3 mg/dL (1.6-2.3); Phosphorus 4.3 mg/dL (2.5-4.5); Potassium 4.9 mmol/L (3.5-5.1)
[2019-05-11 07:10] LABS: Basophils % (A) 0 %; Eosinophils # (A) 0.2 k/uL (0-0.7); Eosinophils % (A) 1 %; HCT 32.6 % (39.0-53.0); Hypochromasia Slight; Lymphocytes # (A) 0.4 k/uL (1.0-4.8); Lymphocytes % (A) 2 %; MCH 28.3 pg (25.0-35.0); MCHC 30.8 g/dL (31.0-37.0); MCV 91.9 fL (80.0-100.0); Mean Platelet Volume 7.7; Monocytes # (A) 0.8 k/uL (0-1.0); Monocytes % (A) 4 %; Neutrophils # (A) 19.6 k/uL (1.3-7.7); Neutrophils % (A) 93 %; Platelet Count 354 k/uL (150-450); RBC 3.55 m/uL (4.30-5.90); RDW 14.2 % (11.5-15.5); WBC 21.2 k/uL (3.8-10.6)
--- NOTE | 2019-05-11 07:15 | XR ---
EXAMINATION TYPE: XR chest 1V DATE OF EXAM: 05/11/2019 COMPARISON: 05/10/2019 HISTORY: 69-year-old male with chest pain TECHNIQUE: Single frontal view of the chest is obtained. FINDINGS: Left anterior chest wall pacemaker generator with right atrial and right ventricular leads. Right api delonte directed chest tube remains in place. Trace right apical pneumothorax difficult to exclude. The re is new pleural parenchymal opacity at the right apex. Persistent right hilar prominence with incre asing interstitial densities right lower lung. Persistent volume loss in the right hemithorax. Calcif ied granuloma right upper lung. IMPRESSION: 1. Suspect underlying right-sided hydropneumothorax. The pneumothorax component is not as well seen p resently likely due to increasing pleural fluid at the right apex. Chest tube remains in place. 2. Increasing interstitial densities in the right lower lung could reflect pneumonitis. 3. Continued right hilar prominence. Correlate for any known underlying diagnosis.
[2019-05-11] MEDS: SYMBICORT 160-4.5 MCG INHALER INHALATION SCH ×2 (07:53→19:28)
[2019-05-11] MEDS: IPRATROPIUM-ALBUTEROL 3 ML NEB IH SCH ×4 (07:54→19:28)
[2019-05-11] MEDS: AMIODARONE 200 MG TAB PO SCH ×2 (08:49→20:23)
[2019-05-11] MEDS: ACETAMINOPHEN TAB 500 MG TAB PO PRN (08:49)
[2019-05-11] MEDS: PIPERACILLIN-TAZOBACTAM 3.375 GM in SODIUM CHLORIDE 0.9% 100 ML IVPB SCH ×2 (08:50→17:40)
[2019-05-11] MEDS: APIXABAN 5 MG TAB PO SCH ×2 (08:50→20:23)
--- NOTE | 2019-05-11 09:15 | P.PN ---
Subjective Progress Note Date: 05/11/19 Principal diagnosis: Squamous cell carcinoma right upper lobe. Previous medical history of tobacco dependence with [id number]-[id number] history, chronic obstructive pulmonary disease, hyp ertension, hyperlipidemia, coronary artery disease status post stenting to the circumflex coronary artery in 2016, sick sinus syndrome status post permanent pacemaker placement in 2010, bipolar disorder/anxiety/depression, and gastroesophageal reflux disease. POD #11 right thoracoscopy, robotic assisted thorascopic right upper lobectomy with mediastinal lymph node dissection, fiberoptic bronchoscopy. Postoperative acute blood loss anemia, expected Postoperative paroxysmal atrial fibrillation, unexpected Postoperative right-sided pneumothorax with prolonged air leak, expected and inherent to this type of surgery Leukocytosis, suspect postobstructive pneumonia, unexpected The patient's currently sitting up in bed in no acute distress. Developed sudden significant right-sided chest pain yesterday, EKGs obtained demonstrated no ischemia, troponins were negative. Chest x-ray obtained demonstrating worsening pneumothorax. Patient was reconnected to continuous wall suction and given IV Toradol which temporarily helped with his pain. Labs were drawn and he had an elevated white blood cell count of 16.8, has remained afebrile. His pain became worse again and had increased shortness of breath, he was sent for CTA which demonstrated no pulmonary embolism but increased infiltrate and pleural thickening in the right lower lobe, hydropneumothorax, and increased masslike infiltrate at the right pulmonary hilum. He was brought to the intensive care unit for closer monitoring and started on IV Zosyn. This morning he appears much more comfortable and states his pain is only present at the chest tube site with coughing. Right pleural chest tube remains to continuous wall suction and there is no air leak present, he is able to achieve 1500 mL on his incentive spirometry. White blood cell count this morning is 21.2. Objective - Vital Signs Vital signs: Vital Signs Temp 97.1 F L 05/11/19 04:00 Pulse 74 05/11/19 08:06 Resp 24 05/11/19 07:00 BP 118/67 05/11/19 07:00 Pulse Ox 94 L 05/11/19 07:00 Intake & Output 05/10/19 05/11/19 05/11/19 18:59 06:59 18:59 Intake Total 580 2700 Output Total 685 550 Balance -105 2150 Weight 69.4 kg Intake: IV 2700 Magnesium Sulfate-D5w Pmx 200 1 gm In Dextrose/Water 1 100ml.bag @ 100 mls/hr IVPB Q1H ZORAN Rx#: [id number] Sodium Chloride 0.9% 1, 2500 000 ml @ 50 mls/hr IV . Q20H ZORAN Rx#:[id number] Oral 580 Output: Chest Tube Drainage 135 Chest Tube Right 135 Urine 550 550 Other: Voiding Method Urinal # Voids 1 ABP, PAP, CO, CI - Last Documented Arterial Blood Pressure 113/55 - Constitutional General appearance: Present: cooperative, no acute distress - Respiratory Details: Lungs sounds diminished bilaterally with coarse breath sounds in the bases, right greater than left. Currently on 2 L nasal cannula with oxygen saturation 95%. Able to achieve 1500 mL on his incentive spirometry. Right pleural chest tube to continuous wall suction, 120 mL serous drainage in the last 24 hours, no air leak present. - Cardiovascular Details: S1, S2 present. Regular rate and rhythm, sinus rhythm on telemetry. Peripheral pulses present bilaterally. No edema present. No calf pain or tenderness noted. SCDs present. - Gastrointestinal Gastrointestinal Comment(s): Abdomen soft, nontender, nondistended. Active bowel sounds present 4 quadrants. Tolerating diet. Positive bowel movement 05/06. - Genitourinary Genitourinary Comment(s): Continues to void clear, yellow urine. - Integumentary Integumentary Comment(s): Skin is warm and dry with evidence of good perfusion. - Neurologic Neurologic: Present: CNII-XII intact - Musculoskeletal Musculoskeletal: Present: generalized weakness, strength equal bilaterally - Psychiatric Psychiatric: Present: A&O x's 3, appropriate affect, intact judgment & insight - Allied health notes Allied health notes reviewed: nursing - Labs CBC & Chem 7: 05/11/19 06:12 05/11/19 06:12 Labs: Abnormal Lab Results - Last 24 Hours (Table) 05/10/19 05/10/19 05/10/19 Range/Units 16:21 16:30 16:30 WBC 16.8 H (3.8-10.6) k/uL RBC 3.57 L (4.30-5.90) m/uL Hgb 10.4 L (13.0-17.5) gm/dL Hct 32.5 L (39.0-53.0) % MCHC (31.0-37.0) g/dL Neutrophils # 15.4 H (1.3-7.7) k/uL Lymphocytes # 0.6 L (1.0-4.8) k/uL Sodium 136 L (137-145) mmol/L POC Glucose (mg/dL) 105 H (75-99) mg/dL Calcium 7.9 L (8.4-10.2) mg/dL Total Protein 5.2 L (6.3-8.2) g/dL Albumin 2.6 L (3.5-5.0) g/dL Ur Specific [place] (1.001-1.035) 05/10/19 05/11/19 05/11/19 Range/Units 22:32 06:12 06:12 WBC 21.2 H (3.8-10.6) k/uL RBC 3.55 L (4.30-5.90) m/uL Hgb 10.0 L (13.0-17.5) gm/dL Hct 32.6 L (39.0-53.0) % MCHC 30.8 L (31.0-37.0) g/dL Neutrophils # 19.6 H (1.3-7.7) k/uL Lymphocytes # 0.4 L (1.0-4.8) k/uL Sodium 136 L (137-145) mmol/L POC Glucose (mg/dL) (75-99) mg/dL Calcium 7.9 L (8.4-10.2) mg/dL Total Protein (6.3-8.2) g/dL Albumin (3.5-5.0) g/dL Ur Specific [place] >1.050 H (1.001-1.035) - Imaging and Cardiology Chest x-ray: report reviewed, image reviewed Assessment and Plan Assessment: 1. Squamous cell carcinoma right upper lobe, [id number], status post right robotic-assisted upper lobectomy with mediastinal lymph node dissection 2. Previous tobacco dependence with 17-afzz-weey history 3. COPD 4. Hypertension 5. Hyperlipidemia 6. Coronary artery disease status post stenting to the circumflex coronary artery 7. Sick sinus syndrome status post permanent pacemaker placement 8. Bipolar disorder 9. GERD 10. Postoperative acute blood loss anemia 11. Postoperative paroxysmal atrial fibrillation 12. Postoperative right-sided pneumothorax with prolonged air leak 13. Leukocytosis, unexpected Plan: 1. Continue right pleural chest tube to wall suction. 2. Continue Zosyn ordered by pulmonology. 3. Encourage incentive spirometry use 10 times every hour while awake 4. Bronchodilators per pulmonology. 5. Continue amiodarone for A. fib prophylaxis. Continue Eliquis for anticoagulation. 6. Increase activity, ambulate as tolerated. PT/OT following. 7. Pain controlled current medication regimen. Toradol added 8. GI/DVT prophylaxis. 9. Encourage continued smoking cessation. 10. Will continue to monitor daily x-rays, labs. 11. May transfer out of ICU when okay with pulmonology. 12. More recommendations to follow. Time with Patient: Greater than 30
--- NOTE | 2019-05-11 12:30 | P.PN ---
Subjective Progress Note Date: 05/11/19 Principal diagnosis: Squamous cell lung cancer status post right upper lobectomy, postoperative day #11. Reevaluated today on 05/11/2019, patient remains in the ICU, continues to have a right sided chest tube in place, there is no evidence of right-sided pneumothorax, continues to have significant airspace disease involving the right midlung. No evidence of pneumothorax. Patient is feeling better, remains on antibiotics, and on bronchodilators. He is hemodynamically stable. CT angiogram of the chest showed no evidence of pulmonary embolism, but there is definite significant airspace disease and infiltrate involving the right lower lobe. Continues to do well with incentive spirometry about 1500 mL. Objective - Vital Signs Vital signs: Vital Signs Temp 97.8 F 05/11/19 11:00 Pulse 74 05/11/19 11:19 Resp 23 05/11/19 11:00 BP 78/62 05/11/19 11:00 Pulse Ox 98 05/11/19 11:00 Intake & Output 05/10/19 05/11/19 05/11/19 18:59 06:59 18:59 Intake Total 580 2700 650 Output Total 685 550 Balance -105 2150 650 Weight 69.4 kg 69.4 kg Intake: IV 2700 50 Magnesium Sulfate-D5w Pmx 200 1 gm In Dextrose/Water 1 100ml.bag @ 100 mls/hr IVPB Q1H [facility]ORAN Rx#: [id number] Sodium Chloride 0.9% 1, 2500 50 000 ml @ 50 mls/hr IV . Q20H ZORAN Rx#:[id number] Intake, IV Titration 250 Amount Piperacillin-Tazobactam 3 100 .375 gm In Sodium Chloride 0.9% 100 ml @ 25 mls/hr IVPB Q8HR ZORAN Rx# :[id number] Sodium Chloride 0.9% 1, 150 000 ml @ 50 mls/hr IV . Q20H ZORAN Rx#:[id number] Oral 580 350 Output: Chest Tube Drainage 135 Chest Tube Right 135 Urine 550 550 Other: Voiding Method Urinal Urinal # Voids 1 ABP, PAP, CO, CI - Last Documented Arterial Blood Pressure 113/55 - Exam Physical Exam: Revealed a 69-year-old white male, pleasant, in no distress. Head: Atraumatic normocephalic. HEENT:[Neck is supple.] [No neck masses.] [No thyromegaly.] [No JVD.] Chest: [Right sided chest tube is noted, crackles at the right base noted. No rhonchi and no wheezes. Surgical scars noted. 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 Neurological Exam: [No focal neurologic deficit.] Alert oriented 3. Psychiatric: Normal mood, affect and normal mental status examination. Skin: No rashes. - Labs CBC & Chem 7: 05/11/19 06:12 05/11/19 06:12 Labs: Abnormal Lab Results - Last 24 Hours (Table) 05/10/19 05/10/19 05/10/19 Range/Units 16:21 16:30 16:30 WBC 16.8 H (3.8-10.6) k/uL RBC 3.57 L (4.30-5.90) m/uL Hgb 10.4 L (13.0-17.5) gm/dL Hct 32.5 L (39.0-53.0) % MCHC (31.0-37.0) g/dL Neutrophils # 15.4 H (1.3-7.7) k/uL Lymphocytes # 0.6 L (1.0-4.8) k/uL Sodium 136 L (137-145) mmol/L POC Glucose (mg/dL) 105 H (75-99) mg/dL Calcium 7.9 L (8.4-10.2) mg/dL Total Protein 5.2 L (6.3-8.2) g/dL Albumin 2.6 L (3.5-5.0) g/dL Ur Specific [place] (1.001-1.035) 05/10/19 05/11/19 05/11/19 Range/Units 22:32 06:12 06:12 WBC 21.2 H (3.8-10.6) k/uL RBC 3.55 L (4.30-5.90) m/uL Hgb 10.0 L (13.0-17.5) gm/dL Hct 32.6 L (39.0-53.0) % MCHC 30.8 L (31.0-37.0) g/dL Neutrophils # 19.6 H (1.3-7.7) k/uL Lymphocytes # 0.4 L (1.0-4.8) k/uL Sodium 136 L (137-145) mmol/L POC Glucose (mg/dL) (75-99) mg/dL Calcium 7.9 L (8.4-10.2) mg/dL Total Protein (6.3-8.2) g/dL Albumin (3.5-5.0) g/dL Ur Specific [place] >1.050 H (1.001-1.035) Assessment and Plan Assessment: #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 Status post right upper lobectomy postoperative day #11 #2 right-sided pneumothorax, expected outcome of surgery, chest tube remains in place. #3 Chronic and ongoing tobacco dependence of 40 years. Remains on br onchodilators. #4 Chronic obstructive pulmonary disease remains on bronchodilators. #5 Hypertension. Presently under control. #6 sick sinus syndrome status post pacemaker implantation. #7 Anxiety/depression. #8 Hyperlipidemia. #9 bipolar disord #10 postoperative paroxysmal atrial fibrillation, and expected outcome of surgery #11 history of bipolar disorder Recommendation: Continue present supportive care measures, continue bronchodilators, antibiotics, incentive spirometry, anti-coagulation therapy, we will consider transferring the patient out of the ICU today cardiac floor with monitor if agreeable with surgery on the case. We'll continue to follow. Time with Patient: Less than 30
[2019-05-11] MEDS: ONDANSETRON 4 MG/2 ML VIAL IVP PRN (12:41)
[2019-05-11] MEDS: HYDROcodone/APAP 5-325MG 1 EACH TAB PO PRN ×2 (12:41→21:03)
[2019-05-11] MEDS: METOPROLOL TARTRATE 50 MG TAB PO SCH ×2 (14:36→20:23)
[2019-05-11] MEDS ORDERED: SODIUM CHLORIDE 0.9% 500 ML 500 ML IV ONE (14:38)
[2019-05-11] MEDS: SODIUM CHLORIDE 0.9% 1,000 ML IV SCH (17:41)
[2019-05-11] MEDS: PREGABALIN 75 MG CAP PO SCH (20:23)
[2019-05-11] MEDS: ATORVASTATIN 40 MG TAB PO SCH (20:23)
[2019-05-11] MEDS: ARIPiprazole 15 MG TAB PO SCH (20:23)
[2019-05-11] MEDS: DONEPEZIL 5 MG TAB PO SCH (20:23)
[2019-05-11] MEDS: DULoxetine HCL 60 MG CAPSULE.DR PO SCH (21:03)
[2019-05-12] MEDS ORDERED: SODIUM CHLORIDE 0.9% 1,000 ML IV ONE (00:07)
[2019-05-12] MEDS: KETOROLAC 30 MG/ML 1 ML VIAL IVP SCH ×4 (00:21→18:26)
[2019-05-12] MEDS: PIPERACILLIN-TAZOBACTAM 3.375 GM in SODIUM CHLORIDE 0.9% 100 ML IVPB SCH ×3 (00:21→16:12)
[2019-05-12 05:05] LABS: Basophils % (A) 0 %; Eosinophils # (A) 0.3 k/uL (0-0.7); Eosinophils % (A) 2 %; HCT 28.4 % (39.0-53.0); Hypochromasia Slight; Lymphocytes # (A) 0.4 k/uL (1.0-4.8); Lymphocytes % (A) 3 %; MCH 29.3 pg (25.0-35.0); MCHC 31.7 g/dL (31.0-37.0); MCV 92.5 fL (80.0-100.0); Mean Platelet Volume 7.4; Monocytes # (A) 0.5 k/uL (0-1.0); Monocytes % (A) 3 %; Neutrophils # (A) 14.4 k/uL (1.3-7.7); Neutrophils % (A) 92 %; Platelet Count 305 k/uL (150-450); RBC 3.07 m/uL (4.30-5.90); RDW 14.7 % (11.5-15.5); WBC 15.7 k/uL (3.8-10.6)
[2019-05-12 05:15] LABS: African American GFR (CKD) >90 (>60 ml/min/1.73 sqM); Anion Gap 5 mmol/L; Blood Urea Nitrogen 13 mg/dL (9-20); Calcium 7.3 mg/dL (8.4-10.2); Carbon Dioxide 22 mmol/L (22-30); Chloride 111 mmol/L (98-107); Glucose 94 mg/dL (74-99); Potassium 4.4 mmol/L (3.5-5.1); Sodium 138 mmol/L (137-145)
[2019-05-12] MEDS: IPRATROPIUM-ALBUTEROL 3 ML NEB IH SCH ×5 (05:50→20:16)
[2019-05-12] MEDS ORDERED: CALCIUM GLUCONATE 2 GM in SODIUM CHLORIDE 0.9% 100 ML IVPB ONE (06:30)
[2019-05-12] MEDS: PANTOPRAZOLE 40 MG TABLET PO SCH (06:32)
--- NOTE | 2019-05-12 07:05 | XR ---
EXAMINATION TYPE: XR chest 1V portable DATE OF EXAM: 05/12/2019 CLINICAL HISTORY: Difficulty breathing progress study. TECHNIQUE: Single AP portable upright view of the chest is obtained. COMPARISON: Chest x-ray from one day earlier. CTA chest from 2 days earlier. FINDINGS: Cardiac silhouette size is stable and within normal limits with dual lead pacemaker. Numer ous surgical clips just above diaphragm in the midline of the lower thorax are redemonstrated. There is sacral chronic emphysematous change with developing alveolar and interstitial opacity in the left lung base. There is persistent right-sided chest tube with adjacent subcutaneous emphysema improving from prior. Stable apical opacity could reflect trapped pleural fluid. Persistent right mid to lower lung alveolar and interstitial opacities. Some right-sided volume loss with mediastinal shift. Mass[place] ke consolidation right hilar region redemonstrated. Osseous structures are intact. IMPRESSION: New left mid to basilar alveolar and interstitial infiltrates. Other findings stable. Rig ht-sided chest tube with suspected underlying hydropneumothorax with right-sided volume loss and righ t mid to lower lung edema and/or infiltrates all are redemonstrated.
[2019-05-12] MEDS: SYMBICORT 160-4.5 MCG INHALER INHALATION SCH (07:11)
[2019-05-12] MEDS: AMIODARONE 200 MG TAB PO SCH (08:08)
[2019-05-12] MEDS: HYDROcodone/APAP 5-325MG 1 EACH TAB PO PRN (08:14)
[2019-05-12] MEDS: NOREPINEPHRINE 4 MG in SODIUM CHLORIDE 0.9% 250 ML IV SCH ×2 (08:47→09:42)
[2019-05-12] MEDS ORDERED: INSULIN ASPART (NovoLOG) 100 UNIT/ML VIAL SQ SCH (09:00)
[2019-05-12] MEDS: methylPREDNISolone SOD SUCCI 125 MG/2 ML VIAL IV SCH ×3 (09:00→18:27)
[2019-05-12] MEDS: LEVOFLOXACIN 750MG-D5W PMX 750 MG in DEXTROSE/WATER 1 150ML.BAG IVPB SCH (09:01)
[2019-05-12] MEDS ORDERED: FUROSEMIDE 10 MG/ML 4 ML VIAL IV STA (09:07)
[2019-05-12] MEDS: METOPROLOL TARTRATE 50 MG TAB PO SCH ×2 (09:38→21:57)
[2019-05-12] MEDS: APIXABAN 5 MG TAB PO SCH (09:48)
--- NOTE | 2019-05-12 11:39 | P.PN ---
<Sandra Lawrence - Last Filed: 05/12/19 11:31> Subjective Progress Note Date: 05/12/19 Principal diagnosis: Squamous cell carcinoma right upper lobe. Previous medical history of tobacco dependence with 84-bwhm-[id number] history, chronic obstructive pulmonary disease, hypertension, hyperlipidemia, coronary artery disease status post stenting to the circumflex coronary artery in 2016, sick sinus syndrome status post permanent pacemaker placement in 2010, bipolar disorder/anxiety/depression, and gastroesophageal reflux disease. POD #12 right thoracoscopy, robotic assisted thorascopic right upper lobectomy with mediastinal lymph node dissection, fiberoptic bronchoscopy. Postoperative acute blood loss anemia, expected Postoperative paroxysmal atrial fibrillation, unexpected Postoperative right-sided pneumothorax with prolonged air leak, expected and inherent to this type of surgery Leukocytosis, suspect postobstructive pneumonia, unexpected Hypotension, status post fluid administration, necessitating IV levo, unexpected Postoperative hypoxemic respiratory failure, necessitating initiation of BiPAP, unexpected The patient's currently sitting up in bed in the intensive care unit, oxygen demands increased overnight and patient was on 10 L high flow this morning, placed on BiPAP by Dr. Soliman. Patient received fluid boluses overnight for hypotension, now receiving IV Lasix and IV steroids per Dr. Soliman, IV Levaquin and it too medication regimen. White blood cell count improved from yesterday but still elevated at 15.7. Right pleural chest tube remains without any air le ak. Patient states pain mostly controlled, denies shortness of breath currently. Objective - Vital Signs Vital signs: Vital Signs Temp 97.9 F 05/12/19 08:00 Pulse 95 05/12/19 10:00 Resp 23 05/12/19 10:00 BP 95/58 05/12/19 10:00 Pulse Ox 99 05/12/19 10:00 Intake & Output 05/11/19 05/12/19 05/12/19 18:59 06:59 18:59 Intake Total 2400 2100 620 Output Total 825 1230 200 Balance 1575 870 420 Weight 69.4 kg 70.1 kg Intake: IV 450 2100 270 Piperacillin-Tazobactam 3 100 50 .375 gm In Sodium Chloride 0.9% 100 ml @ 25 mls/hr IVPB Q8HR [facility] Rx# :[id number] Sodium Chloride 0.9% 1, 450 1000 220 000 ml @ 50 mls/hr IV . Q20H [facility] Rx#:[id number] Sodium Chloride 0.9% 1, 1000 000 ml @ 999 mls/hr IV . Q1H1M [facility] Rx#:[id number] Intake, IV Titration 1250 350 Amount Calcium Gluconate 2 gm In 100 Sodium Chloride 0.9% 100 ml @ 100 mls/hr IVPB ONCE [facility] Rx#:[id number] Levofloxacin 750Mg-D5w 250 Pmx 750 mg In Dextrose/ Water 1 150ml.bag @ 100 mls/hr IVPB Q24HR [facility] Rx# :[id number] Piperacillin-Tazobactam 3 100 .375 gm In Sodium Chloride 0.9% 100 ml @ 25 mls/hr IVPB Q8HR [facility] Rx# :[id number] Sodium Chloride 0.9% 1, 150 000 ml @ 50 mls/hr IV . Q20H [facility] Rx#:[id number] Sodium Chloride 0.9% 500 1000 ml 500 ml @ 999 mls/hr IV .Q31M [facility] Rx#:[id number] Oral 700 Output: Chest Tube Drainage 175 80 0 Chest Tube Right 175 80 0 Urine 650 1150 200 Other: Voiding Method Urinal Urinal Urinal # Voids 1 ABP, PAP, CO, CI - Last Documented Arterial Blood Pressure 113/55 - Constitutional General appearance: Present: cooperative, mild distress - Respiratory Details: Lungs sounds diminished bilaterally with coarse breath sounds on the right. Respirations even, nonlabored. Currently on BiPAP, 50% FiO2, Ipap 12, Epap 6. Only able to achieve 1000 mL on his incentive spirometry this morning before initiation of BiPAP. Right pleural chest tubes to continuous wall suction, 60 mL overnight, 300 mL serous fluid in the last 24 hours, no air leak present - Cardiovascular Details: S1, S2 present. Regular rate and rhythm, sinus rhythm on telemetry. Palpable peripheral pulses bilaterally. No edema present. No calf pain or tenderness noted. SCDs present. - Gastrointestinal Gastrointestinal Comment(s): Abdomen soft, nontender, nondistended. Active bowel sounds present 4 quadrants. Tolerating diet. Positive bowel movement 05/06. - Genitourinary Genitourinary Comment(s): Castorena reinserted per Dr. Soliman order after IV Lasix given, draining clear yellow urine. Has diuresed 500 mL so far. - Integumentary Integumentary Comment(s): Skin is warm and dry with evidence of good perfusion. - Neurologic Neurologic: Present: CNII-XII intact - Musculoskeletal Musculoskeletal: Present: generalized weakness, strength equal bilaterally - Psychiatric Psychiatric: Present: A&O x's 3, appropriate affect, intact judgment & insight - Allied health notes Allied health notes reviewed: nursing - Labs CBC & Chem 7: 05/12/19 04:49 05/12/19 04:49 Labs: Abnormal Lab Results - Last 24 Hours (Table) 05/12/19 05/12/19 05/12/19 Range/Units 04:49 04:49 04:49 WBC 15.7 H (3.8-10.6) k/uL RBC 3.07 L (4.30-5.90) m/uL Hgb 9.0 L (13.0-17.5) gm/dL Hct 28.4 L (39.0-53.0) % Neutrophils # 14.4 H (1.3-7.7) k/uL Lymphocytes # 0.4 L (1.0-4.8) k/uL D-Dimer 1.11 H (<0.60) mg/L FEU Chloride 111 H (98-107) mmol/L Calcium 7.3 L (8.4-10.2) mg/dL Microbiology - Last 24 Hours (Table) 05/10/19 17:30 Blood Culture - Preliminary Blood No Growth after 24 hours - Imaging and Cardiology Chest x-ray: report reviewed, image reviewed Assessment and Plan Assessment: 1. Squamous cell carcinoma right upper lobe, [id number], status post right robotic-assisted upper lobectomy with mediastinal lymph node dissection 2. Previous tobacco dependence with [id number] history 3. COPD 4. Hypertension 5. Hyperlipidemia 6. Coronary artery disease status post stenting to the circumflex coronary karlo ry 7. Sick sinus syndrome status post permanent pacemaker placement 8. Bipolar disorder 9. GERD 10. Postoperative acute blood loss anemia 11. Postoperative paroxysmal atrial fibrillation 12. Postoperative right-sided pneumothorax with prolonged air leak 13. Leukocytosis, pneumonia, unexpected 14. Hypotension, status post fluid resuscitation, necessitating IV levofed 15. Postoperative hypoxemic respiratory failure, necessitating initiation of BiPAP, unexpected Plan: 1. Continue right pleural chest tube to water seal. Will leave in for now per request from Dr. Soliman. 2. Continue Zosyn ordered by pulmonology. Levaquin added. 3. BiPAP management, bronchodilators, steroids per pulmonology. Decision for bronchoscopy to be made by Dr. Soliman in the next 24 hours. 4. IV Lasix ordered and given with good diuresis. Wean levo as tolerated. 5. Continue amiodarone for A. fib prophylaxis. Hold Eliquis per Dr. Soliman's request for possible bronchoscopy.. 6. Increase activity as tolerated. PT/OT following. 7. Pain controlled current medication regimen. 8. GI/DVT prophylaxis. 9. Encourage continued smoking cessation. 10. Will continue to monitor daily x-rays, labs. 11. More recommendations to follow. Time with Patient: Greater than 30 <Erik Pastor - Last Filed: 05/15/19 12:10> Objective - Vital Signs Vital signs: Vital Signs Temp 97.5 F L 05/15/19 12:00 Pulse 60 05/15/19 12:00 Resp 21 05/15/19 12:00 BP 88/66 05/15/19 10:00 Pulse Ox 98 05/15/19 12:00 Intake & Output 05/14/19 05/15/19 05/15/19 18:59 06:59 18:59 Intake Total 3042.522 1791.759 550 Output Total 020 092 2657 Balance 2722.522 1076.759 -535 Weight 73.5 kg 73.5 kg Intake: IV 700 1225 450 NS @ KVO 1100 350 Piperacillin-Tazobactam 3 550 125 .375 gm In Sodium Chloride 0.9% 100 ml @ 25 mls/hr IVPB Q8HR [facility] Rx# :[id number] Sodium Chloride 0.9% 1, 150 100 000 ml @ 50 mls/hr IV . Q20H [facility] Rx#:[id number] Intake, IV Titration 2342.522 566.759 100 Amount Levofloxacin 750Mg-D5w 150 Pmx 750 mg In Dextrose/ Water 1 150ml.bag @ 100 mls/hr IVPB Q24HR [facility] Rx# :[id number] Norepinephrine 4 mg In 152.340 166.759 Sodium Chloride 0.9% 250 ml @ 0.05 MCG/KG/MIN 13. 221 mls/hr IV .[id number] [facility] Rx#:[id number] Propofol 1,000 mg In 140.182 300 100 Empty Bag 1 bag @ Titrate IV .Q0M [facility] Rx#: [id number] Sodium Chloride 0.9% 1, 400 100 000 ml @ 50 mls/hr IV . Q20H [facility] Rx#:[id number] Sodium Chloride 0.9% 1, 1000 000 ml @ 999 mls/hr IV . Q1H1M [facility] Rx#:[id number] Sodium Chloride 0.9% 500 500 ml 500 ml @ 999 mls/hr IV .Q31M [facility] Rx#:[id number] Output: Gastric Drainage 100 Urine 875 228 0859 Other: Voiding Method Indwelling Catheter Indwelling Catheter # Bowel Movements 1 ABP, PAP, CO, CI - Last Documented Arterial Blood Pressure 120/59 - Labs CBC & Chem 7: 05/15/19 05:30 05/15/19 05:30 Labs: Abnormal Lab Results - Last 24 Hours (Table) 05/14/19 05/14/19 05/14/19 Range/Units 14:30 18:40 21:48 WBC 19.0 H 13.4 H (3.8-10.6) k/uL RBC 2.62 L 2.70 L (4.30-5.90) m/uL Hgb 7.6 L 7.4 L (13.0-17.5) gm/dL Hct 23.9 L 25.3 L (39.0-53.0) % MCHC 29.4 L (31.0-37.0) g/dL Plt Count 541 H 502 H (150-450) k/uL Neutrophils # 18.0 H 12.5 H (1.3-7.7) k/uL Lymphocytes # 0.3 L 0.3 L (1.0-4.8) k/uL ABG O2 Saturation (94-97) % Chloride (98-107) mmol/L BUN (9-20) mg/dL Glucose (74-99) mg/dL POC Glucose (mg/dL) 145 H (75-99) mg/dL Calcium (8.4-10.2) mg/dL 05/15/19 05/15/19 05/15/19 Range/Units 00:30 05:27 05:30 WBC (3.8-10.6) k/uL RBC 2.52 L (4.30-5.90) m/uL Hgb 7.4 L (13.0-17.5) gm/dL Hct 23.1 L (39.0-53.0) % MCHC (31.0-37.0) g/dL Plt Count (150-450) k/uL Neutrophils # (1.3-7.7) k/uL Lymphocytes # 0.3 L (1.0-4.8) k/uL ABG O2 Saturation (94-97) % Chloride (98-107) mmol/L BUN (9-20) mg/dL Glucose (74-99) mg/dL POC Glucose (mg/dL) 127 H 134 H (75-99) mg/dL Calcium (8.4-10.2) mg/dL 05/15/19 05/15/19 Range/Units 05:30 08:04 WBC (3.8-10.6) k/uL RBC (4.30-5.90) m/uL Hgb (13.0-17.5) gm/dL Hct (39.0-53.0) % MCHC (31.0-37.0) g/dL Plt Count (150-450) k/uL Neutrophils # (1.3-7.7) k/uL Lymphocytes # (1.0-4.8) k/uL ABG O2 Saturation 98.2 H (94-97) % Chloride 113 H (98-107) mmol/L BUN 23 H (9-20) mg/dL Glucose 117 H (74-99) mg/dL POC Glucose (mg/dL) (75-99) mg/dL Calcium 7.7 L (8.4-10.2) mg/dL Microbiology - Last 24 Hours (Table) 05/14/19 11:10 Gram Stain - Preliminary Bronchial Washings - Random Bronchial Washings Culture - Preliminary 05/14/19 11:10 Acid Fast Bacilli Smear - Final Bronchial Washings - Random Acid Fast Bacilli Culture - Preliminary 05/10/19 17:30 Blood Culture - Preliminary Blood No Growth after 96 hours 05/14/19 11:10 Fungal Culture - Preliminary Bronchial Washings - Random
[2019-05-12 11:49] LABS: Glucose,Whole Blood 159 mg/dL (75-99)
[2019-05-12] MEDS: INSULIN ASPART (NovoLOG) 100 UNIT/ML VIAL SQ SCH ×2 (11:49→18:27)
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
[2019-05-12] MEDS: SODIUM CHLORIDE 0.9% 1,000 ML IV SCH (12:55)
[2019-05-12 18:14] LABS: Glucose,Whole Blood 151 mg/dL (75-99)
[2019-05-12] MEDS: BUDESONIDE 1 MG/2 ML NEBU INHALATION SCH (20:16)
[2019-05-12] MEDS: FORMOTEROL FUMARATE 20 MCG/2 ML NEBU INHALATION SCH (20:16)
[2019-05-12] MEDS: PREGABALIN 75 MG CAP PO SCH (21:57)
[2019-05-12] MEDS: DULoxetine HCL 60 MG CAPSULE.DR PO SCH (21:57)
[2019-05-12] MEDS: ATORVASTATIN 40 MG TAB PO SCH (21:57)
[2019-05-12] MEDS: DONEPEZIL 5 MG TAB PO SCH (21:57)
[2019-05-12] MEDS: ARIPiprazole 15 MG TAB PO SCH (21:57)
[2019-05-12] MEDS: IPRATROPIUM-ALBUTEROL 3 ML NEB IH PRN (23:16)
[2019-05-13] MEDS: methylPREDNISolone SOD SUCCI 125 MG/2 ML VIAL IV SCH ×4 (00:09→17:11)
[2019-05-13] MEDS: PIPERACILLIN-TAZOBACTAM 3.375 GM in SODIUM CHLORIDE 0.9% 100 ML IVPB SCH ×3 (00:10→17:10)
[2019-05-13] MEDS: KETOROLAC 30 MG/ML 1 ML VIAL IVP SCH ×4 (00:10→18:48)
[2019-05-13] MEDS: INSULIN ASPART (NovoLOG) 100 UNIT/ML VIAL SQ SCH ×5 (00:14→23:59)
[2019-05-13 00:20] LABS: Glucose,Whole Blood 143 mg/dL (75-99)
[2019-05-13] MEDS: IPRATROPIUM-ALBUTEROL 3 ML NEB IH PRN (03:26)
[2019-05-13 05:00] LABS: HCT 24.7 % (39.0-53.0); HGB 7.9 gm/dL (13.0-17.5); Hypochromasia Slight; MCH 29.3 pg (25.0-35.0); MCHC 31.8 g/dL (31.0-37.0); Platelet Count 311 k/uL (150-450); RBC 2.68 m/uL (4.30-5.90); RDW 14.5 % (11.5-15.5); WBC 10.2 k/uL (3.8-10.6)
[2019-05-13 05:11] LABS: African American GFR (CKD) >90 (>60 ml/min/1.73 sqM); Anion Gap 6 mmol/L; Blood Urea Nitrogen 16 mg/dL (9-20); Carbon Dioxide 23 mmol/L (22-30); Chloride 109 mmol/L (98-107); Glucose 139 mg/dL (74-99); Potassium 4.3 mmol/L (3.5-5.1); Sodium 138 mmol/L (137-145)
[2019-05-13 06:08] LABS: Glucose,Whole Blood 148 mg/dL (75-99)
[2019-05-13] MEDS ORDERED: FUROSEMIDE 10 MG/ML 4 ML VIAL IV STA (06:42)
[2019-05-13] MEDS: BUDESONIDE 1 MG/2 ML NEBU INHALATION SCH ×2 (08:16→19:33)
[2019-05-13] MEDS: IPRATROPIUM-ALBUTEROL 3 ML NEB IH SCH ×4 (08:16→19:33)
[2019-05-13] MEDS: FORMOTEROL FUMARATE 20 MCG/2 ML NEBU INHALATION SCH ×2 (08:16→19:33)
--- NOTE | 2019-05-13 08:39 | XR ---
EXAMINATION TYPE: XR chest 1V portable DATE OF EXAM: 05/13/2019 COMPARISON: 05/12/2019 INDICATION: Pneumothorax TECHNIQUE: Single frontal view of the chest is obtained. FINDINGS: The heart size is normal. The pulmonary vasculature is normal. There is increased lung markings in the right perihilar region. There is mild infiltrate diffusely wi thin the right lung. Diffuse infiltrate is within the left mid and lower lung field, improved from pr ior study. There is elevation of the right diaphragm. There may be a subpulmonic effusion on the righ t. Right apical fluid appears to be present. Chest tube is present on the right. Findings have slight improvement from the comparison study. IMPRESSION: 1. Bibasilar infiltrates. Correlate for atelectasis and resolving pneumonia. Atypical pulmonary edema could be considered. 2. Right pleural effusion right apical effusion and right-sided chest tube are stable from comparison . 3. Continued follow-up is recommended.
[2019-05-13] MEDS: LEVOFLOXACIN 750MG-D5W PMX 750 MG in DEXTROSE/WATER 1 150ML.BAG IVPB SCH (08:42)
[2019-05-13] MEDS: PANTOPRAZOLE 40 MG/10 ML VIAL IVP SCH (08:42)
[2019-05-13] MEDS: AMIODARONE 200 MG TAB PO SCH (08:43)
--- NOTE | 2019-05-13 09:39 | P.PN ---
Subjective Progress Note Date: 05/13/19 Principal diagnosis: Squamous cell carcinoma right upper lobe. Previous medical history of tobacco dependence with [id number] history, chronic obstructive pulmonary disease, hyp ertension, hyperlipidemia, coronary artery disease status post stenting to the circumflex coronary artery in 2016, sick sinus syndrome status post permanent pacemaker placement in 2010, bipolar disorder/anxiety/depression, and gastroesophageal reflux disease. POD #13 right thoracoscopy, robotic assisted thorascopic right upper lobectomy with mediastinal lymph node dissection, fiberoptic bronchoscopy. Postoperative acute blood loss anemia, expected Postoperative paroxysmal atrial fibrillation, unexpected Postoperative right-sided pneumothorax with prolonged air leak, expected and inherent to this type of surgery Leukocytosis, suspect postobstructive pneumonia, unexpected Hypotension, status post fluid administration, necessitating IV levo, unexpected Postoperative hypoxemic respiratory failure, necessitating initiation of BiPAP, unexpected The patient's currently sitting up in bed in the intensive care unit, remains on BiPAP but FiO2 has been weaned down to 35%. Levophed has been off since yesterday afternoon. White blood cell count back into normal range. Chest x- ray slightly improved from yesterday. Patient denies pain currently, does feel his breathing has improved. Right pleural chest tube remains on water seal without any air leak and without any drainage overnight. Objective - Vital Signs Vital signs: Vital Signs Temp 97.9 F 05/13/19 09:00 Pulse 86 05/13/19 09:00 Resp 40 H 05/13/19 09:00 BP 98/53 05/13/19 09:00 Pulse Ox 96 05/13/19 09:00 Intake & Output 05/12/19 05/13/19 05/13/19 18:59 06:59 18:59 Intake Total 938.637 340 60 Output Total 1900 345 487 Balance -961.363 -5 -427 Weight 71.8 kg Intake: IV 580 340 60 NS @ KVO 240 60 Piperacillin-Tazobactam 3 200 100 .375 gm In Sodium Chloride 0.9% 100 ml @ 25 mls/hr IVPB Q8HR [facility] Rx# :[id number] Sodium Chloride 0.9% 1, 380 000 ml @ 50 mls/hr IV . Q20H [facility] Rx#:[id number] Intake, IV Titration 358.637 Amount Calcium Gluconate 2 gm In 100 Sodium Chloride 0.9% 100 ml @ 100 mls/hr IVPB ONCE ONE Rx#:[id number] Levofloxacin 750Mg-D5w 250 Pmx 750 mg In Dextrose/ Water 1 150ml.bag @ 100 mls/hr IVPB Q24HR PENDING SALE TO [facility] Rx# :[id number] Norepinephrine 4 mg In 8.637 Sodium Chloride 0.9% 250 ml @ 0.05 MCG/KG/MIN 13. 221 mls/hr IV .[id number] PENDING SALE TO [facility] Rx#:[id number] Output: Chest Tube Drainage 0 0 Chest Tube Right 0 0 Urine 1900 345 487 Other: Voiding Method Indwelling Catheter Indwelling Catheter ABP, PAP, CO, CI - Last Documented Arterial Blood Pressure 113/55 - Constitutional General appearance: Present: cooperative, no acute distress - Respiratory Details: Lungs sounds diminished bilaterally with coarse breath sounds on the right. Respirations even, nonlabored. Currently on BiPAP, 35% FiO2, Ipap 12, Epap 6. Right pleural chest tubes to water seal, no drainage overnight, no air leak present. Less productive cough than yesterday - Cardiovascular Details: S1, S2 present. Regular rate and rhythm, sinus rhythm on telemetry. Palpable peripheral pulses bilaterally. No edema present. No calf pain or tenderness noted. SCDs present. - Gastrointestinal Gastrointestinal Comment(s): Abdomen soft, nontender, nondistended. Active bowel sounds present 4 quadrants. Tolerating diet. Positive bowel movement 05/06. - Genitourinary Genitourinary Comment(s): [place] present draining clear, yellow urine. Output 20-30 mL/h overnight, down to 10 mL/h this morning, IV Lasix given per Dr. Soliman, 475 mL diuresis since Lasix given. - Integumentary Integumentary Comment(s): Skin is warm and dry with evidence of good perfusion. - Neurologic Neurologic: Present: CNII-XII intact - Musculoskeletal Musculoskeletal: Present: generalized weakness, strength equal bilaterally - Psychiatric Psychiatric: Present: A&O x's 3, appropriate affect - Allied health notes Allied health notes reviewed: nursing - Labs CBC & Chem 7: 05/13/19 04:17 05/13/19 04:17 Labs: Abnormal Lab Results - Last 24 Hours (Table) 05/12/19 05/12/19 05/13/19 Range/Units 11:37 18:03 00:08 RBC (4.30-5.90) m/uL Hgb (13.0-17.5) gm/dL Hct (39.0-53.0) % Chloride (98-107) mmol/L Glucose (74-99) mg/dL POC Glucose (mg/dL) 159 H 151 H 143 H (75-99) mg/dL Calcium (8.4-10.2) mg/dL 05/13/19 05/13/19 05/13/19 Range/Units 04:17 04:17 05:56 RBC 2.68 L (4.30-5.90) m/uL Hgb 7.9 L (13.0-17.5) gm/dL Hct 24.7 L (39.0-53.0) % Chloride 109 H (98-107) mmol/L Glucose 139 H (74-99) mg/dL POC Glucose (mg/dL) 148 H (75-99) mg/dL Calcium 8.0 L (8.4-10.2) mg/dL Microbiology - Last 24 Hours (Table) 05/10/19 17:30 Blood Culture - Preliminary Blood No Growth after 48 hours - Imaging and Cardiology Chest x-ray: report reviewed, image reviewed Assessment and Plan Assessment: 1. Squamous cell carcinoma right upper lobe, [id number], status post right robotic-assisted upper lobectomy with mediastinal lymph node dissection 2. Previous tobacco dependence with [id number] history 3. COPD 4. Hypertension 5. Hyperlipidemia 6. Coronary artery disease status post stenting to the circumflex coronary artery 7. Sick sinus syndrome status post permanent pacemaker placement 8. Bipolar disorder 9. GERD 10. Postoperative acute blood loss anemia 11. Postoperative paroxysmal atrial fibrillation 12. Postoperative right-sided pneumothorax with prolonged air leak 13. Leukocytosis, pneumonia, unexpected 14. Hypotension, status post fluid resuscitation, necessitating IV levofed 15. Postoperative hypoxemic respiratory failure, necessitating initiation of BiPAP, unexpected Plan: 1. If no bronchoscopy today will discontinue right pleural chest tube. 2. Continue Zosyn, Levaquin 3. BiPAP management, bronchodilators, steroids per pulmonology. Encourage incentive spirometry once BiPAP. 4. IV Lasix ordered and given with good diuresis. 5. Continue amiodarone for A. fib prophylaxis. Hold Eliquis per Dr. Soliman's request for possible bronchoscopy. 6. Increase activity as tolerated. PT/OT following. 7. Pain controlled current medication regimen. 8. GI/DVT prophylaxis. 9. Encourage continued smoking cessation. 10. Will continue to monitor daily x-rays, labs. 11. More recommendations to follow. Time with Patient: Greater than 30
[2019-05-13] MEDS: METOPROLOL TARTRATE 50 MG TAB PO SCH ×2 (09:52→21:57)
[2019-05-13] MEDS: HYDROcodone/APAP 5-325MG 1 EACH TAB PO PRN ×2 (10:18→17:20)
--- NOTE | 2019-05-13 10:27 | CDI ---
Documentation Clarification Form Date: 05/13/2019 10:14:23 AM From: Maria M GironDEWEY, CCDS Admit Date: 04/30/2019 5:58:00 AM Patient Name: Almas James Visit Number: [id number] Discharge Date: ATTENTION: The Clinical Documentation Specialists (CDI) and [facility] Coding Staff appreciate your assistance in clarifying documentation. Please respond to the clarification below the line at the bottom and electronically sign. The CDI & [facility] Coding staff will review the response and follow-up if needed. Please note: Queries are made part of the Legal Health Record. If you have any questions, please contact the author of this message via ITS. Dr. Rhys Brock: Per the initial postoperative progress notes the patient's postoperative paroxysmal atrial fibrillation is an "expected outcome". Per the 05/06 & subsequent progress notes the patient's postoperative paroxysmal atrial fibrillation is an "unexpected outcome". History/Risk Factors: Sick sinus syndrome with permanent pacemaker & hypertension. Clinical Indicators: Patient presented on 04/30 for elective right thoracoscopy, robotic-assisted thoracosopic right upper lobectomy and mediastinal lymph node dissection, fiberoptic bronchoscopy for RUL mass consistent with carcinoma. EKG/telemetry: 05/01 R 130 Atrial fibrillation w/RVR. 05/10: R 62 nsr Treatment: IV Amiodarone drip. po Aspirin & Eliquis. In order to accurately reflect this patients severity of illness, please clarify if the postoperative paroxysmal atrial fibrillation is the result of the surgical procedure? Yes No Other, please specify Unable to determine (Last Revision: December 2017) yes, expected outcome MTDD
--- NOTE | 2019-05-13 10:59 | CDI ---
Documentation Clarification Form Date: 05/13/2019 10:41:55 AM From: Maria M OliveiraGironDEWEY tejeda, CCDS Admit Date: 04/30/2019 5:58:00 AM Patient Name: Almas James Visit Number: [id number] Discharge Date: ATTENTION: The Clinical Documentation Specialists (CDI) and [facility] Coding Staff appreciate your assistance in clarifying documentation. Please respond to the clarification below the line at the bottom and electronically sign. The CDI & [facility] Coding staff will review the response and follow-up if needed. Please note: Queries are made part of the Legal Health Record. If you have any questions, please contact the author of this message via ITS. Dr. Rhys Brock: Per the pulmonary/critical care progress notes beginning on 04/30, the patient is diagnosed with acute postoperative hypoxemic respiratory failure, expected outcome. Per the thoracic surgery progress note on 05/08, the patient's postoperative respiratory failure is an "unexpected outcome". Patients Admitting Diagnosis: Right upper lobe consistent with carcinoma Post-Operative Diagnosis: Squamous cell carcinoma right upper lobe Procedure performed: Right thoracoscopy, robotic-assisted thoracoscopic right upper lobectomy with mediastinal lymph node dissection, fiberoptic bronchoscopy History/Risk Factors: Hypertension, Sick Sinus Syndrome with Permanent Pacemaker Clinical Indicators: Surgery performed as above on 04/30. Respiratory Rate: (04/30): 16 - 24 - 10 - 26 - 29 - 8. PO: (04/30): 96 6Lnc - 100 on 2L nc; (05/12): 88 -92 4L nc; (05/12): 92 on 6L high low - 15L high flow - 93 on 100% BiPAP. Treatment: O2 & then requiring BiPAP as above. IV Albumin, IV Dopamine, IV Amiodarone, IV fluid bolus (05/12), INH Albuterol, IV Dilaudid & IV Toradol, IV Cefazolin, IV Solumedrol, IV Lasix. In order to accurately reflect this patients severity of illness, please clarify if the patient's postoperative acute hypoxemic respiratory failure is the result of the surgical procedure? Yes No Other, please specify Unable to determine (Last Revision: December 2017) Yes expected 04/30 yes, unexpected 05/08 2 seperate events MTDD
[2019-05-13] MEDS: APIXABAN 5 MG TAB PO SCH ×2 (11:11→21:10)
[2019-05-13] MEDS: BISACODYL 10 MG SUPP RECTAL SCH (11:12)
[2019-05-13] MEDS: SODIUM CHLORIDE 0.9% 1,000 ML IV SCH (11:13)
--- NOTE | 2019-05-13 11:57 | P.PN ---
Subjective Progress Note Date: 05/13/19 Principal diagnosis: Squamous cell lung cancer status post right upper lobectomy, postoperative day # 13 Reevaluated today on 05/11/2019, patient remains in the ICU, continues to have a right sided chest tube in place, there is no evidence of right-sided pneumothorax, continues to have significant airspace disease involving the right midlung. No evidence of pneumothorax. Patient is feeling better, remains on antibiotics, and on bronchodilators. He is hemodynamically stable. CT angiogram of the chest showed no evidence of pulmonary embolism, but there is definite significant airspace disease and infiltrate involving the right lower lobe. Continues to do well with incentive spirometry about 1500 mL. Patient was reevaluated today on 05/12/2019, he remains in the ICU, his oxygen demand has been increasing overnight, he was on high flow nasal cannula at 10 L, however I switch him to BiPAP. Chest x-ray is showing evidence of interstitial edema bilaterally, right more so than left, and the patient has very weak cough. I did recommend broadening the spectrum of his antibiotics, I also recommended Lasix, and recommended IV Solu-Medrol. Continues to have a small right-sided pneumothorax and the right sided chest tube remains in place, no air leak is noted. Chest x-ray is concerning, there is basically worsening alveolar and interstitial infiltrates bilaterally. The differential diagnoses includes pneumonia also includes fluid overload. Patient will be treated for both and would have a repeat chest x-ray in the morning. Raised the possibility of bronchoscopy with the patient, however considering his pulmonary status is so marginal, patient will end up requiring intubation and mechanical ventilation to safely perform a bronchoscopy and lavage of both lungs. Hence I would hold on the bronchoscopy for now, and if his condition deteriorates, and requires intubation then I would proceed to bronchoscopy at that point. In the meantime we'll try antibiotics diuretics and bronchodilators as well as steroids. And we'll try BiPAP. His WBC count is coming down to 15.7 hemoglobin is 9 renal profile is normal lites are normal. Reevaluated today on 05/13/2019, patient seems to be doing much better today compared to yesterday. His FiO2 requirement is down, he was earlier today on 35% FiO2 and on BiPAP. I have switched him to few liters nasal cannula, and he seemed to relate that very well. Chest x-ray continues to show interstitial edema, possible underlying infiltrates, remains on diuretics, bronchodilators, steroids, and antibiotics/broad-spectrum. Considering the improvement, I don't see any value of bronchoscopy at this point, patient is clinically better, and his chest x-ray is definitely better. And his FiO2 requirement is much im proved. His WBC count is also down to 10.2. Hemoglobin is 7.9 lites are normal renal profile remains normal in spite of diuresis. Objective - Vital Signs Vital signs: Vital Signs Temp 97.9 F 05/13/19 09:00 Pulse 92 05/13/19 11:42 Resp 35 H 05/13/19 11:00 BP 106/68 05/13/19 11:00 Pulse Ox 96 05/13/19 11:00 Intake & Output 05/12/19 05/13/19 05/13/19 18:59 06:59 18:59 Intake Total 938.637 340 130 Output Total 1900 345 672 Balance -961.363 -5 -542 Weight 71.8 kg Intake: IV 580 340 130 NS @ KVO 240 80 Piperacillin-Tazobactam 3 200 100 .375 gm In Sodium Chloride 0.9% 100 ml @ 25 mls/hr IVPB Q8HR [facility] Rx# :[id number] Sodium Chloride 0.9% 1, 380 50 000 ml @ 50 mls/hr IV . Q20H [facility] Rx#:[id number] Intake, IV Titration 358.637 Amount Calcium Gluconate 2 gm In 100 Sodium Chloride 0.9% 100 ml @ 100 mls/hr IVPB ONCE ONE Rx#:[id number] Levofloxacin 750Mg-D5w 250 Pmx 750 mg In Dextrose/ Water 1 150ml.bag @ 100 mls/hr IVPB Q24HR [facility] Rx# :[id number] Norepinephrine 4 mg In 8.637 Sodium Chloride 0.9% 250 ml @ 0.05 MCG/KG/MIN 13. 221 mls/hr IV .[id number] [facility] Rx#:[id number] Output: Chest Tube Drainage 0 0 Chest Tube Right 0 0 Urine 1900 345 672 Other: Voiding Method Indwelling Catheter Indwelling Catheter Indwelling Catheter ABP, PAP, CO, CI - Last Documented Arterial Blood Pressure 113/55 - Exam Physical Exam: Revealed a 69-year-old white male, pleasant, on BiPAP, FiO2 is down to 35%. And O2 saturation is 95% Head: Atraumatic normocephalic. HEENT:[Neck is supple.] [No neck masses.] [No thyromegaly.] [No JVD.] Chest: [Right sided chest tube is noted, there is symmetrical expansion.. Continues to have minimal crackles at the bases bilaterally. Cardiac Exam: [Normal S1 and S2, no S3 gallop, no murmur.] Abdomen: [Soft, nontender, no megaly, no rebound, no guarding, normal bowel sounds.] Extremities: [No clubbing, no edema, no cyanosis.] Deformity of right hand is again noted.. Neurological Exam: [No focal neurologic deficit.] Alert oriented 3. Psychiatric: Normal mood, affect and normal mental status examination. Skin: No rashes. - Labs CBC & Chem 7: 05/13/19 04:17 05/13/19 04:17 Labs: Abnormal Lab Results - Last 24 Hours (Table) 05/12/19 05/13/19 05/13/19 Range/Units 18:03 00:08 04:17 RBC 2.68 L (4.30-5.90) m/uL Hgb 7.9 L (13.0-17.5) gm/dL Hct 24.7 L (39.0-53.0) % Chloride (98-107) mmol/L Glucose (74-99) mg/dL POC Glucose (mg/dL) 151 H 143 H (75-99) mg/dL Calcium (8.4-10.2) mg/dL 05/13/19 05/13/19 Range/Units 04:17 05:56 RBC (4.30-5.90) m/uL Hgb (13.0-17.5) gm/dL Hct (39.0-53.0) % Chloride 109 H (98-107) mmol/L Glucose 139 H (74-99) mg/dL POC Glucose (mg/dL) 148 H (75-99) mg/dL Calcium 8.0 L (8.4-10.2) mg/dL Microbiology - Last 24 Hours (Table) 05/10/19 17:30 Blood Culture - Preliminary Blood No Growth after 48 hours Assessment and Plan Assessment: #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 Status post right upper lobectomy postoperative day #13 #2 right-sided pneumothorax, expected outcome of surgery, chest tube remains in place. Will likely be removed today. #3 Chronic and ongoing tobacco dependence of 40 years. Remains on broncho dilators. #4 Chronic obstructive pulmonary disease remains on bronchodilators. #5 Hypertension. Presently under control. #6 sick sinus syndrome status post pacemaker implantation. #7 Anxiety/depression. #8 Hyperlipidemia. #9 bipolar disorder #10 postoperative paroxysmal atrial fibrillation, and expected outcome of surgery #11 history of bipolar disorder #12 fluid overload and interstitial edema, patient received significant amount of fluids yesterday for marginal low blood pressure. however the possibility of hospital-acquired pneumonia is not entirely ruled out but felt to be less likely. #13 possible hospital-acquired pneumonia, remains on antibiotics in the form of Levaquin and Zosyn. No available cultures #14 possible diastolic congestive heart failure improving with diuretics. Recommendation: Continue bronchodilators Continue diuretics Continue antibiotics Continue Solu-Medrol. Change BiPAP to nasal cannula Continue GI and DVT prophylaxis Potential bronchoscopy was discussed with the patient, however considering the patient's improvement over the last 24 hours, I would hold on bronchoscopy will continue to manage the patient medically as above. We'll continue to monitor the patient in the ICU. Discussed his condition with him, family members, and with thoracic surgery. Time with Patient: Less than 30
[2019-05-13 12:12] LABS: Glucose,Whole Blood 121 mg/dL (75-99)
[2019-05-13 17:24] LABS: Glucose,Whole Blood 127 mg/dL (75-99)
[2019-05-13] MEDS ORDERED: FUROSEMIDE 10 MG/ML 2 ML VIAL IV ONE (17:36)
[2019-05-13] MEDS: NOREPINEPHRINE 4 MG in SODIUM CHLORIDE 0.9% 250 ML IV SCH (17:58)
[2019-05-13] MEDS: ARIPiprazole 15 MG TAB PO SCH (21:10)
[2019-05-13] MEDS: ATORVASTATIN 40 MG TAB PO SCH (21:10)
[2019-05-13] MEDS: SENNOSIDES-DOCUSATE SODIUM 1 EACH TAB PO SCH (21:10)
[2019-05-13] MEDS: DULoxetine HCL 60 MG CAPSULE.DR PO SCH (21:10)
[2019-05-13] MEDS: DONEPEZIL 5 MG TAB PO SCH (21:10)
[2019-05-13] MEDS: PREGABALIN 75 MG CAP PO SCH (21:10)
[2019-05-14] MEDS: KETOROLAC 30 MG/ML 1 ML VIAL IVP SCH ×3 (00:02→13:16)
[2019-05-14 00:03] LABS: Glucose,Whole Blood 157 mg/dL (75-99)
[2019-05-14] MEDS: methylPREDNISolone SOD SUCCI 125 MG/2 ML VIAL IV SCH ×4 (00:05→18:47)
[2019-05-14] MEDS: PIPERACILLIN-TAZOBACTAM 3.375 GM in SODIUM CHLORIDE 0.9% 100 ML IVPB SCH ×3 (00:08→16:28)
[2019-05-14] MEDS: HYDROcodone/APAP 5-325MG 1 EACH TAB PO PRN ×2 (04:11→10:01)
[2019-05-14 05:18] LABS: Hypochromasia Slight; MCH 28.7 pg (25.0-35.0); MCHC 31.1 g/dL (31.0-37.0); MCV 92.2 fL (80.0-100.0); Mean Platelet Volume 7.3; RBC 3.14 m/uL (4.30-5.90); RDW 14.6 % (11.5-15.5); WBC 24.5 k/uL (3.8-10.6)
[2019-05-14 05:22] LABS: Platelet Count 681 k/uL (150-450)
[2019-05-14 05:48] LABS: Calcium 8.7 mg/dL (8.4-10.2); Potassium 4.5 mmol/L (3.5-5.1)
[2019-05-14] MEDS: SODIUM CHLORIDE 0.9% 1,000 ML IV SCH ×3 (06:09→20:12)
[2019-05-14] MEDS: INSULIN ASPART (NovoLOG) 100 UNIT/ML VIAL SQ SCH ×3 (06:16→18:47)
[2019-05-14 06:27] LABS: Glucose,Whole Blood 125 mg/dL (75-99)
[2019-05-14] MEDS: FORMOTEROL FUMARATE 20 MCG/2 ML NEBU INHALATION SCH ×2 (07:25→19:06)
[2019-05-14] MEDS: IPRATROPIUM-ALBUTEROL 3 ML NEB IH SCH ×4 (07:25→19:06)
[2019-05-14] MEDS: BUDESONIDE 1 MG/2 ML NEBU INHALATION SCH ×2 (07:25→19:06)
[2019-05-14] MEDS: LEVOFLOXACIN 750MG-D5W PMX 750 MG in DEXTROSE/WATER 1 150ML.BAG IVPB SCH (08:40)
[2019-05-14] MEDS: PANTOPRAZOLE 40 MG/10 ML VIAL IVP SCH ×2 (08:40→20:11)
--- NOTE | 2019-05-14 09:09 | XR ---
EXAMINATION TYPE: XR chest 1V portable DATE OF EXAM: 05/14/2019 COMPARISON: 05/13/2020 INDICATION: Respiratory failure TECHNIQUE: Single frontal view of the chest is obtained. FINDINGS: The heart size is normal. The pulmonary vasculature is normal. Mild increased lung markings are present bilaterally. Moderate right pleural effusion is present. Rig ht suprahilar increased lung markings are present. The right-sided chest tube is been removed. The right apical thickening is stable. IMPRESSION: 1. No pneumothorax post chest tube removal. Some loculated fluid may be at the right apex there is a moderate right pleural effusion present. 2. Diffuse increased lung markings bilaterally
--- NOTE | 2019-05-14 09:32 | P.PN ---
Subjective Progress Note Date: 05/14/19 Principal diagnosis: Squamous cell carcinoma right upper lobe, history of hypertension, hyperlipidemia, bipolar disorder, history of sick sinus syndrome status post permanent pacemaker implantation in May 2011, coronary artery disease status post circumflex flex coronary artery stenting in 2017, anxiety, depression, chronic obstructive pulmonary disease, gastroesophageal reflux disease and tobacco dependence with a 40 pack year smoking history. POD #14 right thoracoscopic, robotic assisted thorascopic right upper lobectomy with mediastinal lymph node dissection, fiberoptic bronchoscopy. Postoperative acute blood loss anemia, an expected outcome. Postoperative paroxysmal atrial fibrillation and on expected outcome. Postoperative right-sided pneumothorax with prolonged air leak, expected and inherent to this type of surgery Leukocytosis, suspect postobstructive pneumonia, unexpected Hypotension, status post fluid administration, necessitating IV norepinephrine, unexpected Postoperative hypoxemic respiratory failure, necessitating initiation of BiPAP, unexpected The patient is currently lying in bed in the intensive care unit. He denies any complaints of pain although reports that he is feeling fatigued and short of breath. Currently is on BiPAP with settings 146 with a rate of 10 and FiO2 50% and oxygen saturation is 97%. He is hemodynamically stable and currently on no inotropic or pressor support. He is on Zosyn and Levaquin antibiotics. WBC count today is 24.5, hemoglobin 9.0, BUN 23 and creatinine 1.33. He remains afebrile. Right pleural chest tube was discontinued yesterday. The patient also reports that he has no appetite. Objective - Vital Signs Vital signs: Vital Signs Temp 97.6 F 05/14/19 04:00 Pulse 85 05/14/19 08:00 Resp 31 H 05/14/19 08:00 BP 132/82 05/14/19 08:00 Pulse Ox 95 05/14/19 08:00 Intake & Output 05/13/19 05/14/19 05/14/19 18:59 06:59 18:59 Intake Total 530 900 100 Output Total 932 450 60 Balance -402 450 40 Weight 72.4 kg Intake: IV 530 650 100 NS @ KVO 80 Piperacillin-Tazobactam 3 100 .375 gm In Sodium Chloride 0.9% 100 ml @ 25 mls/hr IVPB Q8HR [facility] Rx# :[id number] Sodium Chloride 0.9% 1, 450 550 100 000 ml @ 50 mls/hr IV . Q20H [facility] Rx#:[id number] Oral 250 Output: Urine 932 450 60 Other: Voiding Method Indwelling Catheter Indwelling Catheter ABP, PAP, CO, CI - Last Documented Arterial Blood Pressure 113/55 - Constitutional General appearance: Present: cooperative, no acute distress, thin - Respiratory Details: Lung sounds essentially clear to his left lobes, diminished to his right lobes with few scattered crackles to his right lower lobe. Respirations are symmetrical and nonlabored with BiPAP support. Current BiPAP settings 12/6, rate of 10 FiO2 50%. Oxygen saturation is 97%. - Cardiovascular Details: Regular rhythm and rate. S1 and S2 present, negative for S3, gallop or murmur. Bedside telemetry showing normal sinus rhythm heart rate 92. No edema present. Knee-high ABNER hose and sequential compression devices in place his bilateral lower extremities. - Gastrointestinal Gastrointestinal Comment(s): Abdomen soft, nontender and nondistended. Hypoactive bowel sounds present all 4 abdominal quadrants. No guarding or rigidity. No organomegaly appreciated. - Genitourinary Genitourinary Comment(s): Castorena catheter for accurate I&O. Draining clear shira urine with 325 mL output in the last 8 hours. - Integumentary Integumentary Comment(s): Skin is warm and dry. No clubbing or cyanosis is present. Right thoracoscopic incisions clean, dry and approximated. No drainage or redness is present. - Neurologic Neurologic Comment(s): No focal deficits. Neurologic: Present: CNII-XII intact - Musculoskeletal Musculoskeletal Comment(s): Contractures to his right hand from a previous injury. Musculoskeletal: Present: generalized weakness, strength equal bilaterally - Psychiatric Psychiatric: Present: A&O x's 3, appropriate affect, intact judgment & insight - Allied health notes Allied health notes reviewed: nursing - Labs CBC & Chem 7: 05/14/19 04:35 05/14/19 04:35 Labs: Abnormal Lab Results - Last 24 Hours (Table) 05/13/19 05/13/19 05/13/19 Range/Units 12:01 17:12 23:51 WBC (3.8-10.6) k/uL RBC (4.30-5.90) m/uL Hgb (13.0-17.5) gm/dL Hct (39.0-53.0) % Plt Count (150-450) k/uL Carbon Dioxide (22-30) mmol/L BUN (9-20) mg/dL Creatinine (0.66-1.25) mg/dL Glucose (74-99) mg/dL POC Glucose (mg/dL) 121 H 127 H 157 H (75-99) mg/dL 05/14/19 05/14/19 05/14/19 Range/Units 04:35 04:35 06:15 WBC 24.5 H (3.8-10.6) k/uL RBC 3.14 L (4.30-5.90) m/uL Hgb 9.0 L (13.0-17.5) gm/dL Hct 29.0 L (39.0-53.0) % Plt Count 681 H D (150-450) k/uL Carbon Dioxide 21 L (22-30) mmol/L BUN 23 H (9-20) mg/dL Creatinine 1.33 H (0.66-1.25) mg/dL Glucose 145 H (74-99) mg/dL POC Glucose (mg/dL) 125 H (75-99) mg/dL Microbiology - Last 24 Hours (Table) 05/10/19 17:30 Blood Culture - Preliminary Blood No Growth after 72 hours - Imaging and Cardiology Chest x-ray: report reviewed, image reviewed Assessment and Plan Assessment: 1. Squamous cell carcinoma right upper lobe, status post right upper lobectomy 2. Hypertension 3. Hyperlipidemia 4. Bipolar disorder 5. History of sick sinus syndrome status post permanent pacemaker implantation May 2011 6. Coronary artery disease status post circumflex coronary artery stenting in 2017 7. Anxiety 8. History of depression 9. Chronic proximal pulmonary disease 10. Gastroesophageal reflux disease 11. Chronic tobacco dependence, [id number] smoking history 12. Postoperative acute blood loss anemia, an expected outcome 13. Postoperative paroxysmal atrial fibrillation and an expected outcome 14. Postoperative right-sided pneumothorax with prolonged air leak 15. Leukocytosis, pneumonia, unexpected 16. Hypotension, status post fluid resuscitation, necessitating IV norepinephrine 17. Postoperative hypoxemic respiratory failure, necessitating initiation of BiPAP, unexpected Plan: 1. Increase activity as tolerated, out of bed for all meals. Physical and occupational therapy following.. 2. Encourage use of incentive spirometry every hour while awake and aggressive pulmonary toileting. 3. GI and DVT prophylaxis. 4. BiPAP, Bronchodilators and Solu-Medrol management per pulmonary medicine. 5. Pain control per current when necessary orders. 6. Continue Levaquin and Zosyn. 7. Pathology results demonstrated squamous cell carcinoma, bronchovascular margin negative for malignancy. 8. Continue to encourage smoking cessation. Discussed with the patient importance of smoking cessation. 9. Continue amiodarone 200 mg by mouth daily for atrial fibrillation prophylaxis. 10. Continue Eliquis 5 mg by mouth twice a day for anticoagulation due to his paroxysmal atrial fibrillation. 11. Pain control per current when necessary orders. 12. Continue to monitor daily labs and chest x-rays. 13. More recommendations to follow based on patient's clinical course. Time with Patient: Greater than 30
[2019-05-14] MEDS: BISACODYL 10 MG SUPP RECTAL SCH (09:57)
[2019-05-14] MEDS: APIXABAN 5 MG TAB PO SCH ×2 (10:00→20:11)
[2019-05-14] MEDS: AMIODARONE 200 MG TAB PO SCH ×2 (10:00→20:11)
[2019-05-14] MEDS: PROPOFOL 1,000 MG in EMPTY BAG 1 BAG IV SCH ×4 (10:30→20:15)
--- NOTE | 2019-05-14 11:00 | XR ---
EXAMINATION TYPE: XR chest 1V portable DATE OF EXAM: 05/14/2019 COMPARISON: Prior chest x-ray 05/14/2019 HISTORY: Intubation TECHNIQUE: Single frontal view of the chest is obtained. FINDINGS: There is been interval placement of an endotracheal tube, orogastric tube. Endotracheal tu be is overlying appropriate position. Nasogastric tube shows the distal tip at the level of the gastr oesophageal junction. Pacemaker is stable. Volume loss again noted within the right hemithorax. Inter stitial changes are present bilaterally. Heart size may be accentuated by rotation. Lung apices not i ncluded on the exam. Pleural thickening persists on the right, there is lateralization of the right h emidiaphragm. Right hilar increased density is again noted. Surgical clips present at the gastroesoph ageal junction. IMPRESSION: No evident complication status post intubation. NG tube as described, tip at the level o f the gastroesophageal junction. Correlate for pulmonary edema, pneumonia, pleural effusion, right h ilar abnormal density.
[2019-05-14] MEDS ORDERED: CISATRACURIUM 2 MG/ML 5 ML VIAL IV ONE (11:05)
[2019-05-14] MEDS ORDERED: SODIUM CHLORIDE 0.9% 500 ML 500 ML IV ONE (11:08)
[2019-05-14 11:16] LABS: ABG Base Excess -4.9 mmol/L; ABG HCO3 21 mmol/L (21-25); ABG Oxygen Saturation 99.2 % (94-97); ABG PCO2 39 mmHg (35-45); ABG PH 7.34 (7.35-7.45); ABG PO2 175 mmHg (83-108); ABG TCO2 22 mmol/L (19-24); Allen Test Performed? Yes
[2019-05-14 12:09] LABS: Glucose,Whole Blood 154 mg/dL (75-99)
[2019-05-14] MEDS: NOREPINEPHRINE 4 MG in SODIUM CHLORIDE 0.9% 250 ML IV SCH (12:43)
--- NOTE | 2019-05-14 13:13 | P.PN ---
Subjective Progress Note Date: 05/14/19 Principal diagnosis: Squamous cell lung cancer status post right upper lobectomy, postoperative day # 14 Reevaluated today on 05/11/2019, patient remains in the ICU, continues to have a right sided chest tube in place, there is no evidence of right-sided pneumothorax, continues to have significant airspace disease involving the right midlung. No evidence of pneumothorax. Patient is feeling better, remains on antibiotics, and on bronchodilators. He is hemodynamically stable. CT angiogram of the chest showed no evidence of pulmonary embolism, but there is definite significant airspace disease and infiltrate involving the right lower lobe. Continues to do well with incentive spirometry about 1500 mL. Patient was reevaluated today on 05/12/2019, he remains in the ICU, his oxygen demand has been increasing overnight, he was on high flow nasal cannula at 10 L, however I switch him to BiPAP. Chest x-ray is showing evidence of interstitial edema bilaterally, right more so than left, and the patient has very weak cough. I did recommend broadening the spectrum of his antibiotics, I also recommended Lasix, and recommended IV Solu-Medrol. Continues to have a small right-sided pneumothorax and the right sided chest tube remains in place, no air leak is noted. Chest x-ray is concerning, there is basically worsening alveolar and interstitial infiltrates bilaterally. The differential diagnoses includes pneumonia also includes fluid overload. Patient will be treated for both and would have a repeat chest x-ray in the morning. Raised the possibility of bronchoscopy with the patient, however considering his pulmonary status is so marginal, patient will end up requiring intubation and mechanical ventilation to safely perform a bronchoscopy and lavage of both lungs. Hence I would hold on the bronchoscopy for now, and if his condition deteriorates, and requires intubation then I would proceed to bronchoscopy at that point. In the meantime we'll try antibiotics diuretics and bronchodilators as well as steroids. And we'll try BiPAP. His WBC count is coming down to 15.7 hemoglobin is 9 renal profile is normal lites are normal. Reevaluated today on 05/13/2019, patient seems to be doing much better today compared to yesterday. His FiO2 requirement is down, he was earlier today on 35% FiO2 and on BiPAP. I have switched him to few liters nasal cannula, and he seemed to relate that very well. Chest x-ray continues to show interstitial edema, possible underlying infiltrates, remains on diuretics, bronchodilators, steroids, and antibiotics/broad-spectrum. Considering the improvement, I don't see any value of bronchoscopy at this point, patient is clinically better, and his chest x-ray is definitely better. And his FiO2 requirement is much im proved. His WBC count is also down to 10.2. Hemoglobin is 7.9 lites are normal renal profile remains normal in spite of diuresis. Reevaluated today on 05/14/2019, I saw the patient earlier in the morning, and he was on BiPAP, very comfortable. However his FiO2 was increased up to 50%, and his chest x-ray showed slight worsening of the interstitial infiltrates compared to the chest x-ray yesterday. Patient was hemodynamically stable, has fairly good urine output. Shortly after the patient had a bowel movement, and he was cleaned up by the nurses, he became extremely agitated, restless, tachycardic, tachypneic, and he was basically struggling to breathe. Patient was intubated by HOU[employer]KEEPING CLEANER, and I came in shortly after to evaluate the patient. Patient was placed on mechanical ventilation, and his ventilator settings were placed at FiO2 of 100% assist control rate of 20 tidal volume of 450, and PEEP of 5. After intubating the patient, patient underwent bronchoscopy and lavage, some purulent secretions and mucous plugs were removed from the left side as well as the right lower lobe. Not noted to be copious, but thick and blood-tinged. Chest x-ray post intubation showed adequate placement of the endotracheal tube, bilateral interstitial infiltrates, and worsening airspace disease bilaterally. Objective - Vital Signs Vital signs: Vital Signs Temp 97.6 F 05/14/19 04:00 Pulse 111 H 05/14/19 12:00 Resp 20 05/14/19 12:00 BP 104/69 05/14/19 12:00 Pulse Ox 92 L 05/14/19 12:00 Intake & Output 05/13/19 05/14/19 05/14/19 18:59 06:59 18:59 Intake Total 729 394 0492.149 Output Total 932 450 145 Balance -402 450 980.149 Weight 72.4 kg Intake: IV 530 650 250 NS @ KVO 80 Piperacillin-Tazobactam 3 100 100 .375 gm In Sodium Chloride 0.9% 100 ml @ 25 mls/hr IVPB Q8HR [facility] Rx# :[id number] Sodium Chloride 0.9% 1, 450 550 150 000 ml @ 50 mls/hr IV . Q20H [facility] Rx#:[id number] Intake, IV Titration 875.149 Amount Levofloxacin 750Mg-D5w 150 Pmx 750 mg In Dextrose/ Water 1 150ml.bag @ 100 mls/hr IVPB Q24HR [facility] Rx# :[id number] Norepinephrine 4 mg In 125.149 Sodium Chloride 0.9% 250 ml @ 0.05 MCG/KG/MIN 13. 221 mls/hr IV .[id number] [facility] Rx#:[id number] Sodium Chloride 0.9% 1, 100 000 ml @ 100 mls/hr IV . Q10H [facility] Rx#:[id number] Sodium Chloride 0.9% 500 500 ml 500 ml @ 999 mls/hr IV .Q31M [facility] Rx#:[id number] Oral 250 Output: Urine 932 450 145 Other: Voiding Method Indwelling Catheter Indwelling Catheter # Bowel Movements 1 ABP, PAP, CO, CI - Last Documented Arterial Blood Pressure 81/47 - Exam Physical Exam: Revealed a 69-year-old white male, on mechanical ventilation, sedated, in no distress. Head: Atraumatic normocephalic. HEENT:[Neck is supple.] [No neck masses.] [No thyromegaly.] [No JVD.] Chest: [Minimal fine crackles at the bases, no rhonchi no wheezes. Cardiac Exam: [Normal S1 and S2, no S3 gallop, no murmur.] Abdomen: [Soft, nontender, no megaly, no rebound, no guarding, normal bowel sounds.] Extremities: [No clubbing, no edema, no cyanosis.] Deformity of right hand is again noted.. Neurological sedated, on mechanical ventilation. Cannot be assessed. However he was quite appropriate earlier today. Psychiatric: Sedated, on mechanical ventilation. Cannot be assessed. Skin: No rashes. - Labs CBC & Chem 7: 05/14/19 04:35 05/14/19 04:35 Labs: Abnormal Lab Results - Last 24 Hours (Table) 05/13/19 05/13/19 05/14/19 Range/Units 17:12 23:51 04:35 WBC 24.5 H (3.8-10.6) k/uL RBC 3.14 L (4.30-5.90) m/uL Hgb 9.0 L (13.0-17.5) gm/dL Hct 29.0 L (39.0-53.0) % Plt Count 681 H D (150-450) k/uL ABG pH (7.35-7.45) ABG pO2 (83-108) mmHg ABG O2 Saturation (94-97) % Carbon Dioxide (22-30) mmol/L BUN (9-20) mg/dL Creatinine (0.66-1.25) mg/dL Glucose (74-99) mg/dL POC Glucose (mg/dL) 127 H 157 H (75-99) mg/dL 05/14/19 05/14/19 05/14/19 Range/Units 04:35 06:15 11:14 WBC (3.8-10.6) k/uL RBC (4.30-5.90) m/uL Hgb (13.0-17.5) gm/dL Hct (39.0-53.0) % Plt Count (150-450) k/uL ABG pH 7.34 L (7.35-7.45) ABG pO2 175 H (83-108) mmHg ABG O2 Saturation 99.2 H (94-97) % Carbon Dioxide 21 L (22-30) mmol/L BUN 23 H (9-20) mg/dL Creatinine 1.33 H (0.66-1.25) mg/dL Glucose 145 H (74-99) mg/dL POC Glucose (mg/dL) 125 H (75-99) mg/dL 05/14/19 Range/Units 11:57 WBC (3.8-10.6) k/uL RBC (4.30-5.90) m/uL Hgb (13.0-17.5) gm/dL Hct (39.0-53.0) % Plt Count (150-450) k/uL ABG pH (7.35-7.45) ABG pO2 (83-108) mmHg ABG O2 Saturation (94-97) % Carbon Dioxide (22-30) mmol/L BUN (9-20) mg/dL Creatinine (0.66-1.25) mg/dL Glucose (74-99) mg/dL POC Glucose (mg/dL) 154 H (75-99) mg/dL Microbiology - Last 24 Hours (Table) 05/10/19 17:30 Blood Culture - Preliminary Blood No Growth after 72 hours Assessment and Plan Assessment: #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 Status post right upper lobectomy postoperative day #14 #2 right-sided pneumothorax, expected outcome of surgery, resolved #3 Chronic and ongoing tobacco dependence of 40 years. Remains on bronchodilators. #4 Chronic obstructive pulmonary disease remains on bronchodilators. #5 Hypertension. Presently under control. #6 sick sinus syndrome status post pacemaker implantation. #7 Anxiety/depression. #8 Hyperlipidemia. #9 bipolar disorder #10 postoperative paroxysmal atrial fibrillation, and expected outcome of surgery #11 acute hypoxic respiratory failure requiring reintubation secondary to hospital-acquired pneumonia possibly some component of fluid overload./Diastolic congestive heart failure. #12 fluid overload and interstitial edema, patient received significant amount of fluids yesterday for marginal low blood pressure. however the possibility of hospital-acquired pneumonia is not entirely ruled out but felt to be less likely. #13 possible hospital-acquired pneumonia, remains on antibiotics in the form of Levaquin and Zosyn. Required reintubation on 05/14/2019. #14 possible diastolic congestive heart failure improved with diuretics 2 days ago. #15 status post bronchoscopy and lavage on 05/14/2019. Recommendation: Underwent a bronchoscopy and lavage and the lavage was sent for different diagnostic studies. Continue bronchodilators Continue diuretics Continue antibiotics Continue Solu-Medrol. Continue ventilatory support. Initiate nutritional support via nasogastric tube. Continue GI and DVT prophylaxis Obviously the patient is quite ill, required reintubation today, placed back on mechanical ventilation, continue antibiotics steroids, underwent bronchoscopy and lavage, continue GI and DVT prophylaxis, will follow. Critical care time is 35 minutes not including the time spent on procedures. Time with Patient: Greater than 30
[2019-05-14] MEDS: METOPROLOL TARTRATE 50 MG TAB PO SCH (13:15)
--- NOTE | 2019-05-14 13:45 | PN ---
PROGRESS NOTE Mr. James is a 69-year-old male who presented to undergo lobectomy for squamous cell CA, underwent surgery earlier this month. He has a history of coronary artery disease, status post percutaneous revascularization and history of sick sinus syndrome with permanent pacemaker implantation. Following his surgery, he had episode of paroxysmal atrial fibrillation subsequently stabilized. According to the nursing staff, he became more dyspneic this morning, requiring repeat mechanical ventilation and intubation, underwent bronchoscopy with removal of mucus plug. He had episode of recurrent atrial fibrillation as well as short bursts of wide-complex tachycardia. At this time, he is on no pressor. He is intubated and sedated. He is in sinus mechanism. His medications at this time include amiodarone 200 mg daily, Eliquis 5 mg twice a day, Lipitor 40 mg daily, metoprolol tartrate 100 mg twice a day, but that has not been given on a regular basis because of episode of hypotension on and off before. PHYSICAL EXAMINATION: Blood pressure 111/50 with the heart rate in the high 90s to 100. LUNGS: Decreased air exchange bilaterally. No wheezes. HEART: Regular rate and rhythm. S1, S2. No S3. No rub. ABDOMEN: Soft. Positive bowel sounds. EXTREMITIES: No edema. LAB DATA: Lab data revealed a potassium 4.5, BUN creatinine 23 and 1.33, which is worse than it was yesterday. His hemoglobin is 9, white blood cell of 24,000, which has worsened compared to yesterday. The chest x-ray shows a bilateral infiltrative process with volume loss on the right side. IMPRESSION: 1. Respiratory failure in a patient with known history of chronic obstructive lung disease requiring mechanical ventilation. 2. Squamous cell carcinoma of right upper lobe, status post right upper lobectomy. 3. Paroxysmal atrial fibrillation in a patient with known history of sick sinus syndrome and permanent pacemaker implantation. 4. History of coronary artery disease. 5. History of hyperlipidemia. 6. Worsening renal failure. RECOMMENDATION: From the cardiac standpoint, I would increase the dose of his amiodarone and re- initiate treatment with beta missael at a lower dose. The further episode of atrial fibrillation that has been noted today most likely were related to the respiratory distress requiring mechanical ventilation. We will continue to follow closely and depending on his progress, further recommendation will be made. MMODL / IJN: [id number] /
[2019-05-14] MEDS: METOPROLOL TARTRATE 25 MG TAB PO SCH ×2 (14:02→20:11)
[2019-05-14 14:42] LABS: Basophils % (A) 0 %; Eosinophils % (A) 0 %; HCT 23.9 % (39.0-53.0); HGB 7.6 gm/dL (13.0-17.5); Hypochromasia Slight; Lymphocytes # (A) 0.3 k/uL (1.0-4.8); Lymphocytes % (A) 1 %; MCH 28.9 pg (25.0-35.0); MCHC 31.7 g/dL (31.0-37.0); MCV 91.2 fL (80.0-100.0); Mean Platelet Volume 7.1; Monocytes # (A) 0.6 k/uL (0-1.0); Monocytes % (A) 3 %; Neutrophils % (A) 95 %; Platelet Count 541 k/uL (150-450); RBC 2.62 m/uL (4.30-5.90); RDW 14.7 % (11.5-15.5)
--- NOTE | 2019-05-14 15:12 | XR ---
EXAMINATION TYPE: XR chest 1V portable DATE OF EXAM: 05/14/2019 COMPARISON: Earlier exam same day INDICATION: Post bronchoscopy assessment TECHNIQUE: Single frontal view of the chest is obtained. FINDINGS: The heart size is normal. The pulmonary vasculature is somewhat prominent. Infiltrate is present to the left lower lobe. Right perihilar mass or infiltrate is present. There is elevation of the right diaphragm. No pneumothorax is evident. Endotracheal tube tip is above the london. Nasogastric tube has its tip at the GE junction of the lef t abdomen and could be advanced. IMPRESSION: 1. Stable examination. 2. No pneumothorax post bronchoscopy. 3. Nasogastric tube tip at the gastroesophageal junction and can be advanced
[2019-05-14] MEDS ORDERED: SODIUM CHLORIDE 0.9% 1,000 ML IV ONE (15:20)
[2019-05-14 15:29] LABS: Color,BF Pink
[2019-05-14 15:30] LABS: Appearance,BF Bloody; Nucleated Cells, Body Fluid 630 /uL; RBC, Body Fluid 3480 /uL
[2019-05-14 15:35] LABS: Mononuclear WBC,Body Fluid 23 %; Polynuclear WBC,Body Fluid 77 %; Total Cells Counted,Body Fluid 100
[2019-05-14 18:44] LABS: Glucose,Whole Blood 145 mg/dL (75-99)
[2019-05-14] MEDS: PREGABALIN 75 MG CAP PO SCH (20:11)
[2019-05-14] MEDS: CHLORHEXIDINE GLUCONATE 15 ML CUP MUCOUS MEM SCH (20:11)
[2019-05-14] MEDS: SENNOSIDES-DOCUSATE SODIUM 1 EACH TAB PO SCH (20:11)
[2019-05-14] MEDS: DONEPEZIL 5 MG TAB PO SCH (20:11)
[2019-05-14] MEDS: ATORVASTATIN 40 MG TAB PO SCH (20:11)
[2019-05-14] MEDS: DULoxetine HCL 60 MG CAPSULE.DR PO SCH (20:12)
[2019-05-14] MEDS: ARIPiprazole 15 MG TAB PO SCH (20:12)
[2019-05-14 22:24] LABS: Basophils % (A) 0 %; Eosinophils % (A) 0 %; HCT 25.3 % (39.0-53.0); HGB 7.4 gm/dL (13.0-17.5); Hypochromasia Slight; Lymphocytes # (A) 0.3 k/uL (1.0-4.8); Lymphocytes % (A) 2 %; MCH 27.5 pg (25.0-35.0); MCHC 29.4 g/dL (31.0-37.0); MCV 93.6 fL (80.0-100.0); Mean Platelet Volume 6.9; Monocytes # (A) 0.5 k/uL (0-1.0); Monocytes % (A) 4 %; Neutrophils # (A) 12.5 k/uL (1.3-7.7); Neutrophils % (A) 93 %; Platelet Count 502 k/uL (150-450); RDW 14.7 % (11.5-15.5); WBC 13.4 k/uL (3.8-10.6)
--- NOTE | 2019-05-14 23:49 | OP ---
OPERATIVE REPORT OPERATIVE PROCEDURE: Bronchoscopy and bronchoalveolar lavage of the left lower lobe, right middle lobe and right lower lobe. PREOPERATIVE DIAGNOSIS: Bilateral pneumonia. POSTOPERATIVE DIAGNOSIS: Bilateral pneumonia. ANESTHESIA USED: The patient was already on propofol drip, and prior to the procedure he was given 7 mg of Nimbex IV push. PROCEDURE DESCRIPTION: Patient was placed in the supine position. He was already on mechanical ventilation. The endotracheal tube was connected to mechanical ventilation via adapter. After adequate sedation, we monitored his oxygen saturation continuously. Blood pressure was continuously monitored via arterial line and his cardiac rhythm was also continuously monitored. After adequate sedation, the bronchoscope was advanced through the adapter of the endotracheal tube, and the bronchoscope was advanced to the area of the distal endotracheal tube above the london. Thorough examination was done of the london, right middle lobe, right lower lobe, left upper lobe, lingula and left lower lobe. There was mostly evidence of the postoperative changes in the right upper lobe bronchus area, minimal purulent secretions, blood tinged, in the right middle lobe and right lower lobe, and these were suctioned. The same was noted also on the left side in the lingula and left lower lobe. Lavage of these purulent secretions, which were blood- tinged, was done. The procedure was well tolerated, and no evidence of any immediate complications. MMODL / IJN: [id number] /
--- NOTE | 2019-05-14 23:58 | OP ---
OPERATIVE REPORT PROCEDURE: Placement of a left radial arterial line. PREOPERATIVE DIAGNOSIS: Acute respiratory failure requiring intubation and mechanical ventilation. POSTOPERATIVE DIAGNOSIS: Acute respiratory failure requiring intubation and mechanical ventilation. ANESTHESIA USED: None deployed. PROCEDURE DESCRIPTION: The left wrist was prepared in a sterile fashion and drapes were applied. The left radial artery was palpated easily, cannulated, and a guidewire was placed. A Cook's catheter was inserted over the guidewire. The guidewire was removed. Good blood flow and good waveform were noted. No evidence of any immediate complications. Line was secured using 3.0 silk sutures. MMODL / IJN: [id number] /
[2019-05-15 00:42] LABS: Glucose,Whole Blood 127 mg/dL (75-99)
[2019-05-15] MEDS: INSULIN ASPART (NovoLOG) 100 UNIT/ML VIAL SQ SCH ×4 (00:43→18:08)
[2019-05-15] MEDS: methylPREDNISolone SOD SUCCI 125 MG/2 ML VIAL IV SCH ×4 (01:24→17:59)
[2019-05-15] MEDS: PIPERACILLIN-TAZOBACTAM 3.375 GM in SODIUM CHLORIDE 0.9% 100 ML IVPB SCH ×3 (01:25→16:22)
[2019-05-15] MEDS: PROPOFOL 1,000 MG in EMPTY BAG 1 BAG IV SCH ×6 (01:44→21:17)
[2019-05-15] MEDS: SODIUM CHLORIDE 0.9% 1,000 ML IV SCH ×2 (05:38→13:27)
[2019-05-15 05:39] LABS: Glucose,Whole Blood 134 mg/dL (75-99)
[2019-05-15 05:59] LABS: African American GFR (CKD) >90 (>60 ml/min/1.73 sqM); Anion Gap 5 mmol/L; Blood Urea Nitrogen 23 mg/dL (9-20); Calcium 7.7 mg/dL (8.4-10.2); Carbon Dioxide 22 mmol/L (22-30); Chloride 113 mmol/L (98-107); Glucose 117 mg/dL (74-99); Potassium 4.3 mmol/L (3.5-5.1); Sodium 140 mmol/L (137-145)
[2019-05-15 06:01] LABS: Basophils % (A) 0 %; Eosinophils % (A) 0 %; HCT 23.1 % (39.0-53.0); HGB 7.4 gm/dL (13.0-17.5); Hypochromasia Slight; Lymphocytes # (A) 0.3 k/uL (1.0-4.8); Lymphocytes % (A) 5 %; MCH 29.2 pg (25.0-35.0); MCHC 31.8 g/dL (31.0-37.0); MCV 91.8 fL (80.0-100.0); Mean Platelet Volume 7.1; Monocytes # (A) 0.3 k/uL (0-1.0); Monocytes % (A) 5 %; Neutrophils # (A) 5.3 k/uL (1.3-7.7); Neutrophils % (A) 88 %; Platelet Count 375 k/uL (150-450); RBC 2.52 m/uL (4.30-5.90); RDW 14.7 % (11.5-15.5)
[2019-05-15] MEDS: IPRATROPIUM-ALBUTEROL 3 ML NEB IH SCH ×4 (07:38→20:04)
[2019-05-15] MEDS: FORMOTEROL FUMARATE 20 MCG/2 ML NEBU INHALATION SCH ×2 (07:38→20:04)
[2019-05-15] MEDS: BUDESONIDE 1 MG/2 ML NEBU INHALATION SCH ×2 (07:38→20:04)
--- NOTE | 2019-05-15 07:45 | XR ---
EXAMINATION TYPE: XR chest 1V portable DATE OF EXAM: 05/15/2019 COMPARISON: 05/14/2019 INDICATION: Tube placement TECHNIQUE: Single frontal view of the chest is obtained. FINDINGS: The heart size is normal. The pulmonary vasculature is prominent. Right pleural fluid is present. Diffuse increased lung markings are through the left lung. This may h as slight improvement. Right perihilar increased lung markings remain present. Right apical pleural t hickening or fluid is stable. Pacemaker overlies left chest The endotracheal tube tip is above the london. Nasogastric tube tip is within the left upper quadrant of the abdomen. IMPRESSION: 1. Stable right pleural fluid. Subpulmonic effusion on the right knee be present. 2. Diffuse increased lung markings may be slightly improved on the left.
[2019-05-15 08:06] LABS: ABG HCO3 22 mmol/L (21-25); ABG Oxygen Saturation 98.2 % (94-97); ABG PCO2 35 mmHg (35-45); ABG PO2 101 mmHg (83-108); ABG TCO2 23 mmol/L (19-24); Allen Test Performed? Yes
[2019-05-15] MEDS: NOREPINEPHRINE 4 MG in SODIUM CHLORIDE 0.9% 250 ML IV SCH (08:37)
[2019-05-15] MEDS: CHLORHEXIDINE GLUCONATE 15 ML CUP MUCOUS MEM SCH ×2 (08:38→20:44)
[2019-05-15] MEDS: PANTOPRAZOLE 40 MG/10 ML VIAL IVP SCH ×2 (08:38→20:42)
[2019-05-15] MEDS: AMIODARONE 200 MG TAB PO SCH ×2 (09:15→20:43)
[2019-05-15] MEDS: BISACODYL 10 MG SUPP RECTAL SCH (09:16)
[2019-05-15] MEDS: METOPROLOL TARTRATE 25 MG TAB PO SCH ×3 (09:16→20:43)
[2019-05-15] MEDS: APIXABAN 5 MG TAB PO SCH ×2 (09:16→20:44)
[2019-05-15] MEDS ORDERED: FUROSEMIDE 10 MG/ML 4 ML VIAL ONE (09:34)
[2019-05-15] MEDS ORDERED: FUROSEMIDE 10 MG/ML 4 ML VIAL IV STA (09:35)
--- NOTE | 2019-05-15 11:19 | P.PN ---
Subjective Progress Note Date: 05/15/19 Principal diagnosis: Squamous cell lung cancer status post right upper lobectomy, postoperative day # 15 Reevaluated today on 05/11/2019, patient remains in the ICU, continues to have a right sided chest tube in place, there is no evidence of right-sided pneumothorax, continues to have significant airspace disease involving the right midlung. No evidence of pneumothorax. Patient is feeling better, remains on antibiotics, and on bronchodilators. He is hemodynamically stable. CT angiogram of the chest showed no evidence of pulmonary embolism, but there is definite significant airspace disease and infiltrate involving the right lower lobe. Continues to do well with incentive spirometry about 1500 mL. Patient was reevaluated today on 05/12/2019, he remains in the ICU, his oxygen demand has been increasing overnight, he was on high flow nasal cannula at 10 L, however I switch him to BiPAP. Chest x-ray is showing evidence of interstitial edema bilaterally, right more so than left, and the patient has very weak cough. I did recommend broadening the spectrum of his antibiotics, I also recommended Lasix, and recommended IV Solu-Medrol. Continues to have a small right-sided pneumothorax and the right sided chest tube remains in place, no air leak is noted. Chest x-ray is concerning, there is basically worsening alveolar and interstitial infiltrates bilaterally. The differential diagnoses includes pneumonia also includes fluid overload. Patient will be treated for both and would have a repeat chest x-ray in the morning. Raised the possibility of bronchoscopy with the patient, however considering his pulmonary status is so marginal, patient will end up requiring intubation and mechanical ventilation to safely perform a bronchoscopy and lavage of both lungs. Hence I would hold on the bronchoscopy for now, and if his condition deteriorates, and requires intubation then I would proceed to bronchoscopy at that point. In the meantime we'll try antibiotics diuretics and bronchodilators as well as steroids. And we'll try BiPAP. His WBC count is coming down to 15.7 hemoglobin is 9 renal profile is normal lites are normal. Reevaluated today on 05/13/2019, patient seems to be doing much better today compared to yesterday. His FiO2 requirement is down, he was earlier today on 35% FiO2 and on BiPAP. I have switched him to few liters nasal cannula, and he seemed to relate that very well. Chest x-ray continues to show interstitial edema, possible underlying infiltrates, remains on diuretics, bronchodilators, steroids, and antibiotics/broad-spectrum. Considering the improvement, I don't see any value of bronchoscopy at this point, patient is clinically better, and his chest x-ray is definitely better. And his FiO2 requirement is much im proved. His WBC count is also down to 10.2. Hemoglobin is 7.9 lites are normal renal profile remains normal in spite of diuresis. Reevaluated today on 05/14/2019, I saw the patient earlier in the morning, and he was on BiPAP, very comfortable. However his FiO2 was increased up to 50%, and his chest x-ray showed slight worsening of the interstitial infiltrates compared to the chest x-ray yesterday. Patient was hemodynamically stable, has fairly good urine output. Shortly after the patient had a bowel movement, and he was cleaned up by the nurses, he became extremely agitated, restless, tachycardic, tachypneic, and he was basically struggling to breathe. Patient was intubated by GUEST ROOM INSPECTOR, and I came in shortly after to evaluate the patient. Patient was placed on mechanical ventilation, and his ventilator settings were placed at FiO2 of 100% assist control rate of 20 tidal volume of 450, and PEEP of 5. After intubating the patient, patient underwent bronchoscopy and lavage, some purulent secretions and mucous plugs were removed from the left side as well as the right lower lobe. Not noted to be copious, but thick and blood-tinged. Chest x-ray post intubation showed adequate placement of the endotracheal tube, bilateral interstitial infiltrates, and worsening airspace disease bilaterally. Reevaluated today on 05/15/2019, patient is still on mechanical ventilation, patient was intubated yesterday. Remains on the same ventilator settings as noted above. FiO2 is at 50%, tidal volume is 450, assist control rate is 20. Chest x-ray is showing worsening interstitialdisease and interstitial infiltrates, his ABG is marginal. Patient is sedated on propofol. Presently off all pressors. Did require norepinephrine yesterday for a brief period of time, and he is presently off pressors. ABG today showed a pO2 of 101 pCO2 of 35 pH of 7.40. Basic metabolic profile is normal renal profile is normal. BNP level is 7610, hence I cut down his IV fluid and I started him on Lasix 40 mg IV push every 12 hours. WBC count is 6 hemoglobin is 7.4. Objective - Vital Signs Vital signs: Vital Signs Temp 97.7 F 05/15/19 08:00 Pulse 60 05/15/19 11:00 Resp 23 05/15/19 11:00 BP 88/66 05/15/19 10:00 Pulse Ox 97 05/15/19 11:00 Intake & Output 05/14/19 05/15/19 05/15/19 18:59 06:59 18:59 Intake Total 3042.522 1791.759 500 Output Total 320 715 610 Balance 2722.522 1076.759 -110 Weight 73.5 kg Intake: IV 700 1225 400 NS @ KVO 1100 300 Piperacillin-Tazobactam 3 550 125 .375 gm In Sodium Chloride 0.9% 100 ml @ 25 mls/hr IVPB Q8HR [facility] Rx# :[id number] Sodium Chloride 0.9% 1, 150 100 000 ml @ 50 mls/hr IV . Q20H [facility] Rx#:[id number] Intake, IV Titration 2342.522 566.759 100 Amount Levofloxacin 750Mg-D5w 150 Pmx 750 mg In Dextrose/ Water 1 150ml.bag @ 100 mls/hr IVPB Q24HR [facility] Rx# :[id number] Norepinephrine 4 mg In 152.340 166.759 Sodium Chloride 0.9% 250 ml @ 0.05 MCG/KG/MIN 13. 221 mls/hr IV .[id number] [facility] Rx#:[id number] Propofol 1,000 mg In 140.182 300 100 Empty Bag 1 bag @ Titrate IV .Q0M [facility] Rx#: [id number] Sodium Chloride 0.9% 1, 400 100 000 ml @ 50 mls/hr IV . Q20H [facility] Rx#:[id number] Sodium Chloride 0.9% 1, 1000 000 ml @ 999 mls/hr IV . Q1H1M ONE Rx#:[id number] Sodium Chloride 0.9% 500 500 ml 500 ml @ 999 mls/hr IV .Q31M ONE Rx#:[id number] Output: Gastric Drainage 100 Urine 320 615 610 Other: Voiding Method Indwelling Catheter Indwelling Catheter # Bowel Movements 1 ABP, PAP, CO, CI - Last Documented Arterial Blood Pressure 109/55 - Exam Physical Exam: Revealed a 69-year-old white male, on mechanical ventilation, sedated, on propofol infusion. Head: Atraumatic normocephalic. HEENT:[Neck is supple.] [No neck masses.] [No thyromegaly.] [No JVD.] E ndotracheal tube and orogastric tube are intact. Chest: [Crackles and rhonchi noted bilaterally. Symmetrical chest expansion. Cardiac Exam: [Normal S1 and S2, no S3 gallop, no murmur.] Abdomen: [Soft, nontender, no megaly, no rebound, no guarding, normal bowel sounds.] Extremities: [No clubbing, no edema, no cyanosis.] Deformity of right hand is again noted.. Neurological sedated, on mechanical ventilation. Cannot be assessed. Psychiatric: Sedated, on mechanical ventilation. Cannot be assessed. Skin: No rashes. - Labs CBC & Chem 7: 05/15/19 05:30 05/15/19 05:30 Labs: Abnormal Lab Results - Last 24 Hours (Table) 05/14/19 05/14/19 05/14/19 Range/Units 11:14 11:57 14:30 WBC 19.0 H (3.8-10.6) k/uL RBC 2.62 L (4.30-5.90) m/uL Hgb 7.6 L (13.0-17.5) gm/dL Hct 23.9 L (39.0-53.0) % MCHC (31.0-37.0) g/dL Plt Count 541 H (150-450) k/uL Neutrophils # 18.0 H (1.3-7.7) k/uL Lymphocytes # 0.3 L (1.0-4.8) k/uL ABG pH 7.34 L (7.35-7.45) ABG pO2 175 H (83-108) mmHg ABG O2 Saturation 99.2 H (94-97) % Chloride (98-107) mmol/L BUN (9-20) mg/dL Glucose (74-99) mg/dL POC Glucose (mg/dL) 154 H (75-99) mg/dL Calcium (8.4-10.2) mg/dL 05/14/19 05/14/19 05/15/19 Range/Units 18:40 21:48 00:30 WBC 13.4 H (3.8-10.6) k/uL RBC 2.70 L (4.30-5.90) m/uL Hgb 7.4 L (13.0-17.5) gm/dL Hct 25.3 L (39.0-53.0) % MCHC 29.4 L (31.0-37.0) g/dL Plt Count 502 H (150-450) k/uL Neutrophils # 12.5 H (1.3-7.7) k/uL Lymphocytes # 0.3 L (1.0-4.8) k/uL ABG pH (7.35-7.45) ABG pO2 (83-108) mmHg ABG O2 Saturation (94-97) % Chloride (98-107) mmol/L BUN (9-20) mg/dL Glucose (74-99) mg/dL POC Glucose (mg/dL) 145 H 127 H (75-99) mg/dL Calcium (8.4-10.2) mg/dL 05/15/19 05/15/19 05/15/19 Range/Units 05:27 05:30 05:30 WBC (3.8-10.6) k/uL RBC 2.52 L (4.30-5.90) m/uL Hgb 7.4 L (13.0-17.5) gm/dL Hct 23.1 L (39.0-53.0) % MCHC (31.0-37.0) g/dL Plt Count (150-450) k/uL Neutrophils # (1.3-7.7) k/uL Lymphocytes # 0.3 L (1.0-4.8) k/uL ABG pH (7.35-7.45) ABG pO2 (83-108) mmHg ABG O2 Saturation (94-97) % Chloride 113 H (98-107) mmol/L BUN 23 H (9-20) mg/dL Glucose 117 H (74-99) mg/dL POC Glucose (mg/dL) 134 H (75-99) mg/dL Calcium 7.7 L (8.4-10.2) mg/dL 05/15/19 Range/Units 08:04 WBC (3.8-10.6) k/uL RBC (4.30-5.90) m/uL Hgb (13.0-17.5) gm/dL Hct (39.0-53.0) % MCHC (31.0-37.0) g/dL Plt Count (150-450) k/uL Neutrophils # (1.3-7.7) k/uL Lymphocytes # (1.0-4.8) k/uL ABG pH (7.35-7.45) ABG pO2 (83-108) mmHg ABG O2 Saturation 98.2 H (94-97) % Chloride (98-107) mmol/L BUN (9-20) mg/dL Glucose (74-99) mg/dL POC Glucose (mg/dL) (75-99) mg/dL Calcium (8.4-10.2) mg/dL Microbiology - Last 24 Hours (Table) 05/14/19 11:10 Gram Stain - Preliminary Bronchial Washings - Random Bronchial Washings Culture - Preliminary 05/14/19 11:10 Acid Fast Bacilli Smear - Final Bronchial Washings - Random Acid Fast Bacilli Culture - Preliminary 05/10/19 17:30 Blood Culture - Preliminary Blood No Growth after 96 hours 05/14/19 11:10 Fungal Culture - Preliminary Bronchial Washings - Random Assessment and Plan Assessment: #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 Status post right upper lobectomy postoperative day #15 #2 right-sided pneumothorax, expected outcome of surgery, resolved #3 Chronic and ongoing tobacco dependence of 40 years. Remains on bronchodilators. #4 Chronic obstructive pulmonary disease remains on bronchodilators. #5 Hypertension. Presently under control. #6 sick sinus syndrome status post pacemaker implantation. #7 Anxiety/depression. #8 Hyperlipidemia. #9 bipolar disorder #10 postoperative paroxysmal atrial fibrillation, and expected outcome of surgery #11 acute hypoxic respiratory failure requiring reintubation secondary to hospital-acquired pneumonia possibly some component of fluid overload./Acute Diastolic congestive heart failure. #12 fluid overload and interstitial edema, patient received significant amount of fluids yesterday for marginal low blood pressure. however the possibility of hospital-acquired pneumonia is not entirely ruled out but felt to be less likely. Awaiting cultures from the BAL. #13 possible hospital-acquired pneumonia, remains on antibiotics in the form of Levaquin and Zosyn. Required reintubation on 05/14/2019. #14 possible acute diastolic congestive heart failure improved with diuretics 2 days ago. However I have a feeling that the patient is developing some component of pulmonary edema secondary to acute diastolic congestive heart failure, hence IV fluids cut down to KVO, and diuretics were restarted. #15 status post bronchoscopy and lavage on 05/14/2019. Cultures are pending. Recommendation: Continue ventilatory support. No changes were made on his ventilator settings today. Continue bronchodilators Continue diuretics Continue antibiotics, patient remains on Zosyn and Levaquin. Continue Solu-Medrol. Start the nutritional support today. Via enteral feeding. Continue GI and DVT prophylaxis Obviously the patient is quite ill, required reintubation yesterday, and at this point he is not ready for any form of weaning or extubation. Chest x-ray is quite worrisome, hopefully the patient will improve with diuretics and bronchodilators as well as antibiotics. His antibiotics will be addressed acc ordingly based on the final culture from the BAL which was done yesterday. Critical care time is 35 minutes. Time with Patient: Greater than 30
--- NOTE | 2019-05-15 11:36 | PN ---
PROGRESS NOTE Mr. James is a 69-year-old male who has respiratory failure, remains intubated and sedated. He is status post lobectomy for squamous cell CA. Yesterday had episode of atrial ventricular arrhythmia. He is back in sinus mechanism, stable hemodynamically with no further arrhythmia. His ventilation has been stable. He is off norepinephrine. He continues to be at this time on amiodarone 200 mg twice a day, Eliquis 5 mg twice a day, Lipitor 40 mg daily, and metoprolol tartrate 25 mg 3 times a day. PHYSICAL EXAMINATION: Blood pressure running in the one teens to 120s with the heart rate in the 60s. LUNGS: Clear anteriorly with no wheezes. HEART: Regular rate and rhythm. S1, S2. No S3. No rub. ABDOMEN: Soft. Positive bowel sounds. No organomegaly. EXTREMITIES: No edema. LAB DATA: Lab data revealed potassium 4.3, BUN and creatinine 23 and 0.97. Hemoglobin of 7.4. IMPRESSION: 1. Respiratory failure, status post lobectomy for squamous cell carcinoma. 2. History of coronary artery disease, status post percutaneous revascularization. 3. Paroxysmal atrial fibrillation with known history of sick sinus syndrome and permanent pacemaker implantation. 4. Hyperlipidemia. RECOMMENDATION: From the cardiac standpoint, I will continue on the present therapy with the amiodarone and the beta missael at this time and depending on his blood pressure, his dose of beta missael can be further adjusted. We will see him on as-needed basis. Please feel free to call us for any question. MMODL / IJN: [id number] /
[2019-05-15 12:42] LABS: Glucose,Whole Blood 118 mg/dL (75-99)
[2019-05-15] MEDS: fentaNYL (PF) 1,000 MCG in SODIUM CHLORIDE 0.9% 80 ML IV SCH (13:21)
--- NOTE | 2019-05-15 14:28 | P.PN ---
Subjective Progress Note Date: 05/15/19 Principal diagnosis: Squamous cell carcinoma right upper lobe, history of hypertension, hyperlipidemia, bipolar disorder, history of sick sinus syndrome status post permanent pacemaker implantation in May 2011, coronary artery disease status post circumflex flex coronary artery stenting in 2017, anxiety, depression, chronic obstructive pulmonary disease, gastroesophageal reflux disease and tobacco dependence with a 40 pack year smoking history. POD #15 right thoracoscopic, robotic assisted thorascopic right upper lobectomy with mediastinal lymph node dissection, fiberoptic bronchoscopy. Postoperative acute blood loss anemia, an expected outcome. Postoperative paroxysmal atrial fibrillation and on expected outcome. Postoperative right-sided pneumothorax with prolonged air leak, expected and inherent to this type of surgery Leukocytosis, suspect postobstructive pneumonia, unexpected Hypotension, status post fluid administration, necessitating IV norepinephrine, unexpected Postoperative hypoxemic respiratory failure secondary to hospital-acquired pneumonia, requiring reintubation and mechanical ventilator support. The patient is currently lying in bed in the intensive care unit. Yesterday the patient decompensated with his respiratory status requiring reintubation and mechanical ventilator support. Currently the patient is sedated on propofol d rip at 75 mcg/kg/m. His oxygen saturation to 97% with mechanical ventilator support and his current ventilator settings are AC 20, tidal volume 450, FiO2 50%, PEEP of 5. He remains hemodynamically stable and is currently on no inotropic or pressor support. Castorena catheter remains in place draining clear yellow urine with 385 mL output in the last 8 hours. Antibiotics are in place Levaquin and Zosyn. Laboratory results this morning showed his white blood cell count 6.0, hemoglobin 7.4, BUN 23 and creatinine 0.97. His labs also demonstrated a BNP level of 7610 and was started on Lasix 40 mg IV every 12 hours per critical care medicine. Objective - Vital Signs Vital signs: Vital Signs Temp 97.5 F L 05/15/19 12:00 Pulse 61 05/15/19 13:00 Resp 23 05/15/19 13:00 BP 104/68 05/15/19 13:00 Pulse Ox 97 05/15/19 13:00 Intake & Output 05/14/19 05/15/19 05/15/19 18:59 06:59 18:59 Intake Total 3042.522 1791.759 710 Output Total 927 262 7758 Balance 2722.522 1076.759 -750 Weight 73.5 kg 73.5 kg Intake: IV 700 1225 500 NS @ KVO 1100 400 Piperacillin-Tazobactam 3 550 125 .375 gm In Sodium Chloride 0.9% 100 ml @ 25 mls/hr IVPB Q8HR [facility] Rx# :[id number] Sodium Chloride 0.9% 1, 150 100 000 ml @ 50 mls/hr IV . Q20H [facility] Rx#:[id number] Intake, IV Titration 2342.522 566.759 200 Amount Levofloxacin 750Mg-D5w 150 Pmx 750 mg In Dextrose/ Water 1 150ml.bag @ 100 mls/hr IVPB Q24HR [facility] Rx# :[id number] Norepinephrine 4 mg In 152.340 166.759 Sodium Chloride 0.9% 250 ml @ 0.05 MCG/KG/MIN 13. 221 mls/hr IV .[id number] [facility] Rx#:[id number] Propofol 1,000 mg In 140.182 300 200 Empty Bag 1 bag @ Titrate IV .Q0M [facility] Rx#: [id number] Sodium Chloride 0.9% 1, 400 100 000 ml @ 50 mls/hr IV . Q20H [facility] Rx#:[id number] Sodium Chloride 0.9% 1, 1000 000 ml @ 999 mls/hr IV . Q1H1M [facility] Rx#:[id number] Sodium Chloride 0.9% 500 500 ml 500 ml @ 999 mls/hr IV .Q31M [facility] Rx#:[id number] Tube Feeding 10 Output: Gastric Drainage 100 Urine 692 917 2073 Other: Voiding Method Indwelling Catheter Indwelling Catheter # Bowel Movements 1 ABP, PAP, CO, CI - Last Documented Arterial Blood Pressure 145/71 - Constitutional Constitutional Comment(s): he is currently sedated on propofol drip at 75 mcg/kg/m and remains with mechanical ventilator support. Not following any verbal commands at this time. General appearance: Present: no acute distress - Respiratory Details: Lung sounds essentially diminished to his right lower lobe, few scattered crackles to his left lower lobe. Respirations are symmetrical and nonlabored with mechanical ventilator support. Current ventilator settings are as follows: Assist control 20, TV 450, FiO2 50%, PEEP 5. Oxygen saturations are 97% on current mechanical ventilator settings. - Cardiovascular Details: Regular rhythm and rate. S1 and S2 present, negative for S3, gallop or murmur. No edema present. Bedside telemetry showing normal sinus rhythm with occasional paced beats heart rate 63. - Gastrointestinal Gastrointestinal Comment(s): Abdomen is soft, nontender and nondistended. Hypoactive bowel sounds present all 4 abdominal quadrants. Oral gastric tube in place to low intermittent wall suction. No organomegaly appreciated. - Genitourinary Genitourinary Comment(s): Castorena catheter for accurate I&O. Draining clear yellow urine. 385 mL output in the last 8 hours. - Integumentary Integumentary Comment(s): Skin is warm and dry. No clubbing or cyanosis is present. Right chest thoracoscopic incisions clean, dry and approximated. No drainage or redness is present. - Neurologic Neurologic Comment(s): Sedated with propofol drip. - Musculoskeletal Musculoskeletal Comment(s): Patient remains with deformity of the right hand due to a previous injury. - Psychiatric Psychiatric Comment(s): Sedated on propofol drip. - Allied health notes Allied health notes reviewed: nursing - Labs CBC & Chem 7: 05/15/19 05:30 05/15/19 05:30 Labs: Abnormal Lab Results - Last 24 Hours (Table) 05/14/19 05/14/19 05/14/19 Range/Units 14:30 18:40 21:48 WBC 19.0 H 13.4 H (3.8-10.6) k/uL RBC 2.62 L 2.70 L (4.30-5.90) m/uL Hgb 7.6 L 7.4 L (13.0-17.5) gm/dL Hct 23.9 L 25.3 L (39.0-53.0) % MCHC 29.4 L (31.0-37.0) g/dL Plt Count 541 H 502 H (150-450) k/uL Neutrophils # 18.0 H 12.5 H (1.3-7.7) k/uL Lymphocytes # 0.3 L 0.3 L (1.0-4.8) k/uL ABG O2 Saturation (94-97) % Chloride (98-107) mmol/L BUN (9-20) mg/dL Glucose (74-99) mg/dL POC Glucose (mg/dL) 145 H (75-99) mg/dL Calcium (8.4-10.2) mg/dL 05/15/19 05/15/19 05/15/19 Range/Units 00:30 05:27 05:30 WBC (3.8-10.6) k/uL RBC 2.52 L (4.30-5.90) m/uL Hgb 7.4 L (13.0-17.5) gm/dL Hct 23.1 L (39.0-53.0) % MCHC (31.0-37.0) g/dL Plt Count (150-450) k/uL Neutrophils # (1.3-7.7) k/uL Lymphocytes # 0.3 L (1.0-4.8) k/uL ABG O2 Saturation (94-97) % Chloride (98-107) mmol/L BUN (9-20) mg/dL Glucose (74-99) mg/dL POC Glucose (mg/dL) 127 H 134 H (75-99) mg/dL Calcium (8.4-10.2) mg/dL 05/15/19 05/15/19 05/15/19 Range/Units 05:30 08:04 12:30 WBC (3.8-10.6) k/uL RBC (4.30-5.90) m/uL Hgb (13.0-17.5) gm/dL Hct (39.0-53.0) % MCHC (31.0-37.0) g/dL Plt Count (150-450) k/uL Neutrophils # (1.3-7.7) k/uL Lymphocytes # (1.0-4.8) k/uL ABG O2 Saturation 98.2 H (94-97) % Chloride 113 H (98-107) mmol/L BUN 23 H (9-20) mg/dL Glucose 117 H (74-99) mg/dL POC Glucose (mg/dL) 118 H (75-99) mg/dL Calcium 7.7 L (8.4-10.2) mg/dL Microbiology - Last 24 Hours (Table) 05/14/19 11:10 Gram Stain - Preliminary Bronchial Washings - Random Bronchial Washings Culture - Preliminary 05/14/19 11:10 Acid Fast Bacilli Smear - Final Bronchial Washings - Random Acid Fast Bacilli Culture - Preliminary 05/10/19 17:30 Blood Culture - Preliminary Blood No Growth after 96 hours 05/14/19 11:10 Fungal Culture - Preliminary Bronchial Washings - Random - Imaging and Cardiology Chest x-ray: report reviewed, image reviewed Assessment and Plan Assessment: 1. Squamous cell carcinoma right upper lobe, status post right upper lobectomy 2. Hypertension 3. Hyperlipidemia 4. Bipolar disorder 5. History of sick sinus syndrome status post permanent pacemaker implantation May 2011 6. Coronary artery disease status post circumflex coronary artery stenting in 2017 7. Anxiety 8. History of depression 9. Chronic proximal pulmonary disease 10. Gastroesophageal reflux disease 11. Chronic tobacco dependence, [id number] smoking history 12. Postoperative acute blood loss anemia, an expected outcome 13. Postoperative paroxysmal atrial fibrillation and an expected outcome 14. Postoperative right-sided pneumothorax with prolonged air leak 15. Leukocytosis, pneumonia, unexpected 16. Hypotension, status post fluid resuscitation, necessitating IV norepinephrine 17. Postoperative hypoxemic respiratory failure, requiring reintubation and mechanical ventilator support. Plan: 1. Continue antibiotics of Zosyn and Levaquin per pulmonary medicine recommendations. 2. Mechanical ventilator and propofol drip management per critical care medicine. 3. GI and DVT prophylaxis. 4. Bronchodilators and Solu-Medrol management per pulmonary medicine. 5. Pain control per current when necessary orders. 6. Continue Eliquis 5 mg by mouth twice a day for anticoagulation due to his paroxysmal atrial fibrillation. 7. Pathology results demonstrated squamous cell carcinoma, bronchovascular margin negative for malignancy. 8. Continue amiodarone 200 mg by mouth daily for atrial fibrillation prophylaxis. 9. Pain control per current when necessary orders. 10. Continue to monitor daily labs and chest x-rays 11. Will need to assess nutritional status and start tube feedings when okay per pulmonary medicine. 12. More recommendations to follow based on patient's clinical course. Time with Patient: Greater than 30
[2019-05-15 17:42] LABS: Glucose,Whole Blood 118 mg/dL (75-99)
[2019-05-15] MEDS: FUROSEMIDE 10 MG/ML 4 ML VIAL IV SCH (20:42)
[2019-05-15] MEDS: SENNOSIDES-DOCUSATE SODIUM 1 EACH TAB PO SCH (20:43)
[2019-05-15] MEDS: ATORVASTATIN 40 MG TAB PO SCH (20:43)
[2019-05-15] MEDS: ARIPiprazole 15 MG TAB PO SCH (20:43)
[2019-05-15] MEDS: PREGABALIN 75 MG CAP PO SCH (20:44)
[2019-05-15] MEDS: DONEPEZIL 5 MG TAB PO SCH (20:44)
[2019-05-15] MEDS: DULoxetine HCL 60 MG CAPSULE.DR PO SCH (20:50)
[2019-05-15] MEDS: IPRATROPIUM-ALBUTEROL 3 ML NEB IH PRN (23:22)
[2019-05-16] MEDS: PIPERACILLIN-TAZOBACTAM 3.375 GM in SODIUM CHLORIDE 0.9% 100 ML IVPB SCH ×4 (00:02→23:57)
[2019-05-16] MEDS: INSULIN ASPART (NovoLOG) 100 UNIT/ML VIAL SQ SCH ×5 (00:03→23:57)
[2019-05-16] MEDS: methylPREDNISolone SOD SUCCI 125 MG/2 ML VIAL IV SCH ×5 (00:03→23:57)
[2019-05-16 00:04] LABS: Glucose,Whole Blood 142 mg/dL (75-99)
[2019-05-16] MEDS: IPRATROPIUM-ALBUTEROL 3 ML NEB IH PRN ×2 (03:36→23:44)
[2019-05-16] MEDS: PROPOFOL 1,000 MG in EMPTY BAG 1 BAG IV SCH ×4 (04:20→21:59)
[2019-05-16 04:41] LABS: Basophils % (A) 0 %; Eosinophils % (A) 0 %; HCT 24.6 % (39.0-53.0); HGB 7.8 gm/dL (13.0-17.5); Hypochromasia Slight; Lymphocytes # (A) 0.2 k/uL (1.0-4.8); Lymphocytes % (A) 4 %; MCHC 31.7 g/dL (31.0-37.0); MCV 91.6 fL (80.0-100.0); Mean Platelet Volume 7.2; Monocytes # (A) 0.3 k/uL (0-1.0); Monocytes % (A) 5 %; Neutrophils # (A) 5.4 k/uL (1.3-7.7); Neutrophils % (A) 90 %; Platelet Count 420 k/uL (150-450); RBC 2.69 m/uL (4.30-5.90); RDW 14.8 % (11.5-15.5)
[2019-05-16 04:53] LABS: Calcium 7.7 mg/dL (8.4-10.2)
[2019-05-16 06:09] LABS: Glucose,Whole Blood 139 mg/dL (75-99)
[2019-05-16 07:39] LABS: ABG Base Excess 0.6 mmol/L; ABG HCO3 25 mmol/L (21-25); ABG Oxygen Saturation 97.8 % (94-97); ABG PCO2 36 mmHg (35-45); ABG PH 7.44 (7.35-7.45); ABG PO2 95 mmHg (83-108); ABG TCO2 26 mmol/L (19-24); Allen Test Performed? Yes
[2019-05-16] MEDS: BUDESONIDE 1 MG/2 ML NEBU INHALATION SCH ×2 (07:44→19:41)
[2019-05-16] MEDS: FORMOTEROL FUMARATE 20 MCG/2 ML NEBU INHALATION SCH ×2 (07:44→19:41)
[2019-05-16] MEDS: IPRATROPIUM-ALBUTEROL 3 ML NEB IH SCH ×4 (07:44→19:41)
[2019-05-16] MEDS: PANTOPRAZOLE 40 MG/10 ML VIAL IVP SCH ×2 (08:48→20:34)
[2019-05-16] MEDS: AMIODARONE 200 MG TAB PO SCH ×2 (08:48→20:34)
[2019-05-16] MEDS: APIXABAN 5 MG TAB PO SCH ×2 (08:48→20:34)
[2019-05-16] MEDS: CHLORHEXIDINE GLUCONATE 15 ML CUP MUCOUS MEM SCH ×2 (08:48→20:31)
[2019-05-16] MEDS: BISACODYL 10 MG SUPP RECTAL SCH (08:48)
[2019-05-16] MEDS: METOPROLOL TARTRATE 25 MG TAB PO SCH ×3 (08:48→20:34)
[2019-05-16] MEDS ORDERED: LEVOFLOXACIN 750MG-D5W PMX 750 MG in DEXTROSE/WATER 1 150ML.BAG IVPB SCH (09:00)
[2019-05-16] MEDS: FUROSEMIDE 10 MG/ML 4 ML VIAL IV SCH (09:05)
--- NOTE | 2019-05-16 09:46 | P.PN ---
Subjective Progress Note Date: 05/16/19 Principal diagnosis: Squamous cell carcinoma right upper lobe, history of hypertension, hyperlipidemia, bipolar disorder, history of sick sinus syndrome status post permanent pacemaker implantation in May 2011, coronary artery disease status post circumflex flex coronary artery stenting in 2017, anxiety, depression, chronic obstructive pulmonary disease, gastroesophageal reflux disease and tobacco dependence with a 40 pack year smoking history. POD #16 right thoracoscopic, robotic assisted thorascopic right upper lobectomy with mediastinal lymph node dissection, fiberoptic bronchoscopy. Postoperative acute blood loss anemia, an expected outcome. Postoperative paroxysmal atrial fibrillation and on expected outcome. Postoperative right-sided pneumothorax with prolonged air leak, expected and inherent to this type of surgery Leukocytosis, suspect postobstructive pneumonia, unexpected Hypotension, status post fluid administration, necessitating IV norepinephrine, unexpected Postoperative hypoxemic respiratory failure secondary to hospital-acquired pneumonia, requiring reintubation and mechanical ventilator support. POD #2 bedside bronchoscopy and bronchoalveolar lavage of the left upper lobe, right middle lobe and right lower lobe performed by Dr. Soliman The patient is currently lying in bed in the intensive care unit. He is in no acute distress. The patient remains intubated with mechanical ventilator support, oxygen saturation is 98% on current ventilator settings of AC 20, TV 450, FiO2 40% and PEEP of 5. He remains sedated on propofol drip at 30 mcg/kg/m and fentanyl drip at 0.4 mcg/kg/m. He remains hemodynamically stable and is currently on no inotropic or pressor support. Castorena catheter remains in place draining clear yellow urine with 1020 mL output in the last 8 hours, he was started on Lasix 40 mg IV every 12 hours yesterday by critical care medicine. Antibiotics are in place Levaquin and Zosyn. Laboratory results this morning showed his white blood cell count 6.0, hemoglobin 7.8, BUN 32 and creatinine 1.24. He remains afebrile. The cytology from the bronchoalveolar lavage shows chronic active bronchitis with pigmented alveolar macrophages and occasional atypical metaplastic squamous cells. Cultures from the bronchoalveolar washings thus far are negative. Objective - Vital Signs Vital signs: Vital Signs Temp 98.3 F 05/16/19 08:30 Pulse 60 05/16/19 08:30 Resp 24 05/16/19 08:30 BP 97/69 05/16/19 08:30 Pulse Ox 97 05/16/19 08:30 Intake & Output 05/15/19 05/16/19 05/16/19 18:59 06:59 18:59 Intake Total 2117.701 7655.792 190 Output Total 2140 1205 65 Balance -976.847 -0.208 125 Weight 73.5 kg 73.1 kg Intake: IV 750 700 100 NS @ KVO 650 50 Piperacillin-Tazobactam 3 100 .375 gm In Sodium Chloride 0.9% 100 ml @ 25 mls/hr IVPB Q8HR [facility] Rx# :[id number] Sodium Chloride 0.9% 1, 100 550 100 000 ml @ 50 mls/hr IV . Q20H [facility] Rx#:[id number] Intake, IV Titration 323.153 154.792 Amount Propofol 1,000 mg In 323.153 154.792 Empty Bag 1 bag @ Titrate IV .Q0M [facility] Rx#: [id number] Tube Feeding 60 260 60 Other 30 90 30 Output: Urine 2140 1205 65 Other: Voiding Method Indwelling Catheter Indwelling Catheter ABP, PAP, CO, CI - Last Documented Arterial Blood Pressure 126/60 - Constitutional Constitutional Comment(s): Remains sedated on propofol and fentanyl drips. Not following any verbal commands at this time. General appearance: Present: no acute distress, thin - Respiratory Details: Lungs sounds essentially clear to his bilateral upper lobes, diminished to his right lower lobe with few scattered crackles. Respirations are symmetrical and nonlabored with mechanical ventilator support. Oxygen saturations are 98%. - Cardiovascular Details: Regular rhythm and rate. S1 and S2 present, negative for S3, gallop or murmur. Bedside telemetry showing paced rhythm at 60. No edema present. - Gastrointestinal Gastrointestinal Comment(s): Abdomen soft, nontender and nondistended. Hypoactive bowel sounds present in all 4 abdominal quadrants. OG tube in place with vital high-protein to feeding infusing at 30 mL per hour. No organomegaly appreciated. - Genitourinary Genitourinary Comment(s): Castorena catheter for accurate I&O. Draining clear yellow urine with 1020 mL output in the last 8 hours. - Integumentary Integumentary Comment(s): Skin is warm and dry. No clubbing or cyanosis is present. Right thoracoscopic incisions are clean, dry and approximated. No drainage or redness is present. - Neurologic Neurologic Comment(s): He is sedated on propofol and fentanyl drips. Neurologic: Present: CNII-XII intact - Musculoskeletal Musculoskeletal Comment(s): The patient is not following any verbal commands, remain sedated on propofol and fentanyl drips. Right hand deformity from a previous injury. - Psychiatric Psychiatric Comment(s): Sedated on propofol and fentanyl drips. - Allied health notes Allied health notes reviewed: nursing - Labs CBC & Chem 7: 05/16/19 04:10 05/16/19 04:10 Labs: Abnormal Lab Results - Last 24 Hours (Table) 05/15/19 05/15/19 05/15/19 Range/Units 09:52 12:30 17:30 RBC (4.30-5.90) m/uL Hgb (13.0-17.5) gm/dL Hct (39.0-53.0) % Lymphocytes # (1.0-4.8) k/uL ABG Total CO2 (19-24) mmol/L ABG O2 Saturation (94-97) % Chloride (98-107) mmol/L BUN (9-20) mg/dL Glucose (74-99) mg/dL POC Glucose (mg/dL) 118 H 118 H (75-99) mg/dL Calcium (8.4-10.2) mg/dL Procalcitonin 0.63 H (0.02-0.09) ng/mL 05/15/19 05/16/19 05/16/19 Range/Units 23:53 04:10 04:10 RBC 2.69 L (4.30-5.90) m/uL Hgb 7.8 L (13.0-17.5) gm/dL Hct 24.6 L (39.0-53.0) % Lymphocytes # 0.2 L (1.0-4.8) k/uL ABG Total CO2 (19-24) mmol/L ABG O2 Saturation (94-97) % Chloride 111 H (98-107) mmol/L BUN 32 H (9-20) mg/dL Glucose 149 H (74-99) mg/dL POC Glucose (mg/dL) 142 H (75-99) mg/dL Calcium 7.7 L (8.4-10.2) mg/dL Procalcitonin (0.02-0.09) ng/mL 05/16/19 05/16/19 Range/Units 05:57 07:33 RBC (4.30-5.90) m/uL Hgb (13.0-17.5) gm/dL Hct (39.0-53.0) % Lymphocytes # (1.0-4.8) k/uL ABG Total CO2 26 H (19-24) mmol/L ABG O2 Saturation 97.8 H (94-97) % Chloride (98-107) mmol/L BUN (9-20) mg/dL Glucose (74-99) mg/dL POC Glucose (mg/dL) 139 H (75-99) mg/dL Calcium (8.4-10.2) mg/dL Procalcitonin (0.02-0.09) ng/mL Microbiology - Last 24 Hours (Table) 05/14/19 11:10 Gram Stain - Final Bronchial Washings - Random Bronchial Washings Culture - Final 05/10/19 17:30 Blood Culture - Preliminary Blood No Growth after 120 hours - Imaging and Cardiology Chest x-ray: report reviewed, image reviewed Assessment and Plan Assessment: 1. Squamous cell carcinoma right upper lobe, status post right upper lobectomy 2. Hypertension 3. Hyperlipidemia 4. Bipolar disorder 5. History of sick sinus syndrome status post permanent pacemaker implantation May 2011 6. Coronary artery disease status post circumflex coronary artery stenting in 2017 7. Anxiety 8. History of depression 9. Chronic proximal pulmonary disease 10. Gastroesophageal reflux disease 11. Chronic tobacco dependence, [id number] smoking history 12. Postoperative acute blood loss anemia, an expected outcome 13. Postoperative paroxysmal atrial fibrillation and an expected outcome 14. Postoperative right-sided pneumothorax with prolonged air leak 15. Leukocytosis, pneumonia, unexpected 16. Hypotension, status post fluid resuscitation, necessitating IV norepinephrine 17. Postoperative hypoxemic respiratory failure, requiring reintubation and mechanical ventilator support. Plan: 1. Continue antibiotics of Zosyn and Levaquin per pulmonary medicine recommendations. 2. Mechanical ventilator and propofol drip, fentanyl drip management per critical care medicine. 3. GI and DVT prophylaxis. 4. Bronchodilators and Solu-Medrol management per pulmonary medicine. 5. Pain control per current when necessary orders. 6. Continue Eliquis 5 mg by mouth twice a day for anticoagulation due to his paroxysmal atrial fibrillation. 7. Pathology results demonstrated squamous cell carcinoma, bronchovascular margin negative for malignancy. 8. Continue amiodarone 200 mg by mouth daily for atrial fibrillation prophylaxis per cardiology's recommendations. 9. Pain control per current when necessary orders. 10. Continue to monitor daily labs and chest x-rays 11. Continue tube feedings vital high-protein at goal rate of 30 per dietitian's recommendations. 12. More recommendations to follow based on patient's clinical course. Time with Patient: Greater than 30
[2019-05-16] MEDS: NOREPINEPHRINE 4 MG in SODIUM CHLORIDE 0.9% 250 ML IV SCH (09:51)
--- NOTE | 2019-05-16 10:44 | XR ---
EXAMINATION TYPE: XR chest 1V portable DATE OF EXAM: 05/16/2019 COMPARISON: 05/15/2019 INDICATION: Tube placement TECHNIQUE: Single frontal view of the chest is obtained. FINDINGS: The heart size is normal. The pulmonary vasculature is normal. Basilar infiltrates are present, greater at the left base. Endotracheal tube tip is above the [place]. Nasogastric tube transverses the thorax. Pacemaker overlies left chest. IMPRESSION: 1. Bibasilar infiltrates greater on the left. Findings are stable from comparison.
[2019-05-16] MEDS: fentaNYL (PF) 1,000 MCG in SODIUM CHLORIDE 0.9% 80 ML IV SCH (12:04)
[2019-05-16 12:17] LABS: Glucose,Whole Blood 144 mg/dL (75-99)
--- NOTE | 2019-05-16 13:35 | P.PN ---
Subjective Progress Note Date: 05/16/19 Principal diagnosis: Squamous cell lung cancer status post right upper lobectomy, postoperative day # 16 Reevaluated today on 05/11/2019, patient remains in the ICU, continues to have a right sided chest tube in place, there is no evidence of right-sided pneumothorax, continues to have significant airspace disease involving the right midlung. No evidence of pneumothorax. Patient is feeling better, remains on antibiotics, and on bronchodilators. He is hemodynamically stable. CT angiogram of the chest showed no evidence of pulmonary embolism, but there is definite significant airspace disease and infiltrate involving the right lower lobe. Continues to do well with incentive spirometry about 1500 mL. Patient was reevaluated today on 05/12/2019, he remains in the ICU, his oxygen demand has been increasing overnight, he was on high flow nasal cannula at 10 L, however I switch him to BiPAP. Chest x-ray is showing evidence of interstitial edema bilaterally, right more so than left, and the patient has very weak cough. I did recommend broadening the spectrum of his antibiotics, I also recommended Lasix, and recommended IV Solu-Medrol. Continues to have a small right-sided pneumothorax and the right sided chest tube remains in place, no air leak is noted. Chest x-ray is concerning, there is basically worsening alveolar and interstitial infiltrates bilaterally. The differential diagnoses includes pneumonia also includes fluid overload. Patient will be treated for both and would have a repeat chest x-ray in the morning. Raised the possibility of bronchoscopy with the patient, however considering his pulmonary status is so marginal, patient will end up requiring intubation and mechanical ventilation to safely perform a bronchoscopy and lavage of both lungs. Hence I would hold on the bronchoscopy for now, and if his condition deteriorates, and requires intubation then I would proceed to bronchoscopy at that point. In the meantime we'll try antibiotics diuretics and bronchodilators as well as steroids. And we'll try BiPAP. His WBC count is coming down to 15.7 hemoglobin is 9 renal profile is normal lites are normal. Reevaluated today on 05/13/2019, patient seems to be doing much better today compared to yesterday. His FiO2 requirement is down, he was earlier today on 35% FiO2 and on BiPAP. I have switched him to few liters nasal cannula, and he seemed to relate that very well. Chest x-ray continues to show interstitial edema, possible underlying infiltrates, remains on diuretics, bronchodilators, steroids, and antibiotics/broad-spectrum. Considering the improvement, I don't see any value of bronchoscopy at this point, patient is clinically better, and his chest x-ray is definitely better. And his FiO2 requirement is much im proved. His WBC count is also down to 10.2. Hemoglobin is 7.9 lites are normal renal profile remains normal in spite of diuresis. Reevaluated today on 05/14/2019, I saw the patient earlier in the morning, and he was on BiPAP, very comfortable. However his FiO2 was increased up to 50%, and his chest x-ray showed slight worsening of the interstitial infiltrates compared to the chest x-ray yesterday. Patient was hemodynamically stable, has fairly good urine output. Shortly after the patient had a bowel movement, and he was cleaned up by the nurses, he became extremely agitated, restless, tachycardic, tachypneic, and he was basically struggling to breathe. Patient was intubated by SALES CLERK, and I came in shortly after to evaluate the patient. Patient was placed on mechanical ventilation, and his ventilator settings were placed at FiO2 of 100% assist control rate of 20 tidal volume of 450, and PEEP of 5. After intubating the patient, patient underwent bronchoscopy and lavage, some purulent secretions and mucous plugs were removed from the left side as well as the right lower lobe. Not noted to be copious, but thick and blood-tinged. Chest x-ray post intubation showed adequate placement of the endotracheal tube, bilateral interstitial infiltrates, and worsening airspace disease bilaterally. Reevaluated today on 05/15/2019, patient is still on mechanical ventilation, patient was intubated yesterday. Remains on the same ventilator settings as noted above. FiO2 is at 50%, tidal volume is 450, assist control rate is 20. Chest x-ray is showing worsening interstitialdisease and interstitial infiltrates, his ABG is marginal. Patient is sedated on propofol. Presently off all pressors. Did require norepinephrine yesterday for a brief period of time, and he is presently off pressors. ABG today showed a pO2 of 101 pCO2 of 35 pH of 7.40. Basic metabolic profile is normal renal profile is normal. BNP level is 7610, hence I cut down his IV fluid and I started him on Lasix 40 mg IV push every 12 hours. WBC count is 6 hemoglobin is 7.4. Reevaluated today on 05/16/2019, remains in the ICU, on mechanical ventilation, remains on the same ventilator settings, however his FiO2 is down to 40%, tidal volume is 450 assist-control rate is 20. PEEP is 5. Remains on propofol and fentanyl drip. Not requiring any pressors. Mental status was assessed earlier by nurses, patient was agitated, and his blood pressure was high, hence had to be placed back on propofol and fentanyl. His ABG showed a pO2 of 95 pCO2 of 36 pH of 7.44 and this is on a 40% FiO2. His CBC showed a hemoglobin of 7.8. WBC count is back to normal. Lites are normal renal functioning is slightly worse with a creatinine of 1.24, hence would hold on diuretics for now. Patient had negative fluid balance over the last 24 hours. Chest x-ray slight improvement noted in his bilateral interstitial infiltrates. Bronchoscopy cultures have been negative so far. Nondiagnostic obviously the patient is receiving proper antibiotics. Objective - Vital Signs Vital signs: Vital Signs Temp 98.2 F 05/16/19 12:00 Pulse 61 05/16/19 13:00 Resp 18 05/16/19 13:00 BP 88/61 05/16/19 13:00 Pulse Ox 95 05/16/19 13:00 Intake & Output 05/15/19 05/16/19 05/16/19 18:59 06:59 18:59 Intake Total 2358.432 5107.792 701.602 Output Total 2140 1205 985 Balance -976.847 -0.208 -283.398 Weight 73.5 kg 73.1 kg Intake: IV 750 700 300 NS @ KVO 650 50 Piperacillin-Tazobactam 3 100 .375 gm In Sodium Chloride 0.9% 100 ml @ 25 mls/hr IVPB Q8HR [facility] Rx# :[id number] Sodium Chloride 0.9% 1, 100 550 300 000 ml @ 50 mls/hr IV . Q20H [facility] Rx#:[id number] Intake, IV Titration 323.153 154.792 161.602 Amount Propofol 1,000 mg In 323.153 154.792 94.815 Empty Bag 1 bag @ Titrate IV .Q0M [facility] Rx#: [id number] fentaNYL (PF) 1,000 mcg 66.787 In Sodium Chloride 0.9% 80 ml @ 0.4 MCG/KG/HR 2. 94 mls/hr IV .Q24H [facility] Rx #:[id number] Tube Feeding 60 260 180 Other 30 90 60 Output: Urine 2140 1205 985 Other: Voiding Method Indwelling Catheter Indwelling Catheter Indwelling Catheter ABP, PAP, CO, CI - Last Documented Arterial Blood Pressure 124/55 - Exam Physical Exam: Revealed a 69-year-old white male, on mechanical ventilation, sedated, on propofol infusion. Also on fentanyl. Head: Atraumatic normocephalic. HEENT:[Neck is supple.] [No neck masses.] [No thyromegaly.] [No JVD.] Endotracheal tube and orogastric tube are intact. Chest: [Crackles and rhonchi noted bilaterally. Symmetrical chest expansion. Cardiac Exam: [Normal S1 and S2, no S3 gallop, no murmur.] Abdomen: [Soft, nontender, no megaly, no rebound, no guarding, normal bowel sounds.] Extremities: [No clubbing, no edema, no cyanosis.] Deformity of right hand is again noted.. Neurological sedated, on mechanical ventilation. Cannot be assessed. He was assessed earlier by nurses of propofol and fentanyl. Psychiatric: Sedated, on mechanical ventilation. Cannot be assessed. Skin: No rashes. - Labs CBC & Chem 7: 05/16/19 04:10 05/16/19 04:10 Labs: Abnormal Lab Results - Last 24 Hours (Table) 05/15/19 05/15/19 05/15/19 Range/Units 09:52 17:30 23:53 RBC (4.30-5.90) m/uL Hgb (13.0-17.5) gm/dL Hct (39.0-53.0) % Lymphocytes # (1.0-4.8) k/uL ABG Total CO2 (19-24) mmol/L ABG O2 Saturation (94-97) % Chloride (98-107) mmol/L BUN (9-20) mg/dL Glucose (74-99) mg/dL POC Glucose (mg/dL) 118 H 142 H (75-99) mg/dL Calcium (8.4-10.2) mg/dL Procalcitonin 0.63 H (0.02-0.09) ng/mL 05/16/19 05/16/19 05/16/19 Range/Units 04:10 04:10 05:57 RBC 2.69 L (4.30-5.90) m/uL Hgb 7.8 L (13.0-17.5) gm/dL Hct 24.6 L (39.0-53.0) % Lymphocytes # 0.2 L (1.0-4.8) k/uL ABG Total CO2 (19-24) mmol/L ABG O2 Saturation (94-97) % Chloride 111 H (98-107) mmol/L BUN 32 H (9-20) mg/dL Glucose 149 H (74-99) mg/dL POC Glucose (mg/dL) 139 H (75-99) mg/dL Calcium 7.7 L (8.4-10.2) mg/dL Procalcitonin (0.02-0.09) ng/mL 05/16/19 05/16/19 Range/Units 07:33 12:05 RBC (4.30-5.90) m/uL Hgb (13.0-17.5) gm/dL Hct (39.0-53.0) % Lymphocytes # (1.0-4.8) k/uL ABG Total CO2 26 H (19-24) mmol/L ABG O2 Saturation 97.8 H (94-97) % Chloride (98-107) mmol/L BUN (9-20) mg/dL Glucose (74-99) mg/dL POC Glucose (mg/dL) 144 H (75-99) mg/dL Calcium (8.4-10.2) mg/dL Procalcitonin (0.02-0.09) ng/mL Microbiology - Last 24 Hours (Table) 05/14/19 11:10 Gram Stain - Final Bronchial Washings - Random Bronchial Washings Culture - Final 05/10/19 17:30 Blood Culture - Preliminary Blood No Growth after 120 hours Assessment and Plan Assessment: #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 Status post right upper lobectomy postoperative day #16 #2 right-sided pneumothorax, expected outcome of surgery, resolved #3 Chronic and ongoing tobacco dependence of 40 years. Remains on bronchodilators. #4 Chronic obstructive pulmonary disease remains on bronchodilators. #5 Hypertension. Presently under control. #6 sick sinus syndrome status post pacemaker implantation. #7 Anxiety/depression. #8 Hyperlipidemia. #9 bipolar disorder #10 postoperative paroxysmal atrial fibrillation, and expected outcome of surgery #11 acute hypoxic respiratory failure requiring reintubation secondary to hospital-acquired pneumonia possibly some component of fluid overload./Acute Diastolic congestive heart failure. #12 fluid overload and interstitial edema, patient received significant amount of fluids yesterday for marginal low blood pressure. however the possibility of hospital-acquired pneumonia is not entirely ruled out but felt to be less likely. Awaiting cultures from the BAL. #13 possible hospital-acquired pneumonia, remains on antibiotics in the form of Levaquin and Zosyn. Required reintubation on 05/14/2019. #14 possible acute diastolic congestive heart failure improved with diuretics 2 days ago. Slight improvement noted on the chest x-ray today, and his FiO2 requirement is less, however the patient did develop slight renal abnormality, hence would hold on diuretics for now. #15 status post bronchoscopy and lavage on 05/14/2019. Cultures are nondiagno stic. Recommendation: Continue ventilatory support. Continue FiO2 at 40%. And the same vent settings otherwise. Continue bronchodilators Hold diuretics for today. Continue antibiotics, patient remains on Zosyn and Levaquin. Continue Solu-Medrol. Continue nutritional support ./Enteral feeding Continue GI and DVT prophylaxis Obviously the patient is quite ill, not ready for any form of weaning today, we'll continue present supportive care measures as noted above, and will follow closely. Critical care time is 35 minutes. Time with Patient: Greater than 30
[2019-05-16] MEDS: SODIUM CHLORIDE 0.9% 1,000 ML IV SCH (15:00)
[2019-05-16 17:19] LABS: Glucose,Whole Blood 141 mg/dL (75-99)
[2019-05-16] MEDS: DULoxetine HCL 60 MG CAPSULE.DR PO SCH (20:29)
[2019-05-16] MEDS: ATORVASTATIN 40 MG TAB PO SCH (20:34)
[2019-05-16] MEDS: SENNOSIDES-DOCUSATE SODIUM 1 EACH TAB PO SCH (20:34)
[2019-05-16] MEDS: PREGABALIN 75 MG CAP PO SCH (20:35)
[2019-05-16] MEDS: DONEPEZIL 5 MG TAB PO SCH (20:35)
[2019-05-16] MEDS: ARIPiprazole 15 MG TAB PO SCH (20:35)
[2019-05-17 00:05] LABS: Glucose,Whole Blood 135 mg/dL (75-99)
[2019-05-17 00:15] LABS: Calcium 7.7 mg/dL (8.4-10.2); Magnesium 2.3 mg/dL (1.6-2.3); Phosphorus 3.6 mg/dL (2.5-4.5); Potassium 4.1 mmol/L (3.5-5.1)
[2019-05-17] MEDS: PROPOFOL 1,000 MG in EMPTY BAG 1 BAG IV SCH ×3 (03:06→18:48)
[2019-05-17] MEDS: IPRATROPIUM-ALBUTEROL 3 ML NEB IH PRN (03:10)
[2019-05-17 04:25] LABS: Basophils % (A) 0 %; Eosinophils % (A) 0 %; HCT 22.8 % (39.0-53.0); HGB 7.3 gm/dL (13.0-17.5); Hypochromasia Slight; Lymphocytes # (A) 0.2 k/uL (1.0-4.8); Lymphocytes % (A) 3 %; MCHC 31.9 g/dL (31.0-37.0); MCV 90.9 fL (80.0-100.0); Mean Platelet Volume 7.6; Monocytes # (A) 0.3 k/uL (0-1.0); Monocytes % (A) 5 %; Neutrophils # (A) 5.4 k/uL (1.3-7.7); Neutrophils % (A) 91 %; Platelet Count 371 k/uL (150-450); WBC 5.9 k/uL (3.8-10.6)
[2019-05-17] MEDS: methylPREDNISolone SOD SUCCI 125 MG/2 ML VIAL IV SCH ×3 (05:58→18:49)
[2019-05-17] MEDS: INSULIN ASPART (NovoLOG) 100 UNIT/ML VIAL SQ SCH ×3 (05:58→18:44)
[2019-05-17 06:04] LABS: Glucose,Whole Blood 150 mg/dL (75-99)
--- NOTE | 2019-05-17 07:18 | XR ---
EXAMINATION TYPE: XR chest 1V portable DATE OF EXAM: 05/17/2019 CLINICAL HISTORY: Difficulty breathing progress study. TECHNIQUE: Single AP portable semiupright view of the chest is obtained. COMPARISON: Chest x-ray from one day earlier FINDINGS: And endotracheal tube and orogastric tube are stable in appearance. Cardiac silhouette siz e is stable and within normal limits. Background chronic emphysematous change with scattered parenchy mal scarring redemonstrated. Right-sided volume loss with hilar retraction and juxtaphrenic diaphragm atic peaking. Moderate to severe right apical pleural thickening. No new focal airspace opacity or pn eumothorax bilaterally. Osseous structures are intact. Surgical clips epigastric region redemonstrate d. IMPRESSION: Chronic parenchymal changes bilaterally. Interval improved aeration bilateral lung bases noted.
[2019-05-17 08:12] LABS: ABG Base Excess 1.9 mmol/L; ABG HCO3 26 mmol/L (21-25); ABG Oxygen Saturation 96.8 % (94-97); ABG PCO2 40 mmHg (35-45); ABG PH 7.42 (7.35-7.45); ABG PO2 85 mmHg (83-108); ABG TCO2 28 mmol/L (19-24); Allen Test Performed? Yes
[2019-05-17] MEDS: IPRATROPIUM-ALBUTEROL 3 ML NEB IH SCH ×4 (08:15→18:38)
[2019-05-17] MEDS: FORMOTEROL FUMARATE 20 MCG/2 ML NEBU INHALATION SCH ×2 (08:31→18:38)
[2019-05-17] MEDS: BUDESONIDE 1 MG/2 ML NEBU INHALATION SCH ×2 (08:31→18:38)
[2019-05-17] MEDS: CHLORHEXIDINE GLUCONATE 15 ML CUP MUCOUS MEM SCH ×2 (08:32→20:04)
[2019-05-17] MEDS: PIPERACILLIN-TAZOBACTAM 3.375 GM in SODIUM CHLORIDE 0.9% 100 ML IVPB SCH ×2 (08:32→16:34)
[2019-05-17] MEDS: METOPROLOL TARTRATE 25 MG TAB PO SCH ×3 (08:33→22:19)
[2019-05-17] MEDS: AMIODARONE 200 MG TAB PO SCH ×2 (08:33→20:04)
[2019-05-17] MEDS: BISACODYL 10 MG SUPP RECTAL SCH ×2 (08:33→09:23)
[2019-05-17] MEDS: APIXABAN 5 MG TAB PO SCH ×2 (08:33→20:04)
[2019-05-17] MEDS: PANTOPRAZOLE 40 MG/10 ML VIAL IVP SCH ×2 (08:33→20:05)
[2019-05-17] MEDS: NOREPINEPHRINE 4 MG in SODIUM CHLORIDE 0.9% 250 ML IV SCH ×2 (08:34→18:44)
[2019-05-17] MEDS: SODIUM CHLORIDE 0.9% 1,000 ML IV SCH ×3 (09:05→20:19)
[2019-05-17 09:50] LABS: Calcium 7.6 mg/dL (8.4-10.2); Potassium 3.9 mmol/L (3.5-5.1)
--- NOTE | 2019-05-17 10:01 | P.PN ---
Subjective Progress Note Date: 05/17/19 Principal diagnosis: Squamous cell carcinoma right upper lobe, history of hypertension, hyperlipidemia, bipolar disorder, history of sick sinus syndrome status post permanent pacemaker implantation in May 2011, coronary artery disease status post circumflex flex coronary artery stenting in 2017, anxiety, depression, chronic obstructive pulmonary disease, gastroesophageal reflux disease and tobacco dependence with a 40 pack year smoking history. POD #17 right thoracoscopic, robotic assisted thorascopic right upper lobectomy with mediastinal lymph node dissection, fiberoptic bronchoscopy. Postoperative acute blood loss anemia, an expected outcome. Postoperative paroxysmal atrial fibrillation and on expected outcome. Postoperative right-sided pneumothorax with prolonged air leak, expected and inherent to this type of surgery Leukocytosis, suspect postobstructive pneumonia, resolved Hypotension, status post fluid administration, necessitating IV norepinephrine, unexpected Postoperative hypoxemic respiratory failure secondary to hospital-acquired pneumonia, requiring reintubation and mechanical ventilator support. POD #3 bedside bronchoscopy and bronchoalveolar lavage of the left upper lobe, right middle lobe and right lower lobe performed by Dr. Soliman The patient is currently lying in bed in the intensive care unit. He is in no acute distress. He remains intubated with mechanical ventilator support, oxygen saturations are 95% on current ventilator settings of AC 20, TV 450, FiO2 40% and PEEP of 5. He is sedated on propofol drip at 40 mcg/kg/m and fentanyl drip at 0.4 mcg/kg/m. He remains hemodynamically stable and is currently on no moni tropic or pressor support. Castorena catheter remains in place draining clear yellow urine with 395 mL output in the last 8 hours. Lasix was discontinued yesterday as his BUN was 40 and his creatinine was 1.15. Antibiotics are in place Levaquin and Zosyn. Laboratory results this morning showed his white blood cell count 5.9, hemoglobin 7.3. He remains afebrile. The cytology from the bronchoalveolar lavage shows chronic active bronchitis with pigmented alveolar macrophages and occasional atypical metaplastic squamous cells. Cultures from the bronchoalveolar washings are negative. Chest x-ray this morning shows interval improved aeration bilateral lung bases. Objective - Vital Signs Vital signs: Vital Signs Temp 97.6 F 05/17/19 04:00 Pulse 60 05/17/19 08:24 Resp 20 05/17/19 07:00 BP 171/82 05/16/19 16:30 Pulse Ox 95 05/17/19 07:00 Intake & Output 05/16/19 05/17/19 05/17/19 18:59 06:59 18:59 Intake Total 4882.065 9339.220 50 Output Total 1360 430 60 Balance -157.177 845.220 -10 Weight 74.6 kg Intake: IV 550 700 50 Piperacillin-Tazobactam 3 100 .375 gm In Sodium Chloride 0.9% 100 ml @ 25 mls/hr IVPB Q8HR [facility] Rx# :[id number] Sodium Chloride 0.9% 1, 550 600 50 000 ml @ 50 mls/hr IV . Q20H [facility] Rx#:[id number] Intake, IV Titration 232.823 185.220 Amount Propofol 1,000 mg In 166.036 185.220 Empty Bag 1 bag @ Titrate IV .Q0M [facility] Rx#: [id number] fentaNYL (PF) 1,000 mcg 66.787 In Sodium Chloride 0.9% 80 ml @ 0.4 MCG/KG/HR 2. 94 mls/hr IV .Q24H [facility] Rx #:[id number] Tube Feeding 330 300 Other 90 90 Output: Urine 1360 430 60 Other: Voiding Method Indwelling Catheter Indwelling Catheter ABP, PAP, CO, CI - Last Documented Arterial Blood Pressure 119/54 - Constitutional Constitutional Comment(s): Remains sedated on propofol and fentanyl drips. General appearance: Present: no acute distress, thin - Respiratory Details: Essentially clear to his bilateral upper lobes, few scattered crackles to his bilateral bases. Respirations are symmetrical and nonlabored with mechanical ventilator support. Oxygen saturations 95% on current mechanical ventilator settings. - Cardiovascular Details: Preoperative rhythm and rate. S1 and S2 present, negative for S3, gallop or murmur. Bedside telemetry showing normal sinus rhythm with paced beats heart rate 60. Knee-high ABNER hose and sequential compression devices in place to his bilateral lower extremities. No edema present. - Gastrointestinal Gastrointestinal Comment(s): Abdomen is soft, nontender and nondistended. Active bowel sounds present all 4 abdominal quadrants. OG tube in place with vital high-protein to feeding infusing at goal rate of 30. - Genitourinary Genitourinary Comment(s): Castorena catheter for accurate I&O. Draining clear shira urine. - Integumentary Integumentary Comment(s): Skin is warm and dry. No clubbing or cyanosis is present. Right thoracoscopic incisions are clean, dry and intact. No drainage or redness is present. - Neurologic Neurologic: Present: CNII-XII intact - Musculoskeletal Musculoskeletal Comment(s): Remains sedated on propofol and fentanyl drips. - Psychiatric Psychiatric Comment(s): Remains sedated on propofol and fentanyl drips. - Allied health notes Allied health notes reviewed: nursing - Labs CBC & Chem 7: 05/17/19 04:11 05/17/19 08:43 Labs: Abnormal Lab Results - Last 24 Hours (Table) 05/16/19 05/16/19 05/16/19 Range/Units 12:05 17:06 23:45 RBC (4.30-5.90) m/uL Hgb (13.0-17.5) gm/dL Hct (39.0-53.0) % Lymphocytes # (1.0-4.8) k/uL ABG HCO3 (21-25) mmol/L ABG Total CO2 (19-24) mmol/L Chloride 111 H (98-107) mmol/L BUN 40 H (9-20) mg/dL Glucose 152 H (74-99) mg/dL POC Glucose (mg/dL) 144 H 141 H (75-99) mg/dL Calcium 7.7 L (8.4-10.2) mg/dL 05/16/19 05/17/19 05/17/19 Range/Units 23:52 04:11 05:52 RBC 2.50 L (4.30-5.90) m/uL Hgb 7.3 L (13.0-17.5) gm/dL Hct 22.8 L (39.0-53.0) % Lymphocytes # 0.2 L (1.0-4.8) k/uL ABG HCO3 (21-25) mmol/L ABG Total CO2 (19-24) mmol/L Chloride (98-107) mmol/L BUN (9-20) mg/dL Glucose (74-99) mg/dL POC Glucose (mg/dL) 135 H 150 H (75-99) mg/dL Calcium (8.4-10.2) mg/dL 05/17/19 Range/Units 08:10 RBC (4.30-5.90) m/uL Hgb (13.0-17.5) gm/dL Hct (39.0-53.0) % Lymphocytes # (1.0-4.8) k/uL ABG HCO3 26 H (21-25) mmol/L ABG Total CO2 28 H (19-24) mmol/L Chloride (98-107) mmol/L BUN (9-20) mg/dL Glucose (74-99) mg/dL POC Glucose (mg/dL) (75-99) mg/dL Calcium (8.4-10.2) mg/dL Microbiology - Last 24 Hours (Table) 05/10/19 17:30 Blood Culture - Final Blood No Growth after 144 hours 05/14/19 11:10 Gram Stain - Final Bronchial Washings - Random Bronchial Washings Culture - Final - Imaging and Cardiology Chest x-ray: report reviewed, image reviewed Assessment and Plan Assessment: 1. Squamous cell carcinoma right upper lobe, status post right upper lobectomy 2. Hypertension 3. Hyperlipidemia 4. Bipolar disorder 5. History of sick sinus syndrome status post permanent pacemaker implantation May 2011 6. Coronary artery disease status post circumflex coronary artery stenting in 2016 7. Anxiety 8. History of depression 9. Chronic proximal pulmonary disease 10. Gastroesophageal reflux disease 11. Chronic tobacco dependence, [id number] smoking history 12. Postoperative acute blood loss anemia, an expected outcome 13. Postoperative paroxysmal atrial fibrillation and an expected outcome 14. Postoperative right-sided pneumothorax with prolonged air leak 15. Leukocytosis, pneumonia, unexpected 16. Hypotension, status post fluid resuscitation, necessitating IV norepinephrine 17. Postoperative hypoxemic respiratory failure, requiring reintubation and mechanical ventilator support. Plan: 1. Continue antibiotics of Zosyn and Levaquin per pulmonary medicine recommendations. 2. Mechanical ventilator and propofol drip, fentanyl drip management per critical care medicine. 3. GI and DVT prophylaxis. 4. Bronchodilators and Solu-Medrol management per pulmonary medicine. 5. Pain control per current when necessary orders. 6. Continue Eliquis 5 mg by mouth twice a day for anticoagulation due to his paroxysmal atrial fibrillation. 7. Pathology results demonstrated squamous cell carcinoma, bronchovascular margin negative for malignancy. 8. Continue amiodarone 200 mg by mouth daily for atrial fibrillation prophylaxis per cardiology's recommendations. 9. Continue to monitor daily labs and chest x-rays 10. Continue tube feedings vital high-protein at goal rate of 30 per dietitian's recommendations. 11. More recommendations to follow based on patient's clinical course. Time with Patient: Greater than 30
[2019-05-17] MEDS ORDERED: Potassium Replacement Protocol 1 EACH MISC MISCELLANE PRN (10:20)
[2019-05-17] MEDS ORDERED: PIPERACILLIN-TAZOBACTAM 3.375 GM in SODIUM CHLORIDE 0.9% 100 ML IVPB SCH (10:30)
--- NOTE | 2019-05-17 10:30 | P.PN ---
Subjective Progress Note Date: 05/17/19 Principal diagnosis: Squamous cell lung cancer status post right upper lobectomy, postoperative day # 17 Reevaluated today on 05/11/2019, patient remains in the ICU, continues to have a right sided chest tube in place, there is no evidence of right-sided pneumothorax, continues to have significant airspace disease involving the right midlung. No evidence of pneumothorax. Patient is feeling better, remains on antibiotics, and on bronchodilators. He is hemodynamically stable. CT angiogram of the chest showed no evidence of pulmonary embolism, but there is definite significant airspace disease and infiltrate involving the right lower lobe. Continues to do well with incentive spirometry about 1500 mL. Patient was reevaluated today on 05/12/2019, he remains in the ICU, his oxygen demand has been increasing overnight, he was on high flow nasal cannula at 10 L, however I switch him to BiPAP. Chest x-ray is showing evidence of interstitial edema bilaterally, right more so than left, and the patient has very weak cough. I did recommend broadening the spectrum of his antibiotics, I also recommended Lasix, and recommended IV Solu-Medrol. Continues to have a small right-sided pneumothorax and the right sided chest tube remains in place, no air leak is noted. Chest x-ray is concerning, there is basically worsening alveolar and interstitial infiltrates bilaterally. The differential diagnoses includes pneumonia also includes fluid overload. Patient will be treated for both and would have a repeat chest x-ray in the morning. Raised the possibility of bronchoscopy with the patient, however considering his pulmonary status is so marginal, patient will end up requiring intubation and mechanical ventilation to safely perform a bronchoscopy and lavage of both lungs. Hence I would hold on the bronchoscopy for now, and if his condition deteriorates, and requires intubation then I would proceed to bronchoscopy at that point. In the meantime we'll try antibiotics diuretics and bronchodilators as well as steroids. And we'll try BiPAP. His WBC count is coming down to 15.7 hemoglobin is 9 renal profile is normal lites are normal. Reevaluated today on 05/13/2019, patient seems to be doing much better today compared to yesterday. His FiO2 requirement is down, he was earlier today on 35% FiO2 and on BiPAP. I have switched him to few liters nasal cannula, and he seemed to relate that very well. Chest x-ray continues to show interstitial edema, possible underlying infiltrates, remains on diuretics, bronchodilators, steroids, and antibiotics/broad-spectrum. Considering the improvement, I don't see any value of bronchoscopy at this point, patient is clinically better, and his chest x-ray is definitely better. And his FiO2 requirement is much im proved. His WBC count is also down to 10.2. Hemoglobin is 7.9 lites are normal renal profile remains normal in spite of diuresis. Reevaluated today on 05/14/2019, I saw the patient earlier in the morning, and he was on BiPAP, very comfortable. However his FiO2 was increased up to 50%, and his chest x-ray showed slight worsening of the interstitial infiltrates compared to the chest x-ray yesterday. Patient was hemodynamically stable, has fairly good urine output. Shortly after the patient had a bowel movement, and he was cleaned up by the nurses, he became extremely agitated, restless, tachycardic, tachypneic, and he was basically struggling to breathe. Patient was intubated by CUFFING MACHINE OPERATOR, and I came in shortly after to evaluate the patient. Patient was placed on mechanical ventilation, and his ventilator settings were placed at FiO2 of 100% assist control rate of 20 tidal volume of 450, and PEEP of 5. After intubating the patient, patient underwent bronchoscopy and lavage, some purulent secretions and mucous plugs were removed from the left side as well as the right lower lobe. Not noted to be copious, but thick and blood-tinged. Chest x-ray post intubation showed adequate placement of the endotracheal tube, bilateral interstitial infiltrates, and worsening airspace disease bilaterally. Reevaluated today on 05/15/2019, patient is still on mechanical ventilation, patient was intubated yesterday. Remains on the same ventilator settings as noted above. FiO2 is at 50%, tidal volume is 450, assist control rate is 20. Chest x-ray is showing worsening interstitialdisease and interstitial infiltrates, his ABG is marginal. Patient is sedated on propofol. Presently off all pressors. Did require norepinephrine yesterday for a brief period of time, and he is presently off pressors. ABG today showed a pO2 of 101 pCO2 of 35 pH of 7.40. Basic metabolic profile is normal renal profile is normal. BNP level is 7610, hence I cut down his IV fluid and I started him on Lasix 40 mg IV push every 12 hours. WBC count is 6 hemoglobin is 7.4. Reevaluated today on 05/16/2019, remains in the ICU, on mechanical ventilation, remains on the same ventilator settings, however his FiO2 is down to 40%, tidal volume is 450 assist-control rate is 20. PEEP is 5. Remains on propofol and fentanyl drip. Not requiring any pressors. Mental status was assessed earlier by nurses, patient was agitated, and his blood pressure was high, hence had to be placed back on propofol and fentanyl. His ABG showed a pO2 of 95 pCO2 of 36 pH of 7.44 and this is on a 40% FiO2. His CBC showed a hemoglobin of 7.8. WBC count is back to normal. Lites are normal renal functioning is slightly worse with a creatinine of 1.24, hence would hold on diuretics for now. Patient had negative fluid balance over the last 24 hours. Chest x-ray slight improvement noted in his bilateral interstitial infiltrates. Bronchoscopy cultures have been negative so far. Nondiagnostic obviously the patient is receiving proper antibiotics. Reevaluated today on 05/17/2019, remains mechanically ventilated, in the intensive care unit, chest x-ray is showing definite improvement, ABG is also showing improvement, he remains on FiO2 of 40%, tidal volume 450 assist-control rate of 20 and PEEP of 5. Remains on propofol and fentanyl drip, patient is arousable, follows simple instructions even with the low dose of propofol and fentanyl drip. Chest x-ray again is showing significant improvement, but not clear enough to consider weaning trials or extubation. Patient is tolerating enteral feeding well via nasogastric tube. CBC is significantly improved WBC count is down to 5.9 hemoglobin is 7.3. ABG showed a pO2 of 85 pCO2 of 40 pH of 7.42. Elective right are normal renal profile is improving, BUN is 140 creatinine is 1.12. IV fluids remains at 75 mL per hour of 0.9 normal saline. Held back on diuretics. Remains on Levaquin and Zosyn. Objective - Vital Signs Vital signs: Vital Signs Temp 98.2 F 05/17/19 08:00 Pulse 60 05/17/19 10:00 Resp 9 L 05/17/19 10:00 BP 171/82 05/16/19 16:30 Pulse Ox 99 05/17/19 10:00 Intake & Output 08/05/17/19 05/17/19 18:59 06:59 18:59 Intake Total 2177.576 3900.220 502.484 Output Total 1360 430 185 Balance -157.177 845.220 317.484 Weight 74.6 kg Intake: IV 550 700 300 Piperacillin-Tazobactam 3 100 50 .375 gm In Sodium Chloride 0.9% 100 ml @ 25 mls/hr IVPB Q8HR [facility] Rx# :[id number] Sodium Chloride 0.9% 1, 550 600 250 000 ml @ 50 mls/hr IV . Q20H [facility] Rx#:[id number] Intake, IV Titration 232.823 185.220 52.484 Amount Propofol 1,000 mg In 166.036 185.220 52.484 Empty Bag 1 bag @ Titrate IV .Q0M [facility] Rx#: [id number] fentaNYL (PF) 1,000 mcg 66.787 In Sodium Chloride 0.9% 80 ml @ 0.4 MCG/KG/HR 2. 94 mls/hr IV .Q24H [facility] Rx #:[id number] Tube Feeding 330 300 120 Other 90 90 30 Output: Urine 1360 430 185 Other: Voiding Method Indwelling Catheter Indwelling Catheter ABP, PAP, CO, CI - Last Documented Arterial Blood Pressure 123/55 - Exam Physical Exam: Revealed a 69-year-old white male, on mechanical ventilation, sedated, on propofol infusion. Also on fentanyl. Arousable, follows very simple instructions. Head: Atraumatic normocephalic. HEENT:[Neck is supple.] [No neck masses.] [No thyromegaly.] [No JVD.] Endotracheal tube and orogastric tube are intact. Chest: [Crackles and rhonchi noted bilaterally. Symmetrical chest expansion. Cardiac Exam: [Normal S1 and S2, no S3 gallop, no murmur.] Abdomen: [Soft, nontender, no megaly, no rebound, no guarding, normal bowel sounds.] Extremities: [No clubbing, no edema, no cyanosis.] Deformity of right hand is again noted.. Neurological arousable on propofol and fentanyl, follows simple instructions. Psychiatric: Cannot be assessed. Skin: No rashes. - Labs CBC & Chem 7: 05/17/19 04:11 05/17/19 08:43 Labs: Abnormal Lab Results - Last 24 Hours (Table) 05/16/19 05/16/19 05/16/19 Range/Units 12:05 17:06 23:45 RBC (4.30-5.90) m/uL Hgb (13.0-17.5) gm/dL Hct (39.0-53.0) % Lymphocytes # (1.0-4.8) k/uL ABG HCO3 (21-25) mmol/L ABG Total CO2 (19-24) mmol/L Chloride 111 H (98-107) mmol/L BUN 40 H (9-20) mg/dL Glucose 152 H (74-99) mg/dL POC Glucose (mg/dL) 144 H 141 H (75-99) mg/dL Calcium 7.7 L (8.4-10.2) mg/dL 05/16/19 05/17/19 05/17/19 Range/Units 23:52 04:11 05:52 RBC 2.50 L (4.30-5.90) m/uL Hgb 7.3 L (13.0-17.5) gm/dL Hct 22.8 L (39.0-53.0) % Lymphocytes # 0.2 L (1.0-4.8) k/uL ABG HCO3 (21-25) mmol/L ABG Total CO2 (19-24) mmol/L Chloride (98-107) mmol/L BUN (9-20) mg/dL Glucose (74-99) mg/dL POC Glucose (mg/dL) 135 H 150 H (75-99) mg/dL Calcium (8.4-10.2) mg/dL 05/17/19 05/17/19 Range/Units 08:10 08:43 RBC (4.30-5.90) m/uL Hgb (13.0-17.5) gm/dL Hct (39.0-53.0) % Lymphocytes # (1.0-4.8) k/uL ABG HCO3 26 H (21-25) mmol/L ABG Total CO2 28 H (19-24) mmol/L Chloride 112 H (98-107) mmol/L BUN 40 H (9-20) mg/dL Glucose 170 H (74-99) mg/dL POC Glucose (mg/dL) (75-99) mg/dL Calcium 7.6 L (8.4-10.2) mg/dL Microbiology - Last 24 Hours (Table) 05/10/19 17:30 Blood Culture - Final Blood No Growth after 144 hours 05/14/19 11:10 Gram Stain - Final Bronchial Washings - Random Bronchial Washings Culture - Final Assessment and Plan Assessment: #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 Status post right upper lobectomy postoperative day #17 #2 right-sided pneumothorax, expected outcome of surgery, resolved #3 Chronic and ongoing tobacco dependence of 40 years. #4 prerenal azotemia secondary to diuretics, significantly improved by holding diuretics. #5 Hypertension. Presently under control. #6 sick sinus syndrome status post pacemaker implantation. #7 Anxiety/depression. #8 Hyperlipidemia. #9 bipolar disorder #10 postoperative paroxysmal atrial fibrillation, and expected outcome of surgery #11 acute hypoxic respiratory failure requiring reintubation secondary to hospital-acquired pneumonia possibly some component of fluid overload./Acute Diastolic congestive heart failure. #12 fluid overload and interstitial edema, patient received significant amount of fluids yesterday for marginal low blood pressure. however the possibility of hospital-acquired pneumonia is not entirely ruled out but felt to be less likely. Awaiting cultures from the BAL. #13 possible hospital-acquired pneumonia, remains on antibiotics in the form of Levaquin and Zosyn. Required reintubation on 05/14/2019. #14 possible acute diastolic congestive heart failure improved with diuretics 2 days ago. Slight improvement noted on the chest x-ray today, and his FiO2 requirement is less, however the patient did develop slight renal abnormality, hence would hold on diuretics for now. #15 status post bronchoscopy and lavage on 05/14/2019. Cultures are nondiagnostic. Recommendation: Continue ventilatory support. No changes were made in the vent settings today.. Continue bronchodilators Continue to hold diuretics and increase IV fluid to 75 mL per hour. Continue antibiotics, patient remains on Zosyn and Levaquin. Continue Solu-Medrol. Continue nutritional support ./Enteral feeding Continue GI and DVT prophylaxis Obviously the patient is quite ill, not ready for any form of weaning today, we'll continue present supportive care measures as noted above, and will follow closely. Critical care time is 32 minutes. Time with Patient: Greater than 30
[2019-05-17] MEDS ORDERED: POTASSIUM BICARBONATE/CIT AC 20 MEQ TABLET.EFF NG-TUBE SCH (11:00)
[2019-05-17 12:27] LABS: Glucose,Whole Blood 131 mg/dL (75-99)
[2019-05-17 18:52] LABS: Glucose,Whole Blood 122 mg/dL (75-99)
[2019-05-17] MEDS: ATORVASTATIN 40 MG TAB PO SCH (20:04)
[2019-05-17] MEDS: ARIPiprazole 15 MG TAB PO SCH (20:05)
[2019-05-17] MEDS: SENNOSIDES-DOCUSATE SODIUM 1 EACH TAB PO SCH (20:05)
[2019-05-17] MEDS: PREGABALIN 75 MG CAP PO SCH (20:05)
[2019-05-17] MEDS: DONEPEZIL 5 MG TAB PO SCH (20:05)
[2019-05-17] MEDS: DULoxetine HCL 60 MG CAPSULE.DR PO SCH (22:15)
[2019-05-17] MEDS: fentaNYL (PF) 1,000 MCG in SODIUM CHLORIDE 0.9% 80 ML IV SCH (22:15)
[2019-05-18] MEDS: methylPREDNISolone SOD SUCCI 125 MG/2 ML VIAL IV SCH ×2 (00:45→05:21)
[2019-05-18] MEDS: PIPERACILLIN-TAZOBACTAM 3.375 GM in SODIUM CHLORIDE 0.9% 100 ML IVPB SCH ×2 (00:45→09:56)
[2019-05-18] MEDS: INSULIN ASPART (NovoLOG) 100 UNIT/ML VIAL SQ SCH ×4 (00:45→18:38)
[2019-05-18] MEDS: PROPOFOL 1,000 MG in EMPTY BAG 1 BAG IV SCH ×3 (00:49→20:26)
[2019-05-18 00:57] LABS: Glucose,Whole Blood 176 mg/dL (75-99)
[2019-05-18 04:43] LABS: ABG Base Excess 2.3 mmol/L; ABG HCO3 27 mmol/L (21-25); ABG Oxygen Saturation 97.5 % (94-97); ABG PCO2 39 mmHg (35-45); ABG PH 7.44 (7.35-7.45); ABG PO2 92 mmHg (83-108); ABG TCO2 28 mmol/L (19-24); Allen Test Performed? Yes
[2019-05-18] MEDS: SODIUM CHLORIDE 0.9% 1,000 ML IV SCH ×2 (05:21→15:30)
[2019-05-18 05:25] LABS: Basophils % (A) 0 %; Eosinophils % (A) 1 %; HCT 22.8 % (39.0-53.0); HGB 7.2 gm/dL (13.0-17.5); Hypochromasia Moderate; Lymphocytes # (A) 0.2 k/uL (1.0-4.8); Lymphocytes % (A) 4 %; MCH 29.3 pg (25.0-35.0); MCHC 31.7 g/dL (31.0-37.0); MCV 92.7 fL (80.0-100.0); Mean Platelet Volume 7.8; Monocytes # (A) 0.2 k/uL (0-1.0); Monocytes % (A) 4 %; Neutrophils # (A) 4.9 k/uL (1.3-7.7); Neutrophils % (A) 90 %; Platelet Count 338 k/uL (150-450); RBC 2.46 m/uL (4.30-5.90); RDW 15.5 % (11.5-15.5); WBC 5.4 k/uL (3.8-10.6)
[2019-05-18 05:30] LABS: Glucose,Whole Blood 186 mg/dL (75-99)
[2019-05-18 05:48] LABS: ALT 22 U/L (21-72); AST 16 U/L (17-59); African American GFR (CKD) >90 (>60 ml/min/1.73 sqM); Albumin 2.2 g/dL (3.5-5.0); Alkaline Phosphatase 82 U/L (38-126); Anion Gap 4 mmol/L; Blood Urea Nitrogen 39 mg/dL (9-20); Calcium 7.7 mg/dL (8.4-10.2); Carbon Dioxide 26 mmol/L (22-30); Chloride 113 mmol/L (98-107); Glucose 165 mg/dL (74-99); Potassium 4.3 mmol/L (3.5-5.1); Sodium 143 mmol/L (137-145); Total Bilirubin 0.2 mg/dL (0.2-1.3); Total Protein 4.4 g/dL (6.3-8.2)
--- NOTE | 2019-05-18 07:24 | XR ---
EXAMINATION TYPE: XR chest 1V portable DATE OF EXAM: 05/18/2019 COMPARISON: 05/17/2019 HISTORY: Ventilatory dependent respiratory failure TECHNIQUE: Single frontal view of the chest is obtained. FINDINGS: Loculated right apical pleural effusion and trace right pleural effusion are seen as well as trace left pleural effusion. Interstitial eminence remains in a peripheral basilar distribution. C entral and apical lucency is noted. Right perihilar consolidation and postsurgical changes remain. Mu ltilead left-sided cardiac device is again noted. Postsurgical changes of the gastroesophageal juncti on are seen. Endotracheal tube and enteric tube are similar in position. Right-sided volume loss is a gain seen. IMPRESSION: Stable loculated right pleural effusion and trace bilateral dependent basilar pleural ef fusions. Underlying pulmonary fibrosis, emphysema, and scattered areas of atelectasis are unchanged.
[2019-05-18] MEDS: FORMOTEROL FUMARATE 20 MCG/2 ML NEBU INHALATION SCH ×2 (07:51→19:26)
[2019-05-18] MEDS: BUDESONIDE 1 MG/2 ML NEBU INHALATION SCH ×2 (07:51→19:26)
[2019-05-18] MEDS: IPRATROPIUM-ALBUTEROL 3 ML NEB IH SCH ×4 (07:51→19:26)
[2019-05-18 09:09] LABS: ABG Base Excess 1.7 mmol/L; ABG HCO3 26 mmol/L (21-25); ABG Oxygen Saturation 98.9 % (94-97); ABG PCO2 37 mmHg (35-45); ABG PH 7.45 (7.35-7.45); ABG PO2 127 mmHg (83-108); ABG TCO2 27 mmol/L (19-24); Allen Test Performed? Yes
--- NOTE | 2019-05-18 09:14 | P.PN ---
Subjective Progress Note Date: 05/18/19 Principal diagnosis: Squamous cell carcinoma right upper lobe, history of hypertension, hyperlipidemia, bipolar disorder, history of sick sinus syndrome status post permanent pacemaker implantation in May 2011, coronary artery disease status post circumflex flex coronary artery stenting in 2017, anxiety, depression, chronic obstructive pulmonary disease, gastroesophageal reflux disease and tobacco dependence with a 40 pack year smoking history. POD #18 right thoracoscopic, robotic assisted thorascopic right upper lobectomy with mediastinal lymph node dissection, fiberoptic bronchoscopy. Postoperative acute blood loss anemia, an expected outcome. Postoperative paroxysmal atrial fibrillation and on expected outcome. Postoperative right-sided pneumothorax with prolonged air leak, expected and inherent to this type of surgery Leukocytosis, suspect postobstructive pneumonia, resolved Hypotension, status post fluid administration, necessitating IV norepinephrine, unexpected Postoperative hypoxemic respiratory failure secondary to hospital-acquired pneumonia, requiring reintubation and mechanical ventilator support. POD #4 bedside bronchoscopy and bronchoalveolar lavage of the left upper lobe, right middle lobe and right lower lobe performed by Dr. Soliman The patient is currently lying in bed in the intensive care unit. He is in no acute distress. He remains intubated with mechanical ventilator support, oxygen saturations are 96% on current ventilator settings of AC 20, TV 450, FiO2 40% and PEEP of 5. He is sedated on propofol drip at 50 mcg/kg/m and fentanyl drip at 0.4 mcg/kg/m. He remains hemodynamically stable and is currently on no moni tropic or pressor support. Castorena catheter remains in place draining clear yellow urine with 415 mL output in the last 8 hours. Antibiotics are in place Levaquin and Zosyn. The cytology from the bronchoalveolar lavage shows chronic active bronchitis with pigmented alveolar macrophages and occasional atypical metaplastic squamous cells. Cultures from the bronchoalveolar washings are negative. He remains afebrile. 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 Objective - Vital Signs Vital signs: Vital Signs Temp 98.1 F 05/18/19 04:00 Pulse 60 05/18/19 08:09 Resp 20 05/18/19 07:00 BP 171/82 05/16/19 16:30 Pulse Ox 96 05/18/19 07:00 Intake & Output 05/17/19 05/18/19 05/18/19 18:59 06:59 18:59 Intake Total 8028.865 1598.000 105 Output Total 715 600 35 Balance 954.947 975.000 70 Weight 74.6 kg Intake: IV 1100 925 75 Piperacillin-Tazobactam 3 100 100 .375 gm In Sodium Chloride 0.9% 100 ml @ 25 mls/hr IVPB Q8HR [facility] Rx# :[id number] Sodium Chloride 0.9% 1, 325 000 ml @ 50 mls/hr IV . Q20H [facility] Rx#:[id number] Sodium Chloride 0.9% 1, 675 825 75 000 ml @ 75 mls/hr IV . [id number] [facility] Rx#:[id number] Intake, IV Titration 149.947 200.000 Amount Propofol 1,000 mg In 149.947 100.000 Empty Bag 1 bag @ Titrate IV .Q0M [facility] Rx#: [id number] fentaNYL (PF) 1,000 mcg 100 In Sodium Chloride 0.9% 80 ml @ 0.4 MCG/KG/HR 2. 94 mls/hr IV .Q24H [facility] Rx #:[id number] Tube Feeding 360 360 30 Other 60 90 Output: Urine 715 600 35 Other: Voiding Method Indwelling Catheter Indwelling Catheter ABP, PAP, CO, CI - Last Documented Arterial Blood Pressure 100/56 - Constitutional Constitutional Comment(s): Remains sedated on propofol and fentanyl drip. General appearance: Present: average body habitus, no acute distress - Respiratory Details: Lung sounds diminished to his bilateral bases right greater than left. Respirations are symmetrical and nonlabored with mechanical ventilator support. Current mechanical ventilator settings are as follows: AC 20, TV 450, FiO2 40%, PEEP 5. Oxygen saturation is 96% on current mechanical ventilator settings. - Cardiovascular Details: Regular rhythm and rate. S1 and S2 present, negative for S3, gallop or murmur. Bedside telemetry showing normal sinus paced rhythm heart rate 60. +1 edema to his bilateral lower extremities. Knee-high ABNER hose and sequential compression devices in place to his bilateral lower extremities. - Gastrointestinal Gastrointestinal Comment(s): Abdomen is soft, and nondistended. Active bowel sounds present on 4 abdominal quadrants. No organomegaly appreciated. OG tube in place with continuous tube feedings vital high-protein at goal rate of 30 mL per hour. Loose brown stool. - Genitourinary Genitourinary Comment(s): Castorena catheter for accurate I&O. Draining clear yellow urine. 415 mL output in the last 8 hours. - Integumentary Integumentary Comment(s): Skin is warm and dry. No clubbing or cyanosis is present. Right thoracoscopic incision sites clean, dry and approximated. No drainage or redness present. - Neurologic Neurologic Comment(s): Remains sedated on propofol and fentanyl drips. Neurologic: Present: CNII-XII intact - Musculoskeletal Musculoskeletal Comment(s): Remains sedated on propofol and fentanyl drips. Chronic deformity to his right hand from a previous injury. - Psychiatric Psychiatric Comment(s): Remains sedated on a propofol and fentanyl drip. - Allied health notes Allied health notes reviewed: nursing - Labs CBC & Chem 7: 05/18/19 05:15 05/18/19 05:15 Labs: Abnormal Lab Results - Last 24 Hours (Table) 05/17/19 05/17/19 05/17/19 Range/Units 08:43 12:15 18:41 RBC (4.30-5.90) m/uL Hgb (13.0-17.5) gm/dL Hct (39.0-53.0) % Lymphocytes # (1.0-4.8) k/uL ABG HCO3 (21-25) mmol/L ABG Total CO2 (19-24) mmol/L ABG O2 Saturation (94-97) % Chloride 112 H (98-107) mmol/L BUN 40 H (9-20) mg/dL Glucose 170 H (74-99) mg/dL POC Glucose (mg/dL) 131 H 122 H (75-99) mg/dL Calcium 7.6 L (8.4-10.2) mg/dL AST (17-59) U/L Total Protein (6.3-8.2) g/dL Albumin (3.5-5.0) g/dL 05/18/19 05/18/19 05/18/19 Range/Units 00:36 04:40 05:15 RBC 2.46 L (4.30-5.90) m/uL Hgb 7.2 L (13.0-17.5) gm/dL Hct 22.8 L (39.0-53.0) % Lymphocytes # 0.2 L (1.0-4.8) k/uL ABG HCO3 27 H (21-25) mmol/L ABG Total CO2 28 H (19-24) mmol/L ABG O2 Saturation 97.5 H (94-97) % Chloride (98-107) mmol/L BUN (9-20) mg/dL Glucose (74-99) mg/dL POC Glucose (mg/dL) 176 H (75-99) mg/dL Calcium (8.4-10.2) mg/dL AST (17-59) U/L Total Protein (6.3-8.2) g/dL Albumin (3.5-5.0) g/dL 05/18/19 05/18/19 Range/Units 05:15 05:15 RBC (4.30-5.90) m/uL Hgb (13.0-17.5) gm/dL Hct (39.0-53.0) % Lymphocytes # (1.0-4.8) k/uL ABG HCO3 (21-25) mmol/L ABG Total CO2 (19-24) mmol/L ABG O2 Saturation (94-97) % Chloride 113 H (98-107) mmol/L BUN 39 H (9-20) mg/dL Glucose 165 H (74-99) mg/dL POC Glucose (mg/dL) 186 H (75-99) mg/dL Calcium 7.7 L (8.4-10.2) mg/dL AST 16 L (17-59) U/L Total Protein 4.4 L (6.3-8.2) g/dL Albumin 2.2 L (3.5-5.0) g/dL - Imaging and Cardiology Chest x-ray: report reviewed, image reviewed Assessment and Plan Assessment: 1. Squamous cell carcinoma right upper lobe, status post right upper lobectomy 2. Hypertension 3. Hyperlipidemia 4. Bipolar disorder 5. History of sick sinus syndrome status post permanent pacemaker implantation May 2011 6. Coronary artery disease status post circumflex coronary artery stenting in 2017 7. Anxiety 8. History of depression 9. Chronic proximal pulmonary disease 10. Gastroesophageal reflux disease 11. Chronic tobacco dependence, [id number] smoking history 12. Postoperative acute blood loss anemia, an expected outcome 13. Postoperative paroxysmal atrial fibrillation and an expected outcome 14. Postoperative right-sided pneumothorax with prolonged air leak 15. Leukocytosis, pneumonia, unexpected 16. Hypotension, status post fluid resuscitation, necessitating IV norepinephrine 17. Postoperative hypoxemic respiratory failure, requiring reintubation and mechanical ventilator support. Plan: 1. Continue antibiotics and changes of his bilateral Dr. Juan 9 Zosyn and Levaquin per pulmonary medicine recommendations. 2. Mechanical ventilator and propofol drip, fentanyl drip management per critical care medicine. 3. GI and DVT prophylaxis. 4. Bronchodilators and Solu-Medrol management per pulmonary medicine. 5. Pain control per current when necessary orders. 6. Continue Eliquis 5 mg by mouth twice a day for anticoagulation due to his paroxysmal atrial fibrillation. 7. CPAP weaning trials per Dr. Oliveira. 8. Continue amiodarone 200 mg by mouth daily for atrial fibrillation prophylaxis per cardiology's recommendations. 9. Continue to monitor daily labs and chest x-rays 10. Continue tube feedings vital high-protein at goal rate of 30 per dietitian's recommendations. 11. Send stool for C-diff. 12. More recommendations to follow based on patient's clinical course. Time with Patient: Greater than 30
[2019-05-18] MEDS: PANTOPRAZOLE 40 MG/10 ML VIAL IVP SCH ×2 (09:57→20:14)
[2019-05-18] MEDS: AMIODARONE 200 MG TAB PO SCH ×2 (09:57→20:13)
[2019-05-18] MEDS: METOPROLOL TARTRATE 25 MG TAB PO SCH ×3 (09:57→20:13)
[2019-05-18] MEDS: CHLORHEXIDINE GLUCONATE 15 ML CUP MUCOUS MEM SCH ×2 (09:58→20:26)
[2019-05-18] MEDS: APIXABAN 5 MG TAB PO SCH ×2 (10:02→20:13)
[2019-05-18] MEDS: LEVOFLOXACIN 750MG-D5W PMX 750 MG in DEXTROSE/WATER 1 150ML.BAG IVPB SCH (10:03)
[2019-05-18] MEDS: BISACODYL 10 MG SUPP RECTAL SCH (10:25)
--- NOTE | 2019-05-18 11:19 | PN ---
PROGRESS NOTE PULMONARY/CRITICAL CARE PROGRESS NOTE DATE OF SERVICE: May 18, 2019 CRITICAL CARE TIME: 36 minutes. This is a patient who was admitted way back on April 30. He came in with a right upper lobe mass. He underwent a right upper lobectomy. He developed respiratory failure subsequent to that and he was reintubated on May 14. He has been intubated since. Today we gave him a spontaneous breathing trial off his propofol and fentanyl and he did very poorly. He became very tachypneic and tachycardic. I did spend about 20 minutes on the phone with his daughter, Mary Jo. I gave her a couple of options including comfort measures and removal from life support versus long-term support with a tracheostomy and PEG tube. She is going to talk to the rest of the family and make a decision in the next day or so. She states that Almas would never want to be on life support indefinitely and I could not say for sure with 100% guarantee that Almas would be able to come off of a life support even if he underwent tracheostomy and PEG tube placement. Anyway, the patient remains on life support. He is on the volume assist- control mode rate of 20, tidal volume 450, FiO2 of 40%, PEEP of 5. Blood gases show pO2 of 92, pCO2 of 39, pH 7.4. The patient was going to be getting a daily interruption of sedation and spontaneous breathing trial, which he did. He did not do well. He became very tachypneic, tachycardic and hypertensive. Also, he has a very poor mental status and I do not believe he is able to protect his airway. He currently remains on propofol at 40 mcg/kg per minute, fentanyl at 25 mcg/kg per hour and a saline IV at 75 mL an hour. He is getting Vital high-protein at 30 with a goal of 30 mL an hour. His diagnoses include squamous cell carcinoma of the right upper lobe, status post right upper lobectomy, postop day #18, right-sided pneumothorax, resolved, chronic tobacco dependence, prerenal azotemia, benign essential hypertension, sick sinus syndrome, status post pacemaker, anxiety and depression, hyperlipidemia, bipolar disorder, postoperative paroxysmal atrial fibrillation, acute hypoxemic respiratory failure, fluid overload secondary to diastolic CHF, possible hospital-acquired pneumonia, and previous bronchoscopy on May 14, 2019. PHYSICAL EXAMINATION: VITAL SIGNS: Current vital signs are reviewed. Temperature is 98.1, heart rate 60, respiratory rate 20, blood pressure 100/56, mean not noted. Saturations are 96%. GENERAL: Appears in no acute distress. Currently sedated back following his brief spontaneous breathing trial. HEENT: Examination is grossly unremarkable. There is an orally placed endotracheal tube and NG tube. NECK: Supple. CARDIOVASCULAR: Examination reveals regular rhythm and rate. Heart rate mid 60s. Heart sounds are distant. S1, S2 normal. LUNGS: Reveal diffuse coarse rhonchi bilaterally. There are no wheezes or crackles. Breath sounds are diminished. ABDOMEN: Soft. EXTREMITIES: Are intact. Mild edema. SKIN: Without rash. NEUROLOGIC: Examination is difficult to assess. The patient is very lethargic and sleepy and not particularly awake even off of the propofol and fentanyl. X-RAY: The chest x-ray shows right-sided pleural effusion which appears to be loculated and bilateral dependent effusions. There is some basilar atelectasis as well. MICROBIOLOGY: Microbiologic studies thus far all negative. This includes bronch washings. LABS: Labs are reviewed. White count 5.4, hemoglobin 7.2, hematocrit 22.8, platelet count 338,000. Sodium 143, potassium 4.3, chloride 113, CO2 of 26. Anion gap is 4. BUN and creatinine were 39 and 0.90. Albumin 2.2. MEDICATIONS: Medications are reviewed. He appears to be on appropriate medications. ASSESSMENT: 1. Acute respiratory failure secondary to pneumonia and fluid overload, with re- intubation on May 14, 2019. 2. Squamous cell carcinoma of the right upper lobe, status post right upper lobectomy, postoperative day #18. 3. Right-sided pneumothorax, expected outcome after right upper lobectomy. 4. History of chronic and ongoing tobacco dependence of more than 40 years. 5. Prerenal azotemia. 6. Benign essential hypertension. 7. Sick sinus syndrome, status post pacemaker implantation. 8. Anxiety/depression. 9. Hyperlipidemia. 10.Bipolar disorder. 11.Postoperative paroxysmal atrial fibrillation. 12.Diastolic heart failure with fluid overload. 13.Possible hospital-acquired pneumonia, currently on Levaquin and Zosyn. 14.Status post bronchoscopy and BAL on May 14. 15.Failure to wean from mechanical ventilation. PLAN: Today I had a long talk with the daughter, Mary Jo. She is going to make a decision in the next day or so. She needs to talk to additional family members. I did tell her that the tracheostomy and PEG tube placement was no guarantee that he would ever come off of life support. The daughter understands that. She will get back with me in a day or so. The patient remains on the volume assist-control ventilation. Today he failed his weaning trial. He became very tachypneic, tachycardic, hypertensive, etc. We are going to stop the fentanyl. I will review his medications and DC unnecessary medications. Additional recommendations and suggestions are forthcoming. His overall prognosis remains poor. We will monitor the things closely until I get feedback from the daughter. CRITICAL CARE TIME: 36 minutes. JASON / AUGUSTUS: [id number] /
[2019-05-18 12:22] LABS: Glucose,Whole Blood 114 mg/dL (75-99)
[2019-05-18] MEDS: methylPREDNISolone SOD SUCCI 40 MG/ML 1 ML VIAL IV SCH ×2 (12:23→18:38)
[2019-05-18 18:46] LABS: Glucose,Whole Blood 147 mg/dL (75-99)
[2019-05-18] MEDS: HYDROmorphone 1 MG/ML 1 ML SYRINGE IVP PRN (20:05)
[2019-05-18] MEDS: DONEPEZIL 5 MG TAB PO SCH (20:13)
[2019-05-18] MEDS: ARIPiprazole 15 MG TAB PO SCH (20:13)
[2019-05-18] MEDS: DULoxetine HCL 60 MG CAPSULE.DR PO SCH (20:20)
[2019-05-18] MEDS: IPRATROPIUM-ALBUTEROL 3 ML NEB IH PRN (23:21)
[2019-05-19] MEDS: PROPOFOL 1,000 MG in EMPTY BAG 1 BAG IV SCH ×4 (00:18→22:37)
[2019-05-19] MEDS: INSULIN ASPART (NovoLOG) 100 UNIT/ML VIAL SQ SCH ×4 (00:35→19:17)
[2019-05-19] MEDS: methylPREDNISolone SOD SUCCI 40 MG/ML 1 ML VIAL IV SCH ×4 (00:35→19:16)
[2019-05-19] MEDS: HYDROmorphone 1 MG/ML 1 ML SYRINGE IVP PRN ×5 (00:39→20:59)
[2019-05-19] MEDS: IPRATROPIUM-ALBUTEROL 3 ML NEB IH PRN ×2 (03:09→23:13)
[2019-05-19] MEDS: SODIUM CHLORIDE 0.9% 1,000 ML IV SCH ×3 (03:30→20:39)
[2019-05-19 05:27] LABS: Allen Test Performed? Yes
[2019-05-19 05:28] LABS: ABG Base Excess 1.1 mmol/L; ABG HCO3 25 mmol/L (21-25); ABG PCO2 42 mmHg (35-45); ABG PO2 78 mmHg (83-108); ABG TCO2 10 mmol/L (19-24)
[2019-05-19 05:29] LABS: Basophils % (A) 0 %; Eosinophils % (A) 0 %; HGB 7.2 gm/dL (13.0-17.5); Hypochromasia Moderate; Lymphocytes # (A) 0.2 k/uL (1.0-4.8); Lymphocytes % (A) 4 %; MCH 28.9 pg (25.0-35.0); MCHC 31.4 g/dL (31.0-37.0); Mean Platelet Volume 8.2; Monocytes # (A) 0.3 k/uL (0-1.0); Monocytes % (A) 4 %; Neutrophils # (A) 6.3 k/uL (1.3-7.7); Neutrophils % (A) 91 %; Platelet Count 304 k/uL (150-450); RDW 15.7 % (11.5-15.5)
[2019-05-19 05:37] LABS: African American GFR (CKD) >90 (>60 ml/min/1.73 sqM); Anion Gap 4 mmol/L; Blood Urea Nitrogen 37 mg/dL (9-20); Calcium 7.7 mg/dL (8.4-10.2); Carbon Dioxide 26 mmol/L (22-30); Chloride 114 mmol/L (98-107); Glucose 151 mg/dL (74-99); Potassium 4.2 mmol/L (3.5-5.1); Sodium 144 mmol/L (137-145)
[2019-05-19 05:39] LABS: Glucose,Whole Blood 159 mg/dL (75-99)
[2019-05-19] MEDS: IPRATROPIUM-ALBUTEROL 3 ML NEB IH SCH ×4 (07:32→19:27)
[2019-05-19] MEDS: FORMOTEROL FUMARATE 20 MCG/2 ML NEBU INHALATION SCH ×2 (07:32→19:27)
[2019-05-19] MEDS: BUDESONIDE 1 MG/2 ML NEBU INHALATION SCH ×2 (07:32→19:27)
--- NOTE | 2019-05-19 08:57 | XR ---
EXAMINATION TYPE: XR chest 1V portable DATE OF EXAM: 05/19/2019 COMPARISON: 05/18/2019 HISTORY: Ventilatory dependent respiratory failure TECHNIQUE: Single frontal view of the chest is obtained. FINDINGS: There is slight increasing confluence of the left basilar opacity. Trace bilateral pleural effusions remain. Cardiomediastinal silhouette is enlarged. Endotracheal and enteric tubes are simil ar in position and appear appropriately placed. Multilead left-sided cardiac device is again noted. L oculated right apical pneumothorax is similar. Postsurgical changes of the gastroesophageal junction. Generalized osseous demineralization. IMPRESSION: 1. Increasing confluence of a left basilar opacity with air bronchograms that may represent pneumonia . 2. Stable trace pleural effusions and loculated right apical pleural effusion.
[2019-05-19 09:01] LABS: Glucose,Whole Blood 171 mg/dL (75-99)
--- NOTE | 2019-05-19 09:05 | PN ---
PROGRESS NOTE DATE OF SERVICE: 05/19/2019 CRITICAL CARE TIME: 33 minutes. This is a patient who was admitted back on April 30. He came with a mass in the right upper lobe, 2.5 cm. He underwent a right upper lobectomy by Dr. Brock. Subsequent to that, he was doing reasonably well and then for some unclear reasons, possibly aspiration, on May 14 he developed acute respiratory failure and was reintubated. Yesterday we gave him a daily interruption of sedation with a spontaneous breathing trial. Although gas exchange was reasonable, he became very tachypneic and tachycardic and hypertensive. I did spend about 25-30 minutes with the daughter, Mary Jo on the phone. I gave her a couple of options including removal from life support with comfort measures versus long-term mechanical ventilatory support with eventual tracheostomy and PEG tube placement. She was going to talk to the family and make a decision in the next day or so. I did speak with Dr. Brock about the patient. He was hoping that we could just give the patient another trial of extubation. I am very leery of that because yesterday when he was off sedation and breathing spontaneously, although gas exchange was reasonable, his vital signs were very unstable and he was not particularly alert and I do not believe he could protect his airway. Anyway, I will not do anything until I have a chance to speak to the daughter again. Currently, his vent settings are the assist-control mode rate of 20, tidal volume 450, FiO2 of 40%, PEEP of 5. Blood gases show a pO2 of 78, pCO2 of 42, and a pH of 7.40. The patient is getting saline at 75 mL an hour, propofol at 50 mcg/kg per minute and Vital high-protein at 42 with a goal of 42 mL an hour. His night last night was uneventful according to the nurse. PHYSICAL EXAMINATION: Current vital signs are reviewed. Temperature is 98.5, heart rate is 60, respiratory rate is 20, blood pressure 117/50, saturations are 96%. Patient appears in no acute distress, he is currently sedated. HEENT: Examination is grossly unremarkable. Mucous membranes are moist. No oral lesions. There is an orally placed endotracheal tube and NG tube. NECK: Supple. Full range of motion. No adenopathy. Neck veins are flat. No thyromegaly. CARDIOVASCULAR: Examination reveals regular rhythm and rate. Heart rate in the mid 60s. S1, S2 normal. No S3, S4, or murmur. Heart sounds are distant. LUNGS: Reveal some coarse rhonchi. Breath sounds equal. No crackles. No wheezes. ABDOMEN: Soft. Bowel sounds are heard. EXTREMITIES: Intact. No cyanosis, clubbing, or edema. SKIN: Without rash. NEUROLOGIC: Examination is difficult to assess given the patient is on propofol. Yesterday, off propofol he was very lethargic and somnolent. Poorly responsive. I did not look like he could protect his airway, if extubated. CURRENT LAB DATA: Includes a white count of 7, hemoglobin 7.2, hematocrit 23, platelet count 304,000, sodium 144, potassium 4.2, chloride is 114, CO2 is 26, anion gap is 4, BUN and creatinine were 37 and 0.84. Calcium 7.7. C. diff was negative. Microbiologic studies including bronchial washings were negative. Medications are reviewed. Currently, they seem appropriate. ASSESSMENT: 1. Acute respiratory failure secondary to pneumonia, possibly aspiration and fluid overload, with re-intubation on May 14, 2019 and subsequent failure to wean. 2. Squamous cell carcinoma of the right upper lobe, status post right upper lobectomy, postop day #19. 3. Right-sided pneumothorax, expected outcome after right upper lobectomy. 4. History of chronic and ongoing tobacco dependence of more than 40 years. 5. Prerenal azotemia. 6. Benign essential hypertension. 7. Sick sinus syndrome, status post pacemaker implantation. 8. Anxiety/depression. 9. Hyperlipidemia. 10.Bipolar disorder. 11.Postoperative paroxysmal atrial fibrillation. 12.Diastolic heart failure with fluid overload. 13.Possible hospital-acquired pneumonia, currently on Levaquin and Zosyn. 14.Status post bronchoscopy and BAL on May 14. 15.Failure to wean from mechanical ventilation. PLAN: I had a long talk with Mary Jo yesterday. I gave her a couple of options. She is going to speak to the family members and get back with us. I told her there was no dias and there was no decision that had to be forced upon them. I did speak to Dr. Brock as well. He would have nothing against doing a tracheostomy and PEG tube placement eventually, but would like to trial the patient with extubation. I will not do anything until I did speak to the daughter again. The patient is currently sedated. He is receiving nutrition. His overall prognosis is poor. Yesterday on the spontaneous breathing trial, although gas exchange is reasonable, his vital signs are very unstable including rapid respiratory rate, rapid heart rate and quite elevated blood pressure over 200. His mental status was also very poor and I do not believe he could protect his airway post extubation. Additional recommendations and suggestions forthcoming. CRITICAL CARE TIME: 33 minutes. JASON / AUGUSTUS: [id number] /
[2019-05-19] MEDS: CHLORHEXIDINE GLUCONATE 15 ML CUP MUCOUS MEM SCH ×2 (09:22→20:50)
[2019-05-19] MEDS: PANTOPRAZOLE 40 MG/10 ML VIAL IVP SCH ×2 (09:22→20:51)
[2019-05-19] MEDS: APIXABAN 5 MG TAB PO SCH ×2 (09:24→20:52)
[2019-05-19] MEDS: LEVOFLOXACIN 750MG-D5W PMX 750 MG in DEXTROSE/WATER 1 150ML.BAG IVPB SCH (09:24)
[2019-05-19] MEDS: AMIODARONE 200 MG TAB PO SCH ×2 (09:24→20:50)
[2019-05-19] MEDS: METOPROLOL TARTRATE 25 MG TAB PO SCH ×3 (09:24→20:50)
[2019-05-19] MEDS: BISACODYL 10 MG SUPP RECTAL SCH (09:58)
--- NOTE | 2019-05-19 10:56 | P.PN ---
Subjective Progress Note Date: 05/19/19 Principal diagnosis: Squamous cell carcinoma right upper lobe, history of hypertension, hyperlipidemia, bipolar disorder, history of sick sinus syndrome status post permanent pacemaker implantation in May 2011, coronary artery disease status post circumflex flex coronary artery stenting in 2017, anxiety, depression, chronic obstructive pulmonary disease, gastroesophageal reflux disease and tobacco dependence with a 40 pack year smoking history. POD #19 right thoracoscopic, robotic assisted thorascopic right upper lobectomy with mediastinal lymph node dissection, fiberoptic bronchoscopy. Postoperative acute blood loss anemia, an expected outcome. Postoperative paroxysmal atrial fibrillation and on expected outcome. Postoperative right-sided pneumothorax with prolonged air leak, expected and inherent to this type of surgery Leukocytosis, suspect postobstructive pneumonia, resolved Hypotension, status post fluid administration, necessitating IV norepinephrine, unexpected Postoperative hypoxemic respiratory failure secondary to hospital-acquired pneumonia, requiring reintubation and mechanical ventilator support. POD #5 bedside bronchoscopy and bronchoalveolar lavage of the left upper lobe, right middle lobe and right lower lobe performed by Dr. Soliman The patient is currently lying in bed in the intensive care unit. He is in no acute distress. He remains intubated with mechanical ventilator support, oxygen saturations are 96% on current ventilator settings of AC 20, TV 450, FiO2 40% and PEEP of 5. He is sedated on propofol drip at 50 mcg/kg/m the fentanyl drip has been weaned off. He remains hemodynamically stable and is currently on no inotropic or pressor support. Castorena catheter remains in place draining clear yellow urine with 420 mL output in the last 8 hours. Antibiotics are in place Levaquin and the Zosyn has been discontinued. He remains afebrile. A weaning trial on the mechanical ventilator was attempted yesterday by Dr. Oliveira, the patient's gas exchange was reasonable per his blood gases although the patient's blood pressure and heart rate were elevated during his weaning trial. The patient's daughter Mary Jo will be here today and has a scheduled appointment to meet with Dr. Oliveira from critical care medicine regarding his treatment plan. Objective - Vital Signs Vital signs: Vital Signs Temp 98.3 F 05/19/19 08:00 Pulse 60 05/19/19 10:00 Resp 20 05/19/19 10:00 BP 108/73 05/18/19 12:00 Pulse Ox 99 05/19/19 10:00 Intake & Output 05/18/19 05/19/19 05/19/19 18:59 06:59 18:59 Intake Total 1368 1948.536 117 Output Total 690 725 45 Balance 678 1223.536 72 Weight 74.6 kg 78.2 kg Intake: IV 906 900 75 Sodium Chloride 0.9% 1, 675 900 75 000 ml @ 75 mls/hr IV . [id number] [facility]ORAN Rx#:[id number] fentaNYL (PF) 1,000 mcg 231 In Sodium Chloride 0.9% 80 ml @ 0.4 MCG/KG/HR 2. 94 mls/hr IV .Q24H ZORAN Rx #:[id number] Intake, IV Titration 286.536 Amount Propofol 1,000 mg In 286.536 Empty Bag 1 bag @ Titrate IV .Q0M ZORAN Rx#: [id number] Tube Feeding 372 672 42 Other 90 90 Output: Urine 690 725 45 Other: Voiding Method Indwelling Catheter Indwelling Catheter # Bowel Movements 2 ABP, PAP, CO, CI - Last Documented Arterial Blood Pressure 158/64 - Constitutional Constitutional Comment(s): Sedated with propofol drip at 50 mcg/kg/m. General appearance: Present: no acute distress - Respiratory Details: Lung sounds essentially clear to his bilateral upper lobes, few scattered crackles to his right lower lobe. Respirations are symmetrical and nonlabored with mechanical ventilator support. Current mechanical ventilator settings are as follows: AC 20, TV 450, FiO2 40%, PEEP 5. Oxygen saturation is 96% on current mechanical ventilator settings. - Cardiovascular Details: Regular rhythm and rate. S1 and S2 present, negative for S3, gallop or murmur. Knee-high ABNER hose and sequential compression devices in place to bilateral l ower extremities. - Gastrointestinal Gastrointestinal Comment(s): Abdomen soft, nontender and nondistended. Active bowel sounds present all 4 abdominal quadrants. No guarding or rigidity. No organomegaly. OG tube in place with vital high-protein to feeding infusing at goal rate 42 mL per hour. Occasional loose stool - Genitourinary Genitourinary Comment(s): Castorena catheter for accurate I&O draining clear yellow urine. - Integumentary Integumentary Comment(s): Skin is warm and dry. No clubbing or cyanosis is present. Right thoracoscopic incision sites clean, dry and approximated. No drainage or redness is present. - Neurologic Neurologic Comment(s): Sedated with propofol drip at 50 mcg/kg/m. Neurologic: Present: CNII-XII intact - Musculoskeletal Musculoskeletal Comment(s): Sedated with propofol drip at 50 mcg/kg/m. - Psychiatric Psychiatric Comment(s): Sedated with propofol drip at 50 mcg/kg/m. - Allied health notes Allied health notes reviewed: nursing - Labs CBC & Chem 7: 05/19/19 05:15 05/19/19 05:15 Labs: Abnormal Lab Results - Last 24 Hours (Table) 05/18/19 05/18/19 05/19/19 Range/Units 12:11 18:33 00:02 RBC (4.30-5.90) m/uL Hgb (13.0-17.5) gm/dL Hct (39.0-53.0) % RDW (11.5-15.5) % Lymphocytes # (1.0-4.8) k/uL ABG pO2 (83-108) mmHg ABG Total CO2 (19-24) mmol/L ABG O2 Saturation (94-97) % Chloride (98-107) mmol/L BUN (9-20) mg/dL Glucose (74-99) mg/dL POC Glucose (mg/dL) 114 H 147 H 171 H (75-99) mg/dL Calcium (8.4-10.2) mg/dL 05/19/19 05/19/19 05/19/19 Range/Units 05:11 05:15 05:15 RBC 2.50 L (4.30-5.90) m/uL Hgb 7.2 L (13.0-17.5) gm/dL Hct 23.0 L (39.0-53.0) % RDW 15.7 H (11.5-15.5) % Lymphocytes # 0.2 L (1.0-4.8) k/uL ABG pO2 78 L (83-108) mmHg ABG Total CO2 10 L (19-24) mmol/L ABG O2 Saturation 98.0 H (94-97) % Chloride 114 H (98-107) mmol/L BUN 37 H (9-20) mg/dL Glucose 151 H (74-99) mg/dL POC Glucose (mg/dL) (75-99) mg/dL Calcium 7.7 L (8.4-10.2) mg/dL 05/19/19 Range/Units 05:28 RBC (4.30-5.90) m/uL Hgb (13.0-17.5) gm/dL Hct (39.0-53.0) % RDW (11.5-15.5) % Lymphocytes # (1.0-4.8) k/uL ABG pO2 (83-108) mmHg ABG Total CO2 (19-24) mmol/L ABG O2 Saturation (94-97) % Chloride (98-107) mmol/L BUN (9-20) mg/dL Glucose (74-99) mg/dL POC Glucose (mg/dL) 159 H (75-99) mg/dL Calcium (8.4-10.2) mg/dL - Imaging and Cardiology Chest x-ray: report reviewed, image reviewed Assessment and Plan Assessment: 1. Squamous cell carcinoma right upper lobe, status post right upper lobectomy 2. Hypertension 3. Hyperlipidemia 4. Bipolar disorder 5. History of sick sinus syndrome status post permanent pacemaker implantation May 2011 6. Coronary artery disease status post circumflex coronary artery stenting in 2017 7. Anxiety 8. History of depression 9. Chronic proximal pulmonary disease 10. Gastroesophageal reflux disease 11. Chronic tobacco dependence, [id number]-hryo smoking history 12. Postoperative acute blood loss anemia, an expected outcome 13. Postoperative paroxysmal atrial fibrillation and an expected outcome 14. Postoperative right-sided pneumothorax with prolonged air leak, resolved 15. Leukocytosis, pneumonia, unexpected 16. Hypotension, status post fluid resuscitation, necessitating IV norepinephrine 17. Postoperative hypoxemic respiratory failure, requiring reintubation and mechanical ventilator support. 18. History of sick sinus syndrome, status post pacemaker implantation Plan: 1. Zosyn discontinued per Dr. Oliveira. Continue Levaquin as ordered. 2. Mechanical ventilator and propofol drip management per critical care medicine. May try Precedex drip with mechanical ventilator weaning. 3. GI and DVT prophylaxis. 4. Bronchodilators and Solu-Medrol management per pulmonary medicine. 5. Pain control per current when necessary orders. 6. Continue Eliquis 5 mg by mouth twice a day for anticoagulation due to his paroxysmal atrial fibrillation. 7. CPAP weaning trials per Dr. Oliveira. 8. Continue amiodarone 200 mg by mouth twice a day for atrial fibrillation prophylaxis per cardiology's recommendations. 9. Continue to monitor daily labs and chest x-rays 10. Continue tube feedings vital high-protein at goal rate of 42 milliliters per hour per dietitian's recommendations. 11. Stool for C-diff. Negative 12. More recommendations to follow based on patient's clinical course. Time with Patient: Greater than 30
[2019-05-19] MEDS: DEXMEDETOMIDINE/0.9% NACL(PMX) 400 MCG in EMPTY BAG 1 BAG IV SCH ×2 (11:25→16:36)
[2019-05-19 12:03] LABS: Glucose,Whole Blood 148 mg/dL (75-99)
[2019-05-19 12:45] LABS: ABG HCO3 27 mmol/L (21-25); ABG Oxygen Saturation 98.2 % (94-97); ABG PCO2 42 mmHg (35-45); ABG PH 7.43 (7.35-7.45); ABG PO2 104 mmHg (83-108); ABG TCO2 29 mmol/L (19-24)
[2019-05-19] MEDS: CLEVIDIPINE BUTYRATE 25 MG in EMPTY BAG 1 BAG IV SCH ×2 (14:27→16:37)
[2019-05-19] MEDS: KETOROLAC 30 MG/ML 1 ML VIAL IVP SCH (16:39)
[2019-05-19 18:38] LABS: Glucose,Whole Blood 96 mg/dL (75-99)
[2019-05-19 19:22] LABS: ABG HCO3 27 mmol/L (21-25); ABG Oxygen Saturation 99.8 % (94-97); ABG PCO2 35 mmHg (35-45); ABG PO2 311 mmHg (83-108); ABG TCO2 28 mmol/L (19-24); Allen Test Performed? Yes
--- NOTE | 2019-05-19 20:12 | XR ---
EXAMINATION: XR chest 1V portable DATE AND TIME: 05/19/2019 7:05 PM CLINICAL INDICATION: PHH; Tube placement TECHNIQUE: Portable Ap Semiupright COMPARISON: 05/19/1990 5:53 AM, Portable Ap Semiupright FINDINGS: ET tube tip superimposed over the mid trachea. NG tube courses over the thoracic esophagus and stomac h. Cardiac pacemaker and EKG leads. The previously described pulmonary pleural findings are unchanged. There is no new chest process. IMPRESSION: STABLE RADIOGRAPHIC APPEARANCE; NO NEW FINDINGS.
[2019-05-19] MEDS ORDERED: CHLORHEXIDINE GLUCONATE 15 ML CUP MUCOUS MEM ONE (20:20)
[2019-05-19] MEDS: DULoxetine HCL 60 MG CAPSULE.DR PO SCH (20:50)
[2019-05-19] MEDS: DONEPEZIL 5 MG TAB PO SCH (20:50)
[2019-05-19] MEDS: ARIPiprazole 15 MG TAB PO SCH (20:50)
[2019-05-20 00:04] LABS: Glucose,Whole Blood 122 mg/dL (75-99)
[2019-05-20] MEDS: INSULIN ASPART (NovoLOG) 100 UNIT/ML VIAL SQ SCH ×5 (00:06→23:43)
[2019-05-20] MEDS: KETOROLAC 30 MG/ML 1 ML VIAL IVP SCH ×3 (00:11→11:20)
[2019-05-20] MEDS: methylPREDNISolone SOD SUCCI 40 MG/ML 1 ML VIAL IV SCH ×5 (00:12→23:34)
[2019-05-20] MEDS: HYDROmorphone 1 MG/ML 1 ML SYRINGE IVP PRN ×6 (01:58→21:09)
[2019-05-20] MEDS: PROPOFOL 1,000 MG in EMPTY BAG 1 BAG IV SCH ×5 (03:59→19:57)
[2019-05-20 05:35] LABS: ALT 28 U/L (21-72); AST 25 U/L (17-59); African American GFR (CKD) >90 (>60 ml/min/1.73 sqM); Alkaline Phosphatase 71 U/L (38-126); Anion Gap 2 mmol/L; Anisocytosis Slight; Basophils % (A) 0 %; Blood Urea Nitrogen 33 mg/dL (9-20); Calcium 7.5 mg/dL (8.4-10.2); Carbon Dioxide 27 mmol/L (22-30); Chloride 114 mmol/L (98-107); Eosinophils % (A) 0 %; Glucose 122 mg/dL (74-99); HCT 21.2 % (39.0-53.0); Hypochromasia Slight; Lymphocytes # (A) 0.2 k/uL (1.0-4.8); Lymphocytes % (A) 3 %; MCHC 31.6 g/dL (31.0-37.0); MCV 91.9 fL (80.0-100.0); Mean Platelet Volume 7.2; Monocytes # (A) 0.2 k/uL (0-1.0); Monocytes % (A) 3 %; Neutrophils # (A) 8.2 k/uL (1.3-7.7); Neutrophils % (A) 94 %; Platelet Count 280 k/uL (150-450); Potassium 4.1 mmol/L (3.5-5.1); RDW 16.4 % (11.5-15.5); Sodium 143 mmol/L (137-145); Total Bilirubin 0.2 mg/dL (0.2-1.3); WBC 8.7 k/uL (3.8-10.6)
[2019-05-20] MEDS: SODIUM CHLORIDE 0.9% 1,000 ML IV SCH ×2 (06:02→16:02)
[2019-05-20 06:12] LABS: ABG PCO2 40 mmHg (35-45); ABG PH 7.45 (7.35-7.45); ABG PO2 103 mmHg (83-108); Allen Test Performed? Yes
[2019-05-20 06:13] LABS: ABG Base Excess 3.9 mmol/L; ABG HCO3 38 mmol/L (21-25); ABG TCO2 29 mmol/L (19-24)
[2019-05-20 06:19] LABS: HGB 6.7 gm/dL (13.0-17.5)
[2019-05-20 06:28] LABS: Glucose,Whole Blood 140 mg/dL (75-99)
[2019-05-20] MEDS: FORMOTEROL FUMARATE 20 MCG/2 ML NEBU INHALATION SCH ×2 (07:33→19:08)
[2019-05-20] MEDS: IPRATROPIUM-ALBUTEROL 3 ML NEB IH SCH ×4 (07:33→19:08)
[2019-05-20] MEDS: BUDESONIDE 1 MG/2 ML NEBU INHALATION SCH ×2 (07:33→19:08)
--- NOTE | 2019-05-20 08:07 | XR ---
EXAMINATION TYPE: XR chest 1V portable DATE OF EXAM: 05/20/2019 COMPARISON: 05/19/2019 INDICATION: Tube placement TECHNIQUE: Single frontal view of the chest is obtained. FINDINGS: The heart size is normal. The pulmonary vasculature is normal. Right perihilar infiltrate is better visualized on the current exam. Mild bibasilar infiltrates are p resent and a be slightly worsened at the left base. Endotracheal tube tip remains above the [place]. This may have advanced somewhat from the comparison s tudy. Nasogastric transverses the thorax with tip in left upper quadrant of the abdomen. Electronic d evice overlies the chest. Right apical thickening remains present. IMPRESSION: 1. Right perihilar and left lower lobe infiltrate. Tiny follow-up is recommended. 2. Multiple lines and catheters discussed above
[2019-05-20] MEDS: AMIODARONE 200 MG TAB PO SCH ×3 (08:19→20:32)
[2019-05-20] MEDS: PANTOPRAZOLE 40 MG/10 ML VIAL IVP SCH ×2 (08:19→20:27)
[2019-05-20] MEDS: CHLORHEXIDINE GLUCONATE 15 ML CUP MUCOUS MEM SCH ×2 (08:19→20:27)
[2019-05-20] MEDS: METOPROLOL TARTRATE 25 MG TAB PO SCH (08:19)
[2019-05-20] MEDS: LEVOFLOXACIN 750MG-D5W PMX 750 MG in DEXTROSE/WATER 1 150ML.BAG IVPB SCH (08:19)
--- NOTE | 2019-05-20 10:16 | PN ---
PROGRESS NOTE DATE OF SERVICE: 05/20/2019 CRITICAL CARE TIME: 33 minutes. This is a patient who was admitted back on April 30. He came in with a mass in the right upper lobe that was 2.5 cm in size. He underwent a right upper lobectomy by Dr. Brock and initially was doing reasonably well. For unclear reasons, maybe aspiration, he developed acute hypoxemic respiratory failure and required re-intubation on May 14. After discussing the case with Dr. Brock and thoroughly yesterday, we decided to give the patient another daily interruption of sedation with a spontaneous breathing trial. On the day prior, we did the same thing and he did very poorly and I was not very confident that he was going to be ready for extubation. Anyway, on his daily interruption of sedation and spontaneous breathing trial, he had reasonable parameters and a reasonable blood gas. His mental status was slightly improved but not great. Anyway, we went ahead and extubated the patient. Shortly thereafter, he developed agitation and confusion. His vital signs became unstable with tachycardia and hypertension. He was quite tachypneic. We attempted BiPAP therapy as a bridge. That was unsuccessful and we decided to and reintubate the patient. I did pass it on to Dr. Brock and the plan is to go ahead and do a tracheostomy today. Surgery will have to see him for a PEG tube placement down the road. We are also going to get [facility] involved as I think that is where he will end up. Currently, he is back on his prior settings. The volume assist-control modality at 20, tidal volume 450, FiO2 of 40%, PEEP of 5. Blood gases show a pO2 of 103, pCO2 of 40 and a pH of 7.45. Blood gases are consistent with metabolic alkalosis. He is on Diprivan at 40 mcg/kg per minute and a saline IV at 75 mL an hour. He has also received this morning 1 unit of PRBCs. I did ask the nurse to get the Interventional Radiology in to do a PICC line. Current vital signs are reviewed, temperature 97.9, heart rate 60, respiratory rate 20, blood pressure 105/71 with a mean of 82, saturations are in the mid to high 90s. Appears in no acute distress. HEENT: Examination is grossly unremarkable. An oral endotracheal tube and NG tube are noted. NECK: Supple. Full range of motion. No adenopathy. CARDIOVASCULAR: Examination reveals regular rhythm and rate. Heart rate is 60. S1, S2 normal. Heart sounds are distant. No distinct murmurs noted. LUNGS: Reveal mostly clear breath sounds. A few scattered rhonchi. No wheezes or crackles. ABDOMEN: Soft. EXTREMITIES: Intact. No cyanosis, clubbing, or edema. SKIN: Without rash. There are areas of ecchymoses. NEUROLOGIC: Examination is difficult to evaluate as he is sedated heavily. When he was awake yesterday, he did move all 4 extremities. His mental status was poor, though. Microbiologic studies including bronchial washes and blood cultures have been negative. LABORATORY DATA: Includes a white count 8.7, hemoglobin 6.7, hematocrit 21.2, platelet count 380,000. Sodium 143, potassium 4.1, chloride is 114, CO2 is 27, anion gap 2. BUN and creatinine were 33 and 0.81. Albumin 2.0. Medications will be reviewed. Chest x-ray shows some bibasilar atelectasis. Medications as I mentioned will be reviewed. ASSESSMENT: 1. Acute respiratory failure secondary to suspected aspiration pneumonia, with re- intubation on May 14, 2019 with subsequent failure to wean. 2. Squamous cell carcinoma of the right upper lobe, status post right upper lobectomy, postoperative day #20. 3. Status post failed extubation on May 19, with re-intubation on May 19. 4. Right-sided pneumothorax, expected outcome after right upper lobectomy. 5. History of chronic and ongoing tobacco dependence, more than 40 years. 6. Prerenal azotemia. 7. Benign essential hypertension. 8. Sick sinus syndrome, status post pacemaker insertion. 9. Anxiety/depression. 10.Hyperlipidemia. 11.Bipolar disorder. 12.Postoperative paroxysmal atrial fibrillation. 13.Diastolic heart failure with fluid overload. 14.Possible hospital-acquired pneumonia, currently on Levaquin and Zosyn. 15.Status post bronchoscopy and BAL on May 14. 16.Failure to wean from mechanical ventilation and failed extubation on May 19, as mentioned above. PLAN: We have had long discussions with the family. I also spoke in detail with Dr. Brock. We gave the patient a trial of extubation, but unfortunately he failed. The patient will have a tracheostomy performed today. His overall prognosis remains very guarded. I think he will probably end up at [facility]. Will put in the referral. The patient will need to be started back on tube feeds after the tracheostomy. He eventually will need a PEG tube placement by surgery. I have already alerted Sandra and Valdemar in Thoracic Surgery. I asked Dr. Brock, who he prefers to do this procedure. Additional recommendations and suggestions are forthcoming. Also, a PICC line will be placed. MMODL / IJN: [id number] / MTDD
[2019-05-20 11:29] LABS: Glucose,Whole Blood 118 mg/dL (75-99)
[2019-05-20] MEDS ORDERED: fentaNYL (PF) 50 MCG/ML 2 ML AMP ONE (11:52)
[2019-05-20] MEDS ORDERED: LACTATED RINGERS 1,000 ML IV ONE (12:02)
--- NOTE | 2019-05-20 12:44 | P.OP ---
Date of Procedure: 05/20/19 Preoperative Diagnosis: Postoperative respiratory failure Postoperative Diagnosis: Same Procedure(s) Performed: Tracheostomy Implants: 8MM Shiley cuffed tracheostomy Anesthesia: SIDDHARTHA Surgeon: Rhys Brock [employer] Supervisor #1: Bigg Campos Estimated Blood Loss (ml): 2 IV fluids (ml): 200 Urine output (ml): 0 Pathology: none sent Condition: stable Disposition: ICU Indications for Procedure: 69-year-old male underwent right upper lobectomy for stage I lung cancer on . Postoperative course was remarkable for prolonged air leak. After about 10 days air leak was sealed however the patient developed bilateral infiltrates and respiratory insufficiency likely secondary to aspiration. This progressed to solid aspiration pneumonia and eventually the patient required intubation. Chest tube had been removed. The lung did improve on antibiotic therapy but the patient could not be weaned off the ventilator. Tracheostomy was requested by Dr. Oliveira. Operative Findings: Normal-appearing trachea. Moderate secretions present within the trachea. Description of Procedure: Patient was brought to the operating room and placed supine on the operating table. Gen. anesthesia was induced. The endotracheal tube was freed. The anterior neck was sterilely prepped and draped. Incision was made through the old low neck incision and carried down through skin and subcutaneous tissue to the midline. Was continued vertically in the midline between the strap muscles. The pretracheal plane was encountered. Dissection was carried along the pretracheal plane. A Cook was placed beneath the second tracheal cartilage and the third and fourth tracheal cartilages were opened in the midline. The trach diesel maintenance technician was placed and the endotracheal tube withdrawn under direct vision. A Georgian cuffed Shiley tracheostomy was placed without difficulty. This was immediately connected to the ventilator and the balloon inflated. Good entered was noted. There were moderate thick secretions present within the tracheal and these were suctioned out. Tracheostomy tube was secured with 4 sutures of 0 Prolene suture. Tracheostomy dressing and trach ties were applied. Dressings were removed and patient was transferred back to ICU.
--- NOTE | 2019-05-20 15:23 | XR ---
EXAMINATION TYPE: XR chest 1V portable DATE OF EXAM: 05/20/2019 COMPARISON: 05/20/2019 earlier exam INDICATION: Tracheostomy tube placement TECHNIQUE: Single frontal view of the chest is obtained. FINDINGS: The heart size is normal. The pulmonary vasculature is normal. Right perihilar infiltrate is present. Small right pleural effusion and adjacent infiltrate may be pr esent. Minimal infiltrate is present at the left base. Right apical thickening remains present. There is placement of a tracheostomy tube with tip above the [place]. IMPRESSION: 1. Interval placement of a tracheostomy tube 2. Left lung findings have improved over the interval. 3. Right perihilar infiltrate lung findings appear stable
[2019-05-20 17:22] LABS: Glucose,Whole Blood 105 mg/dL (75-99)
[2019-05-20] MEDS: METOPROLOL TARTRATE 5 MG/5 ML VIAL IVP SCH ×2 (17:44→23:34)
[2019-05-20] MEDS: DULoxetine HCL 60 MG CAPSULE.DR PO SCH (20:24)
[2019-05-20] MEDS: ARIPiprazole 15 MG TAB PO SCH ×2 (20:27→20:32)
[2019-05-20] MEDS: DONEPEZIL 5 MG TAB PO SCH ×2 (20:27→20:32)
[2019-05-20] MEDS ORDERED: HEPARIN SODIUM,PORCINE 5,000 UNIT/ML 1 ML VIAL ONE (21:46)
[2019-05-20 23:55] LABS: Glucose,Whole Blood 85 mg/dL (75-99)
[2019-05-21] MEDS: HYDROmorphone 1 MG/ML 1 ML SYRINGE IVP PRN ×4 (01:39→13:26)
[2019-05-21 04:01] LABS: ALT 21 U/L (21-72); AST 23 U/L (17-59); African American GFR (CKD) >90 (>60 ml/min/1.73 sqM); Albumin 2.1 g/dL (3.5-5.0); Alkaline Phosphatase 73 U/L (38-126); Anion Gap 2 mmol/L; Blood Urea Nitrogen 33 mg/dL (9-20); Calcium 7.6 mg/dL (8.4-10.2); Carbon Dioxide 27 mmol/L (22-30); Chloride 114 mmol/L (98-107); Glucose 120 mg/dL (74-99); Potassium 4.2 mmol/L (3.5-5.1); Sodium 143 mmol/L (137-145); Total Bilirubin 0.3 mg/dL (0.2-1.3); Total Protein 4.1 g/dL (6.3-8.2)
[2019-05-21] MEDS: PROPOFOL 1,000 MG in EMPTY BAG 1 BAG IV SCH ×4 (04:03→23:59)
[2019-05-21] MEDS: SODIUM CHLORIDE 0.9% 1,000 ML IV SCH ×3 (04:04→23:59)
[2019-05-21 04:20] LABS: HCT 26.4 % (39.0-53.0); Hypochromasia Slight; MCH 29.5 pg (25.0-35.0); MCHC 32.1 g/dL (31.0-37.0); MCV 91.8 fL (80.0-100.0); Platelet Count 218 k/uL (150-450); Poikilocytosis Slight; RBC 2.88 m/uL (4.30-5.90); RDW 15.9 % (11.5-15.5); WBC 10.1 k/uL (3.8-10.6)
[2019-05-21 04:24] LABS: HGB 8.5 gm/dL (13.0-17.5)
[2019-05-21 05:01] LABS: ABG Base Excess 3.1 mmol/L; ABG HCO3 27 mmol/L (21-25); ABG Oxygen Saturation 98.8 % (94-97); ABG PCO2 38 mmHg (35-45); ABG PH 7.46 (7.35-7.45); ABG PO2 117 mmHg (83-108); ABG TCO2 28 mmol/L (19-24)
[2019-05-21 05:08] LABS: Allen Test Performed? no
[2019-05-21] MEDS: methylPREDNISolone SOD SUCCI 40 MG/ML 1 ML VIAL IV SCH ×4 (05:10→23:14)
[2019-05-21] MEDS: METOPROLOL TARTRATE 5 MG/5 ML VIAL IVP SCH ×2 (05:10→13:25)
[2019-05-21] MEDS: INSULIN ASPART (NovoLOG) 100 UNIT/ML VIAL SQ SCH ×4 (05:23→23:14)
[2019-05-21 05:26] LABS: Glucose,Whole Blood 72 mg/dL (75-99)
[2019-05-21] MEDS: BUDESONIDE 1 MG/2 ML NEBU INHALATION SCH ×2 (07:27→19:52)
[2019-05-21] MEDS: FORMOTEROL FUMARATE 20 MCG/2 ML NEBU INHALATION SCH ×2 (07:27→19:52)
[2019-05-21] MEDS: IPRATROPIUM-ALBUTEROL 3 ML NEB IH SCH ×4 (07:28→19:52)
--- NOTE | 2019-05-21 07:47 | P.PN ---
Subjective Progress Note Date: 05/21/19 Principal diagnosis: Squamous cell carcinoma right upper lobe. Previous medical history of tobacco dependence with [id number] history, chronic obstructive pulmonary disease, hyp ertension, hyperlipidemia, coronary artery disease status post stenting to the circumflex coronary artery in 2016, sick sinus syndrome status post permanent pacemaker placement in 2010, bipolar disorder/anxiety/depression, and gastroesophageal reflux disease. POD #21 right thoracoscopy, robotic assisted thorascopic right upper lobectomy with mediastinal lymph node dissection, fiberoptic bronchoscopy. Postoperative acute blood loss anemia, expected Postoperative paroxysmal atrial fibrillation, unexpected Postoperative right-sided pneumothorax with prolonged air leak, expected and inherent to this type of surgery Leukocytosis, suspect postobstructive pneumonia, unexpected Hypotension, status post fluid administration, necessitating IV levo, unexpected Postoperative hypoxemic respiratory failure, necessitating initiation of BiPAP, unexpected POD #7 bedside bronchoscopy and bronchoalveolar lavage of the left upper lobe, right middle lobe and right lower lobe performed by Dr. Soliman POD #1 tracheostomy placement with 8 mm Shiley cuffed tracheostomy tube The patient is currently laying in bed in the intensive care unit in no acute distress. Currently maintained on mechanical ventilation through the tracheostomy. Sedated with propofol but does open his eyes and nods his head yes and shakes head no. Hemodynamically stable on no inotropes or pressors, however blood pressure has been high at times, relieved with IV pain medication. Remains in normal sinus rhythm. Objective - Vital Signs Vital signs: Vital Signs Temp 98 F 05/21/19 04:00 Pulse 59 L 05/21/19 07:00 Resp 29 H 05/21/19 07:00 BP 152/81 05/20/19 21:00 Pulse Ox 97 05/21/19 07:00 Intake & Output 05/20/19 05/21/19 05/21/19 18:59 06:59 18:59 Intake Total 5403.396 7116.371 75 Output Total 440 453 45 Balance 1256.138 609.371 30 Weight 81.1 kg Intake: IV 1075 825 75 Levofloxacin 750Mg-D5w 150 Pmx 750 mg In Dextrose/ Water 1 150ml.bag @ 100 mls/hr IVPB Q24H [facility] Rx#: [id number] Sodium Chloride 0.9% 1, 525 825 75 000 ml @ 75 mls/hr IV . [id number] [facility]AN Rx#:[id number] Intake, IV Titration 251.138 237.371 Amount Propofol 1,000 mg In 251.138 237.371 Empty Bag 1 bag @ Titrate IV .Q0M [facility] Rx#: [id number] Oral 60 Blood Product 310 Rc As-1 Unit 310 [id number] Output: Urine 435 453 45 Estimated Blood Loss 5 Other: Voiding Method Indwelling Catheter Indwelling Catheter # Voids 1 ABP, PAP, CO, CI - Last Documented Arterial Blood Pressure 163/74 - Constitutional General appearance: Present: cooperative, no acute distress - Respiratory Details: Lungs sounds diminished bilaterally. Respirations even, nonlabored on mechanical ventilation. Current ventilator settings assist control mode, FiO2 40%, tidal volume 450, respiratory rate 20, PEEP 5. ABGs this morning on those settings 7.46/38/117/27/98%/3.1. #8 Shiley tracheostomy tube present. - Cardiovascular Details: S1, S2 present. Regular rate and rhythm, atrially paced on telemetry. Palpable peripheral pulses bilaterally. Bilateral upper extremity edema present. Right radial arterial line present. SCDs present. - Gastrointestinal Gastrointestinal Comment(s): Abdomen soft, nontender, nondistended. Hypoactive bowel sounds present 4 quadrants. Tube feeding currently on hold in anticipation of PEG tube placement. - Genitourinary Genitourinary Comment(s): Castorena present draining clear, yellow urine. Output 35-50 mL per hour overnight. - Integumentary Integumentary Comment(s): Skin is cool and dry. Tracheostomy site with minimal serosanguineous drainage. - Musculoskeletal Musculoskeletal: Present: generalized weakness - Psychiatric Psychiatric Comment(s): Sedated with propofol but does open his eyes to command - Allied health notes Allied health notes reviewed: nursing - Labs CBC & Chem 7: 05/21/19 03:35 05/21/19 03:35 Labs: Abnormal Lab Results - Last 24 Hours (Table) 05/20/19 05/20/19 05/20/19 Range/Units 04:00 11:17 17:11 RBC (4.30-5.90) m/uL Hgb (13.0-17.5) gm/dL Hct (39.0-53.0) % RDW (11.5-15.5) % ABG pH (7.35-7.45) ABG pO2 (83-108) mmHg ABG HCO3 (21-25) mmol/L ABG Total CO2 (19-24) mmol/L ABG O2 Saturation (94-97) % Chloride (98-107) mmol/L BUN (9-20) mg/dL Glucose (74-99) mg/dL POC Glucose (mg/dL) 118 H 105 H (75-99) mg/dL Calcium (8.4-10.2) mg/dL Total Protein (6.3-8.2) g/dL Albumin (3.5-5.0) g/dL Crossmatch See Detail 05/21/19 05/21/19 05/21/19 Range/Units 03:35 03:35 04:58 RBC 2.88 L (4.30-5.90) m/uL Hgb 8.5 L D (13.0-17.5) gm/dL Hct 26.4 L (39.0-53.0) % RDW 15.9 H (11.5-15.5) % ABG pH 7.46 H (7.35-7.45) ABG pO2 117 H (83-108) mmHg ABG HCO3 27 H (21-25) mmol/L ABG Total CO2 28 H (19-24) mmol/L ABG O2 Saturation 98.8 H (94-97) % Chloride 114 H (98-107) mmol/L BUN 33 H (9-20) mg/dL Glucose 120 H (74-99) mg/dL POC Glucose (mg/dL) (75-99) mg/dL Calcium 7.6 L (8.4-10.2) mg/dL Total Protein 4.1 L (6.3-8.2) g/dL Albumin 2.1 L (3.5-5.0) g/dL Crossmatch 05/21/19 Range/Units 05:23 RBC (4.30-5.90) m/uL Hgb (13.0-17.5) gm/dL Hct (39.0-53.0) % RDW (11.5-15.5) % ABG pH (7.35-7.45) ABG pO2 (83-108) mmHg ABG HCO3 (21-25) mmol/L ABG Total CO2 (19-24) mmol/L ABG O2 Saturation (94-97) % Chloride (98-107) mmol/L BUN (9-20) mg/dL Glucose (74-99) mg/dL POC Glucose (mg/dL) 72 L (75-99) mg/dL Calcium (8.4-10.2) mg/dL Total Protein (6.3-8.2) g/dL Albumin (3.5-5.0) g/dL Crossmatch - Imaging and Cardiology Chest x-ray: image reviewed Assessment and Plan Assessment: 1. Squamous cell carcinoma right upper lobe, [id number], status post right robotic-assisted upper lobectomy with mediastinal lymph node dissection 2. Previous tobacco dependence with [id number] history 3. COPD 4. Hypertension 5. Hyperlipidemia 6. Diastolic heart failure 7. Coronary artery disease status post stenting to the circumflex coronary artery 8. Sick sinus syndrome status post permanent pacemaker placement 9. Bipolar disorder 10. GERD 11. Postoperative acute blood loss anemia 12. Postoperative paroxysmal atrial fibrillation 13. Postoperative right-sided pneumothorax with prolonged air leak 14. Leukocytosis, pneumonia, likely from aspiration, unexpected 15. Hypotension, status post fluid resuscitation, necessitating IV levofed 16. Postoperative hypoxemic respiratory failure requiring intubation, unexpected, status post bronchoscopy with bronchoalveolar lavage, failed extubation and tracheostomy placement Plan: 1. Ventilator management, bronchodilators, steroids per pulmonology. Wean from ventilator as tolerated 2. Continue Levaquin 3. Anticipate PEG tube placement today versus tomorrow per general surgery. Will restart tube feedings once placed. 4. Continue amiodarone for A. fib prophylaxis. Will restart Eliquis after PEG placement 5. Will continue to monitor daily x-rays, labs. No further blood transfusions. 6. GI/DVT prophylaxis. 7. Pain control with current medication regimen. 8. Will add IV hydralazine for better blood pressure control 9. Encourage continued smoking cessation. 10. [facility] consulted for placement upon discharge 11. More recommendations to follow. Time with Patient: Greater than 30
--- NOTE | 2019-05-21 08:01 | P.HPADDEND ---
H&P Addendum H&P Addendum Date: 05/21/19 Patient seen and evaluated. Will proceed with PEG tube placement in OR as he had a recent trach placed yesterday.
--- NOTE | 2019-05-21 08:15 | XR ---
EXAMINATION TYPE: XR chest 1V portable DATE OF EXAM: 05/21/2019 COMPARISON: 05/12/2019 HISTORY: Tracheostomy tube placement TECHNIQUE: Single frontal view of the chest is obtained. FINDINGS: In addition to the loculated right apical pleural effusion new curvilinear density is seen that may represent a skinfold as there are possible lung markings peripheral to this versus less lik andreina pneumothorax. Redemonstration of right hemithorax volume loss. Midline tracheostomy. Cardiomedias tinal silhouette is partially obscured but stable. Dual lead left-sided cardiac device is seen. Incre asing left basilar opacity in comparison to the prior with stable peripheral reticular fibrosis and m ultifocal right-sided atelectasis. Diffuse osseous demineralization is noted. IMPRESSION: 1. New curvilinear density in the right lung apex likely relates to an overlying skin fold versus new small right pneumothorax (hydropneumothorax given the pleural effusion). Attention on follow-up exam s is recommended. If there is clinical suspicion intrauterine expiratory images could be performed. 2. Increasing left basilar opacity that could represent atelectasis or pneumonia. Otherwise stable ex am.
[2019-05-21] MEDS: PANTOPRAZOLE 40 MG/10 ML VIAL IVP SCH ×2 (08:39→20:58)
[2019-05-21] MEDS: hydrALAZINE HCL 20 MG/ML 1 ML VIAL IVP PRN (08:42)
[2019-05-21] MEDS: LEVOFLOXACIN 750MG-D5W PMX 750 MG in DEXTROSE/WATER 1 150ML.BAG IVPB SCH (08:43)
[2019-05-21] MEDS: AMIODARONE 200 MG TAB PO SCH (09:21)
[2019-05-21] MEDS: HEPARIN SODIUM,PORCINE 5,000 UNIT/ML 1 ML VIAL SQ SCH ×2 (09:42→16:42)
[2019-05-21] MEDS: CLEVIDIPINE BUTYRATE 25 MG in EMPTY BAG 1 BAG IV SCH ×3 (09:43→21:19)
[2019-05-21] MEDS: CHLORHEXIDINE GLUCONATE 15 ML CUP MUCOUS MEM SCH ×2 (09:43→20:58)
--- NOTE | 2019-05-21 09:59 | PN ---
PROGRESS NOTE DATE OF SERVICE: 05/21/2019 CRITICAL CARE TIME: 35 minutes. This is a patient who was admitted way back on April 30. He came in with a 2.5 cm mass in the right upper lobe. He was thought to have early stage lung cancer. The patient underwent a right upper lobectomy for this lesion and initially did very well. The patient for unclear reasons maybe aspiration pneumonia, developed acute hypoxemic respiratory failure and was reintubated on May 14. The patient was given a trial of extubation 2 days ago. The patient failed and required re-intubation. Yesterday, the patient underwent a tracheostomy placement by Dr. Brock. Today he is going to have a PEG tube placed by one of the surgeons. Currently, the patient is back on the ventilator. He is on the volume assist-control mode rate of 20, tidal volume 450, FiO2 of 40%, PEEP of 5. His blood gases show pO2 of 117, pCO2 of 38, and pH 7.45. He is getting saline IV at 75 mL an hour, propofol at 50 mcg/kg per minute. He is also getting intermittent Dilaudid. There is some bleeding from the trach site. We will make sure Dr. Brock knows about that. We are going to wean his propofol and we have also put in a consultation for transfer to [facility] when he is ready. Obviously, once the PEG tube is in, we can resume tube feeding. He has been clinically stable through the night. PHYSICAL EXAMINATION: VITAL SIGNS: Currently, his vital signs include temperature 98, heart rate 60, respiratory rate 20, blood pressure 163/74, saturation 97% on 40% FiO2 and 5 of PEEP. GENERAL: He appears in no acute distress. Currently sedated. HEENT: Examination is grossly unremarkable. NECK: Supple. There is a midline tracheostomy. There is bleeding at trach site. We will make sure Dr. Brock knows. No adenopathy. CARDIOVASCULAR: Examination reveals regular rhythm and rate. Heart rate 60. S1, S2 normal. LUNGS: Reveal scattered rhonchi. No wheezes or crackles. Breath sounds equal. ABDOMEN: Soft. No bowel sounds noted. EXTREMITIES: Are intact. No cyanosis, clubbing, or edema. SKIN: Without rash. NEUROLOGIC: Examination could not be adequately assessed as patient is heavily sedated. LABS: Labs are reviewed. White count 10.1, hemoglobin 8.5, hematocrit 26.4, platelet count 218,000. Blood gases have been noted, pO2 of 117, pCO2 of 38, pH 7.46. Consistent with mild hyperoxia and metabolic alkalosis. Sodium 143, potassium 4.2 chloride 114, CO2 of 27. Anion gap is 2. BUN and creatinine were 33 and 0.8. Albumin only 2.1. Microbiologic studies including blood and bronch washings have all been negative. MEDICATIONS: Medications are reviewed. He remains on all appropriate medications. ASSESSMENT: 1. Acute respiratory failure secondary to suspected aspiration pneumonia, with re- intubation on May 14 and subsequent failure to wean. 2. Squamous cell carcinoma of the right upper lobe, status post right upper lobectomy, postoperative day #21, status post failed extubation on May 19 with re- intubation on May 19 and tracheostomy placement on the , postoperative day #1. 3. Postoperative day #1 status post tracheostomy. 4. Anticipated PEG tube placement today on May 21. 5. Right-sided pneumothorax, resolved. 6. History of chronic and ongoing tobacco dependence for more than 40 years. 7. Prerenal azotemia. 8. Benign essential hypertension. 9. Sick sinus syndrome, status post pacemaker. 10.History of anxiety/depression. 11.History of hyperlipidemia. 12.Bipolar disorder. 13.Postoperative paroxysmal atrial fibrillation. 14.Diastolic congestive heart failure with fluid overload. 15.Possible hospital-acquired pneumonia, currently receiving antibiotics. 16.Status post bronchoscopy and BAL on May 14 with negative culture data. 17.Failure to wean from mechanical ventilation and failed extubation on May 19, as mentioned above. PLAN: Currently, the patient has received his tracheostomy tube. Apparently, he is going to have a PEG tube placed today. Afterwards, we can resume tube feedings after 24 hours. He is stable on mechanical ventilator. We will wean the propofol. We will continue with intermittent Dilaudid. We put a consult in for [facility]. His overall prognosis is poor. We will continue to follow. Appreciate input from Cardiothoracic Surgery. No additional recommendations are made at this time. CRITICAL CARE TIME: 35 minutes. JASON / AUGUSTUS: [id number] /
--- NOTE | 2019-05-21 10:01 | P.GSCN ---
History of Present Illness Consult date: 05/20/19 Requesting physician: Rhys Brock History of present illness: CHIEF COMPLAINT: Moderate protein malnutrition HISTORY OF PRESENT ILLNESS: The patient is a 69-year-old male who was admitted to the hospital 3 weeks ago 04/30/2019 for VATS and right thoracoscopy and right upper lobectomy. He has baseline history of tobacco abuse including recent diagnosis of squamous cell cancer of the lung. He has been vent dependent respiratory failure for several weeks. He has been maintained on prior orogastric tube feeding. He underwent tracheostomy placement today 05/20/2019. As a result of inadequate protein malnutrition and prolonged nothing by mouth status, percutaneous endoscopic gastrostomy tube placement is being requested. I personally spoke to the patient's nurse and confirmed patient's family wanted all measures done to prolong life. Currently, patient is sedated on the ventilator. History is obtained via chart and healthcare team. PAST MEDICAL HISTORY: See list. PAST SURGICAL HISTORY: See list. MEDICATIONS: See list. ALLERGIES: See list. SOCIAL HISTORY: See list. FAMILY HISTORY: Noncontributory REVIEW OF ORGAN SYSTEMS: CONSTITUTIONAL: No fevers or chills in 24-48 hours. Has recent weight loss. EYES: Denies any trouble with vision. No glasses. HEENT: No nosebleeds. Recent tracheostomy. RESPIRATORY: Currently vent dependent respiratory failure. History of long- term tobacco abuse. Squamous cell cancer diagnosis of the right lung CARDIOVASCULAR: History of sick sinus syndrome and pacemaker placement. History of atrial fibrillation converted with amiodarone equivalent. Has peripheral vascular occlusive disease GASTROINTESTINAL: Prolonged nothing by mouth status beyond 2+ weeks. History of gastroesophageal reflux disease GENITOURINARY: [place] catheter present beyond 2 weeks NEUROLOGICAL: Has seizure disorders MUSCULOSKELETAL: Denies any back pain, stiffness or joint arthritis. SKIN: Has skin grafting surgery on right hand. PSYCHIATRIC: Has depression and anxiety disorder. Has dementia. ENDOCRINE: Denies current thyroid disorders. Denies any blood sugar glucose intolerance. HEME/LYMPHATIC: No recent deep venous thrombosis. ALLERGY/IMMUNOLOGY: No immunoglobulin therapy. BREAST: No current breast lumps, pain or nipple discharge. PHYSICAL EXAM: VITALS: Reviewed CONSTITUTIONAL: Well developed and in no acute distress. EYES: Conjuctivae without sclera icterus. Extraocular movements grossly intact. HEAD, EARS, NOSE, THROAT: Dry buccal mucosa. Head is atraumatic, normocephalic. No nasal drainage. Edentulous. NECK: No JV distention. Fresh tracheostomy site with fresh blood in tubing system of ventilator RESPIRATORY: Non-labored respirations and equal bilateral excursions. CARDIOVASCULAR: Regular rate and rhythm. Palpable 2+ radial pulses. ABDOMEN: Soft. Non-tender. Nondistended. LYMPH: No neck lymphadenopathy. MUSCULOSKELETAL: Nail and fingers with good capillary refill. No gross bilateral lower extremity edema. SKIN: Warm and well perfused with good skin turgor. NEUROLOGIC: Cranial nerves I through XII limited with sedation. No focal or lateralizing signs. PSYCH: Limited from sedation. CLINCAL LABS: Reviewed. White blood cell count normal. RADIOLOGY: Report reviewed. Chest x-ray demonstrates no pneumothorax. IMAGING: Independently reviewed a previous chest CT demonstrating long thoracic rib cage. ASSESSMENT: 1. Inadequate protein malnutrition secondary to prolonged nothing by mouth status beyond 2 weeks 2. Moderate to severe protein malnutrition 3. Squamous cell cancer, right lung 4. Vent dependent respiratory failure requiring tracheostomy PLAN: 1. In the interim, PICC line placement for IV fluids and medications. 2. We'll coordinate for percutaneous gastrostomy tube placement pending patient's stability in the ICU. Critical care time 32 minutes Thank you for this kind consultation. Past Medical History Past Medical History: COPD, GERD/Reflux, Hyperlipidemia, Hypertension, Musculoskeletal Disorder, Osteoarthritis (OA), Seizure Disorder, Vascular Disorder Additional Past Medical History / Comment(s): chronic back pain, lung mass, SOB w/exertion, had some kind of ?seizure activity couple months ago, sitting outside, started having shaking-weren't sure if it had something to do w/pacemaker-went to [facility] for observation & sent home-not sure what it was History of Any Multi-Drug Resistant Organisms: None Reported Past Surgical History: Appendectomy, Heart Catheterization, Orthopedic Surgery, Pacemaker Additional Past Surgical History / Comment(s): recent battery change to pacemaker 04-21-19-healing incision, stent right leg, right hand surg., trigger finger left hand Past Anesthesia/Blood Transfusion Reactions: No Reported Reaction Type of Cardiac Device: Permanent Pacemaker Device Placement Date:: 2010 Smoking Status: Current every day smoker - Past Family History Mother Family Medical History: No Reported History Medications and Allergies Home Medications Medication Instructions Recorded Confirmed Type ALPRAZolam [Xanax] 1 mg PO BID PRN 04/24/19 04/30/19 History ARIPiprazole [Abilify] 30 mg PO HS 04/24/19 04/30/19 History Albuterol Inhaler [Ventolin Hfa 1 - 2 puff INHALATION RT-Q6H PRN 04/24/19 04/30/19 History Inhaler] Aspirin 81 mg PO DAILY 04/24/19 04/30/19 History Atorvastatin [Lipitor] 40 mg PO HS 04/24/19 04/30/19 History Cephalexin [Keflex] 500 mg PO Q8HR 04/24/19 04/30/19 History Clopidogrel [Plavix] 75 mg PO DAILY 04/24/19 04/30/19 History DULoxetine HCL [Cymbalta] 60 mg PO HS 04/24/19 04/30/19 History Donepezil [Aricept] 5 mg PO HS 04/24/19 04/30/19 History HYDROcodone/APAP 10-325MG [[place] 1 tab PO Q6HR PRN 04/24/19 04/30/19 History 10-325] Losartan [Cozaar] 50 mg PO DAILY 04/24/19 04/30/19 History Metoprolol Tartrate [Lopressor] 100 mg PO BID 04/24/19 04/30/19 History Nitroglycerin Sl Tabs [Nitrostat] 0.4 mg SUBLINGUAL Q5M PRN 04/24/19 04/30/19 History Pantoprazole Sodium [Protonix] 40 mg PO DAILY 04/24/19 04/30/19 History Pregabalin [Lyrica] 75 mg PO DAILY 04/30/19 04/30/19 History Allergies Allergy/AdvReac Type Severity Reaction Status Date / Time adhesive tape Allergy Rash/Hives Verified 04/30/19 06:20 Latex, Natural Rubber Allergy Rash/Hives Verified 04/30/19 06:20 silicone Allergy Rash/Hives Verified 04/30/19 06:20 Surgical - Exam Vital Signs Temp Pulse Resp BP Pulse Ox 97.0 F L 60 16 143/80 96 04/30/19 06:09 04/30/19 06:09 04/30/19 06:09 04/30/19 06:09 04/30/19 06:09 Results - Labs 05/21/19 03:35 05/21/19 03:35 Abnormal Lab Results - Last 24 Hours (Table) 05/19/19 05/19/19 05/20/19 Range/Units 19:18 23:52 04:00 RBC 2.30 L (4.30-5.90) m/uL Hgb 6.7 L* (13.0-17.5) gm/dL Hct 21.2 L (39.0-53.0) % RDW 16.4 H (11.5-15.5) % Neutrophils # 8.2 H (1.3-7.7) k/uL Lymphocytes # 0.2 L (1.0-4.8) k/uL ABG pH 7.50 H (7.35-7.45) ABG pO2 311 H (83-108) mmHg ABG HCO3 27 H (21-25) mmol/L ABG Total CO2 28 H (19-24) mmol/L ABG O2 Saturation 99.8 H (94-97) % Chloride (98-107) mmol/L BUN (9-20) mg/dL Glucose (74-99) mg/dL POC Glucose (mg/dL) 122 H (75-99) mg/dL Calcium (8.4-10.2) mg/dL Total Protein (6.3-8.2) g/dL Albumin (3.5-5.0) g/dL Crossmatch 05/20/19 05/20/19 05/20/19 Range/Units 04:00 04:00 05:50 RBC (4.30-5.90) m/uL Hgb (13.0-17.5) gm/dL Hct (39.0-53.0) % RDW (11.5-15.5) % Neutrophils # (1.3-7.7) k/uL Lymphocytes # (1.0-4.8) k/uL ABG pH (7.35-7.45) ABG pO2 (83-108) mmHg ABG HCO3 38 H (21-25) mmol/L ABG Total CO2 29 H (19-24) mmol/L ABG O2 Saturation 98.0 H (94-97) % Chloride 114 H (98-107) mmol/L BUN 33 H (9-20) mg/dL Glucose 122 H (74-99) mg/dL POC Glucose (mg/dL) (75-99) mg/dL Calcium 7.5 L (8.4-10.2) mg/dL Total Protein 4.0 L (6.3-8.2) g/dL Albumin 2.0 L (3.5-5.0) g/dL Crossmatch See Detail 05/20/19 05/20/19 05/20/19 Range/Units 06:17 11:17 17:11 RBC (4.30-5.90) m/uL Hgb (13.0-17.5) gm/dL Hct (39.0-53.0) % RDW (11.5-15.5) % Neutrophils # (1.3-7.7) k/uL Lymphocytes # (1.0-4.8) k/uL ABG pH (7.35-7.45) ABG pO2 (83-108) mmHg ABG HCO3 (21-25) mmol/L ABG Total CO2 (19-24) mmol/L ABG O2 Saturation (94-97) % Chloride (98-107) mmol/L BUN (9-20) mg/dL Glucose (74-99) mg/dL POC Glucose (mg/dL) 140 H 118 H 105 H (75-99) mg/dL Calcium (8.4-10.2) mg/dL Total Protein (6.3-8.2) g/dL Albumin (3.5-5.0) g/dL Crossmatch Diabetes panel 05/20/19 Range/Units 04:00 Sodium 143 (137-145) mmol/L Potassium 4.1 (3.5-5.1) mmol/L Chloride 114 H (98-107) mmol/L Carbon Dioxide 27 (22-30) mmol/L BUN 33 H (9-20) mg/dL Creatinine 0.81 (0.66-1.25) mg/dL Glucose 122 H (74-99) mg/dL Calcium 7.5 L (8.4-10.2) mg/dL AST 25 (17-59) U/L ALT 28 (21-72) U/L Alkaline Phosphatase 71 (38-126) U/L Total Protein 4.0 L (6.3-8.2) g/dL Albumin 2.0 L (3.5-5.0) g/dL Calcium panel 05/20/19 Range/Units 04:00 Calcium 7.5 L (8.4-10.2) mg/dL Albumin 2.0 L (3.5-5.0) g/dL Pituitary panel 05/20/19 Range/Units 04:00 Sodium 143 (137-145) mmol/L Potassium 4.1 (3.5-5.1) mmol/L Chloride 114 H (98-107) mmol/L Carbon Dioxide 27 (22-30) mmol/L BUN 33 H (9-20) mg/dL Creatinine 0.81 (0.66-1.25) mg/dL Glucose 122 H (74-99) mg/dL Calcium 7.5 L (8.4-10.2) mg/dL Adrenal panel 05/20/19 Range/Units 04:00 Sodium 143 (137-145) mmol/L Potassium 4.1 (3.5-5.1) mmol/L Chloride 114 H (98-107) mmol/L Carbon Dioxide 27 (22-30) mmol/L BUN 33 H (9-20) mg/dL Creatinine 0.81 (0.66-1.25) mg/dL Glucose 122 H (74-99) mg/dL Calcium 7.5 L (8.4-10.2) mg/dL Total Bilirubin 0.2 (0.2-1.3) mg/dL AST 25 (17-59) U/L ALT 28 (21-72) U/L Alkaline Phosphatase 71 (38-126) U/L Total Protein 4.0 L (6.3-8.2) g/dL Albumin 2.0 L (3.5-5.0) g/dL Assessment and Plan (1) Squamous cell carcinoma of right lung Current Visit: Yes Status: Acute Code(s): C34.91 - MALIGNANT NEOPLASM OF UNSP PART OF RIGHT BRONCHUS OR LUNG SNOMED Code(s): 73050214130941005 (2) Severe protein-calorie malnutrition Current Visit: Yes Status: Acute Code(s): E43 - UNSPECIFIED SEVERE PROTEIN- CALORIE MALNUTRITION SNOMED Code(s): 226633693 (3) Ventilator dependent Current Visit: Yes Status: Acute Code(s): Z99.11 - DEPENDENCE ON RESPIRATOR [VENTILATOR] STATUS SNOMED Code(s): 281337922 (4) Tracheostomy status Current Visit: Yes Status: Acute Code(s): Z93.0 - TRACHEOSTOMY STATUS SNOMED Code(s): 520915330 (5) History of tobacco abuse Current Visit: Yes Status: Acute Code(s): Z87.891 - PERSONAL HISTORY OF NICOTINE DEPENDENCE SNOMED Code(s): 460286907 (6) Sick sinus syndrome Current Visit: Yes Status: Acute Code(s): I49.5 - SICK SINUS SYNDROME SNOMED Code(s): 36430903 (7) Pacemaker Current Visit: Yes Status: Acute Code(s): Z95.0 - PRESENCE OF CARDIAC PACEMAKER SNOMED Code(s): 478511749 (8) Atrial fibrillation Current Visit: Yes Status: Acute Code(s): I48.91 - UNSPECIFIED ATRIAL FIBRILLATION SNOMED Code(s): 31422375 (9) Anticoagulant long-term use Current Visit: Yes Status: Acute Code(s): Z79.01 - [employer] ENGINEER (CURRENT) USE OF ANTICOAGULANTS SNOMED Code(s): 456678387 (10) Gastroesophageal reflux Current Visit: Yes Status: Acute Code(s): K21.9 - GASTRO-ESOPHAGEAL REFLUX D ISEASE WITHOUT ESOPHAGITIS SNOMED Code(s): 588715142 (11) Anxiety disorder Current Visit: Yes Status: Acute Code(s): F41.9 - ANXIETY DISORDER, UNSPECIFIED SNOMED Code(s): 843714620 (12) Peripheral vascular occlusive disease Current Visit: Yes Status: Acute Code(s): I73.9 - PERIPHERAL VASCULAR DISEASE, UNSPECIFIED SNOMED Code(s): 634767204 (13) Coronary artery disease Current Visit: Yes Status: Acute Code(s): I25.10 - ATHSCL HEART DISEASE OF [place] CORONARY ARTERY W/O ANG PCTRS SNOMED Code(s): 58567664 (14) Depressive disorder Current Visit: Yes Status: Acute Code(s): F32.9 - MAJOR DEPRESSIVE DISORDER, SINGLE EPISODE, UNSPECIFIED SNOMED Code(s): 64573046 (15) Dementia Current Visit: Yes Status: Acute Code(s): F03.90 - UNSPECIFIED DEMENTIA WITHOUT BEHAVIORAL DISTURBANCE SNOMED Code(s): 81115059
[2019-05-21] MEDS ORDERED: AMIODARONE 360 MG in DEXTROSE 5% IN WATER 200 ML IV ONE ×2 (10:52)
[2019-05-21] MEDS ORDERED: LORazepam 2 MG/ML INJ IV PRN (11:22)
[2019-05-21] MEDS ORDERED: PHENYLEPHRINE-0.9% NACL SYG 1 MG/10 ML SYRINGE ONE (12:01)
[2019-05-21 12:08] LABS: Glucose,Whole Blood 134 mg/dL (75-99)
[2019-05-21] MEDS ORDERED: IV FLUID CONTINUATION 900 ML IV ONE (12:25)
--- NOTE | 2019-05-21 13:07 | P.OP ---
Date of Procedure: 05/21/19 Description of Procedure: PREOPERATIVE DIAGNOSIS: Severe protein malnutrition secondary to inadequate protein intake. Vent dependent respiratory failure Tracheostomy status Hypoalbuminemia Squamous cell cancer, lung cancer right lung Coronary artery disease Sick sinus syndrome with pacemaker placement Anxiety disorder Depressive disorder Dementia Peripheral vascular occlusive disease Chronic obstructive pulmonary disease Long-term tobacco abuse Hypertensive heart disease Atrial fibrillation Anticoagulant use POSTOPERATIVE DIAGNOSIS: Severe protein malnutrition secondary to inadequate protein intake Vent dependent respiratory failure Tracheostomy status Hypoalbuminemia Squamous cell cancer, lung cancer right lung Coronary artery disease Sick sinus syndrome with pacemaker placement Anxiety disorder Depressive disorder Dementia Peripheral vascular occlusive disease Chronic obstructive pulmonary disease Long-term tobacco abuse Hypertensive heart disease Atrial fibrillation Anticoagulant use Diaphragmatic hiatal hernia Moderate gastritis with recent bleeding OPERATION: Esophagogastroduodenoscopy with percutaneous endoscopic gastrostomy tube placement 20-Wolof, EndoVive Push technique [employer]. SURGEON: Delfina Ferrer MD ANESTHESIA: GETA INDICATIONS: The patient is a 69-year-old male who presents with a history of vent dependent respiratory status, tracheostomy placement, inadequate protein intake and moderate to severe protein malnutrition. Benefits and risks of the procedure were described. Informed consent was obtained. DESCRIPTION: The patient was laid in supine position. A timeout protocol was confirmed. After general sedation, an Olympus gastroscope was passed along the posterior oropharynx down the distal esophagus. The stomach was entered. Moderate to severe gastritis with recent bleeding was encountered. The antrum appeared unremarkable. A point along the anterior surface, greater curvature of the stomach was selected. The scope was passed to the duodenum which was unremarkable. The skin was cleansed with ChloraPrep and an incision was made after illuminating the proposed PEG tube site. Using a 16-Wolof needle, a guidewire was fed into the stomach under endoscopic visualization. A snare was used to pull the guidewireout of the mouth. Over the guidewire, the PEG tube was pulled over the guidewire until it exited through the skin incision. The guidewire was removed. The round fitting clasp was placed over the gastrostomy tube and fixed at 3 cm at the skin. A feeding adapter was placed at the cut end of the feeding tube. An endoscopic captured image of the gastrostomy tube within the stomach was made. The patient tolerated the procedure well. Findings: 1. Hill grade 4 lower esophageal valve. 2. Diaphragmatic hiatal hernia, 3 cm. 3. Moderate severe acute gastritis recent bleeding. 4. No acute duodenitis. Disposition: Will start tube feeds within 24 hours with goal determined by rn corrections.
[2019-05-21] MEDS: LIDOCAINE 1% INJ 10MG/ML (20 ML MDV) SQ ONE ×2 (13:45→14:18)
--- NOTE | 2019-05-21 14:12 | XR ---
EXAMINATION TYPE: XR chest 1V confirm line [facility] DATE OF EXAM: 05/21/2019 COMPARISON: 05/21/2019 HISTORY: PICC line placement TECHNIQUE: Single frontal view of the chest is obtained. FINDINGS: There is a new PICC terminating in the proximal left subclavian vein. No postprocedural pn eumothorax. The previously questioned pneumothorax versus skinfold is not redemonstrated however ther e is an overlying external leads. Right hemithorax volume loss is again noted with loculated right ap ical pneumothorax. Peripheral basilar predominant reticular opacity again likely relates to fibrosis. Improved aeration of the left lung base. Given interval short-term improvement this represents atele ctasis. Cardiomediastinal silhouette is stable. Median tracheostomy is dual lead left-sided cardiac d evice. Redemonstration of postsurgical changes of the upper abdomen and percutaneous enteric gastric tube as well as diffuse osseous demineralization. IMPRESSION: 1. New PICC terminates in the proximal left subclavian vein. 2. Improved left basilar airspace disease. Given the short-term improvement this represents merely re solved atelectasis. Otherwise stable exam.
--- NOTE | 2019-05-21 15:03 | XR ---
EXAMINATION TYPE: XR chest 1V confirm line [facility] DATE OF EXAM: 05/21/2019 COMPARISON: 05/21/2018 HISTORY: PICC line placement TECHNIQUE: Single frontal view of the chest is obtained. FINDINGS: Exam is stable other than repositioning of the previously seen malpositioned right PICC. T his now terminates appropriately in the cavoatrial junction. Otherwise exam is unchanged. IMPRESSION: Stable exam other than repositioning of the previously seen malpositioned right PICC now appropriately terminating in the cavoatrial junction. No postprocedural complications seen.
--- NOTE | 2019-05-21 15:07 | XR ---
EXAMINATION TYPE: XR chest 1V confirm line [facility] DATE OF EXAM: 05/21/2019 COMPARISON: 05/21/2019 HISTORY: PICC line placement TECHNIQUE: Single frontal view of the chest is obtained. FINDINGS: There is been removal of the left-sided PICC and placement of a right-sided PICC that is m alpositioned and the right subclavian vein. Otherwise the exam is stable from the most recent prior o n the same date at 1:57 PM. IMPRESSION: Stable exam other than malpositioned right PICC
[2019-05-21] MEDS: METOPROLOL TARTRATE 25 MG TAB PEG/G-TUBE SCH ×2 (18:26→21:00)
[2019-05-21 18:30] LABS: Glucose,Whole Blood 132 mg/dL (75-99)
[2019-05-21] MEDS ORDERED: PROPOFOL 10 MG/ML 20 ML VIAL IV ONE (18:40)
[2019-05-21] MEDS ORDERED: ROCURONIUM BROMIDE 10 MG/ML 10 ML VIAL IV ONE (18:40)
[2019-05-21] MEDS: DULoxetine HCL 60 MG CAPSULE.DR PO SCH (20:19)
[2019-05-21] MEDS: AMIODARONE 200 MG TAB PEG/G-TUBE SCH (20:58)
[2019-05-21] MEDS: DONEPEZIL 5 MG TAB PO SCH (20:58)
[2019-05-21] MEDS: ARIPiprazole 15 MG TAB PO SCH (20:58)
[2019-05-21] MEDS: APIXABAN 5 MG TAB PEG/G-TUBE SCH (20:58)
[2019-05-21 23:22] LABS: Glucose,Whole Blood 152 mg/dL (75-99)
[2019-05-22] MEDS: CLEVIDIPINE BUTYRATE 25 MG in EMPTY BAG 1 BAG IV SCH (01:17)
[2019-05-22] MEDS: PROPOFOL 1,000 MG in EMPTY BAG 1 BAG IV SCH ×2 (03:21→17:21)
[2019-05-22 04:05] LABS: Basophils % (A) 0 %; Eosinophils % (A) 0 %; HCT 23.5 % (39.0-53.0); HGB 7.7 gm/dL (13.0-17.5); Hypochromasia Slight; Lymphocytes # (A) 0.2 k/uL (1.0-4.8); Lymphocytes % (A) 1 %; MCHC 32.7 g/dL (31.0-37.0); MCV 91.6 fL (80.0-100.0); Monocytes # (A) 0.3 k/uL (0-1.0); Monocytes % (A) 3 %; Neutrophils # (A) 12.7 k/uL (1.3-7.7); Neutrophils % (A) 96 %; Platelet Count 218 k/uL (150-450); RBC 2.57 m/uL (4.30-5.90); RDW 15.9 % (11.5-15.5); WBC 13.2 k/uL (3.8-10.6)
[2019-05-22 04:19] LABS: ALT 28 U/L (21-72); AST 23 U/L (17-59); African American GFR (CKD) >90 (>60 ml/min/1.73 sqM); Albumin 1.9 g/dL (3.5-5.0); Alkaline Phosphatase 62 U/L (38-126); Anion Gap 3 mmol/L; Blood Urea Nitrogen 36 mg/dL (9-20); Calcium 7.2 mg/dL (8.4-10.2); Carbon Dioxide 26 mmol/L (22-30); Chloride 115 mmol/L (98-107); Glucose 136 mg/dL (74-99); Potassium 3.9 mmol/L (3.5-5.1); Sodium 144 mmol/L (137-145); Total Bilirubin 0.4 mg/dL (0.2-1.3); Total Protein 3.8 g/dL (6.3-8.2)
[2019-05-22] MEDS ORDERED: POTASSIUM BICARBONATE/CIT AC 20 MEQ TABLET.EFF NG-TUBE SCH (05:00)
[2019-05-22 05:07] LABS: ABG Base Excess 2.1 mmol/L; ABG HCO3 26 mmol/L (21-25); ABG Oxygen Saturation 99.2 % (94-97); ABG PCO2 34 mmHg (35-45); ABG PH 7.49 (7.35-7.45); ABG PO2 149 mmHg (83-108); ABG TCO2 27 mmol/L (19-24)
[2019-05-22] MEDS: HYDROmorphone 1 MG/ML 1 ML SYRINGE IVP PRN (05:10)
[2019-05-22 05:30] LABS: Allen Test Performed? NO
[2019-05-22] MEDS: methylPREDNISolone SOD SUCCI 40 MG/ML 1 ML VIAL IV SCH ×3 (05:46→17:35)
[2019-05-22] MEDS: INSULIN ASPART (NovoLOG) 100 UNIT/ML VIAL SQ SCH ×3 (05:46→18:13)
[2019-05-22 05:54] LABS: Glucose,Whole Blood 140 mg/dL (75-99)
[2019-05-22] MEDS: FORMOTEROL FUMARATE 20 MCG/2 ML NEBU INHALATION SCH ×2 (07:22→19:13)
[2019-05-22] MEDS: IPRATROPIUM-ALBUTEROL 3 ML NEB IH SCH ×4 (07:22→19:13)
[2019-05-22] MEDS: BUDESONIDE 1 MG/2 ML NEBU INHALATION SCH ×2 (07:22→19:13)
--- NOTE | 2019-05-22 07:41 | XR ---
EXAMINATION TYPE: XR chest 1V portable DATE OF EXAM: 05/22/2019 Comparison: 05/21/2019 Clinical History: 69-year-old male Tube placement Findings: Tracheostomy cannula. Left anterior chest wall pacemaker generator with right atrial and ventricular leads. Surgical clips at the GE junction. Bibasilar opacities, right greater than left, increased on the right. Suspect pleural fluid extending up to the apex. Right PICC tip at the mid SVC level. Impression: Moderate right and small left pleural effusions with adjacent atelectasis and/or consolidation, incre ased on the right up to the mid lung level. Suspect pleural fluid extending up to the right apex.
--- NOTE | 2019-05-22 07:47 | P.PN ---
Subjective Progress Note Date: 05/22/19 CHIEF COMPLAINT: Moderate protein malnutrition HISTORY OF PRESENT ILLNESS: The patient is a 69-year-old male who is status post PEG tube placement, 05/21/19. He is POD 1. He is doing much better. He is more alert. Currently receiving medications through feeding tube. PHYSICAL EXAM: VITALS: Reviewed CONSTITUTIONAL: Well developed and in no acute distress. EYES: Conjuctivae without sclera icterus. Extraocular movements grossly intact. HEAD, EARS, NOSE, THROAT: Dry buccal mucosa. Head is atraumatic, normocephalic. No nasal drainage. Edentulous. NECK: No JV distention. Fresh tracheostomy site with fresh blood in tubing system of ventilator RESPIRATORY: Non-labored respirations and equal bilateral excursions. CARDIOVASCULAR: Regular rate and rhythm. Palpable 2+ radial pulses. ABDOMEN: Gastrostomy tube site clean dry and intact. Abdomen soft nontender. LYMPH: No neck lymphadenopathy. MUSCULOSKELETAL: Nail and fingers with good capillary refill. No gross bilateral lower extremity edema. SKIN: Warm and well perfused with good skin turgor. NEUROLOGIC: Cranial nerves I through XII limited with sedation. No focal or lateralizing signs. PSYCH: Limited from sedation. CLINCAL LABS: Reviewed. White blood cell count normal. IMAGING: Chest x-ray reviewed independently. No free air identified. ASSESSMENT: 1. Inadequate protein malnutrition secondary to prolonged nothing by mouth status beyond 2 weeks 2. Moderate to severe protein malnutrition 3. Squamous cell cancer, right lung 4. Vent dependent respiratory failure requiring tracheostomy PLAN: 1. May start tube feeds with advancement per dietitian. Objective - Vital Signs Vital signs: Vital Signs Temp 97.6 F 05/22/19 04:00 Pulse 66 05/22/19 07:46 Resp 23 05/22/19 07:00 BP 102/66 05/21/19 16:15 Pulse Ox 98 05/22/19 07:00 Intake & Output 05/21/19 05/22/19 05/22/19 18:59 06:59 18:59 Intake Total 3440.623 9535.708 75 Output Total 1265 670 40 Balance 488.247 518.708 35 Weight 81.1 kg 84.9 kg Intake: IV 1425 900 75 Levofloxacin 750Mg-D5w 100 Pmx 750 mg In Dextrose/ Water 1 150ml.bag @ 100 mls/hr IVPB Q24H [facility] Rx#: [id number] Sodium Chloride 0.9% 1, 825 900 75 000 ml @ 75 mls/hr IV . [id number] [facility] Rx#:[id number] Intake, IV Titration 228.247 288.708 Amount Clevidipine Butyrate 25 71.1 44.9 mg In Empty Bag 1 bag @ 1 MG/HR 2 mls/hr IV .Q24H [facility] Rx#:[id number] Propofol 1,000 mg In 157.147 243.808 Empty Bag 1 bag @ Titrate IV .Q0M [facility] Rx#: [id number] Oral 100 Output: Urine 1265 670 40 Other: Voiding Method Indwelling Catheter Indwelling Catheter ABP, PAP, CO, CI - Last Documented Arterial Blood Pressure 128/61 - Labs CBC & Chem 7: 05/28/19 05:00 05/28/19 05:00 Labs: Abnormal Lab Results - Last 24 Hours (Table) 05/21/19 05/21/19 05/21/19 Range/Units 11:56 18:17 23:10 WBC (3.8-10.6) k/uL RBC (4.30-5.90) m/uL Hgb (13.0-17.5) gm/dL Hct (39.0-53.0) % RDW (11.5-15.5) % Neutrophils # (1.3-7.7) k/uL Lymphocytes # (1.0-4.8) k/uL ABG pH (7.35-7.45) ABG pCO2 (35-45) mmHg ABG pO2 (83-108) mmHg ABG HCO3 (21-25) mmol/L ABG Total CO2 (19-24) mmol/L ABG O2 Saturation (94-97) % Chloride (98-107) mmol/L BUN (9-20) mg/dL Glucose (74-99) mg/dL POC Glucose (mg/dL) 134 H 132 H 152 H (75-99) mg/dL Calcium (8.4-10.2) mg/dL Total Protein (6.3-8.2) g/dL Albumin (3.5-5.0) g/dL 05/22/19 05/22/19 05/22/19 Range/Units 04:00 04:00 05:00 WBC 13.2 H (3.8-10.6) k/uL RBC 2.57 L (4.30-5.90) m/uL Hgb 7.7 L (13.0-17.5) gm/dL Hct 23.5 L (39.0-53.0) % RDW 15.9 H (11.5-15.5) % Neutrophils # 12.7 H (1.3-7.7) k/uL Lymphocytes # 0.2 L (1.0-4.8) k/uL ABG pH 7.49 H (7.35-7.45) ABG pCO2 34 L (35-45) mmHg ABG pO2 149 H (83-108) mmHg ABG HCO3 26 H (21-25) mmol/L ABG Total CO2 27 H (19-24) mmol/L ABG O2 Saturation 99.2 H (94-97) % Chloride 115 H (98-107) mmol/L BUN 36 H (9-20) mg/dL Glucose 136 H (74-99) mg/dL POC Glucose (mg/dL) (75-99) mg/dL Calcium 7.2 L (8.4-10.2) mg/dL Total Protein 3.8 L (6.3-8.2) g/dL Albumin 1.9 L (3.5-5.0) g/dL 05/22/19 Range/Units 05:41 WBC (3.8-10.6) k/uL RBC (4.30-5.90) m/uL Hgb (13.0-17.5) gm/dL Hct (39.0-53.0) % RDW (11.5-15.5) % Neutrophils # (1.3-7.7) k/uL Lymphocytes # (1.0-4.8) k/uL ABG pH (7.35-7.45) ABG pCO2 (35-45) mmHg ABG pO2 (83-108) mmHg ABG HCO3 (21-25) mmol/L ABG Total CO2 (19-24) mmol/L ABG O2 Saturation (94-97) % Chloride (98-107) mmol/L BUN (9-20) mg/dL Glucose (74-99) mg/dL POC Glucose (mg/dL) 140 H (75-99) mg/dL Calcium (8.4-10.2) mg/dL Total Protein (6.3-8.2) g/dL Albumin (3.5-5.0) g/dL Assessment and Plan (1) Squamous cell carcinoma of right lung Status: Acute Code(s): C34.91 - MALIGNANT NEOPLASM OF UNSP PART OF RIGHT BRONCHUS OR LUNG SNOMED Code(s): 83508293234154508 (2) Severe protein-calorie malnutrition Status: Acute Code(s): E43 - UNSPECIFIED SEVERE PROTEIN-CALORIE MALNUTRITION SNOMED Code(s): 667452012 (3) Ventilator dependent Status: Acute Code(s): Z99.11 - DEPENDENCE ON RESPIRATOR [VENTILATOR] STATUS SNOMED Code(s): 140096763 (4) Tracheostomy status Status: Acute Code(s): Z93.0 - TRACHEOSTOMY STATUS SNOMED Code(s): 427865672 (5) History of tobacco abuse Status: Acute Code(s): Z87.891 - PERSONAL HISTORY OF NICOTINE DEPENDENCE SNOMED Code(s): 247446135 (6) Sick sinus syndrome Status: Acute Code(s): I49.5 - SICK SINUS SYNDROME SNOMED Code(s): 86528264 (7) Pacemaker Status: Acute Code(s): Z95.0 - PRESENCE OF CARDIAC PACEMAKER SNOMED Code(s): 444733060 (8) Atrial fibrillation Status: Acute Code(s): I48.91 - UNSPECIFIED ATRIAL FIBRILLATION SNOMED Code(s): 80788570 (9) Anticoagulant long-term use Status: Acute Code(s): Z79.01 - ASSURANCE ENGINEER (CURRENT) USE OF ANTICOAGULANTS SNOMED Code(s): 634201680 (10) Gastroesophageal reflux Status: Acute Code(s): K21.9 - GASTRO-ESOPHAGEAL REFLUX DISEASE WITHOUT ESOPHAGITIS SNOMED Code(s): 305489464 (11) Anxiety disorder Status: Acute Code(s): F41.9 - ANXIETY DISORDER, UNSPECIFIED SNOMED Code(s): 453084717 (12) Peripheral vascular occlusive disease Status: Acute Code(s): I73.9 - PERIPHERAL VASCULAR DISEASE, UNSPECIFIED SNOMED Code(s): 554220181 (13) Coronary artery disease Status: Acute Code(s): I25.10 - ATHSCL HEART DISEASE OF [place] CORONARY ARTERY W/O ANG PCTRS SNOMED Code(s): 63186270 (14) Depressive disorder Status: Acute Code(s): F32.9 - MAJOR DEPRESSIVE DISORDER, SINGLE EPISODE, UNSPECIFIED SNOMED Code(s): 48400381 (15) Dementia Status: Acute Code(s): F03.90 - UNSPECIFIED DEMENTIA WITHOUT BEHAVIORAL D ISTURBANCE SNOMED Code(s): 66115803
[2019-05-22] MEDS: METOPROLOL TARTRATE 25 MG TAB PEG/G-TUBE SCH ×3 (08:54→22:04)
[2019-05-22] MEDS: CHLORHEXIDINE GLUCONATE 15 ML CUP MUCOUS MEM SCH ×2 (08:55→20:31)
[2019-05-22] MEDS: APIXABAN 5 MG TAB PEG/G-TUBE SCH ×2 (08:55→21:07)
[2019-05-22] MEDS: PANTOPRAZOLE 40 MG/10 ML VIAL IVP SCH ×2 (08:55→20:31)
[2019-05-22] MEDS: AMIODARONE 200 MG TAB PEG/G-TUBE SCH ×2 (08:55→20:33)
[2019-05-22] MEDS: LORazepam 2 MG/ML INJ IV SCH ×3 (08:55→17:36)
[2019-05-22] MEDS: HYDROmorphone 1 MG/ML 1 ML SYRINGE IVP SCH ×3 (08:55→21:49)
[2019-05-22] MEDS: SODIUM CHLORIDE 0.9% 1,000 ML IV SCH ×2 (08:56→17:21)
[2019-05-22] MEDS: LEVOFLOXACIN 750MG-D5W PMX 750 MG in DEXTROSE/WATER 1 150ML.BAG IVPB SCH (08:59)
--- NOTE | 2019-05-22 10:14 | PN ---
PROGRESS NOTE DATE OF SERVICE: May 22, 2019 CRITICAL CARE TIME: 34 minutes This is a patient who was admitted way back on April 30. He came in with a lesion in the right upper lobe. It was 2.5 cm. He did have lung cancer. He underwent right upper lobectomy and initially did very well. For unclear reasons maybe aspiration, or another reason, he developed acute hypoxemic respiratory failure and was reintubated on May 14. The patient was given a trial of extubation 3 days ago. He failed that. He had to be reintubated. Two days ago, he underwent a tracheostomy placement by Dr. Brock and yesterday had a PEG tube placed by one of the surgeons. Currently, the patient is still on mechanical ventilator. We have consulted [facility] for transfer. He is on the volume assist-control mode rate of 20, tidal volume 450, FiO2 of 40%, PEEP of 5. Arterial blood gases show a pO2 of 149, pCO2 of 34, and pH is 7.49. Those blood gases were done on 50%. He is on propofol at 25 mcg/kg per minute, 0.9 at 75 mL an hour and Cleviprex is currently on hold. We are going to give him Ativan and Dilaudid around the clock to see if we cannot wean him off the propofol. We will start off with Ativan 1 mg IV every 6 hours and Dilaudid 1 mg IV every 6 hours. We may have to either increase or decrease the dose depending on how he responds. Tube feedings can start sometime today. He had uneventful night according to the nurses other than for some saturation issues in which case, the FiO2 was temporarily increased to 50%. PHYSICAL EXAMINATION: VITAL SIGNS: Current vital signs include a temperature of 97.6, heart rate of 70, respiratory rate of 20, and a saturation of 95%. GENERAL: Appears in no acute distress. HEENT: Examination is grossly unremarkable. NECK: Supple. There is midline tracheostomy. There is some dried blood around the tracheostomy site. He is not actively bleeding. No masses in the neck. No thyromegaly. CARDIOVASCULAR: Examination reveals regular rhythm and rate. Heart rate 70. S1, S2 normal. Heart sounds are distant. LUNGS: Reveal some diffuse coarse rhonchi bilaterally. No wheezes or crackles. ABDOMEN: Soft. PEG tube noted. EXTREMITIES: Are intact. There is some mild edema. SKIN: Reveals multiple areas of ecchymoses. NEUROLOGIC: Examination is difficult to assess given the fact that he is currently sedated. Microbiologic studies are all negative. LABS: Labs are reviewed. White count 13.2, hemoglobin 7.7, hematocrit 23.5, platelet count 218,000. Sodium 144, potassium 3.9, chloride 115, CO2 of 26. Anion gap is 1. BUN and creatinine were 36 and 0.75. Albumin 1.9. MEDICATIONS: Medications are reviewed. Everything seems to be appropriate. ASSESSMENT: 1. Acute respiratory failure secondary to suspected aspiration pneumonia with re- intubation on May 14 and subsequent failure to wean and resultant status post tracheostomy, postoperative day #2. 2. Squamous cell carcinoma of the right upper lobe, status post right upper lobectomy, postoperative day #22, status post failed extubation on May 19 with re- intubation on May 19 and tracheostomy placement on the 20 of May. 3. Postoperative day #1, status post PEG tube placement, May 21. 4. Right-sided pneumothorax, resolved. 5. History of chronic and ongoing tobacco dependence for more than 40 years. 6. Prerenal azotemia. 7. Benign essential hypertension. 8. Sick sinus syndrome, status post pacemaker. 9. History of anxiety/depression. 10.History of hyperlipidemia. 11.Bipolar disorder. 12.Postoperative paroxysmal atrial fibrillation. 13.Diastolic heart failure with fluid overload. 14.Possible hospital-acquired pneumonia, currently receiving antibiotics. 15.Status post bronchoscopy and BAL on May 19, with negative culture data. 16.Failure to wean from mechanical ventilation and failed extubation on May 19, as mentioned above. PLAN: The patient's propofol will continued to be wean. The PEG tube was placed on May 21 by Surgery. We appreciate that. Tube feedings to start today. In an attempt to get him off the propofol to be able to transfer him to [facility], we increased the Ativan to 1 mg IV q.6 hours schedule and Dilaudid 1 mg q.6 hours IV push schedule. Additional recommendations and suggestions are forthcoming. FiO2 was dropped down to 40%. Overall prognosis is poor. CRITICAL CARE TIME: 34 minutes. MMODL / IJN: [id number] /
--- NOTE | 2019-05-22 10:20 | IR ---
PICC LINE PLACEMENT: HISTORY: Infection requiring long-term antibiotic therapy PROCEDURE: Ultrasound guidance of PICC line placement. RETAIL PROJECT MERCHANDISER: Dr. Larios. COMPLICATIONS: None ANESTHESIA: 1. 1% Lidocaine locally. FINDINGS/TECHNIQUE: The procedure was explained to the patient. The risks, complications, benefits and alternatives were discussed and any questions were answered. Informed consent was obtained. The patient was placed supine on the fluoroscopic table and prepped and draped in the usual sterile fas ion. Utilizing a 21 gauge needle and sonographic guidance, access in the right basilic vein was ach ieved and there is placement of a 0.018 guidewire. The vein is patent. A 5-F. sheath was placed ove r the guidewire. The guidewire and dilator were removed and a 5-F. Double lumen PICC line was placed through the sheath with the chest x-ray confirming the tip at the level of the SVC. The sheath was removed, the catheter was flushed and sutured into position. The patient was stable throughout the p rocedure and remained stable upon discharge from the Department of Radiology. The vein puncture was patent under ultrasound. A wilkerson scale image was obtained to document patency of the vein punctured. All elements of the maximal barrier technique were utilized. IMPRESSION: 1. Successful PICC line placement under ultrasound performed bedside within the ICU.
--- NOTE | 2019-05-22 10:43 | P.PN ---
Subjective Progress Note Date: 05/22/19 Principal diagnosis: Squamous cell carcinoma right upper lobe. Previous medical history of tobacco dependence with [id number] history, chronic obstructive pulmonary disease, hyp ertension, hyperlipidemia, coronary artery disease status post stenting to the circumflex coronary artery in 2016, sick sinus syndrome status post permanent pacemaker placement in 2010, bipolar disorder/anxiety/depression, and gastroesophageal reflux disease. POD #22 right thoracoscopy, robotic assisted thorascopic right upper lobectomy with mediastinal lymph node dissection, fiberoptic bronchoscopy. Postoperative acute blood loss anemia, expected Postoperative paroxysmal atrial fibrillation, unexpected Postoperative right-sided pneumothorax with prolonged air leak, expected and inherent to this type of surgery Leukocytosis, suspect postobstructive pneumonia, unexpected Hypotension, status post fluid administration, necessitating IV levo, unexpected Postoperative hypoxemic respiratory failure, necessitating initiation of BiPAP, unexpected POD #8 bedside bronchoscopy and bronchoalveolar lavage of the left upper lobe, right middle lobe and right lower lobe performed by Dr. Soliman POD #2 tracheostomy placement with 8 mm Shiley cuffed tracheostomy tube POD #1 esophagogastroduodenoscopy with percutaneous endoscopic gastrostomy tube placement 20-Georgian, EndoVive Push technique Pley The patient is currently laying in bed in the intensive care unit in [facility]. Currently maintained on mechanical ventilation through the tracheostomy. Sedated with propofol but does open his eyes to command. Heart rhythm bouncing back and forth between sinus rhythm and atrial fibrillation, currently maintained with amiodarone, Lopressor, and Eliquis. Currently not on any pressors or inotropes. Per discussion with patient advocate family is concerned about the patient exhibiting evidence of anxiety despite being on home medications of Abilify, Cymbalta, Aricept, as well as propofol. Objective - Vital Signs Vital signs: Vital Signs Temp 98.1 F 05/22/19 07:30 Pulse 95 05/22/19 10:00 Resp 14 05/22/19 10:00 BP 81/62 05/22/19 10:00 Pulse Ox 99 05/22/19 10:00 Intake & Output 05/21/19 05/22/19 05/22/19 18:59 06:59 18:59 Intake Total 1814.430 8758.708 400 Output Total 1265 670 155 Balance 488.247 518.708 245 Weight 81.1 kg 84.9 kg Intake: IV 1425 900 400 Levofloxacin 750Mg-D5w 100 100 Pmx 750 mg In Dextrose/ Water 1 150ml.bag @ 100 mls/hr IVPB Q24H [facility] Rx#: [id number] Sodium Chloride 0.9% 1, 825 900 300 000 ml @ 75 mls/hr IV . [id number] [facility] Rx#:[id number] Intake, IV Titration 228.247 288.708 Amount Clevidipine Butyrate 25 71.1 44.9 mg In Empty Bag 1 bag @ 1 MG/HR 2 mls/hr IV .Q24H [facility] Rx#:[id number] Propofol 1,000 mg In 157.147 243.808 Empty Bag 1 bag @ Titrate IV .Q0M [facility] Rx#: [id number] Oral 100 Output: Urine 1265 670 155 Other: Voiding Method Indwelling Catheter Indwelling Catheter ABP, PAP, CO, CI - Last Documented Arterial Blood Pressure 165/75 - Constitutional General appearance: Present: no acute distress - Respiratory Details: Lungs sounds diminished bilaterally. Respirations even, nonlabored on mechanical ventilation. Current ventilator settings assist control mode, FiO2 40%, tidal volume 450, respiratory rate 20, PEEP 5. ABGs this morning 7.49/34/149/26/99%/2.1 on 50% FiO2 and 5 of PEEP. #8 Shiley tracheostomy tube present. - Cardiovascular Details: S1, S2 present. Both regular and irregular rate and rhythm, atrially paced/sinus alternating with atrial fibrillation on telemetry. Palpable peripheral pulses bilaterally. Trace generalized edema present. Right brachial PICC line, left radial arterial line present. SCDs present. - Gastrointestinal Gastrointestinal Comment(s): Abdomen soft, nontender, nondistended. Active bowel sounds present 4 quadrants. PEG tube present. - Genitourinary Genitourinary Comment(s): Cast[place] present draining clear, yellow urine. Output 40-75 mL per hour overnight. - Integumentary Integumentary Comment(s): Skin is warm and dry. Tracheostomy site with minimal serosanguineous drainage. - Musculoskeletal Musculoskeletal: Present: generalized weakness - Psychiatric Psychiatric Comment(s): Sedated with propofol. Does open his eyes to command - Allied health notes Allied health notes reviewed: nursing - Labs CBC & Chem 7: 05/22/19 04:00 05/22/19 04:00 Labs: Abnormal Lab Results - Last 24 Hours (Table) 05/21/19 05/21/19 05/21/19 Range/Units 11:56 18:17 23:10 WBC (3.8-10.6) k/uL RBC (4.30-5.90) m/uL Hgb (13.0-17.5) gm/dL Hct (39.0-53.0) % RDW (11.5-15.5) % Neutrophils # (1.3-7.7) k/uL Lymphocytes # (1.0-4.8) k/uL ABG pH (7.35-7.45) ABG pCO2 (35-45) mmHg ABG pO2 (83-108) mmHg ABG HCO3 (21-25) mmol/L ABG Total CO2 (19-24) mmol/L ABG O2 Saturation (94-97) % Chloride (98-107) mmol/L BUN (9-20) mg/dL Glucose (74-99) mg/dL POC Glucose (mg/dL) 134 H 132 H 152 H (75-99) mg/dL Calcium (8.4-10.2) mg/dL Total Protein (6.3-8.2) g/dL Albumin (3.5-5.0) g/dL 05/22/19 05/22/19 05/22/19 Range/Units 04:00 04:00 05:00 WBC 13.2 H (3.8-10.6) k/uL RBC 2.57 L (4.30-5.90) m/uL Hgb 7.7 L (13.0-17.5) gm/dL Hct 23.5 L (39.0-53.0) % RDW 15.9 H (11.5-15.5) % Neutrophils # 12.7 H (1.3-7.7) k/uL Lymphocytes # 0.2 L (1.0-4.8) k/uL ABG pH 7.49 H (7.35-7.45) ABG pCO2 34 L (35-45) mmHg ABG pO2 149 H (83-108) mmHg ABG HCO3 26 H (21-25) mmol/L ABG Total CO2 27 H (19-24) mmol/L ABG O2 Saturation 99.2 H (94-97) % Chloride 115 H (98-107) mmol/L BUN 36 H (9-20) mg/dL Glucose 136 H (74-99) mg/dL POC Glucose (mg/dL) (75-99) mg/dL Calcium 7.2 L (8.4-10.2) mg/dL Total Protein 3.8 L (6.3-8.2) g/dL Albumin 1.9 L (3.5-5.0) g/dL 05/22/19 Range/Units 05:41 WBC (3.8-10.6) k/uL RBC (4.30-5.90) m/uL Hgb (13.0-17.5) gm/dL Hct (39.0-53.0) % RDW (11.5-15.5) % Neutrophils # (1.3-7.7) k/uL Lymphocytes # (1.0-4.8) k/uL ABG pH (7.35-7.45) ABG pCO2 (35-45) mmHg ABG pO2 (83-108) mmHg ABG HCO3 (21-25) mmol/L ABG Total CO2 (19-24) mmol/L ABG O2 Saturation (94-97) % Chloride (98-107) mmol/L BUN (9-20) mg/dL Glucose (74-99) mg/dL POC Glucose (mg/dL) 140 H (75-99) mg/dL Calcium (8.4-10.2) mg/dL Total Protein (6.3-8.2) g/dL Albumin (3.5-5.0) g/dL - Imaging and Cardiology Chest x-ray: report reviewed, image reviewed Assessment and Plan Assessment: 1. Squamous cell carcinoma right upper lobe, [id number], status post right r obotic-assisted upper lobectomy with mediastinal lymph node dissection 2. Previous tobacco dependence with [id number] history 3. COPD 4. Hypertension 5. Hyperlipidemia 6. Diastolic heart failure 7. Coronary artery disease status post stenting to the circumflex coronary artery 8. Sick sinus syndrome status post permanent pacemaker placement 9. Bipolar disorder 10. GERD 11. Postoperative acute blood loss anemia 12. Postoperative paroxysmal atrial fibrillation 13. Postoperative right-sided pneumothorax with prolonged air leak 14. Leukocytosis, pneumonia, likely from aspiration, unexpected 15. Hypotension, status post fluid resuscitation, necessitating IV levofed 16. Postoperative hypoxemic respiratory failure requiring intubation, unexpected, status post bronchoscopy with bronchoalveolar lavage, failed extubation and tracheostomy placement 17. Status post PEG tube placement Plan: 1. Ventilator management, bronchodilators, steroids per pulmonology. Wean from ventilator as tolerated 2. Continue Levaquin 3. Tube feedings to be restarted via PEG 4. Continue amiodarone for A. fib prophylaxis. Continue Eliquis for anticoagulation 5. Will continue to monitor daily x-rays, labs. No further blood transfusions. 6. GI/DVT prophylaxis. 7. Pain control with current medication regimen. 8. Continue home medications for anxiety 9. Encourage continued smoking cessation. 10. [facility] consulted for placement upon discharge 11. More recommendations to follow. Time with Patient: Greater than 30
[2019-05-22 12:24] LABS: Glucose,Whole Blood 160 mg/dL (75-99)
[2019-05-22 17:40] LABS: Glucose,Whole Blood 142 mg/dL (75-99)
[2019-05-22 19:00] LABS: INR 1.1 (<1.2)
[2019-05-22 19:32] LABS: Anisocytosis Slight; Hypochromasia Moderate; MCH 30.7 pg (25.0-35.0); MCHC 32.3 g/dL (31.0-37.0); MCV 95.3 fL (80.0-100.0); Mean Platelet Volume 7.5; Platelet Count 226 k/uL (150-450); RBC 1.75 m/uL (4.30-5.90); RDW 16.8 % (11.5-15.5); WBC 22.5 k/uL (3.8-10.6)
[2019-05-22 19:45] LABS: HGB 5.4 gm/dL (13.0-17.5)
[2019-05-22 19:46] LABS: HCT 16.7 % (39.0-53.0)
[2019-05-22] MEDS: DONEPEZIL 5 MG TAB PO SCH (20:34)
[2019-05-22] MEDS: ARIPiprazole 15 MG TAB PO SCH (20:34)
[2019-05-22] MEDS: DULoxetine HCL 60 MG CAPSULE.DR PO SCH (21:08)
[2019-05-23 00:18] LABS: Glucose,Whole Blood 141 mg/dL (75-99)
[2019-05-23] MEDS: INSULIN ASPART (NovoLOG) 100 UNIT/ML VIAL SQ SCH ×4 (00:23→17:03)
[2019-05-23] MEDS: LORazepam 2 MG/ML INJ IV SCH ×4 (00:32→17:14)
[2019-05-23] MEDS: methylPREDNISolone SOD SUCCI 40 MG/ML 1 ML VIAL IV SCH ×4 (00:33→17:07)
[2019-05-23] MEDS: HYDROmorphone 1 MG/ML 1 ML SYRINGE IVP SCH ×4 (03:16→20:01)
[2019-05-23] MEDS: PROPOFOL 1,000 MG in EMPTY BAG 1 BAG IV SCH ×3 (03:26→20:21)
[2019-05-23 05:25] LABS: Anisocytosis Slight; Basophils % (A) 0 %; Eosinophils % (A) 0 %; Lymphocytes # (A) 0.4 k/uL (1.0-4.8); Lymphocytes % (A) 2 %; MCH 29.8 pg (25.0-35.0); MCHC 33.9 g/dL (31.0-37.0); Mean Platelet Volume 7.9; Monocytes # (A) 0.6 k/uL (0-1.0); Monocytes % (A) 3 %; Neutrophils # (A) 15.7 k/uL (1.3-7.7); Neutrophils % (A) 94 %; Platelet Count 135 k/uL (150-450); Poikilocytosis Slight; RBC 2.72 m/uL (4.30-5.90); RDW 17.7 % (11.5-15.5); WBC 16.8 k/uL (3.8-10.6)
[2019-05-23 05:34] LABS: ALT 24 U/L (21-72); AST 26 U/L (17-59); African American GFR (CKD) >90 (>60 ml/min/1.73 sqM); Albumin 1.7 g/dL (3.5-5.0); Alkaline Phosphatase 48 U/L (38-126); Anion Gap 1 mmol/L; Blood Urea Nitrogen 62 mg/dL (9-20); Calcium 7.1 mg/dL (8.4-10.2); Carbon Dioxide 24 mmol/L (22-30); Chloride 119 mmol/L (98-107); Glucose 139 mg/dL (74-99); Sodium 144 mmol/L (137-145); Total Bilirubin 0.3 mg/dL (0.2-1.3); Total Protein 3.4 g/dL (6.3-8.2)
[2019-05-23 05:34] LABS: ABG Base Excess -1.3 mmol/L; ABG HCO3 23 mmol/L (21-25); ABG Oxygen Saturation 97.4 % (94-97); ABG PCO2 32 mmHg (35-45); ABG PH 7.46 (7.35-7.45); ABG PO2 86 mmHg (83-108); ABG TCO2 24 mmol/L (19-24); Allen Test Performed? Yes
[2019-05-23 05:35] LABS: HGB 8.1 gm/dL (13.0-17.5)
[2019-05-23 06:27] LABS: Glucose,Whole Blood 157 mg/dL (75-99)
[2019-05-23] MEDS: BUDESONIDE 1 MG/2 ML NEBU INHALATION SCH ×2 (07:33→19:31)
[2019-05-23] MEDS: FORMOTEROL FUMARATE 20 MCG/2 ML NEBU INHALATION SCH ×2 (07:33→19:31)
[2019-05-23] MEDS: IPRATROPIUM-ALBUTEROL 3 ML NEB IH SCH ×4 (07:33→19:31)
--- NOTE | 2019-05-23 07:43 | XR ---
EXAMINATION TYPE: XR chest 1V portable DATE OF EXAM: 05/23/2019 Comparison: 05/22/2019 Clinical History: 69-year-old male post lobectomy, tracheostomy Findings: Tracheostomy cannula remains in place. Right PICC tip seen to the mid SVC level. Stable volume loss r ight hemithorax. Hyperinflation within the left lung with mild interstitial prominence. Persistent pa tchy density right mid and lower lung with some improved aeration from prior exam. Slight improved ae ration at the peripheral left base as well. Left anterior chest wall pacemaker generator with right a trial and right ventricular leads. Impression: Postsurgical volume loss right hemithorax. Background COPD. Possible improving mild pulmonary vascula r congestion. Right greater than left bibasilar opacities persist but show some improvement from prio r exam.
[2019-05-23] MEDS: AMIODARONE 200 MG TAB PEG/G-TUBE SCH ×2 (08:45→20:01)
[2019-05-23] MEDS: APIXABAN 5 MG TAB PEG/G-TUBE SCH (08:46)
[2019-05-23] MEDS: METOPROLOL TARTRATE 25 MG TAB PEG/G-TUBE SCH ×3 (08:46→20:01)
[2019-05-23] MEDS: CHLORHEXIDINE GLUCONATE 15 ML CUP MUCOUS MEM SCH ×2 (08:46→20:00)
[2019-05-23] MEDS: PANTOPRAZOLE 40 MG/10 ML VIAL IVP SCH ×2 (08:46→20:00)
[2019-05-23] MEDS: LEVOFLOXACIN 750MG-D5W PMX 750 MG in DEXTROSE/WATER 1 150ML.BAG IVPB SCH (08:59)
--- NOTE | 2019-05-23 09:47 | P.PN ---
Subjective Progress Note Date: 05/23/19 Principal diagnosis: Malnutrition Covering for Dr. Ponce. PEG tube placed 2 days ago. Last night had black tarry stools with a drop in hemoglobin to 5.4. Eloquis was placed on hold. No further bleeding seen. Had been tolerating tube feeds. Objective - Vital Signs Vital signs: Vital Signs Temp 98.4 F 05/23/19 04:00 Pulse 72 05/23/19 07:55 Resp 21 05/23/19 07:00 BP 137/76 05/23/19 07:00 Pulse Ox 97 05/23/19 07:00 Intake & Output 05/22/19 05/23/19 05/23/19 18:59 06:59 18:59 Intake Total 5032.481 1158.707 75 Output Total 535 1050 50 Balance 938.933 858.707 25 Weight 84.1 kg Intake: IV 1175 750 75 Levofloxacin 750Mg-D5w 250 75 Pmx 750 mg In Dextrose/ Water 1 150ml.bag @ 100 mls/hr IVPB Q24H [facility] Rx#: [id number] Sodium Chloride 0.9% 1, 925 675 75 000 ml @ 75 mls/hr IV . [id number] [facility] Rx#:[id number] Intake, IV Titration 94.933 160.707 Amount Propofol 1,000 mg In 19.933 85.707 Empty Bag 1 bag @ Titrate IV .Q0M ZORAN Rx#: [id number] Sodium Chloride 0.9% 1, 75 75 000 ml @ 75 mls/hr IV . [id number] [facility] Rx#:[id number] Tube Feeding 204 68 Blood Product 930 As-1 Unit 310 [id number] As-1 Unit 310 [id number] Output: Urine 535 1050 50 Other: Voiding Method Indwelling Catheter Indwelling Catheter # Voids 1 1 ABP, PAP, CO, CI - Last Documented Arterial Blood Pressure 93/52 - Exam Abdomen: Soft, nondistended, nontender, bolster tightened slightly - Labs CBC & Chem 7: 05/23/19 05:10 05/23/19 05:10 Labs: Abnormal Lab Results - Last 24 Hours (Table) 05/20/19 05/22/19 05/22/19 Range/Units 04:00 12:12 17:28 WBC (3.8-10.6) k/uL RBC (4.30-5.90) m/uL Hgb (13.0-17.5) gm/dL Hct (39.0-53.0) % RDW (11.5-15.5) % Plt Count (150-450) k/uL Neutrophils # (1.3-7.7) k/uL Lymphocytes # (1.0-4.8) k/uL ABG pH (7.35-7.45) ABG pCO2 (35-45) mmHg ABG O2 Saturation (94-97) % Chloride (98-107) mmol/L BUN (9-20) mg/dL Glucose (74-99) mg/dL POC Glucose (mg/dL) 160 H 142 H (75-99) mg/dL Calcium (8.4-10.2) mg/dL Total Protein (6.3-8.2) g/dL Albumin (3.5-5.0) g/dL Crossmatch See Detail 05/22/19 05/23/19 05/23/19 Range/Units 18:45 00:05 05:10 WBC 22.5 H 16.8 H (3.8-10.6) k/uL RBC 1.75 L 2.72 L (4.30-5.90) m/uL Hgb 5.4 L* D 8.1 L D (13.0-17.5) gm/dL Hct 16.7 L* 24.0 L (39.0-53.0) % RDW 16.8 H 17.7 H (11.5-15.5) % Plt Count 135 L (150-450) k/uL Neutrophils # 15.7 H (1.3-7.7) k/uL Lymphocytes # 0.4 L (1.0-4.8) k/uL ABG pH (7.35-7.45) ABG pCO2 (35-45) mmHg ABG O2 Saturation (94-97) % Chloride (98-107) mmol/L BUN (9-20) mg/dL Glucose (74-99) mg/dL POC Glucose (mg/dL) 141 H (75-99) mg/dL Calcium (8.4-10.2) mg/dL Total Protein (6.3-8.2) g/dL Albumin (3.5-5.0) g/dL Crossmatch 05/23/19 05/23/19 05/23/19 Range/Units 05:10 05:32 06:16 WBC (3.8-10.6) k/uL RBC (4.30-5.90) m/uL Hgb (13.0-17.5) gm/dL Hct (39.0-53.0) % RDW (11.5-15.5) % Plt Count (150-450) k/uL Neutrophils # (1.3-7.7) k/uL Lymphocytes # (1.0-4.8) k/uL ABG pH 7.46 H (7.35-7.45) ABG pCO2 32 L (35-45) mmHg ABG O2 Saturation 97.4 H (94-97) % Chloride 119 H (98-107) mmol/L BUN 62 H (9-20) mg/dL Glucose 139 H (74-99) mg/dL POC Glucose (mg/dL) 157 H (75-99) mg/dL Calcium 7.1 L (8.4-10.2) mg/dL Total Protein 3.4 L (6.3-8.2) g/dL Albumin 1.7 L (3.5-5.0) g/dL Crossmatch Assessment and Plan Assessment: Continue to monitor the patient's hemoglobin. GI consult noted. Place gastrostomy to dependent drainage if further bleeding suspected to evaluate proximal versus distal source although I suspect related to recent PEG tube placement. Tightening the bolster likely will have helped with bleeding at the site itself. We'll follow.
--- NOTE | 2019-05-23 09:57 | P.PN ---
Subjective Progress Note Date: 05/23/19 Principal diagnosis: Squamous cell carcinoma right upper lobe. Previous medical history of tobacco dependence with 01-bmcm-lvct history, chronic obstructive pulmonary disease, hyp ertension, hyperlipidemia, coronary artery disease status post stenting to the circumflex coronary artery in 2017, sick sinus syndrome status post permanent pacemaker placement in 2010, bipolar disorder/anxiety/depression, and gastroesophageal reflux disease. POD #23 right thoracoscopy, robotic assisted thorascopic right upper lobectomy with mediastinal lymph node dissection, fiberoptic bronchoscopy. Postoperative acute blood loss anemia, expected Postoperative paroxysmal atrial fibrillation, unexpected Postoperative right-sided pneumothorax with prolonged air leak, expected and inherent to this type of surgery Leukocytosis, suspect postobstructive pneumonia, unexpected Hypotension, status post fluid administration, necessitating IV levo, unexpected Postoperative hypoxemic respiratory failure, necessitating initiation of BiPAP, unexpected POD #9 bedside bronchoscopy and bronchoalveolar lavage of the left upper lobe, right middle lobe and right lower lobe performed by Dr. Soliman POD #3 tracheostomy placement with 8 mm Shiley cuffed tracheostomy tube POD #2 esophagogastroduodenoscopy with percutaneous endoscopic gastrostomy tube placement 20-Italian, EndoVive Push technique [facility] [employer] Postoperative acute GI bleed, unexpected, likely from anticoagulation prescribed for A. fib The patient is currently laying in bed in the intensive care unit in no acute distress. Currently maintained on mechanical ventilation through the tracheostomy. Sedated with small dose of propofol but does open his eyes and follows commands. Heart rhythm bouncing back and forth between sinus rhythm and atrial fibrillation, currently maintained with amiodarone and Lopressor. Eliqu is was discontinued last night as patient began having dark tarry stools, Hemoccult positive. Hemoglobin dropped to 5.4, GI was consulted, and 2 units packed red blood cells were transfused with hemoglobin this morning 8.1. Currently not on any pressors or inotropes. Patient's family has been updated daily, they're very concerned regarding the downturn in the patient's status and requested last night that the patient be transferred to [facility] in [place] which is closer to the daughter. Objective - Vital Signs Vital signs: Vital Signs Temp 98.4 F 05/23/19 04:00 Pulse 72 05/23/19 07:55 Resp 21 05/23/19 07:00 BP 137/76 05/23/19 07:00 Pulse Ox 97 05/23/19 07:00 Intake & Output 05/22/19 05/23/19 05/23/19 18:59 06:59 18:59 Intake Total 6086.836 8828.707 75 Output Total 535 1050 50 Balance 938.933 858.707 25 Weight 84.1 kg Intake: IV 1175 750 75 Levofloxacin 750Mg-D5w 250 75 Pmx 750 mg In Dextrose/ Water 1 150ml.bag @ 100 mls/hr IVPB Q24H [facility] Rx#: [id number] Sodium Chloride 0.9% 1, 925 675 75 000 ml @ 75 mls/hr IV . [id number] [facility] Rx#:[id number] Intake, IV Titration 94.933 160.707 Amount Propofol 1,000 mg In 19.933 85.707 Empty Bag 1 bag @ Titrate IV .Q0M [facility] Rx#: [id number] Sodium Chloride 0.9% 1, 75 75 000 ml @ 75 mls/hr IV . [id number] [facility] Rx#:[id number] Tube Feeding 204 68 Blood Product 930 As-1 Unit 310 [id number] As-1 Unit 310 [id number] Output: Urine 535 1050 50 Other: Voiding Method Indwelling Catheter Indwelling Catheter # Voids 1 1 ABP, PAP, CO, CI - Last Documented Arterial Blood Pressure 93/52 - Constitutional General appearance: Present: cooperative, no acute distress - Respiratory Details: Lungs sounds diminished bilaterally. Respirations even, nonlabored on mechan ical ventilation. Current ventilator settings assist control mode, FiO2 40%, tidal volume 450, respiratory rate 20, PEEP 5. ABGs this morning 7.46/32/86/23/97%/-1.3 on 40% FiO2 and 5 of PEEP. #8 Shiley tracheostomy tube present with oozing around the insertion site, less than yesterday. - Cardiovascular Details: S1, S2 present. Both regular and irregular rate and rhythm, atrially paced/sinus alternating with atrial fibrillation on telemetry. Palpable peripheral pulses bilaterally. Generalized edema present. Right brachial PICC line, left radial arterial line present. SCDs present. - Gastrointestinal Gastrointestinal Comment(s): Abdomen soft, nontender, nondistended. Active bowel sounds present 4 twin drants. PEG tube present. Fecal management system present with black liquid stool. - Genitourinary Genitourinary Comment(s): Castorena present draining clear, yellow urine. Output 75-100 mL per hour overnight. - Integumentary Integumentary Comment(s): Skin is warm and dry. Tracheostomy site with less serosanguineous drainage than yesterday. - Neurologic Neurologic Comment(s): Sedated on 10 mics of propofol, does open his eyes and follow commands - Musculoskeletal Musculoskeletal: Present: generalized weakness - Psychiatric Psychiatric Comment(s): Does not appear to be exhibiting signs of anxiety - Allied health notes Allied health notes reviewed: nursing - Labs CBC & Chem 7: 05/23/19 05:10 05/23/19 05:10 Labs: Abnormal Lab Results - Last 24 Hours (Table) 05/20/19 05/22/19 05/22/19 Range/Units 04:00 12:12 17:28 WBC (3.8-10.6) k/uL RBC (4.30-5.90) m/uL Hgb (13.0-17.5) gm/dL Hct (39.0-53.0) % RDW (11.5-15.5) % Plt Count (150-450) k/uL Neutrophils # (1.3-7.7) k/uL Lymphocytes # (1.0-4.8) k/uL ABG pH (7.35-7.45) ABG pCO2 (35-45) mmHg ABG O2 Saturation (94-97) % Chloride (98-107) mmol/L BUN (9-20) mg/dL Glucose (74-99) mg/dL POC Glucose (mg/dL) 160 H 142 H (75-99) mg/dL Calcium (8.4-10.2) mg/dL Total Protein (6.3-8.2) g/dL Albumin (3.5-5.0) g/dL Crossmatch See Detail 05/22/19 05/23/19 05/23/19 Range/Units 18:45 00:05 05:10 WBC 22.5 H 16.8 H (3.8-10.6) k/uL RBC 1.75 L 2.72 L (4.30-5.90) m/uL Hgb 5.4 L* D 8.1 L D (13.0-17.5) gm/dL Hct 16.7 L* 24.0 L (39.0-53.0) % RDW 16.8 H 17.7 H (11.5-15.5) % Plt Count 135 L (150-450) k/uL Neutrophils # 15.7 H (1.3-7.7) k/uL Lymphocytes # 0.4 L (1.0-4.8) k/uL ABG pH (7.35-7.45) ABG pCO2 (35-45) mmHg ABG O2 Saturation (94-97) % Chloride (98-107) mmol/L BUN (9-20) mg/dL Glucose (74-99) mg/dL POC Glucose (mg/dL) 141 H (75-99) mg/dL Calcium (8.4-10.2) mg/dL Total Protein (6.3-8.2) g/dL Albumin (3.5-5.0) g/dL Crossmatch 05/23/19 05/23/19 05/23/19 Range/Units 05:10 05:32 06:16 WBC (3.8-10.6) k/uL RBC (4.30-5.90) m/uL Hgb (13.0-17.5) gm/dL Hct (39.0-53.0) % RDW (11.5-15.5) % Plt Count (150-450) k/uL Neutrophils # (1.3-7.7) k/uL Lymphocytes # (1.0-4.8) k/uL ABG pH 7.46 H (7.35-7.45) ABG pCO2 32 L (35-45) mmHg ABG O2 Saturation 97.4 H (94-97) % Chloride 119 H (98-107) mmol/L BUN 62 H (9-20) mg/dL Glucose 139 H (74-99) mg/dL POC Glucose (mg/dL) 157 H (75-99) mg/dL Calcium 7.1 L (8.4-10.2) mg/dL Total Protein 3.4 L (6.3-8.2) g/dL Albumin 1.7 L (3.5-5.0) g/dL Crossmatch - Imaging and Cardiology Chest x-ray: report reviewed, image reviewed Assessment and Plan Assessment: 1. Squamous cell carcinoma right upper lobe, [id number], status post right robotic-assisted upper lobectomy with mediastinal lymph node dissection 2. Previous tobacco dependence with 40-lhyt-cycx history 3. COPD 4. Hypertension 5. Hyperlipidemia 6. Diastolic heart failure 7. Coronary artery disease status post stenting to the circumflex coronary artery 8. Sick sinus syndrome status post permanent pacemaker placement 9. Bipolar disorder 10. GERD 11. Postoperative acute blood loss anemia 12. Postoperative paroxysmal atrial fibrillation 13. Postoperative right-sided pneumothorax with prolonged air leak 14. Leukocytosis, pneumonia, likely from aspiration, unexpected 15. Hypotension, status post fluid resuscitation, necessitating IV levofed 16. Postoperative hypoxemic respiratory failure requiring intubation, unexpected, status post bronchoscopy with bronchoalveolar lavage, failed extubation and tracheostomy placement 17. Status post PEG tube placement 18. Acute gastrointestinal bleed, status post transfusion 2 units packed red blood cells, likely from anticoagulation with Eliquis Plan: 1. Ventilator management, bronchodilators, steroids per pulmonology. Wean from ventilator as tolerated 2. Continue Levaquin 3. Continue tube feedings via PEG 4. Continue amiodarone for A. fib prophylaxis. continue Lopressor. Eliquis discontinued secondary to GI bleed, patient is at increased risk for stroke 5. Nurse Chemical Dependency consulted, appreciate recommendations. Will continue Protonix IV twice daily 6. Will continue to monitor daily x-rays, labs. 7. GI/DVT prophylaxis. 8. Pain control with current medication regimen. Fentanyl patch added yesterday per Dr. Oliveira 9. Continue home medications. Continue low-dose propofol along with IV Ativan for anxiety 10. Encourage continued smoking cessation. 11. Patient's family is requesting transfer to [facility] in [place]. From our standpoint, the patient may be transferred as per their wishes once an accepting physician has been obtained. 12. More recommendations to follow. Time with Patient: Greater than 30
--- NOTE | 2019-05-23 11:18 | PN ---
PROGRESS NOTE DATE OF SERVICE: 05/23/2019 CRITICAL CARE TIME: 33 minutes This is a patient who was admitted way back on April 30. He was initially admitted for a suspicious lesion in the right upper lobe. It was 2.5 cm in size and he had a right upper lobectomy done by Dr. Brock. Everything went well initially. Subsequent to that, the patient developed respiratory failure possibly from aspiration pneumonia. He was reintubated on 05/14. At that point, the patient was not progressing but he was given a trial of extubation, I believe on March 18. He failed that and he had to be reintubated. Subsequent to that, he underwent a tracheostomy by Dr. Brock and had a PEG tube placed by one of the surgeons. He is still on the mechanical ventilator. Apparently, the family now wants him transferred to a hospital in [place]. Currently, he is on the volume assist-control mode, rate of 20, tidal volume 450, FiO2 of 40%, PEEP of 5. Blood gases show a mild respiratory alkalosis with a pCO2 of 32, and a pH of 7.45. The paO2 is 85. The patient may be having a GI bleed. He got 2 units of PRBCs for a low hemoglobin. In addition, the patient is receiving saline at 75 mL an hour, propofol at 15 mcg/kg per minute. Vital high-protein at 34 with a goal of 34. In addition, yesterday, we put him on scheduled doses of both Ativan and Dilaudid. His propofol dose has come down nicely. Currently, vital signs are reviewed. Temperature is 98.4, heart rate 71, respiratory rate is set at 20 on the ventilator. He is breathing about 21 times a minute. Blood pressure 137/76 with mean 96 and saturations are 97%. Appears in no acute distress. HEENT: Examination is grossly unremarkable. NECK: Supple. Midline tracheostomy. Dried blood around the trach site. No adenopathy or thyromegaly. CARDIOVASCULAR: Examination reveals regular rhythm and rate. Heart rate 71. S1, S2 normal. Heart sounds are distant. LUNGS: Reveal a few scattered rhonchi bilaterally. Breath sounds equal. No crackles. ABDOMEN: Soft, bowel sounds are heard. EXTREMITIES: Intact. There is some mild edema. SKIN: Without rash. NEUROLOGIC: Examination is difficult to assess because he is on Ativan, Dilaudid, and propofol. He had a chest x-ray done today. It shows volume loss in the right hemithorax. The right diaphragm is elevated. Trach tube is in place. The left lung is relatively clear, although there may be some atelectasis and a small effusion at the base. LABS: Reviewed. White count 16.8, hemoglobin 8.1, hematocrit 24, platelet count 135,000. Blood gases have been noted. Sodium 144, potassium 4, chloride 119, CO2 is 24, anion gap is 1. BUN and creatinine were 62 and 0.95. Albumin 1.7. Microbiologic studies including bronch washes and blood cultures are all negative. MEDICATIONS: Reviewed. He is on Tylenol, Cordarone, Eliquis, Abilify, Pulmicort, chlorhexidine, Aricept, Cymbalta, fentanyl patch, formoterol, hydralazine, Dilaudid, insulin, updrafts, Levaquin, Ativan, magnesium, Solu-Medrol, metoprolol, Narcan, Zofran, Protonix, phosphorus replacement, potassium replacement, and propofol. ASSESSMENT: 1. Acute respiratory failure secondary to suspected aspiration pneumonia with re- intubation on May 14 and subsequent failure to wean and resultant tracheostomy, postoperative day #3. 2. Squamous cell carcinoma, right upper lobe, status post right upper lobectomy, postoperative day #23. 3. Status post failed extubation on May 19 with re-intubation on May 19 and tracheostomy performed on May 20. 4. Postoperative day #2, status post PEG tube placement, May 21. 5. Right-sided pneumothorax, cough, postsurgically, resolved. 6. History of chronic and ongoing tobacco dependence for more than 40 years. 7. Prerenal azotemia. 8. Benign essential hypertension. 9. Sick sinus syndrome, status post pacemaker insertion. 10.History of anxiety/depression. 11.History of hyperlipidemia. 12.Bipolar disorder. 13.Postoperative atrial fibrillation. 14.Diastolic heart failure with fluid overload. 15.Possible hospital-acquired pneumonia. 16.Status post bronchoscopy and BAL on May 19 with negative culture data. PLAN: The patient is currently stable. His propofol dose has been weaned down nicely. He is on scheduled doses of Ativan and Dilaudid and also receiving fentanyl patch. The patient's blood gases are excellent. He has good oxygenation and ventilation. Hemodynamically, the patient is stable. The patient's hemoglobin earlier was 5.4. He has received 2 units of PRBCs. Apparently, the family would like him transferred. That will be apparently facilitated today. No additional recommendations are made. Prognosis is guarded. CRITICAL CARE TIME: 34 minutes. JASON / AUGUSTUS: [id number] /
[2019-05-23 13:02] LABS: Glucose,Whole Blood 124 mg/dL (75-99)
--- NOTE | 2019-05-23 13:48 | CONS ---
CONSULTATION DATE OF SERVICE: 05/23/2019 REQUESTING PHYSICIAN: Dr. Brock. REASON FOR CONSULTATION: Anemia and black tarry stools. HISTORY OF PRESENT ILLNESS: The patient is a 69-year-old white male who was diagnosed with squamous cell carcinoma of the right upper lobe for which he underwent robotic-assisted thorascopic right upper lobectomy with mediastinal lymph node dissection and presently is postoperative day #22. During the postoperative course, he developed AFIB and has been on amiodarone and Eliquis. He developed right-sided pneumothorax, possible pneumonia, was extubated, re- intubated and underwent tracheostomy and PEG tube placement last week. Reason we are consulted is because of dark-colored stools that started yesterday morning and significant drop in hemoglobin to 5.5 g/dL requiring 2 more units of blood transfusion. During this entire hospitalization, patient received total of 3 units of PRBC transfusion so far. Patient currently intubated on the vent and sedated and history was obtained from the patient's medical records and the nursing staff caring for him. On review of his records, he underwent an upper endoscopy with PEG tube placement by Dr. Ferrer on May 20 at which time there was evidence of severe gastritis with oozing noted in the antrum, probably stress-induced gastritis. He is presently tolerating tube feeds and the residuals have been being checked periodically, does not show any blood tinged aspirate. He is on Protonix 40 mg q.12 hours. PAST MEDICAL HISTORY: Significant for COPD, hypertension, gastroesophageal reflux disease, hyperlipidemia, musculoskeletal disorder, seizure disorder, chronic back pain, anxiety, depression. PAST SURGICAL HISTORY: Pacemaker implantation, appendectomy, cardiac catheterization, trigger finger surgery. MEDICATIONS: His current medications while in the hospital include Tylenol, DuoNeb, Cordarone, Abilify, Pulmicort, Peridex, Aricept, Cymbalta, Duragesic patch, Apresoline, Dilaudid, NovoLog, Levaquin, Ativan, Solu-Medrol, Lopressor, pantoprazole, Zofran, Narcan. SOCIAL HISTORY: Remote history of smoking. No alcohol use. FAMILY HISTORY: Unremarkable. REVIEW OF SYSTEMS: Could not be obtained as patient presently on the vent and sedated. On physical examination, remain sedated. VITAL SIGNS: Show a blood pressure of 122/86, pulse is 71, afebrile. HEENT: Examination unremarkable. LUNGS: Conjunctivae are pink, sclerae nonicteric, oral cavity no lesions. HEENT: Examination shows trach in place. CHEST: Decreased breath sounds bilaterally. ABDOMEN: PEG tube in place. PEG site appears clear. Abdomen is benign. Bowel sounds are positive. EXTREMITIES: No pedal edema. FMS in place that has liquid dark green stool. LABS: From today WBC 16.8, hemoglobin 8.1, platelets 135, BUN is 62, creatinine 0.95, albumin is 1.7. ABGs pH is 7.46, pCO2 is 32, pO2 is 86, and oxygen saturation 97%. IMPRESSION: 1. Acute respiratory failure secondary to pneumonia. Presently postoperative day #22, remains on the vent, sedated and intubated. 2. History of lung cancer/squamous cell carcinoma for which he underwent robotic assisted right upper lobectomy, postoperative day #22. 3. Gastrointestinal bleed with black tarry stools and drop in hemoglobin to 5.5 g/dL requiring 2 more units of blood transfusion yesterday. Today hemoglobin is 8.5, had FMS in place, shows dark colored stools. Upper endoscopy done [address] Ferrer for a PEG tube placement, showed evidence of diffuse gastritis with oozing in the antrum of the stomach, probably stress-induced gastritis that appears to be the source of bleeding. 4. History of tracheostomy and PEG tube placement as described above. 5. Atrial fibrillation, on Eliquis, currently on hold since yesterday. RECOMMENDATIONS: 1. Monitor CBC closely. 2. Continue with Protonix 40 mg q.12 hours. 3. Transfuse if hemoglobin less than 7. 4. Agree with holding off on the Eliquis and hopefully this was going to reduce the bleeding that was noted on recent upper endoscopy by Dr. Ferrer during the PEG tube insertion. 5. At this time, I do not see a reason to proceed with a repeat upper endoscopy. Will continue with conservative approach and transfuse as needed. I will follow the patient closely during his hospital. Thank you for this consultation. MMODL / IJN: [id number] /
[2019-05-23 17:13] LABS: Glucose,Whole Blood 93 mg/dL (75-99)
[2019-05-23] MEDS: ARIPiprazole 15 MG TAB PO SCH (20:01)
[2019-05-23] MEDS: DONEPEZIL 5 MG TAB PO SCH (20:01)
[2019-05-23] MEDS: DULoxetine HCL 60 MG CAPSULE.DR PO SCH (20:01)
[2019-05-24] LABS: Glucose,Whole Blood 150 mg/dL (75-99)
[2019-05-24] MEDS: HYDROmorphone 1 MG/ML 1 ML SYRINGE IVP SCH (02:11)
[2019-05-24 04:35] LABS: ABG Base Excess -1.4 mmol/L; ABG HCO3 23 mmol/L (21-25); ABG Oxygen Saturation 98.2 % (94-97); ABG PCO2 34 mmHg (35-45); ABG PH 7.44 (7.35-7.45); ABG PO2 103 mmHg (83-108); ABG TCO2 24 mmol/L (19-24); Allen Test Performed? Yes
[2019-05-24] MEDS: LORazepam 2 MG/ML INJ IV SCH ×5 (05:29→23:03)
[2019-05-24] MEDS: INSULIN ASPART (NovoLOG) 100 UNIT/ML VIAL SQ SCH ×5 (05:29→23:15)
[2019-05-24] MEDS: methylPREDNISolone SOD SUCCI 40 MG/ML 1 ML VIAL IV SCH ×4 (05:29→23:03)
[2019-05-24 05:37] LABS: Glucose,Whole Blood 133 mg/dL (75-99)
[2019-05-24 05:59] LABS: Anisocytosis Slight; Basophils % (A) 0 %; Eosinophils % (A) 0 %; HCT 25.9 % (39.0-53.0); HGB 8.6 gm/dL (13.0-17.5); Lymphocytes # (A) 0.2 k/uL (1.0-4.8); Lymphocytes % (A) 1 %; MCHC 33.1 g/dL (31.0-37.0); MCV 87.7 fL (80.0-100.0); Mean Platelet Volume 7.8; Monocytes # (A) 0.5 k/uL (0-1.0); Monocytes % (A) 2 %; Neutrophils # (A) 19.4 k/uL (1.3-7.7); Neutrophils % (A) 96 %; Platelet Count 157 k/uL (150-450); Poikilocytosis Slight; RBC 2.95 m/uL (4.30-5.90); RDW 16.5 % (11.5-15.5); WBC 20.2 k/uL (3.8-10.6)
[2019-05-24 06:04] LABS: ALT 25 U/L (21-72); AST 33 U/L (17-59); African American GFR (CKD) >90 (>60 ml/min/1.73 sqM); Albumin 2.1 g/dL (3.5-5.0); Alkaline Phosphatase 59 U/L (38-126); Anion Gap 5 mmol/L; Blood Urea Nitrogen 52 mg/dL (9-20); Calcium 7.8 mg/dL (8.4-10.2); Carbon Dioxide 22 mmol/L (22-30); Chloride 119 mmol/L (98-107); Glucose 128 mg/dL (74-99); Potassium 4.3 mmol/L (3.5-5.1); Sodium 146 mmol/L (137-145); Total Bilirubin 0.4 mg/dL (0.2-1.3); Total Protein 4.3 g/dL (6.3-8.2)
[2019-05-24] MEDS: IPRATROPIUM-ALBUTEROL 3 ML NEB IH SCH ×4 (06:58→19:21)
[2019-05-24] MEDS: FORMOTEROL FUMARATE 20 MCG/2 ML NEBU INHALATION SCH ×2 (06:58→19:21)
[2019-05-24] MEDS: BUDESONIDE 1 MG/2 ML NEBU INHALATION SCH ×2 (06:58→19:21)
[2019-05-24] MEDS: SODIUM CHLORIDE 0.45% 1,000 ML IV SCH (08:00)
[2019-05-24] MEDS: METOPROLOL TARTRATE 25 MG TAB PEG/G-TUBE SCH ×3 (08:46→22:53)
[2019-05-24] MEDS: CHLORHEXIDINE GLUCONATE 15 ML CUP MUCOUS MEM SCH ×2 (08:47→22:54)
[2019-05-24] MEDS: PANTOPRAZOLE 40 MG/10 ML VIAL IVP SCH ×2 (08:47→22:54)
[2019-05-24] MEDS: AMIODARONE 200 MG TAB PEG/G-TUBE SCH ×2 (08:47→22:53)
--- NOTE | 2019-05-24 08:48 | P.PN ---
Subjective Progress Note Date: 05/24/19 Principal diagnosis: Squamous cell carcinoma right upper lobe. Previous medical history of tobacco dependence with [id number] history, chronic obstructive pulmonary disease, hyp ertension, hyperlipidemia, coronary artery disease status post stenting to the circumflex coronary artery in 2017, sick sinus syndrome status post permanent pacemaker placement in 2010, bipolar disorder/anxiety/depression, and gastroesophageal reflux disease. POD #24 right thoracoscopy, robotic assisted thorascopic right upper lobectomy with mediastinal lymph node dissection, fiberoptic bronchoscopy. Postoperative acute blood loss anemia, expected Postoperative paroxysmal atrial fibrillation, unexpected Postoperative right-sided pneumothorax with prolonged air leak, expected and inherent to this type of surgery Leukocytosis, suspect postobstructive pneumonia, unexpected Hypotension, status post fluid administration, necessitating IV levo, unexpected Postoperative hypoxemic respiratory failure, necessitating initiation of BiPAP, unexpected POD #10 bedside bronchoscopy and bronchoalveolar lavage of the left upper lobe, right middle lobe and right lower lobe performed by Dr. Soliman POD #4 tracheostomy placement with 8 mm Shiley cuffed tracheostomy tube POD #3 esophagogastroduodenoscopy with percutaneous endoscopic gastrostomy tube placement 20-Zimbabwean, EndoVive Push technique [place] Postoperative acute GI bleed, unexpected, likely from anticoagulation prescribed for A. fib The patient is currently laying in bed in the intensive care unit in no acute distress. Currently maintained on mechanical ventilation through the tracheostomy. Sedated with small dose of propofol but does open his eyes. Remains in sinus rhythm with occasional PACs, currently maintained with amiodarone and Lopressor. Eliquis was discontinued secondary to dark tarry stools, Hemoccult positive. Currently not on any pressors or inotropes. Patient's family has been updated daily, they're very concerned regarding the downturn in the patient's status and were requesting that the patient be transferred to [facility] in [place] which is closer to the daughter, however they have decided to keep the patient here at [facility] for a little while longer with the hopes that he will improve and be able to make it to LTAC in the next few days. Objective - Vital Signs Vital signs: Vital Signs Temp 98.3 F 05/24/19 04:00 Pulse 80 05/24/19 07:19 Resp 20 05/24/19 07:00 BP 102/65 05/24/19 07:00 Pulse Ox 99 05/24/19 07:00 Intake & Output 05/23/19 05/24/19 05/24/19 18:59 06:59 18:59 Intake Total 1411 827.025 54 Output Total 720 1535 100 Balance 691 -707.975 -46 Weight 84.2 kg Intake: IV 775 240 20 Levofloxacin 750Mg-D5w 100 Pmx 750 mg In Dextrose/ Water 1 150ml.bag @ 100 mls/hr IVPB Q24H ZORAN Rx#: [id number] NS 240 20 Sodium Chloride 0.9% 1, 675 000 ml @ 75 mls/hr IV . [id number] ZORAN Rx#:[id number] Intake, IV Titration 100 21.025 Amount Propofol 1,000 mg In 100 21.025 Empty Bag 1 bag @ Titrate IV .Q0M ZORAN Rx#: [id number] Tube Feeding 476 476 34 Other 60 90 Output: Urine 720 1535 100 Other: Voiding Method Indwelling Catheter Indwelling Catheter # Bowel Movements 1 ABP, PAP, CO, CI - Last Documented Arterial Blood Pressure 93/52 - Constitutional General appearance: Present: no acute distress - Respiratory Details: Lungs sounds diminished bilaterally with coarse breath sounds in the bases. Respirations even, nonlabored on mechanical ventilation. Current ventilator settings assist control mode, FiO2 40%, tidal volume 450, respiratory rate 20, PEEP 5. ABGs this morning 7.44/34/103/23/98%/-1.4 on 40% FiO2 and 5 of PEEP. #8 Shiley tracheostomy tube present. - Cardiovascular Details: S1, S2 present. Regular rate and rhythm, atrially paced/sinus rhythm with PACs on telemetry. Palpable peripheral pulses bilaterally. Generalized edema present. Right brachial PICC line line present. SCDs present. - Gastrointestinal Gastrointestinal Comment(s): Abdomen soft, nontender, nondistended. Active bowel sounds present 4 quadrants. PEG tube present with tube feedings infusing at 34 mL/h, minimal residual per nursing staff. Fecal management system has been removed - Genitourinary Genitourinary Comment(s): [place] present draining clear, yellow urine. Output 100-150 mL per hour overnight. - Integumentary Integumentary Comment(s): Skin is warm and dry. Tracheostomy site with serosanguineous drainage continuing to decrease in amount. - Neurologic Neurologic Comment(s): Sedated on 10 mics of propofol, opens his eyes and tracks - Musculoskeletal Musculoskeletal: Present: generalized weakness - Psychiatric Psychiatric Comment(s): Does not appear to be exhibiting signs of anxiety - Allied health notes Allied health notes reviewed: nursing - Labs CBC & Chem 7: 05/24/19 05:30 05/24/19 05:30 Labs: Abnormal Lab Results - Last 24 Hours (Table) 05/23/19 05/23/19 05/24/19 Range/Units 12:50 23:48 04:33 WBC (3.8-10.6) k/uL RBC (4.30-5.90) m/uL Hgb (13.0-17.5) gm/dL Hct (39.0-53.0) % RDW (11.5-15.5) % Neutrophils # (1.3-7.7) k/uL Lymphocytes # (1.0-4.8) k/uL ABG pCO2 34 L (35-45) mmHg ABG O2 Saturation 98.2 H (94-97) % Sodium (137-145) mmol/L Chloride (98-107) mmol/L BUN (9-20) mg/dL Creatinine (0.66-1.25) mg/dL Glucose (74-99) mg/dL POC Glucose (mg/dL) 124 H 150 H (75-99) mg/dL Calcium (8.4-10.2) mg/dL Total Protein (6.3-8.2) g/dL Albumin (3.5-5.0) g/dL 05/24/19 05/24/19 05/24/19 Range/Units 05:25 05:30 05:30 WBC 20.2 H (3.8-10.6) k/uL RBC 2.95 L (4.30-5.90) m/uL Hgb 8.6 L (13.0-17.5) gm/dL Hct 25.9 L (39.0-53.0) % RDW 16.5 H (11.5-15.5) % Neutrophils # 19.4 H (1.3-7.7) k/uL Lymphocytes # 0.2 L (1.0-4.8) k/uL ABG pCO2 (35-45) mmHg ABG O2 Saturation (94-97) % Sodium 146 H (137-145) mmol/L Chloride 119 H (98-107) mmol/L BUN 52 H (9-20) mg/dL Creatinine 0.65 L (0.66-1.25) mg/dL Glucose 128 H (74-99) mg/dL POC Glucose (mg/dL) 133 H (75-99) mg/dL Calcium 7.8 L (8.4-10.2) mg/dL Total Protein 4.3 L (6.3-8.2) g/dL Albumin 2.1 L (3.5-5.0) g/dL - Imaging and Cardiology Chest x-ray: image reviewed Assessment and Plan Assessment: 1. Squamous cell carcinoma right upper lobe, [id number], status post right robotic-assisted upper lobectomy with mediastinal lymph node dissection 2. Previous tobacco dependence with [id number] history 3. COPD 4. Hypertension 5. Hyperlipidemia 6. Diastolic heart failure 7. Coronary artery disease status post stenting to the circumflex coronary artery 8. Sick sinus syndrome status post permanent pacemaker placement 9. Bipolar disorder 10. GERD 11. Postoperative acute blood loss anemia 12. Postoperative paroxysmal atrial fibrillation 13. Postoperative right-sided pneumothorax with prolonged air leak 14. Leukocytosis, pneumonia, likely from aspiration, unexpected 15. Hypotension, status post fluid resuscitation, necessitating IV levofed 16. Postoperative hypoxemic respiratory failure requiring intubation, unexpected, status post bronchoscopy with bronchoalveolar lavage, failed extubation and tracheostomy placement 17. Status post PEG tube placement 18. Acute gastrointestinal bleed, status post transfusion 2 units packed red blood cells, likely from anticoagulation with Eliquis Plan: 1. Ventilator management, bronchodilators, steroids per pulmonology. Wean from ventilator as tolerated 2. Continue Levaquin per pulmonology 3. Continue tube feedings via PEG 4. Continue amiodarone for A. fib prophylaxis. Continue Lopressor. Eliquis discontinued secondary to GI bleed 5. Wing Commander consulted, recommendations for close monitoring of CBC with transfusion for hemoglobin less than 7. Will continue Protonix IV twice daily 6. Will continue to monitor daily x-rays, labs. 7. GI/DVT prophylaxis. 8. Pain control with current medication regimen. 9. Continue home medications. Continue low-dose propofol along with IV Ativan for anxiety 10. Encourage continued smoking cessation. 11. Discharge planning in progress. Anticipating discharge to LTAC this week 12. More recommendations to follow. Time with Patient: Greater than 30
[2019-05-24] MEDS: LEVOFLOXACIN 750MG-D5W PMX 750 MG in DEXTROSE/WATER 1 150ML.BAG IVPB SCH (08:52)
--- NOTE | 2019-05-24 09:50 | PN ---
PROGRESS NOTE DATE OF SERVICE: 05/24/2019 Critical care time 34 minutes. This is a 69-year-old male admitted way back on April 30. He had a 2.5 cm lesion in the right upper lobe. He had a right upper lobectomy done by Dr. Brock at that time. The pathology was positive for squamous cell carcinoma. Initially, everything seemed to be going relatively well. Subsequent to that, he developed acute hypoxemic respiratory failure thought to be related to aspiration pneumonia. He was reintubated on May 14. Unfortunately, the patient failed to wean from mechanical ventilation despite multiple efforts. Finally, we gave him a trial of extubation. He failed that and needed to be reintubated again quickly on the . After that, the next day, he had a tracheostomy performed by Dr. Brock and one day after that, a PEG tube placed by one of the surgeons. He is still on mechanical ventilator. His settings include the volume assist-control mode rate of 20, tidal volume 450, FiO2 of 40%, PEEP of 5. Blood gases show pO2 of 103, pCO2 of 34, and pH 7.44. He is currently getting saline at 20 mL an hour, propofol at 10 mcg/kg per minute and Vital high-protein at 34 with a goal of 34. Since he has been here, in the last couple of days, he has developed a GI bleed and required a total of 3 units of PRBCs. In addition to all of this, his family apparently wants him transferred to an outside hospital. Apparently they want him to go to [facility] in [place]. Apparently some family members live in that area and that would just be easier for them. Other than that, his night has been pretty uneventful. PHYSICAL EXAMINATION: VITAL SIGNS: Current vital signs are reviewed. Temperature is 98.3, heart rate 80, respiratory rate 20, blood pressure 102/65, mean 77, saturation is 99%. Appears in no acute distress. The patient is sedated. HEENT examination is grossly unremarkable. NECK: Supple, full range of motion. There is midline tracheostomy. There is some dried blood around the tracheostomy and tracheostomy site. CARDIOVASCULAR examination reveals regular rhythm and rate. Heart rate 80. S1, S2 normal. Heart sounds are distant. LUNGS: Reveal diffuse coarse rhonchi. No wheezes or crackles. Breath sounds are diminished. ABDOMEN: Soft. Bowel sounds are noted. EXTREMITIES are intact. There is edema. SKIN: Without rash. There are some areas of ecchymoses. NEUROLOGIC examination is difficult to assess given his sedation. LABORATORY DATA: Reviewed. White count 20.2, hemoglobin 8.6, hematocrit 25.9, platelet count 157,000. Sodium 146, potassium 4.3, chloride 119, CO2 of 22. Anion gap is 5. BUN and creatinine were 52 and 0.65. Microbiologic studies are all negative thus far. Chest x-ray in my opinion shows evidence of volume loss in the right lung obviously related to the right upper lobectomy. There is some atelectasis or patchy infiltrates at the right base as well as at the left base as well. In addition, there may be a small effusion bilaterally, left greater than right. MEDICATIONS: Reviewed. He is currently on Tylenol, Cordarone, Abilify, Pulmicort 1 mg, chlorhexidine, Aricept, Cymbalta, fentanyl patch, formoterol, Apresoline, Dilaudid, insulin, albuterol and Atrovent updrafts, Levaquin, Ativan, Solu-Medrol metoprolol, Narcan, Zofran, Protonix, phosphorus replacement, potassium replacement, and the propofol. ASSESSMENT: 1. Acute respiratory failure secondary to suspected aspiration pneumonia with re- intubation on May 14 and subsequent failure to wean and with resultant tracheostomy, postop day #4. 2. Squamous cell carcinoma, right upper lobe, status post right upper lobectomy, postop day #24. 3. Status post failed extubation on May 19 with re-intubation on the and tracheostomy performed on May 20. 4. Postoperative day #3, status post PEG tube placement on May 21. 5. Right-sided pneumothorax, resolved. 6. History of chronic and ongoing tobacco dependence for more than 40 years. 7. Prerenal azotemia. 8. Benign essential hypertension. 9. Sick sinus syndrome, status post pacemaker insertion. 10.History of anxiety/depression. 11.History of hyperlipidemia. 12.Bipolar disorder. 13.Postoperative atrial fibrillation. 14.Diastolic heart failure with fluid overload. 15.Possible hospital-acquired pneumonia. 16.Status post bronchoscopy and BAL on May 19 with negative culture data. PLAN: The plan is to transfer the patient to the hospital in [place]. This will be closer to the family. Today we are going to DC the Dilaudid. He is on a fentanyl patch. He will continue on the Ativan. The patient's vent settings are appropriate. Blood gases are excellent. He remains on tube feeds with Vital high-protein at goal. The propofol has been weaned down to 10 mcg/kg per minute. His overall prognosis remains poor. No additional recommendations are made. We will continue to follow until discharge. Critical care time 34 minute. MMODL / IJN: [id number] /
--- NOTE | 2019-05-24 10:10 | XR ---
EXAMINATION TYPE: XR chest 1V portable DATE OF EXAM: 05/24/2019 COMPARISON: Chest radiograph 05/23/2019-05/21/2019 HISTORY: ICU management TECHNIQUE: Single frontal view of the chest is obtained. FINDINGS: Stable position of endotracheal tube. Stable position of right upper extremity PICC tip projecting ov er the mid inferior vena cava. Dual-chamber cardiac pacemaker is unchanged, generator projects over t he left chest wall. Nonenlarged cardiomediastinal silhouette. Stable mild pulmonary vascular congestion. Stable small bib asilar opacities may represent pleural effusion and/or atelectasis. Fluid also tracks around the righ t lung apex. Patchy airspace opacities in the left lung are new. Unchanged right lung volume loss and perihilar streak-like opacities. IMPRESSION: 1. New left lower lung airspace consolidation, attention on follow-up. Correlate for clinical symptom s of pneumonia or recent aspiration. 2. Unchanged bibasilar opacities may represent small pleural effusion and/or atelectasis.
--- NOTE | 2019-05-24 10:20 | PN ---
PROGRESS NOTE REQUESTING PHYSICIAN: Dr. Brock The patient is a 69-year-old pleasant white male who is postoperative day #24 for robotic-assisted thorascopic right upper lobectomy for squamous cell adenocarcinoma. The patient has been intubated, sedated on the vent with a tracheostomy and PEG tube placement. During this hospitalization, he developed atrial fibrillation and has been on oral anticoagulation with Eliquis. He developed GI bleed manifested with black tarry stools for the last 2 days duration. He dropped his hemoglobin to 5.5 requiring total of 3 units of blood transfusion today. Hemoglobin is stable at 8.6. He had an ( ) in place that was removed last night. However, for the last 12 hours no further bleeding noted. In fact, he did not have any bowel movements. The patient had an EGD with PEG tube placement by Dr. Ferrer 3 days ago that showed diffuse gastritis with some oozing in the antrum. PHYSICAL EXAMINATION: He is sedated, intubated on the vent on no pressors. VITAL SIGNS: Show a blood pressure of 102/65, pulse is 78, temperature 98. HEENT examination unremarkable. Conjunctivae pale. Sclerae anicteric. Oral cavity no lesions. NECK: No JVD. CHEST: Clear to auscultation. HEART: Regular rate and rhythm. ABDOMEN: Soft. PEG tube in place. PEG site appears normal. Abdomen is benign. EXTREMITIES: No pedal edema. NEURO: Sedated, could not be assessed. LABS: Done today WBC 20.2, hemoglobin 8.6, platelets 157, BUN is 52, creatinine 0.65. IMPRESSION: 1. Acute gastrointestinal bleed, most likely upper gastrointestinal source of bleeding, probably stress related gastritis. Recent EGD by Dr. Ferrer 3 days ago at the time of PEG tube placement, which revealed evidence of severe gastritis involving the antrum with active oozing. The patient has been on Eliquis for atrial fibrillation which has been on hold since yesterday morning and bleeding appears to be gradually resolving. He is status post 3 units of blood transfusion. Hemoglobin stable at 8.6 g/dL. No further bleeding in the last 12 hours. Presently on IV Protonix 40 mg twice daily. 2. Postop day #24 for robotic-assisted thoracoscopic endoscopy right upper lobectomy for squamous cell carcinoma. 3. Atrial fibrillation on Eliquis, which has been on hold since yesterday morning. 4. Leukocytosis. 5. Status post trach and PEG placement as mentioned above. RECOMMENDATIONS: 1. Continue with IV Protonix 40 mg twice daily. 2. Continue with tube feeds. 3. CBC on a daily basis. 4. Continue to hold Eliquis for today and if there is no further bleeding can be restarted tomorrow. 5. No plans for any endoscopy intervention as the bleeding appears to be resolving. I will continue to follow the patient closely during his hospital stay. Thank you for this consultation. MMODL / IJN: [id number] /
--- NOTE | 2019-05-24 10:24 | P.PN ---
Subjective Progress Note Date: 05/24/19 Principal diagnosis: Malnutrition Patient did fairly well overnight. White blood cell count remains elevated at 20.2. Hemoglobin stable at 8.6. Liquid stools that are bilious to black in color. Tolerating tube feeds currently at 35 mL per hour. Plans for transfer were placed on hold. Objective - Vital Signs Vital signs: Vital Signs Temp 98.3 F 05/24/19 04:00 Pulse 80 05/24/19 07:19 Resp 20 05/24/19 07:00 BP 102/65 05/24/19 07:00 Pulse Ox 99 05/24/19 07:00 Intake & Output 05/23/19 05/24/19 05/24/19 18:59 06:59 18:59 Intake Total 1411 827.025 54 Output Total 720 1535 100 Balance 691 -707.975 -46 Weight 84.2 kg Intake: IV 775 240 20 Levofloxacin 750Mg-D5w 100 Pmx 750 mg In Dextrose/ Water 1 150ml.bag @ 100 mls/hr IVPB Q24H ZORAN Rx#: [id number] NS 240 20 Sodium Chloride 0.9% 1, 675 000 ml @ 75 mls/hr IV . [id number] ZORAN Rx#:[id number] Intake, IV Titration 100 21.025 Amount Propofol 1,000 mg In 100 21.025 Empty Bag 1 bag @ Titrate IV .Q0M ZORAN Rx#: [id number] Tube Feeding 476 476 34 Other 60 90 Output: Urine 720 1535 100 Other: Voiding Method Indwelling Catheter Indwelling Catheter # Bowel Movements 1 ABP, PAP, CO, CI - Last Documented Arterial Blood Pressure 93/52 - Exam Scout: Soft, nondistended, nontender, PEG site appears normal - Labs CBC & Chem 7: 05/24/19 05:30 05/24/19 05:30 Labs: Abnormal Lab Results - Last 24 Hours (Table) 05/23/19 05/23/19 05/24/19 Range/Units 12:50 23:48 04:33 WBC (3.8-10.6) k/uL RBC (4.30-5.90) m/uL Hgb (13.0-17.5) gm/dL Hct (39.0-53.0) % RDW (11.5-15.5) % Neutrophils # (1.3-7.7) k/uL Lymphocytes # (1.0-4.8) k/uL ABG pCO2 34 L (35-45) mmHg ABG O2 Saturation 98.2 H (94-97) % Sodium (137-145) mmol/L Chloride (98-107) mmol/L BUN (9-20) mg/dL Creatinine (0.66-1.25) mg/dL Glucose (74-99) mg/dL POC Glucose (mg/dL) 124 H 150 H (75-99) mg/dL Calcium (8.4-10.2) mg/dL Total Protein (6.3-8.2) g/dL Albumin (3.5-5.0) g/dL 05/24/19 05/24/19 05/24/19 Range/Units 05:25 05:30 05:30 WBC 20.2 H (3.8-10.6) k/uL RBC 2.95 L (4.30-5.90) m/uL Hgb 8.6 L (13.0-17.5) gm/dL Hct 25.9 L (39.0-53.0) % RDW 16.5 H (11.5-15.5) % Neutrophils # 19.4 H (1.3-7.7) k/uL Lymphocytes # 0.2 L (1.0-4.8) k/uL ABG pCO2 (35-45) mmHg ABG O2 Saturation (94-97) % Sodium 146 H (137-145) mmol/L Chloride 119 H (98-107) mmol/L BUN 52 H (9-20) mg/dL Creatinine 0.65 L (0.66-1.25) mg/dL Glucose 128 H (74-99) mg/dL POC Glucose (mg/dL) 133 H (75-99) mg/dL Calcium 7.8 L (8.4-10.2) mg/dL Total Protein 4.3 L (6.3-8.2) g/dL Albumin 2.1 L (3.5-5.0) g/dL Assessment and Plan (1) Severe protein-calorie malnutrition Narrative/Plan: Continue tube feeds for now. If hemoglobin drops and dark stools persist place PEG tube to dependent drainage to evaluate source of bleeding. Will follow. Current Visit: Yes Status: Acute Code(s): E43 - UNSPECIFIED SEVERE PROTEIN- CALORIE MALNUTRITION SNOMED Code(s): 262917939
[2019-05-24 11:46] LABS: Glucose,Whole Blood 134 mg/dL (75-99)
[2019-05-24] MEDS: PROPOFOL 1,000 MG in EMPTY BAG 1 BAG IV SCH (15:15)
[2019-05-24 18:02] LABS: Glucose,Whole Blood 151 mg/dL (75-99)
[2019-05-24] MEDS: DONEPEZIL 5 MG TAB PO SCH (22:53)
[2019-05-24] MEDS: ARIPiprazole 15 MG TAB PO SCH (22:54)
[2019-05-24] MEDS: DULoxetine HCL 60 MG CAPSULE.DR PO SCH (22:57)
[2019-05-24] MEDS: IPRATROPIUM-ALBUTEROL 3 ML NEB IH PRN (23:30)
[2019-05-24 23:34] LABS: Glucose,Whole Blood 155 mg/dL (75-99)
[2019-05-25 03:19] LABS: Anisocytosis Slight; Basophils % (A) 0 %; Eosinophils # (A) 0.1 k/uL (0-0.7); Eosinophils % (A) 1 %; HCT 22.2 % (39.0-53.0); HGB 7.6 gm/dL (13.0-17.5); Lymphocytes # (A) 0.2 k/uL (1.0-4.8); Lymphocytes % (A) 1 %; MCH 30.7 pg (25.0-35.0); MCHC 34.3 g/dL (31.0-37.0); MCV 89.4 fL (80.0-100.0); Mean Platelet Volume 8.2; Monocytes # (A) 0.4 k/uL (0-1.0); Monocytes % (A) 2 %; Neutrophils # (A) 16.4 k/uL (1.3-7.7); Neutrophils % (A) 96 %; Platelet Count 134 k/uL (150-450); Poikilocytosis Slight; RBC 2.48 m/uL (4.30-5.90); RDW 18.6 % (11.5-15.5); WBC 17.2 k/uL (3.8-10.6)
[2019-05-25 03:29] LABS: Magnesium 2.3 mg/dL (1.6-2.3); Phosphorus 3.1 mg/dL (2.5-4.5)
[2019-05-25 03:30] LABS: African American GFR (CKD) >90 (>60 ml/min/1.73 sqM); Anion Gap 1 mmol/L; Blood Urea Nitrogen 42 mg/dL (9-20); Calcium 7.6 mg/dL (8.4-10.2); Carbon Dioxide 27 mmol/L (22-30); Chloride 115 mmol/L (98-107); Glucose 140 mg/dL (74-99); Potassium 3.7 mmol/L (3.5-5.1); Sodium 143 mmol/L (137-145)
[2019-05-25] MEDS: METOPROLOL TARTRATE 25 MG TAB PEG/G-TUBE SCH (03:49)
[2019-05-25] MEDS ORDERED: POTASSIUM BICARBONATE/CIT AC 20 MEQ TABLET.EFF NG-TUBE SCH (04:00)
[2019-05-25 04:36] LABS: ABG Base Excess 3.6 mmol/L; ABG HCO3 27 mmol/L (21-25); ABG Oxygen Saturation 93.2 % (94-97); ABG PCO2 35 mmHg (35-45); ABG PO2 63 mmHg (83-108); ABG TCO2 28 mmol/L (19-24); Allen Test Performed? Yes
[2019-05-25] MEDS: LORazepam 2 MG/ML INJ IV SCH ×4 (05:02→23:11)
[2019-05-25] MEDS: INSULIN ASPART (NovoLOG) 100 UNIT/ML VIAL SQ SCH ×3 (05:02→18:15)
[2019-05-25 05:18] LABS: Glucose,Whole Blood 147 mg/dL (75-99)
[2019-05-25] MEDS ORDERED: FUROSEMIDE 10 MG/ML 4 ML VIAL IV STA (06:29)
[2019-05-25] MEDS: BUDESONIDE 1 MG/2 ML NEBU INHALATION SCH ×2 (07:01→19:10)
[2019-05-25] MEDS: IPRATROPIUM-ALBUTEROL 3 ML NEB IH SCH ×4 (07:01→19:10)
[2019-05-25] MEDS: FORMOTEROL FUMARATE 20 MCG/2 ML NEBU INHALATION SCH ×2 (07:01→19:10)
--- NOTE | 2019-05-25 07:22 | XR ---
EXAMINATION TYPE: XR chest 1V portable DATE OF EXAM: 05/25/2019 COMPARISON: 05/24/2019 HISTORY: ICU management. Shortness of breath. TECHNIQUE: Single frontal view of the chest is obtained. FINDINGS: There is right hemithorax volume loss. Increasing confluence of a right midlung opacity an d left basilar opacity. Peripheral reticular fibrosis is noted. Stable loculated right apical pneumot horax. Unchanged PICC, multilead left-sided cardiac device, midline tracheostomy, and postsurgical ch anges at the gastroesophageal junction. Diffuse osseous demineralization is seen. IMPRESSION: Present confluence of a right midlung opacity and left basilar opacity that may represen t atelectasis or pneumonia superimposed upon pulmonary fibrosis.
[2019-05-25] MEDS: AMIODARONE 200 MG TAB PEG/G-TUBE SCH ×2 (08:05→21:43)
[2019-05-25] MEDS: methylPREDNISolone SOD SUCCI 40 MG/ML 1 ML VIAL IV SCH ×2 (08:41→15:38)
--- NOTE | 2019-05-25 08:42 | PN ---
PROGRESS NOTE DATE OF SERVICE: 05/25/2019 Critical care time 33 minutes. This is a 69-year-old male admitted back on April 30. He had a 2.5 cm lesion in the right upper lobe and underwent a right upper lobectomy by Dr. Brock. The pathology was positive for squamous cell carcinoma. Initially, he did well postoperatively but subsequent to that developed acute hypoxemic respiratory failure, possibly related to aspiration pneumonia. He was reintubated on May 14 and despite multiple attempts at weaning, he could not be weaned. We did give him a trial of extubation. This was on May 19. He needed to be reintubated later that same day. On the following day, Dr. Brock performed a tracheostomy and the day after that, one of our surgeons did a PEG tube placement. He remains on the mechanical ventilator. He has really not made much in the way of progress, but he is just sort of status quo. He is critically ill, but stable. Currently, he is on the volume assist-control mode rate of 20, tidal volume 450, FiO2 of 40%, PEEP of 5. Arterial blood gases show pO2 of 63, pCO2 of 35, and a pH 7.49. He is on propofol at 10 mcg/kg per minute and a saline IV at 20 mL an hour. He is getting Vital high-protein through the PEG tube at 34 mL an hour with a goal of 34 mL an hour. He has been in and out of atrial fibrillation through the night. Other than that, according to the nurse, he has been stable. The patient has developed a GI bleed. For that, he has been receiving blood transfusions. The family wanted the patient transferred to [place]. That is still and in the process. PHYSICAL EXAMINATION: VITAL SIGNS: Current vital signs are reviewed. Temperature is 98.1, heart rate 89, but it has been up as high as 146, currently irregular; respiratory rate 20, blood pressure 111/87, mean 95, saturations are in the mid 90s. Appears in no acute distress. Looks about the same today as he did yesterday. HEENT examination is grossly unremarkable. NECK: Supple. There is midline tracheostomy. No neck vein distention. No adenopathy or thyromegaly. CARDIOVASCULAR examination reveals regular rhythm rate. Heart rate about 85 beats per minute. He appears to be in atrial fibrillation although could be sinus rhythm with premature beats. On the monitor it is hard to tell. S1, S2 normal. No distinct murmur. LUNGS: Reveal coarse rhonchi. Breath sounds are diminished. No wheezes or crackles. Breath sounds equal. ABDOMEN: Soft. Bowel sounds are heard. EXTREMITIES are intact. There is some slight edema. No cyanosis or clubbing. SKIN: Without rash. There are some ecchymoses. NEUROLOGIC examination is difficult to assess given the fact that he is on propofol and also receiving Ativan and a fentanyl patch. Microbiologic studies are negative. LABS: Reviewed. White count 17.2, hemoglobin 7.6, hematocrit 22.2, platelet count 134,000. Sodium 143, potassium 3.7, chloride 115, CO2 is 27. BUN and creatinine were 42 and 0.62. Chest x-ray is currently pending. MEDICATIONS: Reviewed. He is currently on Tylenol, Cordarone, Abilify, Pulmicort chlorhexidine, Aricept, Cymbalta, fentanyl patch, Perforomist, hydralazine p.r.n., insulin, updrafts with DuoNeb, Levaquin, Ativan, magnesium replacement, Solu-Medrol, metoprolol, Narcan, Zofran, Protonix, phosphorus and potassium replacement and the propofol. ASSESSMENT: 1. Acute respiratory failure, secondary to suspected aspiration pneumonia with re- intubation on May 14 and subsequent failure to wean and resultant tracheostomy, postop day #5. 2. Squamous cell carcinoma, right upper lobe, status post right upper lobectomy, postop day #25. 3. Status post failed extubation on May 19, with re-intubation on the and tracheostomy tube performed on May 20. 4. Postoperative day #4, status post PEG tube placement, on May 21. 5. Right-sided pneumothorax, resolved. 6. Gastrointestinal bleed, requiring blood transfusion. 7. History of chronic and ongoing tobacco dependence for more than 40 years. 8. Prerenal azotemia. 9. Benign essential hypertension. 10.Sick sinus syndrome, status post pacemaker insertion. 11.History of anxiety/depression. 12.History of hyperlipidemia. 13.Bipolar disorder. 14.Postoperative atrial fibrillation. 15.Diastolic heart failure with fluid overload, resolved. 16.Possible hospital-acquired pneumonia. 17.Status post bronchoscopy and BAL on May 19 with negative culture data. PLAN: Currently, the patient seems to be critically ill but stable. There was a drop in his PO2. Will await this morning's chest x-ray. Currently receiving tube feeds at goal. Propofol has been weaned down to 10 mcg/kg per minute. He has been evaluated by a long- term acute care facility in [place]. He remains on antibiotics. Overall prognosis is guarded. No additional recommendations are made. Critical care time 33 minutes. MMODL / IJN: [id number] /
[2019-05-25] MEDS: LEVOFLOXACIN 750MG-D5W PMX 750 MG in DEXTROSE/WATER 1 150ML.BAG IVPB SCH (08:43)
[2019-05-25] MEDS: CHLORHEXIDINE GLUCONATE 15 ML CUP MUCOUS MEM SCH ×2 (08:43→21:43)
[2019-05-25] MEDS: PANTOPRAZOLE 40 MG/10 ML VIAL IVP SCH ×2 (08:44→21:43)
[2019-05-25] MEDS: ACETAMINOPHEN TAB 500 MG TAB PO PRN (09:06)
--- NOTE | 2019-05-25 09:10 | P.PN ---
Subjective Progress Note Date: 05/25/19 Principal diagnosis: Squamous cell carcinoma right upper lobe. Previous medical history of tobacco dependence with [id number] history, chronic obstructive pulmonary disease, hyp ertension, hyperlipidemia, coronary artery disease status post stenting to the circumflex coronary artery in 2017, sick sinus syndrome status post permanent pacemaker placement in 2010, bipolar disorder/anxiety/depression, and gastroesophageal reflux disease. POD #25 right thoracoscopy, robotic assisted thorascopic right upper lobectomy with mediastinal lymph node dissection, fiberoptic bronchoscopy. Postoperative acute blood loss anemia, expected Postoperative paroxysmal atrial fibrillation, unexpected Postoperative right-sided pneumothorax with prolonged air leak, expected and inherent to this type of surgery Leukocytosis, suspect postobstructive pneumonia, unexpected Hypotension, status post fluid administration, necessitating IV levo, unexpected Postoperative hypoxemic respiratory failure, necessitating initiation of BiPAP, unexpected POD #11 bedside bronchoscopy and bronchoalveolar lavage of the left upper lobe, right middle lobe and right lower lobe performed by Dr. Soliman POD #5 tracheostomy placement with 8 mm Shiley cuffed tracheostomy tube POD #4 esophagogastroduodenoscopy with percutaneous endoscopic gastrostomy tube placement 20-Sudanese, EndoVive Push technique Enigmedia Postoperative acute GI bleed, unexpected, likely from anticoagulation prescribed for A. fib The patient is currently laying in bed in the intensive care unit in no acute distress. Currently maintained on mechanical ventilation through the tracheostomy. Sedated with small dose of propofol but does open his eyes. Did have bursts of afib last night which were short-lived, currently in sinus rhythm, maintained with amiodarone and Lopressor. Eliquis was discontinued secondary to dark tarry stools, Hemoccult positive, stooling has slowed but still dark and liquid. Currently not on any pressors or inotropes. Did have some oxygenation issues overnight, lasix given by pulmonology and PEEP increased to 8. Patient's family has been updated daily hoping that he will improve and be able to make it to LTAC in the next few days. Objective - Vital Signs Vital signs: Vital Signs Temp 98.1 F 05/25/19 08:00 Pulse 77 05/25/19 08:00 Resp 23 05/25/19 08:00 BP 111/76 05/25/19 08:00 Pulse Ox 100 05/25/19 08:00 Intake & Output 05/24/19 05/25/19 05/25/19 18:59 06:59 18:59 Intake Total 1466.71 1248 348 Output Total 1025 1155 880 Balance 441.71 93 -532 Weight 87.1 kg Intake: IV 170 220 190 Levofloxacin 750Mg-D5w 150 150 Pmx 750 mg In Dextrose/ Water 1 150ml.bag @ 100 mls/hr IVPB Q24H [facility] Rx#: [id number] NS 20 220 40 Intake, IV Titration 288.71 20 Amount Propofol 1,000 mg In 68.71 Empty Bag 1 bag @ Titrate IV .Q0M ZORAN Rx#: [id number] Sodium Chloride 0.45% 1, 220 20 000 ml @ 20 mls/hr IV . Q24H ZORAN Rx#:[id number] Tube Feeding 408 408 68 Other 600 600 90 Output: Urine 1025 1155 880 Other: Voiding Method Indwelling Catheter Indwelling Catheter ABP, PAP, CO, CI - Last Documented Arterial Blood Pressure 93/52 - Constitutional General appearance: Present: cooperative, no acute distress - Respiratory Details: Lungs sounds diminished bilaterally with coarse breath sounds in the bases, although less coarse than yesterday. Respirations even, nonlabored on mechanical ventilation. Current ventilator settings assist control mode, FiO2 40%, tidal volume 450, respiratory rate 20, PEEP 8. ABGs this morning 7.5/35/63/27/93%/3.6 on 40% FiO2 and 5 of PEEP, PEEP increased to 8. #8 Shiley tracheostomy tube present. - Cardiovascular Details: S1, S2 present. Regular rate and rhythm, currently sinus rhythm on telemetry. Palpable peripheral pulses bilaterally. Generalized edema present. Right brachial PICC line line present. SCDs present. - Gastrointestinal Gastrointestinal Comment(s): Abdomen soft, nontender, nondistended. Active bowel sounds present 4 quadra nts. PEG tube present with tube feedings infusing at 34 mL/h, minimal residual per nursing staff. Fecal management system reinserted and present, nothing currently in the bag although patient is leaking dark liquid stool around the tube. - Genitourinary Genitourinary Comment(s): [place] present draining clear, yellow urine. Output 60-100 mL per hour overni ght, 880 mL output since IV lasix given this morning. - Integumentary Integumentary Comment(s): Skin is cool and dry. Tracheostomy site with serosanguineous drainage continuing to decrease in amount. - Neurologic Neurologic Comment(s): Sedated on 10 mics of propofol, opens his eyes and tracks, nods/shakes head appr opriately. - Musculoskeletal Musculoskeletal: Present: generalized weakness - Psychiatric Psychiatric Comment(s): Does not appear to be exhibiting signs of anxiety - Allied health notes Allied health notes reviewed: nursing - Labs CBC & Chem 7: 05/25/19 03:10 05/25/19 06:10 Labs: Abnormal Lab Results - Last 24 Hours (Table) 05/24/19 05/24/19 05/24/19 Range/Units 11:34 17:50 23:13 WBC (3.8-10.6) k/uL RBC (4.30-5.90) m/uL Hgb (13.0-17.5) gm/dL Hct (39.0-53.0) % RDW (11.5-15.5) % Plt Count (150-450) k/uL Neutrophils # (1.3-7.7) k/uL Lymphocytes # (1.0-4.8) k/uL ABG pH (7.35-7.45) ABG pO2 (83-108) mmHg ABG HCO3 (21-25) mmol/L ABG Total CO2 (19-24) mmol/L ABG O2 Saturation (94-97) % Chloride (98-107) mmol/L BUN (9-20) mg/dL Creatinine (0.66-1.25) mg/dL Glucose (74-99) mg/dL POC Glucose (mg/dL) 134 H 151 H 155 H (75-99) mg/dL Calcium (8.4-10.2) mg/dL 05/25/19 05/25/19 05/25/19 Range/Units 03:10 03:10 04:35 WBC 17.2 H (3.8-10.6) k/uL RBC 2.48 L (4.30-5.90) m/uL Hgb 7.6 L (13.0-17.5) gm/dL Hct 22.2 L (39.0-53.0) % RDW 18.6 H (11.5-15.5) % Plt Count 134 L (150-450) k/uL Neutrophils # 16.4 H (1.3-7.7) k/uL Lymphocytes # 0.2 L (1.0-4.8) k/uL ABG pH 7.50 H (7.35-7.45) ABG pO2 63 L (83-108) mmHg ABG HCO3 27 H (21-25) mmol/L ABG Total CO2 28 H (19-24) mmol/L ABG O2 Saturation 93.2 L (94-97) % Chloride 115 H (98-107) mmol/L BUN 42 H (9-20) mg/dL Creatinine 0.62 L (0.66-1.25) mg/dL Glucose 140 H (74-99) mg/dL POC Glucose (mg/dL) (75-99) mg/dL Calcium 7.6 L (8.4-10.2) mg/dL 05/25/19 Range/Units 04:56 WBC (3.8-10.6) k/uL RBC (4.30-5.90) m/uL Hgb (13.0-17.5) gm/dL Hct (39.0-53.0) % RDW (11.5-15.5) % Plt Count (150-450) k/uL Neutrophils # (1.3-7.7) k/uL Lymphocytes # (1.0-4.8) k/uL ABG pH (7.35-7.45) ABG pO2 (83-108) mmHg ABG HCO3 (21-25) mmol/L ABG Total CO2 (19-24) mmol/L ABG O2 Saturation (94-97) % Chloride (98-107) mmol/L BUN (9-20) mg/dL Creatinine (0.66-1.25) mg/dL Glucose (74-99) mg/dL POC Glucose (mg/dL) 147 H (75-99) mg/dL Calcium (8.4-10.2) mg/dL - Imaging and Cardiology Chest x-ray: report reviewed, image reviewed Assessment and Plan Assessment: 1. Squamous cell carcinoma right upper lobe, [id number], status post right robotic-assisted upper lobectomy with mediastinal lymph node dissection 2. Previous tobacco dependence with [id number] history 3. COPD 4. Hypertension 5. Hyperlipidemia 6. Diastolic heart failure 7. Coronary artery disease status post stenting to the circumflex coronary artery 8. Sick sinus syndrome status post permanent pacemaker placement 9. Bipolar disorder 10. GERD 11. Postoperative acute blood loss anemia 12. Postoperative paroxysmal atrial fibrillation 13. Postoperative right-sided pneumothorax with prolonged air leak 14. Leukocytosis, pneumonia, likely from aspiration, unexpected 15. Hypotension, status post fluid resuscitation, necessitating IV levofed 16. Postoperative hypoxemic respiratory failure requiring intubation, unexpected, status post bronchoscopy with bronchoalveolar lavage, failed extubation and tracheostomy placement 17. Status post PEG tube placement 18. Acute gastrointestinal bleed, status post transfusion 2 units packed red blood cells, likely from anticoagulation with Eliquis Plan: 1. Ventilator management, bronchodilators, steroids per pulmonology. Wean from ventilator as tolerated. IV lasix given per pulmonology, excellent diuresis. 2. Continue Levaquin per pulmonology 3. Continue tube feedings via PEG 4. Continue amiodarone for A. fib prophylaxis. Continue Lopressor, increased to 50 mg BID today. Eliquis discontinued secondary to GI bleed 5. Warehousing Technician consulted, recommendations for close monitoring of CBC with transfusion for hemoglobin less than 7. Will continue Protonix IV twice daily 6. Will continue to monitor daily x-rays, labs. 7. GI/DVT prophylaxis. 8. Pain control with current medication regimen. IV dilaudid discontinued, patient maintained on fentanyl patch. 9. Continue home medications. Continue low-dose propofol along with IV Ativan for anxiety 10. Encourage continued smoking cessation. 11. Discharge planning in progress. Anticipating discharge to LTAC this week 12. More recommendations to follow. Time with Patient: Greater than 30
[2019-05-25] MEDS: METOPROLOL TARTRATE 50 MG TAB PEG/G-TUBE SCH (10:54)
[2019-05-25 11:54] LABS: Glucose,Whole Blood 152 mg/dL (75-99)
--- NOTE | 2019-05-25 11:59 | PN ---
PROGRESS NOTE The patient is a 69-year-old pleasant white male day 24 for the left upper lobectomy for squamous cell carcinoma of the lung. The patient has been intubated, remains on the vent and sedated for possible aspiration pneumonia. He dropped his hemoglobin to 5.5 g/dL two days ago requiring 3 units of blood transfusion. Yesterday hemoglobin was up to 8.5 and this morning down to 7.6. He has been having dark colored stools, but no obvious bleeding. Eliquis has been on hold for 2 days. He remains hemodynamically stable. PHYSICAL EXAMINATION: Remains on the vent, sedated. VITAL SIGNS: Blood pressure 111/76, pulse rate 87. HEENT: Examination unremarkable. Conjunctivae pink. Sclerae anicteric. CHEST: Decreased breath sounds bilaterally. HEART: Regular rate and rhythm. ABDOMEN: Soft. PEG tube in place, appears normal. RECTAL: Examination with dark green stool, in place. EXTREMITIES: No pedal edema. NEURO: Sedated. LABS: From today; WBC 17.2, hemoglobin 7.6, platelets 134, BUN 42, creatinine 0.62. IMPRESSION: 1. Acute GI bleed, possibly upper in etiology. EEG done [address] Ferrer for a PEG tube placement revealed severe gastritis with oozing, was on Eliquis, presently on hold. The bleeding appears to have spontaneously resolved. Hemoglobin stable at 7.6 g/dL, status post 3 units of blood transfusion so far for drop in hemoglobin. 2. Postop day #24 for squamous cell carcinoma of the lung status post left upper lobectomy. 3. Acute respiratory failure. Remains on the vent. Possible aspiration pneumonia on broad-spectrum antibiotics. 4. Atrial fibrillation on Eliquis, presently on hold because of acute GI bleed. 5. Status post trach and PEG. RECOMMENDATION: 1. Continue with Protonix 40 mg twice daily. 2. If hemoglobin remains stable and no further bleeding, Eliquis can be resumed tomorrow morning. 3. Repeat labs in the morning. 4. Continue with broad-spectrum antibiotics. 5. No plans for any endoscopy intervention. We will follow him closely during his hospital stay. Thank you for this consultation. MMODL / IJN: [id number] /
--- NOTE | 2019-05-25 12:00 | P.PN ---
Subjective Progress Note Date: 05/25/19 Principal diagnosis: Malnutrition Patient stable on ventilator. Vital signs have been stable. Hemoglobin went from 8.6-7.6. Today's bowel movement appears more dark bilious in color. White blood cell count improved at 17. Tolerating tube feeds at goal. Objective - Vital Signs Vital signs: Vital Signs Temp 98.1 F 05/25/19 08:00 Pulse 64 05/25/19 11:40 Resp 20 05/25/19 11:30 BP 114/84 05/25/19 11:15 Pulse Ox 100 05/25/19 11:30 Intake & Output 05/24/19 05/25/19 05/25/19 18:59 06:59 18:59 Intake Total 1466.71 1248 642.674 Output Total 1025 1155 1280 Balance 441.71 93 -637.326 Weight 87.1 kg 87.1 kg Intake: IV 170 220 250 Levofloxacin 750Mg-D5w 150 150 Pmx 750 mg In Dextrose/ Water 1 150ml.bag @ 100 mls/hr IVPB Q24H [facility] Rx#: [id number] NS 20 220 100 Intake, IV Titration 288.71 20 98.674 Amount Propofol 1,000 mg In 68.71 98.674 Empty Bag 1 bag @ Titrate IV .Q0M [facility] Rx#: [id number] Sodium Chloride 0.45% 1, 220 20 000 ml @ 20 mls/hr IV . Q24H [facility] Rx#:[id number] Tube Feeding 408 408 204 Other 600 600 90 Output: Urine 1025 1155 1280 Other: Voiding Method Indwelling Catheter Indwelling Catheter Indwelling Catheter ABP, PAP, CO, CI - Last Documented Arterial Blood Pressure 93/52 - Exam Abdomen: Soft, nondistended, nontender, PEG tube intact - Labs CBC & Chem 7: 05/25/19 03:10 05/25/19 06:10 Labs: Abnormal Lab Results - Last 24 Hours (Table) 05/24/19 05/24/19 05/25/19 Range/Units 17:50 23:13 03:10 WBC 17.2 H (3.8-10.6) k/uL RBC 2.48 L (4.30-5.90) m/uL Hgb 7.6 L (13.0-17.5) gm/dL Hct 22.2 L (39.0-53.0) % RDW 18.6 H (11.5-15.5) % Plt Count 134 L (150-450) k/uL Neutrophils # 16.4 H (1.3-7.7) k/uL Lymphocytes # 0.2 L (1.0-4.8) k/uL ABG pH (7.35-7.45) ABG pO2 (83-108) mmHg ABG HCO3 (21-25) mmol/L ABG Total CO2 (19-24) mmol/L ABG O2 Saturation (94-97) % Chloride (98-107) mmol/L BUN (9-20) mg/dL Creatinine (0.66-1.25) mg/dL Glucose (74-99) mg/dL POC Glucose (mg/dL) 151 H 155 H (75-99) mg/dL Calcium (8.4-10.2) mg/dL 05/25/19 05/25/19 05/25/19 Range/Units 03:10 04:35 04:56 WBC (3.8-10.6) k/uL RBC (4.30-5.90) m/uL Hgb (13.0-17.5) gm/dL Hct (39.0-53.0) % RDW (11.5-15.5) % Plt Count (150-450) k/uL Neutrophils # (1.3-7.7) k/uL Lymphocytes # (1.0-4.8) k/uL ABG pH 7.50 H (7.35-7.45) ABG pO2 63 L (83-108) mmHg ABG HCO3 27 H (21-25) mmol/L ABG Total CO2 28 H (19-24) mmol/L ABG O2 Saturation 93.2 L (94-97) % Chloride 115 H (98-107) mmol/L BUN 42 H (9-20) mg/dL Creatinine 0.62 L (0.66-1.25) mg/dL Glucose 140 H (74-99) mg/dL POC Glucose (mg/dL) 147 H (75-99) mg/dL Calcium 7.6 L (8.4-10.2) mg/dL 05/25/19 Range/Units 11:42 WBC (3.8-10.6) k/uL RBC (4.30-5.90) m/uL Hgb (13.0-17.5) gm/dL Hct (39.0-53.0) % RDW (11.5-15.5) % Plt Count (150-450) k/uL Neutrophils # (1.3-7.7) k/uL Lymphocytes # (1.0-4.8) k/uL ABG pH (7.35-7.45) ABG pO2 (83-108) mmHg ABG HCO3 (21-25) mmol/L ABG Total CO2 (19-24) mmol/L ABG O2 Saturation (94-97) % Chloride (98-107) mmol/L BUN (9-20) mg/dL Creatinine (0.66-1.25) mg/dL Glucose (74-99) mg/dL POC Glucose (mg/dL) 152 H (75-99) mg/dL Calcium (8.4-10.2) mg/dL Assessment and Plan (1) Severe protein-calorie malnutrition Narrative/Plan: Continue monitor hemoglobin. Continue tube feeds at goal. Current Visit: Yes Status: Acute Code(s): E43 - UNSPECIFIED SEVERE PROTEIN-CALORIE MALNUTRITION SNOMED Code(s): 867411022
[2019-05-25] MEDS: PROPOFOL 1,000 MG in EMPTY BAG 1 BAG IV SCH (16:04)
[2019-05-25 18:21] LABS: Glucose,Whole Blood 163 mg/dL (75-99)
[2019-05-25] MEDS: ARIPiprazole 15 MG TAB PO SCH (21:43)
[2019-05-25] MEDS: DULoxetine HCL 60 MG CAPSULE.DR PO SCH (21:43)
[2019-05-25] MEDS: DONEPEZIL 5 MG TAB PO SCH (21:45)
[2019-05-26 00:21] LABS: Glucose,Whole Blood 189 mg/dL (75-99)
[2019-05-26] MEDS: methylPREDNISolone SOD SUCCI 40 MG/ML 1 ML VIAL IV SCH ×2 (00:28→08:17)
[2019-05-26] MEDS: INSULIN ASPART (NovoLOG) 100 UNIT/ML VIAL SQ SCH ×5 (00:29→23:43)
[2019-05-26] MEDS: ACETAMINOPHEN TAB 500 MG TAB PO PRN ×3 (01:28→15:38)
[2019-05-26] MEDS: PROPOFOL 1,000 MG in EMPTY BAG 1 BAG IV SCH (01:50)
[2019-05-26 05:13] LABS: Anisocytosis Slight; Basophils % (A) 0 %; Eosinophils # (A) 0.1 k/uL (0-0.7); Eosinophils % (A) 0 %; HCT 21.9 % (39.0-53.0); HGB 7.1 gm/dL (13.0-17.5); Lymphocytes # (A) 0.1 k/uL (1.0-4.8); Lymphocytes % (A) 1 %; MCH 29.7 pg (25.0-35.0); MCHC 32.6 g/dL (31.0-37.0); MCV 91.2 fL (80.0-100.0); Mean Platelet Volume 8.2; Monocytes # (A) 0.3 k/uL (0-1.0); Monocytes % (A) 2 %; Neutrophils # (A) 14.4 k/uL (1.3-7.7); Neutrophils % (A) 96 %; Platelet Count 143 k/uL (150-450); RDW 19.1 % (11.5-15.5); WBC 14.9 k/uL (3.8-10.6)
[2019-05-26] MEDS: METOPROLOL TARTRATE 50 MG TAB PEG/G-TUBE SCH ×3 (05:14→19:45)
[2019-05-26 05:19] LABS: ABG Base Excess 2.6 mmol/L; ABG HCO3 27 mmol/L (21-25); ABG PCO2 40 mmHg (35-45); ABG PH 7.44 (7.35-7.45); ABG PO2 129 mmHg (83-108); ABG TCO2 28 mmol/L (19-24); Allen Test Performed? Yes
[2019-05-26 05:20] LABS: African American GFR (CKD) >90 (>60 ml/min/1.73 sqM); Anion Gap 5 mmol/L; Blood Urea Nitrogen 45 mg/dL (9-20); Calcium 7.7 mg/dL (8.4-10.2); Carbon Dioxide 28 mmol/L (22-30); Chloride 108 mmol/L (98-107); Glucose 131 mg/dL (74-99); Magnesium 2.2 mg/dL (1.6-2.3); Potassium 3.9 mmol/L (3.5-5.1); Sodium 141 mmol/L (137-145)
[2019-05-26 06:46] LABS: Glucose,Whole Blood 147 mg/dL (75-99)
[2019-05-26] MEDS: LORazepam 2 MG/ML INJ IV SCH (06:47)
--- NOTE | 2019-05-26 07:07 | P.PN ---
Subjective Progress Note Date: 05/26/19 Principal diagnosis: Squamous cell carcinoma right upper lobe. Previous medical history of tobacco dependence with [id number] history, chronic obstructive pulmonary disease, hyp ertension, hyperlipidemia, coronary artery disease status post stenting to the circumflex coronary artery in 2017, sick sinus syndrome status post permanent pacemaker placement in 2010, bipolar disorder/anxiety/depression, and gastroesophageal reflux disease. POD #26 right thoracoscopy, robotic assisted thorascopic right upper lobectomy with mediastinal lymph node dissection, fiberoptic bronchoscopy. Postoperative acute blood loss anemia, expected Postoperative paroxysmal atrial fibrillation, unexpected Postoperative right-sided pneumothorax with prolonged air leak, expected and inherent to this type of surgery Leukocytosis, suspect postobstructive pneumonia, unexpected Hypotension, status post fluid administration, necessitating IV levo, unexpected Postoperative hypoxemic respiratory failure, necessitating initiation of BiPAP, unexpected POD #12 bedside bronchoscopy and bronchoalveolar lavage of the left upper lobe, right middle lobe and right lower lobe performed by Dr. Soliman POD #6 tracheostomy placement with 8 mm Shiley cuffed tracheostomy tube POD #5 esophagogastroduodenoscopy with percutaneous endoscopic gastrostomy tube placement 20-Chinese, [employer] Push technique [employer] Postoperative acute GI bleed, unexpected, likely from anticoagulation prescribed for A. fib The patient is currently laying in bed in the intensive care unit in no acute distress. Currently maintained on mechanical ventilation through the tracheostomy. Sedated with small dose of propofol but does open his eyes. No further afib, currently in sinus rhythm, maintained with amiodarone and Lopressor. Eliquis was discontinued secondary to dark tarry stools, Hemoccult positive, stooling has slowed but still dark and liquid. Currently not on any pressors or inotropes. Oxygenation improved after lasix given by pulmonology and PEEP increased to 8. Patient's family has been updated daily hoping that he will improve and be able to make it to LTAC in the next few days. Objective - Vital Signs Vital signs: Vital Signs Temp 97.4 F L 05/26/19 04:00 Pulse 70 05/26/19 05:00 Resp 20 05/26/19 05:00 BP 132/73 05/26/19 05:00 Pulse Ox 100 05/26/19 05:00 Intake & Output 05/25/19 05/25/19 05/26/19 06:59 18:59 06:59 Intake Total 1248 6404.350 1208.185 Output Total 1155 1665 615 Balance 93 -247.000 732.185 Weight 87.1 kg 87.1 kg 86.6 kg Intake: IV 220 390 240 Levofloxacin 750Mg-D5w 150 Pmx 750 mg In Dextrose/ Water 1 150ml.bag @ 100 mls/hr IVPB Q24H [facility] Rx#: [id number] NS 220 240 240 Intake, IV Titration 20 100.000 133.185 Amount Propofol 1,000 mg In 100.000 133.185 Empty Bag 1 bag @ Titrate IV .Q0M [facility] Rx#: [id number] Sodium Chloride 0.45% 1, 20 000 ml @ 20 mls/hr IV . Q24H [facility] Rx#:[id number] Tube Feeding 408 408 374 Other 600 520 600 Output: Urine 1155 1665 615 Other: Voiding Method Indwelling Catheter Indwelling Catheter Indwelling Catheter ABP, PAP, CO, CI - Last Documented Arterial Blood Pressure 93/52 - Constitutional General appearance: Present: no acute distress - Respiratory Details: Lungs sounds diminished bilaterally with coarse breath sounds in the bases, right greater than left. Respirations even, nonlabored on mechanical ventila tion. Current ventilator settings assist control mode, FiO2 40%, tidal volume 450, respiratory rate 20, PEEP 8. ABGs this morning 7.44/40/129/27/99%/2.6 on 40% FiO2 and 8 of PEEP. #8 Shiley tracheostomy tube present. - Cardiovascular Details: S1, S2 present. Regular rate and rhythm, currently sinus rhythm on telemetry. Palpable peripheral pulses bilaterally. Generalized edema present. Right brachial PICC line line present. SCDs present. - Gastrointestinal Gastrointestinal Comment(s): Abdomen soft, nontender, nondistended. Active bowel sounds present 4 quadrants. PEG tube present with tube feedings infusing at 34 mL/h, minimal residual per nursing staff. Fecal management system present, minimal dark liquid stool in the bag with some leaking around the tube. - Genitourinary Genitourinary Comment(s): Castorena present draining clear, yellow urine. Output 50-80 mL per hour overnight, 1130 mL output after IV lasix yesterday morning. - Integumentary Integumentary Comment(s): Skin is cool and dry. Tracheostomy site with serosanguineous drainage continuing to decrease in amount. - Neurologic Neurologic Comment(s): Sedated on 15 mics of propofol, opens his eyes and tracks, nods/shakes head appropriately. - Musculoskeletal Musculoskeletal: Present: generalized weakness - Psychiatric Psychiatric Comment(s): Does not appear to be exhibiting signs of anxiety - Allied health notes Allied health notes reviewed: nursing - Labs CBC & Chem 7: 05/27/19 04:53 05/27/19 04:53 Labs: Abnormal Lab Results - Last 24 Hours (Table) 05/25/19 05/25/19 05/26/19 Range/Units 11:42 18:10 00:09 WBC (3.8-10.6) k/uL RBC (4.30-5.90) m/uL Hgb (13.0-17.5) gm/dL Hct (39.0-53.0) % RDW (11.5-15.5) % Plt Count (150-450) k/uL Neutrophils # (1.3-7.7) k/uL Lymphocytes # (1.0-4.8) k/uL ABG pO2 (83-108) mmHg ABG HCO3 (21-25) mmol/L ABG Total CO2 (19-24) mmol/L ABG O2 Saturation (94-97) % Chloride (98-107) mmol/L BUN (9-20) mg/dL Glucose (74-99) mg/dL POC Glucose (mg/dL) 152 H 163 H 189 H (75-99) mg/dL Calcium (8.4-10.2) mg/dL 05/26/19 05/26/19 05/26/19 Range/Units 05:04 05:04 05:13 WBC 14.9 H (3.8-10.6) k/uL RBC 2.40 L (4.30-5.90) m/uL Hgb 7.1 L (13.0-17.5) gm/dL Hct 21.9 L (39.0-53.0) % RDW 19.1 H (11.5-15.5) % Plt Count 143 L (150-450) k/uL Neutrophils # 14.4 H (1.3-7.7) k/uL Lymphocytes # 0.1 L (1.0-4.8) k/uL ABG pO2 129 H (83-108) mmHg ABG HCO3 27 H (21-25) mmol/L ABG Total CO2 28 H (19-24) mmol/L ABG O2 Saturation 99.0 H (94-97) % Chloride 108 H (98-107) mmol/L BUN 45 H (9-20) mg/dL Glucose 131 H (74-99) mg/dL POC Glucose (mg/dL) (75-99) mg/dL Calcium 7.7 L (8.4-10.2) mg/dL 05/26/19 Range/Units 06:35 WBC (3.8-10.6) k/uL RBC (4.30-5.90) m/uL Hgb (13.0-17.5) gm/dL Hct (39.0-53.0) % RDW (11.5-15.5) % Plt Count (150-450) k/uL Neutrophils # (1.3-7.7) k/uL Lymphocytes # (1.0-4.8) k/uL ABG pO2 (83-108) mmHg ABG HCO3 (21-25) mmol/L ABG Total CO2 (19-24) mmol/L ABG O2 Saturation (94-97) % Chloride (98-107) mmol/L BUN (9-20) mg/dL Glucose (74-99) mg/dL POC Glucose (mg/dL) 147 H (75-99) mg/dL Calcium (8.4-10.2) mg/dL - Imaging and Cardiology Chest x-ray: image reviewed Assessment and Plan Assessment: 1. Squamous cell carcinoma right upper lobe, [id number], status post right robotic-assisted upper lobectomy with mediastinal lymph node dissection 2. Previous tobacco dependence with [id number] history 3. COPD 4. Hypertension 5. Hyperlipidemia 6. Diastolic heart failure 7. Coronary artery disease status post stenting to the circumflex coronary ar carrie 8. Sick sinus syndrome status post permanent pacemaker placement 9. Bipolar disorder 10. GERD 11. Postoperative acute blood loss anemia 12. Postoperative paroxysmal atrial fibrillation 13. Postoperative right-sided pneumothorax with prolonged air leak 14. Leukocytosis, pneumonia, likely from aspiration, unexpected 15. Hypotension, status post fluid resuscitation, necessitating IV levofed 16. Postoperative hypoxemic respiratory failure requiring intubation, unexpected, status post bronchoscopy with bronchoalveolar lavage, failed extubation and tracheostomy placement 17. Status post PEG tube placement 18. Acute gastrointestinal bleed, status post transfusion 2 units packed red blood cells, likely from anticoagulation with Eliquis Plan: 1. Ventilator management, bronchodilators, steroids per pulmonology. Wean from ventilator as tolerated. 2. Continue Levaquin per pulmonology 3. Continue tube feedings via PEG 4. Continue amiodarone for A. fib prophylaxis. Continue Lopressor. Eliquis discontinued secondary to GI bleed 5. Visual Communications Instructor consulted, recommendations for close monitoring of CBC with transfusion for hemoglobin less than 7, hemaglobin this am 7.1 and has been trending down, will transfuse 1 unit PRBCs per GI. Will continue Protonix IV twice daily 6. Will continue to monitor daily x-rays, labs. 7. GI/DVT prophylaxis. 8. Pain control with current medication regimen. 9. Continue home medications. Discontinue propofol, IV Ativan. Will restart home Xanax for anxiety 10. Encourage continued smoking cessation. 11. Discharge planning in progress. Anticipating discharge to LTAC this week 12. More recommendations to follow. Time with Patient: Greater than 30
[2019-05-26] MEDS: IPRATROPIUM-ALBUTEROL 3 ML NEB IH SCH ×4 (07:12→19:39)
[2019-05-26] MEDS: BUDESONIDE 1 MG/2 ML NEBU INHALATION SCH ×2 (07:12→19:39)
[2019-05-26] MEDS: FORMOTEROL FUMARATE 20 MCG/2 ML NEBU INHALATION SCH ×2 (07:12→19:39)
[2019-05-26] MEDS ORDERED: POTASSIUM BICARBONATE/CIT AC 20 MEQ TABLET.EFF NG-TUBE SCH (08:00)
--- NOTE | 2019-05-26 08:07 | XR ---
EXAMINATION TYPE: XR chest 1V portable DATE OF EXAM: 05/26/2019 COMPARISON: 05/25/2019 HISTORY: ICU management. Shortness of breath. TECHNIQUE: Single frontal view of the chest is obtained. FINDINGS: There is persistent right hemidiaphragm elevation and right hemithorax volume loss. Stable right apical calcified granuloma, midline tracheostomy, right PICC, and multilead left-sided cardiac device. Unchanged postsurgical change of the gastroesophageal junction. Fibrotic changes of the lungs remain with right midlung similar patchy opacity. Improved aeration of the left lung base. IMPRESSION: Stable patchy opacity of the right midlung with improved aeration of the left lung base with underlying pulmonary fibrotic change and stable right hemithorax volume loss.
[2019-05-26] MEDS: SODIUM CHLORIDE 0.45% 1,000 ML IV SCH ×2 (08:13→08:24)
[2019-05-26] MEDS: LEVOFLOXACIN 750MG-D5W PMX 750 MG in DEXTROSE/WATER 1 150ML.BAG IVPB SCH (08:18)
[2019-05-26] MEDS: CHLORHEXIDINE GLUCONATE 15 ML CUP MUCOUS MEM SCH ×2 (08:18→19:45)
[2019-05-26] MEDS: AMIODARONE 200 MG TAB PEG/G-TUBE SCH ×2 (08:18→19:45)
[2019-05-26] MEDS: PANTOPRAZOLE 40 MG/10 ML VIAL IVP SCH ×2 (08:19→19:45)
[2019-05-26] MEDS: predniSONE 20 MG TAB PO SCH (08:47)
[2019-05-26] MEDS ORDERED: APIXABAN 5 MG TAB PO SCH (09:00)
--- NOTE | 2019-05-26 09:40 | P.PN ---
Subjective Progress Note Date: 05/26/19 This is a very pleasant 69-year-old gentleman who follows with Dr. Vanessa as his primary care physician. 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 He had been seen and evaluated by Dr. Soliman after being found to have a right lung pulmonary nodule. He performed a PET scan which did show significant hypermetabolic uptake without metastasis and subsequently referred to Dr. Brock. He was admitted here today and had undergone a right thoracoscopy, robotic-assisted thoracoscopic right upper lobectomy and mediastinal lymph node dissection with fiberoptic bronchoscopy. Primary tumor positive for squamous cell carcinoma. The patient had a complicated postoperative course. Note that approximately a week after the surgery the patient developed a right lower lobe pneumonia and subsequently went to respiratory failure. He was also having sign ificant amount of leak from his right-sided chest tube which was kept in for an extended period of time. Ultimately, the air leak stopped, the patient's chest tube has been removed and the patient is currently postop day #26 following his cardiac surgery. Note that during this time, the patient had prolonged respiratory failure requiring intubation mechanical ventilation related to his pneumonia. Currently is a tracheostomy tube in place which is her #8 Shiley tracheostomy tube. His chest x-ray shows some stable patchy opacity in the right midlung area which is stable and that is also improved aeration of the left lung base. There is also volume loss in the right hemithorax related to h is previous thoracic surgery. His blood gases from today showed a pH of 7.44 with a pCO2 of 40 and pO2 of 129. The patient was double stacking. I switched him to a VC plus mode and I sent the tidal volume at 500 with a rate of, rate of 20, with a TI of 0.55 and I also drop down the PEEP down to 5 with an FiO2 of 40%. He was able to tolerate this setting is much more better and he was much more synchronous. I took off the Ativan and put the patient was an excellent history basis. I also stop the Diprivan. His tube feeds are running. He has an FMS system and he is still producing quite a bit of liquidy stool while being on a vital high protein. The patient is hemodynamically stable at this point in time. He is awake. Is able to barely raise his arms against gravity. He has increased swelling in the upper extremities and lower extremities. He'll be receiving a unit of blood for hemoglobin of 7.1 and following that he'll be given Lasix. He is following some simple commands. No other significant events otherwise for now. Objective - Vital Signs Vital signs: Vital Signs Temp 97.4 F L 05/26/19 04:00 Pulse 64 05/26/19 07:40 Resp 19 05/26/19 07:00 BP 128/69 05/26/19 07:00 Pulse Ox 100 05/26/19 07:00 Intake & Output 05/25/19 05/26/19 05/26/19 18:59 06:59 18:59 Intake Total 7313.918 4895.185 75.035 Output Total 1665 615 60 Balance -247.000 732.185 15.035 Weight 87.1 kg 86.6 kg Intake: IV 390 240 20 Levofloxacin 750Mg-D5w 150 Pmx 750 mg In Dextrose/ Water 1 150ml.bag @ 100 mls/hr IVPB Q24H [facility] Rx#: [id number] NS 240 240 20 Intake, IV Titration 100.000 133.185 21.035 Amount Propofol 1,000 mg In 100.000 133.185 21.035 Empty Bag 1 bag @ Titrate IV .Q0M [facility] Rx#: [id number] Tube Feeding 408 374 34 Other 520 600 Output: Urine 1665 615 60 Other: Voiding Method Indwelling Catheter Indwelling Catheter ABP, PAP, CO, CI - Last Documented Arterial Blood Pressure 93/52 - Exam - Constitutional General appearance: Present: no acute distress, the patient has a Shiley tracheostomy tube in place which is a #8 Shiley and there is also some clotting around the exit site of the tracheostomy tube without any evidence of bleeding. - Respiratory Details: Lungs sounds diminished bilaterally with coarse breath sounds in the bases, right greater than left. Respirations even, nonlabored on mechanical ventilation. Current ventilator settings assist control mode, FiO2 40%, tidal volume 450, respiratory rate 20, PEEP 8. ABGs this morning 7.44/40/129/27 /99%/2.6 on 40% FiO2 and 8 of PEEP. #8 Shiley tracheostomy tube present. Necessary ventilator changes were done. - Cardiovascular Details: S1, S2 present. Regular rate and rhythm, currently sinus rhythm on telemetry. Palpable peripheral pulses bilaterally. Generalized edema present. Right brachial PICC line line present. SCDs present. - Gastrointestinal Gastrointestinal Comment(s): Abdomen soft, nontender, nondistended. Active bowel sounds present 4 quadrants. PEG tube present with tube feedings infusing at 34 mL/h, minimal residual per nursing staff. Fecal management system present, minimal dark l iquid stool in the bag with some leaking around the tube. - Genitourinary Genitourinary Comment(s): Castorena present draining clear, yellow urine. Output 50-80 mL per hour overnight, 1130 mL output after IV lasix yesterday morning. - Integumentary Integumentary Comment(s): Skin is cool and dry. Tracheostomy site with serosanguineous drainage continuing to decrease in amount. - Neurologic Neurologic Comment(s): Sedated on 15 mics of propofol, opens his eyes and tracks, nods/shakes head appropriately. The patient was taken off the propofol this morning and he was much more awake and alert and following commands. - Musculoskeletal Musculoskeletal: Present: generalized weakness - Psychiatric Psychiatric Comment(s): Does not appear to be exhibiting signs of anxiety - Labs CBC & Chem 7: 05/26/19 05:04 05/26/19 05:04 Labs: Abnormal Lab Results - Last 24 Hours (Table) 05/25/19 05/25/19 05/26/19 Range/Units 11:42 18:10 00:09 WBC (3.8-10.6) k/uL RBC (4.30-5.90) m/uL Hgb (13.0-17.5) gm/dL Hct (39.0-53.0) % RDW (11.5-15.5) % Plt Count (150-450) k/uL Neutrophils # (1.3-7.7) k/uL Lymphocytes # (1.0-4.8) k/uL ABG pO2 (83-108) mmHg ABG HCO3 (21-25) mmol/L ABG Total CO2 (19-24) mmol/L ABG O2 Saturation (94-97) % Chloride (98-107) mmol/L BUN (9-20) mg/dL Glucose (74-99) mg/dL POC Glucose (mg/dL) 152 H 163 H 189 H (75-99) mg/dL Calcium (8.4-10.2) mg/dL 05/26/19 05/26/19 05/26/19 Range/Units 05:04 05:04 05:13 WBC 14.9 H (3.8-10.6) k/uL RBC 2.40 L (4.30-5.90) m/uL Hgb 7.1 L (13.0-17.5) gm/dL Hct 21.9 L (39.0-53.0) % RDW 19.1 H (11.5-15.5) % Plt Count 143 L (150-450) k/uL Neutrophils # 14.4 H (1.3-7.7) k/uL Lymphocytes # 0.1 L (1.0-4.8) k/uL ABG pO2 129 H (83-108) mmHg ABG HCO3 27 H (21-25) mmol/L ABG Total CO2 28 H (19-24) mmol/L ABG O2 Saturation 99.0 H (94-97) % Chloride 108 H (98-107) mmol/L BUN 45 H (9-20) mg/dL Glucose 131 H (74-99) mg/dL POC Glucose (mg/dL) (75-99) mg/dL Calcium 7.7 L (8.4-10.2) mg/dL 05/26/19 Range/Units 06:35 WBC (3.8-10.6) k/uL RBC (4.30-5.90) m/uL Hgb (13.0-17.5) gm/dL Hct (39.0-53.0) % RDW (11.5-15.5) % Plt Count (150-450) k/uL Neutrophils # (1.3-7.7) k/uL Lymphocytes # (1.0-4.8) k/uL ABG pO2 (83-108) mmHg ABG HCO3 (21-25) mmol/L ABG Total CO2 (19-24) mmol/L ABG O2 Saturation (94-97) % Chloride (98-107) mmol/L BUN (9-20) mg/dL Glucose (74-99) mg/dL POC Glucose (mg/dL) 147 H (75-99) mg/dL Calcium (8.4-10.2) mg/dL Assessment and Plan Assessment: #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 Status post right thoracoscopy, robotic-assisted thorascopic right upper lobectomy with mediastinal lymph node dissection, fiberoptic bronchoscopy. Suspect squamous cell carcinoma. Postoperative day #26.. The patient was found to have an early stage I non-small cell lung cancer. #2 right-sided pneumothorax, expected outcome of surgery, the patient a prolonged an extended air leak and ongoing pneumothorax which ultimately recovered and today's chest x-ray does not show any persistent pneumothorax #3 acute respiratory failure due to complications of pneumonia and thoracic surgery in the setting of non-small cell lung cancer. The patient remains vent dependent and necessary vent changes were done and today's chest x-ray shows a stable right midlung infiltrate. Cultures of been negative thus far. Tracheostomy tube in place and there is no evidence of air leak. The patient was having some double stacking and the necessity ventilator changes were done and the patient was switched AVC plus mode with seems to be much comfortable morbid at this point in time. #4 Chronic obstructive pulmonary disease #5 Hypertension. #6 sick sinus syndrome status post pacemaker implantation. #7 Anxiety/depression. #8 Hyperlipidemia. #9 bipolar disorder #10 40 pack smoking history #11 postoperative acute blood loss anemia, expected outcome of surgery, receiving a unit of packed RBC today #12 postoperative paroxysmal atrial fibrillation, and expected outcome of surgery #13 known history of coronary artery disease with previous stenting to the circumflex artery #14 bipolar disorder/chronic anxiety #15 PEG tube insertion for enteral feeding and support #16 edema in the upper and lower extremities #17 acute GI bleed posttransfusion with a 2 units of packed RBC and the patient has a component of gastritis and currently is off Eliquis. #18 diastolic heart failure, currently inactive in stable #19 diarrhea currently has an FMS system in place. Plan Stop propofol. Add Xanax and stop Ativan for now. Necessity ventilator changes were done. Drop the PEEP down to 5. Recently plus mode at the rate of 20 with a tidal volume of 500. Monitor the blood gases. Monitor chest x-ray. She will feeding for enteral feeding and nutritional support. A unit of packed RBC today followed by [facility]. Condition is critical. The patient will be kept in ICU. Ultimately plan is to transfer him to select specialty for deep further recuperation and this is once his condition is more stable. Time with Patient: Greater than 30
[2019-05-26] MEDS ORDERED: ALPRAZolam 1 MG TAB PO STA (11:13)
--- NOTE | 2019-05-26 11:26 | P.PN ---
<La Gonzalez Karen - Last Filed: 05/26/19 11:23> Subjective Progress Note Date: 05/26/19 CHIEF COMPLAINT: Malnutrition HISTORY OF PRESENT ILLNESS: Patient is s/p trach and PEG. Remains on ventilator. Awake and tracks provider in the room. Tube feeding infusing at 34cc/hr. Fecal m anagement system with dark brown liquid stool. WBC 14.9. Hemoglobin 7.1, down from 7.6 yesterday. 1 unit RBC has been ordered. PHYSICAL EXAM: VITAL SIGNS: Reviewed. GENERAL: Well-developed in no acute distress. HEENT: Trach intact with serosanguineous drainage surrounding trach. No sclera icterus. Extraocular movements grossly intact. Moist buccal mucosa. Head is atraumatic, normocephalic. ABDOMEN: Soft. Nondistended. Nontender. PEG tube site clean dry intact with no drainage or bleeding noted. NEUROLOGIC: Awake and alert. Opens eyes and tracks provider. Cranial nerves II through XII grossly intact. ASSESSMENT: 1. Acute hypoxic respiratory failure, status post tracheotomy 2. Severe protein calorie malnutrition, status post PEG tube placement 3. Acute GI bleed, Eliquis since discontinued PLAN: 1. Continue tube feedings as tolerated 2. Continue to monitor hemoglobin. Patient to receive 1 unit RBC. Continue to h old Eliquis Nurse practitioner note has been reviewed by physician. Signing provider agrees with the documented findings, assessment, and plan of care. Objective - Vital Signs Vital signs: Vital Signs Temp 98.5 F 05/26/19 10:56 Pulse 60 05/26/19 11:00 Resp 20 05/26/19 11:00 BP 109/69 05/26/19 11:00 Pulse Ox 100 05/26/19 11:00 Intake & Output 05/25/19 05/26/19 05/26/19 18:59 06:59 18:59 Intake Total 5120.299 6435.185 651.035 Output Total 1665 615 210 Balance -247.000 732.185 441.035 Weight 87.1 kg 86.6 kg Intake: IV 390 240 160 Levofloxacin 750Mg-D5w 150 100 Pmx 750 mg In Dextrose/ Water 1 150ml.bag @ 100 mls/hr IVPB Q24H [facility] Rx#: [id number] NS 240 240 60 Intake, IV Titration 100.000 133.185 21.035 Amount Propofol 1,000 mg In 100.000 133.185 21.035 Empty Bag 1 bag @ Titrate IV .Q0M [facility] Rx#: [id number] Tube Feeding 408 374 170 Blood Product 0 Rc As-1 Unit 0 [id number] Other 520 600 300 Output: Urine 1665 615 210 Other: Voiding Method Indwelling Catheter Indwelling Catheter Indwelling Catheter ABP, PAP, CO, CI - Last Documented Arterial Blood Pressure 93/52 - Labs CBC & Chem 7: 05/26/19 05:04 05/26/19 05:04 Labs: Abnormal Lab Results - Last 24 Hours (Table) 05/20/19 05/25/19 05/25/19 Range/Units 04:00 11:42 18:10 WBC (3.8-10.6) k/uL RBC (4.30-5.90) m/uL Hgb (13.0-17.5) gm/dL Hct (39.0-53.0) % RDW (11.5-15.5) % Plt Count (150-450) k/uL Neutrophils # (1.3-7.7) k/uL Lymphocytes # (1.0-4.8) k/uL ABG pO2 (83-108) mmHg ABG HCO3 (21-25) mmol/L ABG Total CO2 (19-24) mmol/L ABG O2 Saturation (94-97) % Chloride (98-107) mmol/L BUN (9-20) mg/dL Glucose (74-99) mg/dL POC Glucose (mg/dL) 152 H 163 H (75-99) mg/dL Calcium (8.4-10.2) mg/dL Crossmatch See Detail 05/26/19 05/26/19 05/26/19 Range/Units 00:09 05:04 05:04 WBC 14.9 H (3.8-10.6) k/uL RBC 2.40 L (4.30-5.90) m/uL Hgb 7.1 L (13.0-17.5) gm/dL Hct 21.9 L (39.0-53.0) % RDW 19.1 H (11.5-15.5) % Plt Count 143 L (150-450) k/uL Neutrophils # 14.4 H (1.3-7.7) k/uL Lymphocytes # 0.1 L (1.0-4.8) k/uL ABG pO2 (83-108) mmHg ABG HCO3 (21-25) mmol/L ABG Total CO2 (19-24) mmol/L ABG O2 Saturation (94-97) % Chloride 108 H (98-107) mmol/L BUN 45 H (9-20) mg/dL Glucose 131 H (74-99) mg/dL POC Glucose (mg/dL) 189 H (75-99) mg/dL Calcium 7.7 L (8.4-10.2) mg/dL Crossmatch 05/26/19 05/26/19 05/26/19 Range/Units 05:13 06:35 09:00 WBC (3.8-10.6) k/uL RBC (4.30-5.90) m/uL Hgb (13.0-17.5) gm/dL Hct (39.0-53.0) % RDW (11.5-15.5) % Plt Count (150-450) k/uL Neutrophils # (1.3-7.7) k/uL Lymphocytes # (1.0-4.8) k/uL ABG pO2 129 H (83-108) mmHg ABG HCO3 27 H (21-25) mmol/L ABG Total CO2 28 H (19-24) mmol/L ABG O2 Saturation 99.0 H (94-97) % Chloride (98-107) mmol/L BUN (9-20) mg/dL Glucose (74-99) mg/dL POC Glucose (mg/dL) 147 H (75-99) mg/dL Calcium (8.4-10.2) mg/dL Crossmatch See Detail Assessment and Plan (1) Anticoagulant long-term use Current Visit: Yes Status: Acute Code(s): Z79.01 - SENIOR LIVING (CURRENT) USE OF ANTICOAGULANTS SNOMED Code(s): 939099552 (2) Squamous cell carcinoma of right lung Current Visit: Yes Status: Acute Code(s): C34.91 - MALIGNANT NEOPLASM OF UNSP PART OF RIGHT BRONCHUS OR LUNG SNOMED Code(s): 33813520057188544 (3) Tracheostomy status Current Visit: Yes Status: Acute Code(s): Z93.0 - TRACHEOSTOMY STATUS SNOMED Code(s): 231709214 (4) Ventilator dependent Current Visit: Yes Status: Acute Code(s): Z99.11 - DEPENDENCE ON RESPIRATOR [VENTILATOR] STATUS SNOMED Code(s): 648621148 <Delfina Ferrer N - Last Filed: 05/26/19 14:32> Subjective Patient seen and evaluated. He is more awake and a ventilator. Hemoglobin has dropped 0.5 mg/dL. Hemoglobin not completely stable. He has history of severe gastritis is recent bleeding at the time of his PEG tube placement which is pre- existing. Recommend Carafate for severe gastritis. Preferentially, recommend holding blood thinner until hemoglobin improves and stable for at least 24 hours Objective - Vital Signs Vital signs: Vital Signs Temp 98.5 F 05/26/19 13:31 Pulse 64 05/26/19 14:00 Resp 23 05/26/19 14:00 BP 143/109 05/26/19 14:00 Pulse Ox 100 05/26/19 14:00 Intake & Output 05/25/19 05/26/19 05/26/19 18:59 06:59 18:59 Intake Total 7992.702 0679.185 1747.035 Output Total 1665 615 610 Balance -247.000 182.961 8759.035 Weight 87.1 kg 86.6 kg Intake: IV 390 240 240 Levofloxacin 750Mg-D5w 150 100 Pmx 750 mg In Dextrose/ Water 1 150ml.bag @ 100 mls/hr IVPB Q24H [facility] Rx#: [id number] NS 240 240 140 Intake, IV Titration 100.000 133.185 21.035 Amount Propofol 1,000 mg In 100.000 133.185 21.035 Empty Bag 1 bag @ Titrate IV .Q0M [facility] Rx#: [id number] Tube Feeding 408 374 306 Blood Product 620 Rc As-1 Unit 310 [id number] Other 520 600 560 Output: Urine 1665 615 610 Other: Voiding Method Indwelling Catheter Indwelling Catheter Indwelling Catheter ABP, PAP, CO, CI - Last Documented Arterial Blood Pressure 93/52 - Labs CBC & Chem 7: 05/26/19 05:04 05/26/19 05:04 Labs: Abnormal Lab Results - Last 24 Hours (Table) 05/20/19 05/25/19 05/26/19 Range/Units 04:00 18:10 00:09 WBC (3.8-10.6) k/uL RBC (4.30-5.90) m/uL Hgb (13.0-17.5) gm/dL Hct (39.0-53.0) % RDW (11.5-15.5) % Plt Count (150-450) k/uL Neutrophils # (1.3-7.7) k/uL Lymphocytes # (1.0-4.8) k/uL ABG pO2 (83-108) mmHg ABG HCO3 (21-25) mmol/L ABG Total CO2 (19-24) mmol/L ABG O2 Saturation (94-97) % Chloride (98-107) mmol/L BUN (9-20) mg/dL Glucose (74-99) mg/dL POC Glucose (mg/dL) 163 H 189 H (75-99) mg/dL Calcium (8.4-10.2) mg/dL Crossmatch See Detail 05/26/19 05/26/19 05/26/19 Range/Units 05:04 05:04 05:13 WBC 14.9 H (3.8-10.6) k/uL RBC 2.40 L (4.30-5.90) m/uL Hgb 7.1 L (13.0-17.5) gm/dL Hct 21.9 L (39.0-53.0) % RDW 19.1 H (11.5-15.5) % Plt Count 143 L (150-450) k/uL Neutrophils # 14.4 H (1.3-7.7) k/uL Lymphocytes # 0.1 L (1.0-4.8) k/uL ABG pO2 129 H (83-108) mmHg ABG HCO3 27 H (21-25) mmol/L ABG Total CO2 28 H (19-24) mmol/L ABG O2 Saturation 99.0 H (94-97) % Chloride 108 H (98-107) mmol/L BUN 45 H (9-20) mg/dL Glucose 131 H (74-99) mg/dL POC Glucose (mg/dL) (75-99) mg/dL Calcium 7.7 L (8.4-10.2) mg/dL Crossmatch 05/26/19 05/26/19 05/26/19 Range/Units 06:35 09:00 11:56 WBC (3.8-10.6) k/uL RBC (4.30-5.90) m/uL Hgb (13.0-17.5) gm/dL Hct (39.0-53.0) % RDW (11.5-15.5) % Plt Count (150-450) k/uL Neutrophils # (1.3-7.7) k/uL Lymphocytes # (1.0-4.8) k/uL ABG pO2 (83-108) mmHg ABG HCO3 (21-25) mmol/L ABG Total CO2 (19-24) mmol/L ABG O2 Saturation (94-97) % Chloride (98-107) mmol/L BUN (9-20) mg/dL Glucose (74-99) mg/dL POC Glucose (mg/dL) 147 H 116 H (75-99) mg/dL Calcium (8.4-10.2) mg/dL Crossmatch See Detail Assessment and Plan (1) Squamous cell carcinoma of right lung Current Visit: Yes Status: Acute Code(s): C34.91 - MALIGNANT NEOPLASM OF UNSP PART OF RIGHT BRONCHUS OR LUNG SNOMED Code(s): 08016746552337751 (2) Severe protein-calorie malnutrition Current Visit: Yes Status: Acute Code(s): E43 - UNSPECIFIED SEVERE PROTEIN- [place]IE MALNUTRITION SNOMED Code(s): 653832630 (3) Ventilator dependent Current Visit: Yes Status: Acute Code(s): Z99.11 - DEPENDENCE ON RESPIRATOR [VENTILATOR] STATUS SNOMED Code(s): 720821625 (4) Tracheostomy status Current Visit: Yes Status: Acute Code(s): Z93.0 - TRACHEOSTOMY STATUS SNOMED Code(s): 388994086 (5) History of tobacco abuse Current Visit: Yes Status: Acute Code(s): Z87.891 - PERSONAL HISTORY OF NICOTINE DEPENDENCE SNOMED Code(s): 687732610 (6) Sick sinus syndrome Current Visit: Yes Status: Acute Code(s): I49.5 - SICK SINUS SYNDROME SNOMED Code(s): 89046559 (7) Pacemaker Current Visit: Yes Status: Acute Code(s): Z95.0 - PRESENCE OF CARDIAC PACEMAKER SNOMED Code(s): 493383397 (8) Atrial fibrillation Current Visit: Yes Status: Acute Code(s): I48.91 - UNSPECIFIED ATRIAL FIBRILLATION SNOMED Code(s): 25907367 (9) Anticoagulant long-term use Current Visit: Yes Status: Acute Code(s): Z79.01 - UNDERGROUND ELECTRICIAN (CURRENT) USE OF ANTICOAGULANTS SNOMED Code(s): 132403714 (10) Gastroesophageal reflux Current Visit: Yes Status: Acute Code(s): K21.9 - GASTRO-ESOPHAGEAL REFLUX DISEASE WITHOUT ESOPHAGITIS SNOMED Code(s): 120139178 (11) Anxiety disorder Current Visit: Yes Status: Acute Code(s): F41.9 - ANXIETY DISORDER, UNSPECIFIED SNOMED Code(s): 513111196 (12) Peripheral vascular occlusive disease Current Visit: Yes Status: Acute Code(s): I73.9 - PERIPHERAL VASCULAR DISEASE, UNSPECIFIED SNOMED Code(s): 017839124 (13) Coronary artery disease Current Visit: Yes Status: Acute Code(s): I25.10 - ATHSCL HEART DISEASE OF [place] CORONARY ARTERY W/O ANG PCTRS SNOMED Code(s): 23775832 (14) Depressive disorder Current Visit: Yes Status: Acute Code(s): F32.9 - MAJOR DEPRESSIVE DISORDER, SINGLE EPISODE, UNSPECIFIED SNOMED Code(s): 95861369 (15) Dementia Current Visit: Yes Status: Acute Code(s): F03.90 - UNSPECIFIED DEMENTIA WITHOUT BEHAVIORAL DISTURBANCE SNOMED Code(s): 68800555
[2019-05-26 12:07] LABS: Glucose,Whole Blood 116 mg/dL (75-99)
[2019-05-26] MEDS ORDERED: FUROSEMIDE 10 MG/ML 4 ML VIAL IV ONE (12:19)
[2019-05-26] MEDS: hydrALAZINE HCL 20 MG/ML 1 ML VIAL IVP PRN (15:39)
[2019-05-26 15:57] LABS: Anisocytosis Moderate; Basophils % (A) 0 %; Eosinophils # (A) 0.1 k/uL (0-0.7); Eosinophils % (A) 0 %; HCT 28.5 % (39.0-53.0); Lymphocytes # (A) 0.1 k/uL (1.0-4.8); Lymphocytes % (A) 1 %; MCHC 33.6 g/dL (31.0-37.0); MCV 86.5 fL (80.0-100.0); Monocytes # (A) 0.5 k/uL (0-1.0); Monocytes % (A) 2 %; Neutrophils # (A) 19.8 k/uL (1.3-7.7); Neutrophils % (A) 97 %; Platelet Count 173 k/uL (150-450); RDW 20.1 % (11.5-15.5); WBC 20.5 k/uL (3.8-10.6)
[2019-05-26 16:04] LABS: HGB 9.6 gm/dL (13.0-17.5)
[2019-05-26] MEDS: HYDROmorphone 1 MG/ML 1 ML SYRINGE IVP PRN ×2 (16:51→22:07)
[2019-05-26] MEDS: SUCRALFATE 1 GM TAB PO SCH (16:54)
--- NOTE | 2019-05-26 17:30 | PN ---
PROGRESS NOTE DATE OF DICTATION: 05/26/2019 Patient is a 69-year-old pleasant white male who remains in the intensive care unit, postoperative day number 25 for left upper lobectomy for squamous cell carcinoma. The patient is intubated, status post trach and PEG tube placement. He had acute GI bleed and had black tarry stools for 4 days, dropped his hemoglobin to 5.5, requiring a total of 3 units of transfusion. Eliquis has been on hold for 4 days. His bleeding has subsided. He has an FMS in place that has dark green-colored stool. The patient remains the same. No significant changes overnight. PHYSICAL EXAMINATION: Blood pressure 102/86, pulse rate 99, afebrile. HEENT examination unremarkable. Conjunctivae pale. Sclerae anicteric. Oral cavity no lesions. NECK: No JVD or lymph node enlargement. Trach present. ABDOMEN: Soft. Bowel sounds are positive. PEG site appears normal. EXTREMITIES: No pedal edema. NEURO: Sedated. LABS: Hemoglobin 7.1. IMPRESSION: 1. Acute upper gastrointestinal bleed, resolved. Eliquis has been on hold for 4 days. Presently on IV Protonix 40 mg twice daily. Dropped his hemoglobin to 7.1. 2. Acute respiratory failure, status post trach and PEG. Remains intubated and sedated. 3. Postoperative day number 25 for left upper lobectomy. RECOMMENDATIONS: 1. Transfuse 1 unit of blood. 2. Continue with tube feedings. 3. Monitor CBC on a daily basis. 4. Eliquis can be resumed today. Thank you for this consultation. MMODL / IJN: [id number] /
[2019-05-26 17:34] LABS: Glucose,Whole Blood 139 mg/dL (75-99)
[2019-05-26] MEDS: ARIPiprazole 15 MG TAB PO SCH (19:45)
[2019-05-26] MEDS: DONEPEZIL 5 MG TAB PO SCH (19:46)
[2019-05-26] MEDS: ALPRAZolam 1 MG TAB PO SCH (19:52)
[2019-05-26] MEDS: DULoxetine HCL 60 MG CAPSULE.DR PO SCH (20:46)
[2019-05-26] MEDS ORDERED: ALPRAZolam 0.5 MG TAB PO SCH (21:00)
[2019-05-26 23:50] LABS: Glucose,Whole Blood 142 mg/dL (75-99)
[2019-05-27] MEDS: HYDROmorphone 1 MG/ML 1 ML SYRINGE IVP PRN (04:29)
[2019-05-27 05:35] LABS: Anisocytosis Slight; HCT 24.9 % (39.0-53.0); HGB 8.3 gm/dL (13.0-17.5); MCH 29.5 pg (25.0-35.0); MCHC 33.4 g/dL (31.0-37.0); MCV 88.2 fL (80.0-100.0); Mean Platelet Volume 7.8; Platelet Count 128 k/uL (150-450); RBC 2.82 m/uL (4.30-5.90); RDW 18.7 % (11.5-15.5); WBC 12.1 k/uL (3.8-10.6)
[2019-05-27 05:44] LABS: ABG Base Excess 5.9 mmol/L; ABG HCO3 29 mmol/L (21-25); ABG PCO2 34 mmHg (35-45); ABG PH 7.54 (7.35-7.45); ABG PO2 92 mmHg (83-108); ABG TCO2 30 mmol/L (19-24); Allen Test Performed? Yes
[2019-05-27 05:47] LABS: African American GFR (CKD) >90 (>60 ml/min/1.73 sqM); Anion Gap 4 mmol/L; Blood Urea Nitrogen 41 mg/dL (9-20); Calcium 7.4 mg/dL (8.4-10.2); Carbon Dioxide 26 mmol/L (22-30); Chloride 107 mmol/L (98-107); Glucose 92 mg/dL (74-99); Potassium 3.7 mmol/L (3.5-5.1); Sodium 137 mmol/L (137-145)
[2019-05-27] MEDS: INSULIN ASPART (NovoLOG) 100 UNIT/ML VIAL SQ SCH ×3 (06:13→18:24)
[2019-05-27 06:22] LABS: Glucose,Whole Blood 83 mg/dL (75-99)
[2019-05-27] MEDS: SUCRALFATE 1 GM TAB PO SCH ×2 (06:34→17:43)
[2019-05-27] MEDS ORDERED: POTASSIUM BICARBONATE/CIT AC 20 MEQ TABLET.EFF NG-TUBE SCH (07:00)
--- NOTE | 2019-05-27 07:31 | XR ---
EXAMINATION TYPE: XR chest 1V portable DATE OF EXAM: 05/27/2019 COMPARISON: 05/26/2016 HISTORY: Post lobectomy shortness of breath TECHNIQUE: Single frontal view of the chest is obtained. FINDINGS: Stable exam from the prior with multifocal right midlung atelectasis, fibrotic changes the lung bases, right hemithorax spine loss, loculated right apical pleural effusion, stable midline tra cheostomy, unchanged right-sided PICC, postsurgical changes of the right hilum and gastroesophageal j unction as well as of the cervical spine, and stable cardiomediastinal silhouette with dual lead left -sided cardiac device. Osseous structures are generally demineralized. IMPRESSION: Stable exam from the prior with multifocal right-sided airspace disease with volume loss in the right hemithorax from prior lobectomy.
[2019-05-27] MEDS: FORMOTEROL FUMARATE 20 MCG/2 ML NEBU INHALATION SCH ×2 (07:36→19:02)
[2019-05-27] MEDS: IPRATROPIUM-ALBUTEROL 3 ML NEB IH SCH ×4 (07:36→19:02)
[2019-05-27] MEDS: BUDESONIDE 1 MG/2 ML NEBU INHALATION SCH ×2 (07:36→19:02)
[2019-05-27] MEDS ORDERED: CALCIUM GLUCONATE 1 GM in SODIUM CHLORIDE 0.9% 100 ML IVPB ONE (08:00)
--- NOTE | 2019-05-27 08:11 | P.PN ---
Subjective Progress Note Date: 05/27/19 Principal diagnosis: Squamous cell carcinoma right upper lobe. Previous medical history of tobacco dependence with [id number]-gysv history, chronic obstructive pulmonary disease, hyp ertension, hyperlipidemia, coronary artery disease status post stenting to the circumflex coronary artery in 2016, sick sinus syndrome status post permanent pacemaker placement in 2010, bipolar disorder/anxiety/depression, and gastroesophageal reflux disease. POD #27 right thoracoscopy, robotic assisted thorascopic right upper lobectomy with mediastinal lymph node dissection, fiberoptic bronchoscopy. Postoperative acute blood loss anemia, expected Postoperative paroxysmal atrial fibrillation, unexpected Postoperative right-sided pneumothorax with prolonged air leak, expected and inherent to this type of surgery Leukocytosis, suspect postobstructive pneumonia, unexpected Hypotension, status post fluid administration, necessitating IV levo, unexpected Postoperative hypoxemic respiratory failure, necessitating initiation of BiPAP, unexpected POD #13 bedside bronchoscopy and bronchoalveolar lavage of the left upper lobe, right middle lobe and right lower lobe performed by Dr. Soliman POD #7 tracheostomy placement with 8 mm Shiley cuffed tracheostomy tube POD #6 esophagogastroduodenoscopy with percutaneous endoscopic gastrostomy tube placement 20-Welsh, EndoVive Push technique [place] Postoperative acute GI bleed, unexpected, likely from anticoagulation prescribed for A. fib The patient is currently laying in bed in the intensive care unit in no acute distress. Currently maintained on mechanical ventilation through the tracheostomy. Propofol has been off since yesterday morning. No further afib, currently in sinus rhythm, maintained with amiodarone and Lopressor. Eliquis was discontinued secondary to dark tarry stools, Hemoccult positive, stooling h as slowed but still dark and liquid. Received 1 unit PRBCs yesterday with improvement in hemaglobin. Currently not on any pressors or inotropes. Patient's family has been updated, hoping that he will improve and be able to make it to LTAC in the next few days. Objective - Vital Signs Vital signs: Vital Signs Temp 97.7 F 05/27/19 04:00 Pulse 65 05/27/19 07:45 Resp 16 05/27/19 07:00 BP 108/68 05/27/19 07:00 Pulse Ox 100 05/27/19 07:00 Intake & Output 05/26/19 05/27/19 05/27/19 18:59 06:59 18:59 Intake Total 2257.035 1484 174 Output Total 2260 755 75 Balance -2.965 729 99 Weight 85.7 kg Intake: IV 320 240 20 Levofloxacin 750Mg-D5w 100 Pmx 750 mg In Dextrose/ Water 1 150ml.bag @ 100 mls/hr IVPB Q24H [facility] Rx#: [id number] NS 220 240 20 Intake, IV Titration 21.035 Amount Propofol 1,000 mg In 21.035 Empty Bag 1 bag @ Titrate IV .Q0M [facility] Rx#: [id number] Tube Feeding 476 544 34 Blood Product 620 Rc As-1 Unit 310 [id number] Other 820 700 120 Output: Urine 2260 755 75 Other: Voiding Method Indwelling Catheter Indwelling Catheter ABP, PAP, CO, CI - Last Documented Arterial Blood Pressure 93/52 - Constitutional General appearance: Present: cooperative, no acute distress - Respiratory Details: Lungs sounds diminished bilaterally with coarse breath sounds in the bases, right greater than left. Respirations even, nonlabored on mechanical ventilation. Current ventilator settings VC+ mode, FiO2 40%, tidal volume 500, respiratory rate 20, PEEP 5. ABGs this morning 7.54/34/92/29/98%/5.6 on 40% FiO2 and 5 of PEEP. #8 Shiley tracheostomy tube present. - Cardiovascular Details: S1, S2 present. Regular rate and rhythm, currently sinus rhythm on telemetry. Palpable peripheral pulses bilaterally. Generalized edema present. Right brachial PICC line line present. SCDs present. - Gastrointestinal Gastrointestinal Comment(s): Abdomen soft, nontender, nondistended. Active bowel sounds present 4 quadrants. PEG tube present with tube feedings infusing at 34 mL/h, minimal residual per nursing staff. Fecal management system present, dark liquid stool in the bag. - Genitourinary Genitourinary Comment(s): [place] present draining clear, yellow urine. Output 35-80 mL per hour overnight, 1900 mL output after 1 unit PRBCs followed by IV lasix yesterday. - Integumentary Integumentary Comment(s): Skin is cool and dry. Tracheostomy site with serosanguineous drainage continuing to decrease in amount. - Neurologic Neurologic: Present: CNII-XII intact - Musculoskeletal Musculoskeletal Comment(s): Patient able to lift arms off the bed and move bilateral lower extremities, but is extremely weak Musculoskeletal: Present: generalized weakness - Psychiatric Psychiatric Comment(s): No current signs of anxiety Psychiatric: Present: appropriate affect - Allied health notes Allied health notes reviewed: nursing - Labs CBC & Chem 7: 05/27/19 04:53 05/27/19 04:53 Labs: Abnormal Lab Results - Last 24 Hours (Table) 05/20/19 05/26/19 05/26/19 Range/Units 04:00 09:00 11:56 WBC (3.8-10.6) k/uL RBC (4.30-5.90) m/uL Hgb (13.0-17.5) gm/dL Hct (39.0-53.0) % RDW (11.5-15.5) % Plt Count (150-450) k/uL Neutrophils # (1.3-7.7) k/uL Lymphocytes # (1.0-4.8) k/uL ABG pH (7.35-7.45) ABG pCO2 (35-45) mmHg ABG HCO3 (21-25) mmol/L ABG Total CO2 (19-24) mmol/L ABG O2 Saturation (94-97) % BUN (9-20) mg/dL Creatinine (0.66-1.25) mg/dL POC Glucose (mg/dL) 116 H (75-99) mg/dL Calcium (8.4-10.2) mg/dL Crossmatch See Detail See Detail 05/26/19 05/26/19 05/26/19 Range/Units 15:30 17:23 23:39 WBC 20.5 H (3.8-10.6) k/uL RBC 3.30 L (4.30-5.90) m/uL Hgb 9.6 L D (13.0-17.5) gm/dL Hct 28.5 L (39.0-53.0) % RDW 20.1 H (11.5-15.5) % Plt Count (150-450) k/uL Neutrophils # 19.8 H (1.3-7.7) k/uL Lymphocytes # 0.1 L (1.0-4.8) k/uL ABG pH (7.35-7.45) ABG pCO2 (35-45) mmHg ABG HCO3 (21-25) mmol/L ABG Total CO2 (19-24) mmol/L ABG O2 Saturation (94-97) % BUN (9-20) mg/dL Creatinine (0.66-1.25) mg/dL POC Glucose (mg/dL) 139 H 142 H (75-99) mg/dL Calcium (8.4-10.2) mg/dL Crossmatch 05/27/19 05/27/19 05/27/19 Range/Units 04:53 04:53 05:41 WBC 12.1 H (3.8-10.6) k/uL RBC 2.82 L (4.30-5.90) m/uL Hgb 8.3 L (13.0-17.5) gm/dL Hct 24.9 L (39.0-53.0) % RDW 18.7 H (11.5-15.5) % Plt Count 128 L (150-450) k/uL Neutrophils # (1.3-7.7) k/uL Lymphocytes # (1.0-4.8) k/uL ABG pH 7.54 H (7.35-7.45) ABG pCO2 34 L (35-45) mmHg ABG HCO3 29 H (21-25) mmol/L ABG Total CO2 30 H (19-24) mmol/L ABG O2 Saturation 98.0 H (94-97) % BUN 41 H (9-20) mg/dL Creatinine 0.61 L (0.66-1.25) mg/dL POC Glucose (mg/dL) (75-99) mg/dL Calcium 7.4 L (8.4-10.2) mg/dL Crossmatch - Imaging and Cardiology Chest x-ray: report reviewed, image reviewed Assessment and Plan Assessment: 1. Squamous cell carcinoma right upper lobe, [id number], status post right robotic-assisted upper lobectomy with mediastinal lymph node dissection 2. Previous tobacco dependence with 51-hsxm-mrnn history 3. COPD 4. Hypertension 5. Hyperlipidemia 6. Diastolic heart failure 7. Coronary artery disease status post stenting to the circumflex coronary artery 8. Sick sinus syndrome status post permanent pacemaker placement 9. Bipolar disorder 10. GERD 11. Postoperative acute blood loss anemia 12. Postoperative paroxysmal atrial fibrillation 13. Postoperative right-sided pneumothorax with prolonged air leak 14. Leukocytosis, pneumonia, likely from aspiration, unexpected 15. Hypotension, status post fluid resuscitation, necessitating IV levofed 16. Postoperative hypoxemic respiratory failure requiring intubation, unexpected, status post bronchoscopy with bronchoalveolar lavage, failed extubation and tracheostomy placement 17. Status post PEG tube placement 18. Acute gastrointestinal bleed, status post transfusion 2 units packed red blood cells, likely from anticoagulation with Eliquis Plan: 1. Ventilator management, bronchodilators, steroids per pulmonology. Wean from ventilator as tolerated. 2. Continue Levaquin per pulmonology for full 14 days 3. Continue tube feedings via PEG 4. Continue amiodarone for A. fib prophylaxis, decreased to 200 mg daily. Continue Lopressor. Eliquis discontinued secondary to GI bleed 5. Hay Sorter consulted, recommendations for close monitoring of CBC with transfusion for hemoglobin less than 7. Will continue Protonix IV twice daily 6. Will continue to monitor daily x-rays, labs. 7. GI/DVT prophylaxis. 8. Pain control with current medication regimen. 9. Continue home medications. Continue home Xanax for anxiety 10. Encourage continued smoking cessation. 11. Discharge planning in progress. Anticipating discharge to LTAC soon 12. More recommendations to follow. Time with Patient: Greater than 30
[2019-05-27] MEDS: PANTOPRAZOLE 40 MG/10 ML VIAL IVP SCH ×2 (10:04→21:35)
[2019-05-27] MEDS: METOPROLOL TARTRATE 50 MG TAB PEG/G-TUBE SCH ×2 (10:04→21:35)
[2019-05-27] MEDS: AMIODARONE 200 MG TAB PEG/G-TUBE SCH (10:04)
[2019-05-27] MEDS: ALPRAZolam 1 MG TAB PO SCH ×2 (10:04→21:35)
[2019-05-27] MEDS: LEVOFLOXACIN 750MG-D5W PMX 750 MG in DEXTROSE/WATER 1 150ML.BAG IVPB SCH (10:04)
[2019-05-27] MEDS: CHLORHEXIDINE GLUCONATE 15 ML CUP MUCOUS MEM SCH ×2 (10:04→21:32)
[2019-05-27] MEDS: predniSONE 20 MG TAB PO SCH (10:04)
[2019-05-27] MEDS: SODIUM CHLORIDE 0.45% 1,000 ML IV SCH (10:05)
--- NOTE | 2019-05-27 11:33 | P.PN ---
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 Vanessa as his primary care physician. 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 He had been seen and evaluated by Dr. Soliman after being found to have a right lung pulmonary nodule. He performed a PET scan which did show significant hypermetabolic uptake without metastasis and subsequently referred to Dr. Brock. He was admitted here today and had undergone a right thoracoscopy, robotic-assisted thoracoscopic right upper lobectomy and mediastinal lymph node dissection with fiberoptic bronchoscopy. Primary tumor positive for squamous cell carcinoma. The patient had a complicated postoperative course. Note that approximately a week after the surgery the patient developed a right lower lobe pneumonia and subsequently went to respiratory failure. He was also having significant amount of leak from his right-sided chest tube which was kept in for an extended period of time. Ultimately, the air leak stopped, the patient's chest tube has been removed and the patient is currently postop day #26 following his cardiac surgery. Note that during this time, the patient had prolonged respiratory failure requiring intubation mechanical ventilation related to his pneumonia. Currently is a tracheostomy tube in place which is her #8 Shiley tracheostomy tube. His chest x-ray shows some stable patchy opacity in the right midlung area which is stable and that is also improved aeration of the left lung base. There is also volume loss in the right hemithorax related to his previous thoracic surgery. His blood gases from today showed a pH of 7.44 with a pCO2 of 40 and pO2 of 129. The patient was double stacking. I switched him to a VC plus mode and I sent the tidal volume at 500 with a rate of, rate of 20, with a TI of 0.55 and I also drop down the PEEP down to 5 with an FiO2 of 40%. He was able to tolerate this setting is much more better and he was much more synchronous. I took off the Ativan and put the patient was an excellent history basis. I also stop the Diprivan. His tube feeds are running. He has an FMS system and he is still producing quite a bit of liquidy stool while being on a vital high protein. The patient is hemodynamically stable at this point in time. He is awake. Is able to barely raise his arms against gravity. He has increased swelling in the upper extremities and lower extremities. He'll be receiving a unit of blood for hemoglobin of 7.1 and following that he'll be given Lasix. He is following some simple commands. No other significant events otherwise for now. 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 He remains trached to the vent, yesterday he was placed on a VC plus mode of ventilation, with a rate of 28, tidal volume of 500, FiO2 of 40% and PEEP of 5, patient tolerated quite well, appeared to be more comfortable mode of ventilation for him, today's blood work showed a pO2 of 92, pCO2 of 34, and pH of 7.54, consistent with respiratory alkalosis, and patient's rate has been dropped down to 14. Patient has frequent cough, and at times he is able to clear dark colored sputum. Today's chest x-ray has been reviewed showing stable findings from the prior exam, with multifocal right-sided airspace disease with volume loss in the right hemithorax from prior lobectomy, today's blood work shows improvement in the patient's white blood cell count down to 12.1 from 20.5 on yesterday's labs, hemoglobin is 8.3, patient did receive a unit of packed red blood cells yesterday for hemoglobin of 7.6, platelet count is 128, electrolytes were within normal limits, BUN is 41 and creatinine is 0.61, patient is on 0.45 normal saline at a rate of 20 ML per hour, he is tolerating tube feedings. Castorena catheter is in place, and patient is nonoliguric, urine output in the order of 5200 ML per hour. He is to have liquid dark stools. Hemodynamically stable, non-tachycardic. Today patient was placed on Eliquis episode of atrial fibrillation, but he had to be placed back on hold related to concern of a GI bleeding Objective - Vital Signs Vital signs: Vital Signs Temp 97.8 F 05/27/19 08:00 Pulse 67 05/27/19 11:15 Resp 18 05/27/19 10:00 BP 115/65 05/27/19 10:00 Pulse Ox 100 05/27/19 10:00 Intake & Output 05/26/19 05/27/19 05/27/19 18:59 06:59 18:59 Intake Total 2257.035 1484 736 Output Total 2260 755 325 Balance -2.965 729 411 Weight 85.7 kg Intake: IV 320 240 280 Calcium Gluconate 1 gm In 100 Sodium Chloride 0.9% 100 ml @ 100 mls/hr IVPB ONCE ONE Rx#:[id number] Levofloxacin 750Mg-D5w 100 100 Pmx 750 mg In Dextrose/ Water 1 150ml.bag @ 100 mls/hr IVPB Q24H [facility] Rx#: [id number] NS 220 240 20 Sodium Chloride 0.45% 1, 60 000 ml @ 20 mls/hr IV . Q24H [facility] Rx#:[id number] Intake, IV Titration 21.035 Amount Propofol 1,000 mg In 21.035 Empty Bag 1 bag @ Titrate IV .Q0M [facility] Rx#: [id number] Tube Feeding 476 544 136 Blood Product 620 Rc As-1 Unit 310 [id number] Other 820 700 320 Output: Urine 2260 755 325 Other: Voiding Method Indwelling Catheter Indwelling Catheter ABP, PAP, CO, CI - Last Documented Arterial Blood Pressure 93/52 - Exam GENERAL EXAM: Alert, quite weak, fatigued, 69-year-old gentleman who is trached to the vent, comfortable in no apparent distress. HEAD: Normocephalic/atraumatic. EYES: Normal reaction of pupils, equal size. Conjunctiva pink, sclera white. NOSE: Clear with pink turbinates. THROAT: No erythema or exudates. NECK: No masses, no JVD, no thyroid enlargement, no adenopathy. Midline tracheostomy, patient is trached to the vent, there is a large old blood clot on the trach, is dark colored sputum being suctioned from endotracheal circuit CHEST: No chest wall deformity. Symmetrical expansion. LUNGS: Equal air entry with coarse scattered rhonchi,no wheeze, rhonchi or dullness. CVS: Regular rate and rhythm, normal S1 and S2, no gallops, no murmurs, no rubs ABDOMEN: Soft, nontender. No hepatosplenomegaly, normal bowel sounds, no guarding or rigidity. EXTREMITIES: No clubbing, diffuse generalized edema and upper and lower extremities, hands, scrotum, no cyanosis, 2+ pulses and upper and lower extremities. MUSCULOSKELETAL: Muscle strength and tone normal. SPINE: No scoliosis or deformity SKIN: No rashes CENTRAL NERVOUS SYSTEM: Alert and oriented -1. No focal deficits, tone is normal in all 4 extremities. - Labs CBC & Chem 7: 05/27/19 04:53 05/27/19 04:53 Labs: Abnormal Lab Results - Last 24 Hours (Table) 05/26/19 05/26/19 05/26/19 Range/Units 09:00 11:56 15:30 WBC 20.5 H (3.8-10.6) k/uL RBC 3.30 L (4.30-5.90) m/uL Hgb 9.6 L D (13.0-17.5) gm/dL Hct 28.5 L (39.0-53.0) % RDW 20.1 H (11.5-15.5) % Plt Count (150-450) k/uL Neutrophils # 19.8 H (1.3-7.7) k/uL Lymphocytes # 0.1 L (1.0-4.8) k/uL ABG pH (7.35-7.45) ABG pCO2 (35-45) mmHg ABG HCO3 (21-25) mmol/L ABG Total CO2 (19-24) mmol/L ABG O2 Saturation (94-97) % BUN (9-20) mg/dL Creatinine (0.66-1.25) mg/dL POC Glucose (mg/dL) 116 H (75-99) mg/dL Calcium (8.4-10.2) mg/dL Crossmatch See Detail 05/26/19 05/26/19 05/27/19 Range/Units 17:23 23:39 04:53 WBC 12.1 H (3.8-10.6) k/uL RBC 2.82 L (4.30-5.90) m/uL Hgb 8.3 L (13.0-17.5) gm/dL Hct 24.9 L (39.0-53.0) % RDW 18.7 H (11.5-15.5) % Plt Count 128 L (150-450) k/uL Neutrophils # (1.3-7.7) k/uL Lymphocytes # (1.0-4.8) k/uL ABG pH (7.35-7.45) ABG pCO2 (35-45) mmHg ABG HCO3 (21-25) mmol/L ABG Total CO2 (19-24) mmol/L ABG O2 Saturation (94-97) % BUN (9-20) mg/dL Creatinine (0.66-1.25) mg/dL POC Glucose (mg/dL) 139 H 142 H (75-99) mg/dL Calcium (8.4-10.2) mg/dL Crossmatch 05/27/19 05/27/19 Range/Units 04:53 05:41 WBC (3.8-10.6) k/uL RBC (4.30-5.90) m/uL Hgb (13.0-17.5) gm/dL Hct (39.0-53.0) % RDW (11.5-15.5) % Plt Count (150-450) k/uL Neutrophils # (1.3-7.7) k/uL Lymphocytes # (1.0-4.8) k/uL ABG pH 7.54 H (7.35-7.45) ABG pCO2 34 L (35-45) mmHg ABG HCO3 29 H (21-25) mmol/L ABG Total CO2 30 H (19-24) mmol/L ABG O2 Saturation 98.0 H (94-97) % BUN 41 H (9-20) mg/dL Creatinine 0.61 L (0.66-1.25) mg/dL POC Glucose (mg/dL) (75-99) mg/dL Calcium 7.4 L (8.4-10.2) mg/dL Crossmatch Assessment and Plan Plan: Assessment: #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 Status post right thoracoscopy, robotic-assisted thorascopic right upper lobectomy with mediastinal lymph node dissection, fiberoptic bronchoscopy. Suspect squamous cell carcinoma. Postoperative day #26.. The patient was found to have an early stage I non-small cell lung cancer. #2 right-sided pneumothorax, expected outcome of surgery, the patient a prolonged an extended air leak and ongoing pneumothorax which ultimately recovered and today's chest x-ray does not show any persistent pneumothorax #3 acute respiratory failure due to complications of pneumonia and thoracic surgery in the setting of non-small cell lung cancer. The patient remains vent dependent and necessary vent changes were done and today's chest x-ray shows a stable right midlung infiltrate. Cultures of been negative thus far. Trac heostomy tube in place and there is no evidence of air leak. The patient was having some double stacking and the necessity ventilator changes were done and the patient was switched AVC plus mode with seems to be much comfortable morbid at this point in time. #4 Chronic obstructive pulmonary disease #5 Hypertension. #6 sick sinus syndrome status post pacemaker implantation. #7 Anxiety/depression. #8 Hyperlipidemia. #9 bipolar disorder #10 40 pack smoking history #11 postoperative acute blood loss anemia, expected outcome of surgery, receiving a unit of packed RBC today #12 postoperative paroxysmal atrial fibrillation, and expected outcome of surgery #13 known history of coronary artery disease with previous stenting to the circumflex artery #14 bipolar disorder/chronic anxiety #15 PEG tube insertion for enteral feeding and support #16 edema in the upper and lower extremities #17 acute GI bleed posttransfusion with a 4 units of packed RBC and the patient has a component of gastritis and currently is off Eliquis. #18 diastolic heart failure, currently inactive in stable #19 diarrhea currently has an FMS system in place. Plan: Ventilator adjustment has been made, patient remains on VC plus mode of ventilation, and the rate has been dropped to 14 breaths per minute, continue with a tidal volume of 500, FiO2 of 40% and PEEP of 5. Hold sedation, patient is awake and alert, he is following commands, consult physical therapy, patient has severe generalized weakness. Chest x-ray stable with a volume loss and airspace disease in the right lung, likely related to atelectasis, and a history of right upper lobectomy. No fever or chills, cultures remain negative, Eliquis is on hold for a concern of GI bleeding. Patient required another unit of packed red blood cells yesterday. He continues to have black liquid stools. Remains hemodynamically stable. Continue with bronchodilators. Continues on antibiotics. He is on oral prednisone. 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 I performed a history & physical examination of the patient and discussed their management with my nurse practitioner, Carol Agrawal. I reviewed the nurse practitioner's note and agree with the documented findings and plan of care. Lung sounds are positive for a few rhonchi. The findings and the impression was discussed with the patient. I attest to the documentation by the nurse practitioner. Time with Patient: Greater than 30 <Kvng Hays - Last Filed: 05/27/19 16:51> Objective - Vital Signs Vital signs: Vital Signs Temp 98.5 F 05/27/19 12:00 Pulse 80 05/27/19 16:04 Resp 16 05/27/19 15:00 BP 123/74 05/27/19 15:00 Pulse Ox 99 05/27/19 15:00 Intake & Output 05/26/19 05/27/19 05/27/19 18:59 06:59 18:59 Intake Total 2257.035 1484 1152 Output Total 2260 755 610 Balance -2.965 729 542 Weight 85.7 kg 85.7 kg Intake: IV 320 240 360 Calcium Gluconate 1 gm In 100 Sodium Chloride 0.9% 100 ml @ 100 mls/hr IVPB ONCE ONE Rx#:[id number] Levofloxacin 750Mg-D5w 100 100 Pmx 750 mg In Dextrose/ Water 1 150ml.bag @ 100 mls/hr IVPB Q24H [facility] Rx#: [id number] NS 220 240 20 Sodium Chloride 0.45% 1, 140 000 ml @ 20 mls/hr IV . Q24H [facility] Rx#:[id number] Intake, IV Titration 21.035 Amount Propofol 1,000 mg In 21.035 Empty Bag 1 bag @ Titrate IV .Q0M [facility] Rx#: [id number] Tube Feeding 476 544 272 Blood Product 620 Rc As-1 Unit 310 [id number] Other 820 700 520 Output: Urine 2260 755 610 Other: Voiding Method Indwelling Catheter Indwelling Catheter ABP, PAP, CO, CI - Last Documented Arterial Blood Pressure 93/52 - Labs CBC & Chem 7: 05/27/19 04:53 05/27/19 04:53 Labs: Abnormal Lab Results - Last 24 Hours (Table) 05/26/19 05/26/19 05/27/19 Range/Units 17:23 23:39 04:53 WBC 12.1 H (3.8-10.6) k/uL RBC 2.82 L (4.30-5.90) m/uL Hgb 8.3 L (13.0-17.5) gm/dL Hct 24.9 L (39.0-53.0) % RDW 18.7 H (11.5-15.5) % Plt Count 128 L (150-450) k/uL ABG pH (7.35-7.45) ABG pCO2 (35-45) mmHg ABG HCO3 (21-25) mmol/L ABG Total CO2 (19-24) mmol/L ABG O2 Saturation (94-97) % BUN (9-20) mg/dL Creatinine (0.66-1.25) mg/dL POC Glucose (mg/dL) 139 H 142 H (75-99) mg/dL Calcium (8.4-10.2) mg/dL 05/27/19 05/27/19 Range/Units 04:53 05:41 WBC (3.8-10.6) k/uL RBC (4.30-5.90) m/uL Hgb (13.0-17.5) gm/dL Hct (39.0-53.0) % RDW (11.5-15.5) % Plt Count (150-450) k/uL ABG pH 7.54 H (7.35-7.45) ABG pCO2 34 L (35-45) mmHg ABG HCO3 29 H (21-25) mmol/L ABG Total CO2 30 H (19-24) mmol/L ABG O2 Saturation 98.0 H (94-97) % BUN 41 H (9-20) mg/dL Creatinine 0.61 L (0.66-1.25) mg/dL POC Glucose (mg/dL) (75-99) mg/dL Calcium 7.4 L (8.4-10.2) mg/dL Assessment and Plan Plan: Is a critically care evaluation that was done along with the nurse practitioner. I fully agree on the documentation above. Also, I reviewed the chest x-ray which shows stable findings. The respiratory rate has been dropped down to 14 per minute. We'll monitor the blood gas. She is still having diarrhea. FMS system is in place. We're going to change her tube feeds to vital AF. We'll continue to follow. The patient on 20 mg of prednisone which is a part of a burst taper. The patient has no other complaints. He is weak. He may be a good candidate for rehabilitation and we are looking to transfer this patient to select specialty within next 24-48 hours. There is a critically care evaluation was done and morning 30 minutes.
[2019-05-27 11:57] LABS: Glucose,Whole Blood 96 mg/dL (75-99)
--- NOTE | 2019-05-27 12:07 | PN ---
PROGRESS NOTE DATE OF SERVICE: 05/27/2019 Patient is a 69-year-old pleasant white male with history of with acute upper gastrointestinal bleed who is seen on followup today. He remains in the stent. He remains on a vent, sedated with trach and PEG in no further episodes of bleeding, FMS in place. Has dark green-colored stools. PEG-tube feeds are being tolerated, no events overnight. PHYSICAL EXAMINATION: Sedated on the vent. VITAL SIGNS: Stable, blood pressure is 115/86, pulse rate 80, respirations 18, afebrile. HEENT: Examination unremarkable. Conjunctivae are pink. Sclerae nonicteric. ORAL CAVITY: No lesions. CHEST: Clear to auscultation. HEART: Regular rate and rhythm. ABDOMEN: Soft. PEG tube in place. Tolerating feeds. PEG site looks normal. EXTREMITIES: No pedal edema. NEURO: Sedated. LABS: WBC 12.1, hemoglobin 8.3, platelets 128. Basic metabolic panel, BUN 41, creatinine 0.61. IMPRESSION: 1. Status post left upper lobe lobectomy for squamous cell carcinoma. Postoperative day #26. 2. Acute upper gastrointestinal bleed, possibly from severe stress-induced gastritis aggravated by anticoagulation. Patient was on Eliquis for atrial fibrillation, currently on hold. 3. Status post tracheostomy and PEG. Tolerating PEG tube feeds well. RECOMMENDATIONS: 1. Continue Protonix 40 mg twice daily. 2. CBC on a daily basis. 3. No plans on any endoscopy intervention as the bleeding have subsided. Will follow him closely during his hospital stay. MMODL / IJN: [id number] /
[2019-05-27 14:06] VITALS: BMI 29.5
--- NOTE | 2019-05-27 14:15 | P.PN ---
<La Gonzalez Karen - Last Filed: 05/27/19 14:10> Subjective Progress Note Date: 05/27/19 CHIEF COMPLAINT: Malnutrition HISTORY OF PRESENT ILLNESS: Patient is s/p trach and PEG. Remains on ventilator. Tube feeding infusing at 34cc/hr. Fecal management system with dark brown liquid stool. WBC 12.1. Hemoglobin 8.3, s/p 1 unit RBC yesterday. PHYSICAL EXAM: VITAL SIGNS: Reviewed GENERAL: Well-developed in no acute distress. HEENT: No sclera icterus. Extraocular movements grossly intact. Moist buccal mucosa. Head is atraumatic, normocephalic. Hears conversational speech. No nasal drainage. NECK: Trach intact with serosanguineous drainage surrounding trach-improving CHEST: Non-labored respirations and equal bilateral excursions. Remains on ventilator. CARDIOVASCULAR: Regular rate with regular rhythm. Palpable 2+ radial pulses. ABDOMEN: Soft. Nondistended. Nontender. PEG tube site clean dry intact with no drainage or bleeding noted. Fecal management system with dark brown liquid stool. MUSCULOSKELETAL: No clubbing or cyanosis. Generalized weeping edema. NEUROLOGIC: No focal or lateralizing signs. Cranial nerves II through XII grossly intact. PSYCH: Awake. Tracks provider in room. SKIN: Well perfused. Good skin turgor. ASSESSMENT: 1. Acute hypoxic respiratory failure, status post tracheotomy 2. Severe protein calorie malnutrition, status post PEG tube placement 3. Acute GI bleed, Eliquis since discontinued PLAN: 1. Continue tube feedings as tolerated 2. Continue to monitor hemoglobin. Continue to hold Eliquis 3. Continue carafate and protonix 4. Discharge planning underway for DC tomorrow to LTAC Nurse practitioner note has been reviewed by physician. Signing provider agrees with the documented findings, assessment, and plan of care. Objective - Vital Signs Vital signs: Vital Signs Temp 98.5 F 05/27/19 12:00 Pulse 75 05/27/19 14:00 Resp 22 05/27/19 14:00 BP 114/74 05/27/19 14:00 Pulse Ox 100 05/27/19 14:00 Intake & Output 05/26/19 05/27/19 05/27/19 18:59 06:59 18:59 Intake Total 2257.035 1484 1152 Output Total 2260 755 610 Balance -2.965 729 542 Weight 85.7 kg 85.7 kg Intake: IV 320 240 360 Calcium Gluconate 1 gm In 100 Sodium Chloride 0.9% 100 ml @ 100 mls/hr IVPB ONCE ONE Rx#:[id number] Levofloxacin 750Mg-D5w 100 100 Pmx 750 mg In Dextrose/ Water 1 150ml.bag @ 100 mls/hr IVPB Q24H [facility] Rx#: [id number] NS 220 240 20 Sodium Chloride 0.45% 1, 140 000 ml @ 20 mls/hr IV . Q24H [facility] Rx#:[id number] Intake, IV Titration 21.035 Amount Propofol 1,000 mg In 21.035 Empty Bag 1 bag @ Titrate IV .Q0M [facility] Rx#: [id number] Tube Feeding 476 544 272 Blood Product 620 Rc As-1 Unit 310 [id number] Other 820 700 520 Output: Urine 2260 755 610 Other: Voiding Method Indwelling Catheter Indwelling Catheter ABP, PAP, CO, CI - Last Documented Arterial Blood Pressure 93/52 - Labs CBC & Chem 7: 05/27/19 04:53 05/27/19 04:53 Labs: Abnormal Lab Results - Last 24 Hours (Table) 05/26/19 05/26/19 05/26/19 Range/Units 15:30 17:23 23:39 WBC 20.5 H (3.8-10.6) k/uL RBC 3.30 L (4.30-5.90) m/uL Hgb 9.6 L D (13.0-17.5) gm/dL Hct 28.5 L (39.0-53.0) % RDW 20.1 H (11.5-15.5) % Plt Count (150-450) k/uL Neutrophils # 19.8 H (1.3-7.7) k/uL Lymphocytes # 0.1 L (1.0-4.8) k/uL ABG pH (7.35-7.45) ABG pCO2 (35-45) mmHg ABG HCO3 (21-25) mmol/L ABG Total CO2 (19-24) mmol/L ABG O2 Saturation (94-97) % BUN (9-20) mg/dL Creatinine (0.66-1.25) mg/dL POC Glucose (mg/dL) 139 H 142 H (75-99) mg/dL Calcium (8.4-10.2) mg/dL 05/27/19 05/27/19 05/27/19 Range/Units 04:53 04:53 05:41 WBC 12.1 H (3.8-10.6) k/uL RBC 2.82 L (4.30-5.90) m/uL Hgb 8.3 L (13.0-17.5) gm/dL Hct 24.9 L (39.0-53.0) % RDW 18.7 H (11.5-15.5) % Plt Count 128 L (150-450) k/uL Neutrophils # (1.3-7.7) k/uL Lymphocytes # (1.0-4.8) k/uL ABG pH 7.54 H (7.35-7.45) ABG pCO2 34 L (35-45) mmHg ABG HCO3 29 H (21-25) mmol/L ABG Total CO2 30 H (19-24) mmol/L ABG O2 Saturation 98.0 H (94-97) % BUN 41 H (9-20) mg/dL Creatinine 0.61 L (0.66-1.25) mg/dL POC Glucose (mg/dL) (75-99) mg/dL Calcium 7.4 L (8.4-10.2) mg/dL Assessment and Plan (1) Anticoagulant long-term use Current Visit: Yes Status: Acute Code(s): Z79.01 - GROUP HOME (CURRENT) USE OF ANTICOAGULANTS SNOMED Code(s): 169625228 (2) Squamous cell carcinoma of right lung Current Visit: Yes Status: Acute Code(s): C34.91 - MALIGNANT NEOPLASM OF UNSP PART OF RIGHT BRONCHUS OR LUNG SNOMED Code(s): 74976415015358510 (3) Tracheostomy status Current Visit: Yes Status: Acute Code(s): Z93.0 - TRACHEOSTOMY STATUS SNOMED Code(s): 285393546 (4) Ventilator dependent Current Visit: Yes Status: Acute Code(s): Z99.11 - DEPENDENCE ON RESPIRATOR [VENTILATOR] STATUS SNOMED Code(s): 253406278 <Delfina Ferrer N - Last Filed: 09/04/19 21:18> Subjective To address diarrhea, may consider change of tube feeds otherwise cholestyramine daily. Objective - Vital Signs Vital signs: Vital Signs Temp 97.9 F 05/27/19 16:00 Pulse 84 05/27/19 19:20 Resp 17 05/27/19 19:00 BP 128/83 05/27/19 19:00 Pulse Ox 100 05/27/19 19:00 Intake & Output 05/27/19 05/27/19 05/28/19 06:59 18:59 06:59 Intake Total 1484 1634 Output Total 755 1115 Balance 729 519 Weight 85.7 kg 85.7 kg Intake: IV 240 460 Calcium Gluconate 1 gm In 100 Sodium Chloride 0.9% 100 ml @ 100 mls/hr IVPB ONCE ONE Rx#:[id number] Levofloxacin 750Mg-D5w 100 Pmx 750 mg In Dextrose/ Water 1 150ml.bag @ 100 mls/hr IVPB Q24H [facility] Rx#: [id number] NS 240 20 Sodium Chloride 0.45% 1, 240 000 ml @ 20 mls/hr IV . Q24H [facility] Rx#:[id number] Tube Feeding 544 454 Other 700 720 Output: Urine 755 1115 Other: Voiding Method Indwelling Catheter Indwelling Catheter ABP, PAP, CO, CI - Last Documented Arterial Blood Pressure 93/52 - Labs CBC & Chem 7: 05/27/19 04:53 05/27/19 04:53 Labs: Abnormal Lab Results - Last 24 Hours (Table) 05/26/19 05/27/19 05/27/19 Range/Units 23:39 04:53 04:53 WBC 12.1 H (3.8-10.6) k/uL RBC 2.82 L (4.30-5.90) m/uL Hgb 8.3 L (13.0-17.5) gm/dL Hct 24.9 L (39.0-53.0) % RDW 18.7 H (11.5-15.5) % Plt Count 128 L (150-450) k/uL ABG pH (7.35-7.45) ABG pCO2 (35-45) mmHg ABG HCO3 (21-25) mmol/L ABG Total CO2 (19-24) mmol/L ABG O2 Saturation (94-97) % BUN 41 H (9-20) mg/dL Creatinine 0.61 L (0.66-1.25) mg/dL POC Glucose (mg/dL) 142 H (75-99) mg/dL Calcium 7.4 L (8.4-10.2) mg/dL 05/27/19 05/27/19 Range/Units 05:41 17:50 WBC (3.8-10.6) k/uL RBC (4.30-5.90) m/uL Hgb (13.0-17.5) gm/dL Hct (39.0-53.0) % RDW (11.5-15.5) % Plt Count (150-450) k/uL ABG pH 7.54 H (7.35-7.45) ABG pCO2 34 L (35-45) mmHg ABG HCO3 29 H (21-25) mmol/L ABG Total CO2 30 H (19-24) mmol/L ABG O2 Saturation 98.0 H (94-97) % BUN (9-20) mg/dL Creatinine (0.66-1.25) mg/dL POC Glucose (mg/dL) 118 H (75-99) mg/dL Calcium (8.4-10.2) mg/dL Assessment and Plan (1) Squamous cell carcinoma of right lung Current Visit: Yes Status: Acute Code(s): C34.91 - MALIGNANT NEOPLASM OF UNSP PART OF RIGHT BRONCHUS OR LUNG SNOMED Code(s): 03619153584326903 (2) Severe protein-calorie malnutrition Current Visit: Yes Status: Acute Code(s): E43 - UNSPECIFIED SEVERE PROTEIN- CALORIE MALNUTRITION SNOMED Code(s): 525065639 (3) Ventilator dependent Current Visit: Yes Status: Acute Code(s): Z99.11 - DEPENDENCE ON RESPIRATOR [VENTILATOR] STATUS SNOMED Code(s): 866906900 (4) Tracheostomy status Current Visit: Yes Status: Acute Code(s): Z93.0 - TRACHEOSTOMY STATUS SNOMED Code(s): 678084230 (5) History of tobacco abuse Current Visit: Yes Status: Acute Code(s): Z87.891 - PERSONAL HISTORY OF NICOTINE DEPENDENCE SNOMED Code(s): 058142003 (6) Sick sinus syndrome Current Visit: Yes Status: Acute Code(s): I49.5 - SICK SINUS SYNDROME SNOMED Code(s): 91964208 (7) Pacemaker Current Visit: Yes Status: Acute Code(s): Z95.0 - PRESENCE OF CARDIAC PACEMAKER SNOMED Code(s): 898771819 (8) Atrial fibrillation Current Visit: Yes Status: Acute Code(s): I48.91 - UNSPECIFIED ATRIAL FIBRILLATION SNOMED Code(s): 59534981 (9) Anticoagulant long-term use Current Visit: Yes Status: Acute Code(s): Z79.01 - GROUP HOME (CURRENT) USE OF ANTICOAGULANTS SNOMED Code(s): 328197857 (10) Gastroesophageal reflux Current Visit: Yes Status: Acute Code(s): K21.9 - GASTRO-ESOPHAGEAL REFLUX DISEASE WITHOUT ESOPHAGITIS SNOMED Code(s): 244818551 (11) Anxiety disorder Current Visit: Yes Status: Acute Code(s): F41.9 - ANXIETY DISORDER, UNSPECIFIED SNOMED Code(s): 872964067 (12) Peripheral vascular occlusive disease Current Visit: Yes Status: Acute Code(s): I73.9 - PERIPHERAL VASCULAR DISEASE, UNSPECIFIED SNOMED Code(s): 935257867 (13) Coronary artery disease Current Visit: Yes Status: Acute Code(s): I25.10 - ATHSCL HEART DISEASE OF [place] CORONARY ARTERY W/O ANG PCTRS SNOMED Code(s): 84565519 (14) Depressive disorder Current Visit: Yes Status: Acute Code(s): F32.9 - MAJOR DEPRESSIVE DISORDER, SINGLE EPISODE, UNSPECIFIED SNOMED Code(s): 97274214 (15) Dementia Current Visit: Yes Status: Acute Code(s): F03.90 - UNSPECIFIED DEMENTIA WITHOUT BEHAVIORAL DISTURBANCE SNOMED Code(s): 22559556
[2019-05-27 18:01] LABS: Glucose,Whole Blood 118 mg/dL (75-99)
[2019-05-27] MEDS: DONEPEZIL 5 MG TAB PO SCH (21:35)
[2019-05-27] MEDS: DULoxetine HCL 60 MG CAPSULE.DR PO SCH (21:35)
[2019-05-27] MEDS: ARIPiprazole 15 MG TAB PO SCH (21:35)
[2019-05-28] MEDS: INSULIN ASPART (NovoLOG) 100 UNIT/ML VIAL SQ SCH ×3 (00:09→11:20)
[2019-05-28 00:19] LABS: Glucose,Whole Blood 104 mg/dL (75-99)
[2019-05-28 04:23] LABS: ABG Base Excess 5.3 mmol/L; ABG HCO3 28 mmol/L (21-25); ABG Oxygen Saturation 98.9 % (94-97); ABG PCO2 36 mmHg (35-45); ABG PH 7.51 (7.35-7.45); ABG PO2 113 mmHg (83-108); ABG TCO2 29 mmol/L (19-24); Allen Test Performed? Yes
[2019-05-28 05:14] LABS: Anisocytosis Moderate; HCT 25.6 % (39.0-53.0); HGB 8.5 gm/dL (13.0-17.5); MCH 29.2 pg (25.0-35.0); MCHC 33.2 g/dL (31.0-37.0); MCV 87.9 fL (80.0-100.0); Mean Platelet Volume 7.7; Platelet Count 141 k/uL (150-450); RBC 2.92 m/uL (4.30-5.90); RDW 20.4 % (11.5-15.5); WBC 11.9 k/uL (3.8-10.6)
[2019-05-28 05:41] LABS: African American GFR (CKD) >90 (>60 ml/min/1.73 sqM); Blood Urea Nitrogen 29 mg/dL (9-20); Calcium 7.4 mg/dL (8.4-10.2); Carbon Dioxide 28 mmol/L (22-30); Glucose 97 mg/dL (74-99)
[2019-05-28 06:10] LABS: Glucose,Whole Blood 103 mg/dL (75-99)
[2019-05-28 06:22] LABS: Anion Gap 2 mmol/L; Chloride 107 mmol/L (98-107); Potassium 3.7 mmol/L (3.5-5.1); Sodium 137 mmol/L (137-145)
[2019-05-28] MEDS: SUCRALFATE 1 GM TAB PO SCH (06:47)
[2019-05-28] MEDS ORDERED: POTASSIUM BICARBONATE/CIT AC 20 MEQ TABLET.EFF NG-TUBE SCH ×2 (07:00→08:00)
[2019-05-28] MEDS ORDERED: FUROSEMIDE 10 MG/ML 2 ML VIAL IV STA (07:15)
[2019-05-28] MEDS ORDERED: CALCIUM GLUCONATE 1 GM in SODIUM CHLORIDE 0.9% 100 ML IVPB ONE (07:15)
[2019-05-28] MEDS: FORMOTEROL FUMARATE 20 MCG/2 ML NEBU INHALATION SCH (07:16)
[2019-05-28] MEDS: IPRATROPIUM-ALBUTEROL 3 ML NEB IH SCH ×2 (07:16→11:21)
[2019-05-28] MEDS: BUDESONIDE 1 MG/2 ML NEBU INHALATION SCH (07:16)
--- NOTE | 2019-05-28 07:57 | P.PN ---
Subjective Progress Note Date: 05/28/19 Principal diagnosis: Squamous cell carcinoma right upper lobe. Previous medical history of tobacco dependence with 28-hxgm-fylz history, chronic obstructive pulmonary disease, hyp ertension, hyperlipidemia, coronary artery disease status post stenting to the circumflex coronary artery in 2017, sick sinus syndrome status post permanent pacemaker placement in 2010, bipolar disorder/anxiety/depression, and gastroesophageal reflux disease. POD #28 right thoracoscopy, robotic assisted thorascopic right upper lobectomy with mediastinal lymph node dissection, fiberoptic bronchoscopy. Postoperative acute blood loss anemia, expected Postoperative paroxysmal atrial fibrillation, unexpected Postoperative right-sided pneumothorax with prolonged air leak, expected and inherent to this type of surgery Leukocytosis, suspect postobstructive pneumonia, unexpected Hypotension, status post fluid administration, necessitating IV levo, unexpected Postoperative hypoxemic respiratory failure, necessitating initiation of BiPAP, unexpected POD #14 bedside bronchoscopy and bronchoalveolar lavage of the left upper lobe, right middle lobe and right lower lobe performed by Dr. Soliman POD #8 tracheostomy placement with 8 mm Shiley cuffed tracheostomy tube POD #7 esophagogastroduodenoscopy with percutaneous endoscopic gastrostomy tube placement 20-Japanese, EndoVive Push technique Knowable Postoperative acute GI bleed, unexpected, likely from anticoagulation prescribed for A. fib The patient is currently laying in bed in the intensive care unit in no acute distress. Currently maintained on mechanical ventilation through the tracheostomy. Propofol has been off greater than 48 hours. No further afib, currently in sinus rhythm, maintained with amiodarone and Lopressor. Eliquis was discontinued secondary to dark tarry stools, Hemoccult positive, stooling has slowed but still dark and liquid. Currently not on any pressors or inotropes. Patient's family has been updated, should be discharged to LTAC in the next few days. Objective - Vital Signs Vital signs: Vital Signs Temp 98.1 F 05/28/19 04:00 Pulse 81 05/28/19 07:23 Resp 16 05/28/19 07:00 BP 118/75 05/28/19 07:00 Pulse Ox 99 05/28/19 07:00 Intake & Output 05/27/19 05/28/19 05/28/19 18:59 06:59 18:59 Intake Total 1634 1360 70 Output Total 1115 1800 100 Balance 519 -440 -30 Weight 85.7 kg 81.7 kg Intake: IV 460 220 20 Calcium Gluconate 1 gm In 100 Sodium Chloride 0.9% 100 ml @ 100 mls/hr IVPB ONCE ONE Rx#:[id number] Levofloxacin 750Mg-D5w 100 Pmx 750 mg In Dextrose/ Water 1 150ml.bag @ 100 mls/hr IVPB Q24H [facility] Rx#: [id number] NS 20 Sodium Chloride 0.45% 1, 240 220 20 000 ml @ 20 mls/hr IV . Q24H [facility] Rx#:[id number] Tube Feeding 454 540 50 Other 720 600 Output: Urine 1115 1800 100 Other: Voiding Method Indwelling Catheter Indwelling Catheter ABP, PAP, CO, CI - Last Documented Arterial Blood Pressure 93/52 - Constitutional General appearance: Present: cooperative, no acute distress - Respiratory Details: Lungs sounds diminished bilaterally with coarse breath sounds in the bases. Respirations even, nonlabored on mechanical ventilation. Current ventilator settings VC+ mode, FiO2 40%, tidal volume 500, respiratory rate 14, PEEP 5. ABGs this morning 7.5/35/113/28/98%/5.3 on 40% FiO2 and 5 of PEEP. #8 Shiley tracheostomy tube present. - Cardiovascular Details: S1, S2 present. Regular rate and rhythm, currently sinus rhythm on telemetry. Palpable peripheral pulses bilaterally. Generalized edema present. Right brachial PICC line line present. SCDs present. - Gastrointestinal Gastrointestinal Comment(s): Abdomen soft, nontender, nondistended. Active bowel sounds present 4 q uadrants. PEG tube present with tube feedings infusing at 50 mL/h, minimal residual per nursing staff. Fecal management system present, dark liquid stool in the bag. - Genitourinary Genitourinary Comment(s): [place] present draining clear, yellow urine. Output 100-250 mL per hour overnight. - Integumentary Integumentary Comment(s): Skin is cool and dry. Tracheostomy site with serosanguineous drainage continuing to decrease in amount. - Neurologic Neurologic: Present: CNII-XII intact - Musculoskeletal Musculoskeletal Comment(s): Patient able to lift arms off the bed minimally and wiggle his toes, but is extremely weak Musculoskeletal: Present: generalized weakness - Psychiatric Psychiatric: Present: A&O x's 3, appropriate affect - Allied health notes Allied health notes reviewed: nursing - Labs CBC & Chem 7: 05/28/19 05:00 05/28/19 05:00 Labs: Abnormal Lab Results - Last 24 Hours (Table) 05/27/19 05/27/19 05/28/19 Range/Units 17:50 23:58 04:22 WBC (3.8-10.6) k/uL RBC (4.30-5.90) m/uL Hgb (13.0-17.5) gm/dL Hct (39.0-53.0) % RDW (11.5-15.5) % Plt Count (150-450) k/uL ABG pH 7.51 H (7.35-7.45) ABG pO2 113 H (83-108) mmHg ABG HCO3 28 H (21-25) mmol/L ABG Total CO2 29 H (19-24) mmol/L ABG O2 Saturation 98.9 H (94-97) % BUN (9-20) mg/dL Creatinine (0.66-1.25) mg/dL POC Glucose (mg/dL) 118 H 104 H (75-99) mg/dL Calcium (8.4-10.2) mg/dL 05/28/19 05/28/19 05/28/19 Range/Units 05:00 05:00 05:47 WBC 11.9 H (3.8-10.6) k/uL RBC 2.92 L (4.30-5.90) m/uL Hgb 8.5 L (13.0-17.5) gm/dL Hct 25.6 L (39.0-53.0) % RDW 20.4 H (11.5-15.5) % Plt Count 141 L (150-450) k/uL ABG pH (7.35-7.45) ABG pO2 (83-108) mmHg ABG HCO3 (21-25) mmol/L ABG Total CO2 (19-24) mmol/L ABG O2 Saturation (94-97) % BUN 29 H (9-20) mg/dL Creatinine 0.56 L (0.66-1.25) mg/dL POC Glucose (mg/dL) 103 H (75-99) mg/dL Calcium 7.4 L (8.4-10.2) mg/dL - Imaging and Cardiology Chest x-ray: image reviewed Assessment and Plan Assessment: 1. Squamous cell carcinoma right upper lobe, [id number], status post right robotic-assisted upper lobectomy with mediastinal lymph node dissection 2. Previous tobacco dependence with 16-lquu-vslm history 3. COPD 4. Hypertension 5. Hyperlipidemia 6. Diastolic heart failure 7. Coronary artery disease status post stenting to the circumflex coronary artery 8. Sick sinus syndrome status post permanent pacemaker placement 9. Bipolar disorder 10. GERD 11. Postoperative acute blood loss anemia 12. Postoperative paroxysmal atrial fibrillation 13. Postoperative right-sided pneumothorax with prolonged air leak 14. Leukocytosis, pneumonia, likely from aspiration, unexpected 15. Hypotension, status post fluid resuscitation, necessitating IV levofed 16. Postoperative hypoxemic respiratory failure requiring intubation, unexpected, status post bronchoscopy with bronchoalveolar lavage, failed extubation and tracheostomy placement 17. Status post PEG tube placement 18. Acute gastrointestinal bleed, status post transfusion 2 units packed red blood cells, likely from anticoagulation with Eliquis Plan: 1. Ventilator management, bronchodilators, steroids per pulmonology. Wean from ventilator as tolerated. 2. Continue Levaquin per pulmonology for full 14 days 3. Continue tube feedings via PEG, tube feeding formula changed to Vital AF 4. Continue amiodarone for A. fib prophylaxis. Continue Lopressor. Eliquis discontinued secondary to GI bleed 5. Vehicle [employer] Engineer consulted, recommendations for close monitoring of CBC with transfusion for hemoglobin less than 7, no endoscopy planned at this point. Will continue Protonix IV twice daily 6. Will continue to monitor daily x-rays, labs. Will give IV lasix today, will give IV calcium, potassium and magnesium being replaced. 7. GI/DVT prophylaxis. 8. Pain control with current medication regimen. 9. Continue home medications. Continue home Xanax for anxiety 10. Encourage continued smoking cessation. 11. Discharge planning in progress. Anticipating discharge to LTAC today 12. More recommendations to follow. Time with Patient: Greater than 30
--- NOTE | 2019-05-28 08:16 | XR ---
EXAMINATION TYPE: XR chest 1V portable DATE OF EXAM: 05/28/2019 COMPARISON: 05/27/2019 HISTORY: Post lobectomy and tracheostomy. Follow-up exam. TECHNIQUE: Single frontal view of the chest is obtained. FINDINGS: Volume loss of the right hemidiaphragm and loculated right upper lobe pleural effusion rem aining. Bibasilar fibrotic changes are unchanged. Right perihilar atelectasis and volume loss is agai n seen. Tenting of the right hemidiaphragm is noted. Right PICC, median tracheostomy, dual lead left- sided cardiac device, and postsurgical changes in the gastroesophageal junction are unchanged. No new focal consolidation. Surgical sutures are seen along the right mediastinal border. IMPRESSION: Stable exam from the prior of 05/27/2019 with postsurgical changes of the right hemithorax , multifocal atelectasis and pulmonary fibrosis.
[2019-05-28 08:22] VITALS: TEMP 98.9
[2019-05-28] MEDS: MAGNESIUM SULFATE-D5W PMX 1 GM in DEXTROSE/WATER 1 100ML.BAG IVPB SCH ×2 (08:27→11:12)
[2019-05-28] MEDS: CHLORHEXIDINE GLUCONATE 15 ML CUP MUCOUS MEM SCH (08:28)
[2019-05-28] MEDS: METOPROLOL TARTRATE 50 MG TAB PEG/G-TUBE SCH (08:28)
[2019-05-28] MEDS: predniSONE 20 MG TAB PO SCH (08:28)
[2019-05-28] MEDS: PANTOPRAZOLE 40 MG/10 ML VIAL IVP SCH (08:28)
[2019-05-28] MEDS: ALPRAZolam 1 MG TAB PO SCH (08:28)
[2019-05-28] MEDS: AMIODARONE 200 MG TAB PEG/G-TUBE SCH (08:29)
[2019-05-28] MEDS: LEVOFLOXACIN 750MG-D5W PMX 750 MG in DEXTROSE/WATER 1 150ML.BAG IVPB SCH (08:32)
[2019-05-28] MEDS: SODIUM CHLORIDE 0.45% 1,000 ML IV SCH (08:32)
[2019-05-28] MEDS ORDERED: FUROSEMIDE 10 MG/ML 4 ML VIAL ONE (08:40)
[2019-05-28] MEDS ORDERED: HEPARIN SODIUM,PORCINE 5,000 UNIT/ML 1 ML VIAL SQ SCH (08:45)
--- NOTE | 2019-05-28 09:00 | P.DS ---
Providers Date of admission: 04/30/19 05:58 Expected date of discharge: 05/28/19 Attending physician: Rhys Brock Consults: 04/30/19 12:52 Consult Physician Routine Consulting Provider: Yusuf Oliveira Consult Reason/Comments: Pulmonary management Do you want consulting provider notified?: Yes 05/21/19 10:42 Consult Physician Stat Consulting Provider: Delfina Ferrer Consult Reason/Comments: peg Do you want consulting provider notified?: Already Contacted 05/22/19 18:54 Consult Physician Urgent Consulting Provider: Ceasar Chatterjee Consult Reason/Comments: GI Bleed Do you want consulting provider notified?: Yes Primary care physician: [facility] Course: FINAL DIAGNOSIS: 1. 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 2. History of chronic [id number] tobacco dependence 3. Chronic obstructive pulmonary disease 4. Hypertension 5. Hyperlipidemia 6. Coronary artery disease status post stenting to the circumflex coronary artery in 2016 7. Sick sinus syndrome status post permanent pacemaker placement in 2010 8. Bipolar disorder/anxiety/depression 9. Gastroesophageal reflux disease 10. Postoperative acute blood loss anemia 11. Postoperative paroxysmal atrial fibrillation 12. Postoperative right-sided pneumothorax with prolonged air leak 13. Leukocytosis 14. Postoperative hypotension requiring IV pressors and fluid resuscitation 15. Postoperative hypoxemic respiratory, likely from aspiration, failure requiring BiPAP, reintubation, and tracheostomy placement 16. Postoperative acute GI bleed, likely from anticoagulation prescribed for atrial fibrillation PRINCIPAL PROCEDURE: 1. Right thoracoscopy, robotic assisted thoracoscopic right upper lobectomy with mediastinal lymph node dissection, fiberoptic bronchoscopy 04/30/2019 2. Bedside bronchoscopy and bronchoalveolar lavage of the left upper lobe, right middle lobe, and right lower lobe 05/14/2019 3. Tracheostomy placement with 8 mm Shiley cuffed tracheostomy tube 05/20/2019 4. Esophagogastroduodenoscopy with percutaneous endoscopic gastrostomy tube placement 20-[employer], [employer] Push technique [employer] 05/21/2019 HISTORY OF PRESENT ILLNESS: This is a 69-year-old gentleman who follows on an outpatient basis with Dr Rhys Vanessa. He had a recent chest x-ray which demonstrated a calcified nodule in the right lung. This was followed by a computed tomography scan which confirmed the presence of a couple of small calcified nodules in the right lung, but also showed a noncalcified spiculated 2 cm nodule in the right upper lobe of the lung. There was significant emphysematous change in both lungs without significant adenopathy by CT criteria. This gentleman was evaluated by Dr. Soliman from pulmonology and sent for a PET scan. The PET scan demonstrated significant uptake in the right upper lobe nodule with no evidence of metastatic disease in the mediastinum. S2 be of the right upper lobe nodule was 8.5 which was highly suspicious for primary malignancy. Pulmonary function testing had been completed demonstrating normal FVC and FEV1 with markedly diminished DLCO at 45% of predicted. The patient was referred to Dr. Brock from cardiothoracic surgery. He was recommended to undergo robotic-assisted right upper lobectomy. The usual perioperative course was discussed in detail with the patient and his family, all risks and benefits were explained, all questions were answered, and consent was obtained to proceed with surgery. The patient was encouraged to quit smoking, and to obtain cardiac clearance prior to surgery which was scheduled for the first week in April. HOSPITAL COURSE: The patient was brought to the hospital on 04/30/2019, taken to the preoperative area, prepared in the usual fashion, and subsequently taken to the operating room where Dr. Brock performed a right thoracoscopy, robotic assisted thoracoscopic right upper lobectomy with mediastinal lymph node dissection, and fiberoptic bronchoscopy. Upon completion of surgery the patient was extubated, taken to the recovery room, and eventually transferred to the intensive care unit secondary to hypotension requiring low-dose pressor support. He continued to be monitored hemodynamically. He did experience atrial f ibrillation requiring initiation of amiodarone and Eliquis for anticoagulation. In addition, he developed a right-sided pneumothorax and had a prolonged air leak through his chest tube. He was deemed stable enough to be transferred to the stepdown unit on postoperative day #5. He remained stable and continued to work with physical and occupational therapy. His pain was controlled. His chest tube continued to be monitored for resolution of air leak, and daily chest x-rays were obtained. On postop day #10 there was no further air leak in the patient's chest tube after 24 hours placement to [facility], plans were to leave the chest tube for 1 more day and to remove the chest tube as long as there continued to be no evidence of air leak, however later that day he developed sharp uncontrolled right-sided chest pain. Chest x-ray was completed demonstrating increased pneumothorax. CTA of the chest was also completed demonstrating increased infiltrate on the right side. His chest tube was placed back to suction despite the fact that there was no air leak present and he was brought back to the intensive care unit for closer monitoring and better pain control. He continued to have increased oxygen demands, being placed on BiPAP, developed leukocytosis, and hypotension for which he received IV fluid boluses and IV pressors. His pleural chest tube was eventually discontinued. He continued to be on BiPAP for a few days, however postop day #14 he had severe respiratory distress requiring reintubation. He had bronchoscopy completed by pulmonology where there was evidence of minimal purulent secretions in the right middle and lower lobes as well as the left lower lobe, and these were lavaged, suctioned, and sent for culture and cytology but failed to grow any organisms. He was prophylactically placed on antibiotics. His ventilator oxygen requirements continued to be weaned down, and he was given trials of CPAP. His gas exchange was adequate, however during weaning his heart rate and blood pressure were quite elevated. He did have further weaning trials as well as one more trial extubation which he failed. On postop day #20 he received a tracheostomy, and then day #21 he received a PEG tube. Subsequently he developed GI bleeding likely from anticoagulation with Eliquis which was stopped, he received packed red blood cells and GI consultation was received. His lab work and hemodynamics continued to be monitored, arterial blood gases were drawn daily and vent changes were made accordingly, chest x-rays are reviewed daily, multiple consultants continued to make recommendations, he was weaned off propofol and eventually the patient was deemed stable for transfer to long-term acute care on postoperative day #28. Final pathology demonstrated invasive moderately differentiated squamous cell carcinoma with bronchovascular and parenchymal resection margins negative for malignancy. COMPLICATIONS: The patient experienced multiple postoperative complications including acute blood loss anemia with GI bleed, paroxysmal atrial fibrillation, right-sided pneumothorax with prolonged air leak, leukocytosis, hypotension, and hypoxemic respiratory failure, all of which were treated accordingly. Patient Condition at Discharge: Serious Plan - Discharge Summary Discharge Rx Participant: No New Discharge Prescriptions: New Sucralfate [Carafate] 1 gm PO AC-BID tab Amiodarone [Cordarone] 200 mg PEG/G-TUBE DAILY 7 Days tab Ipratropium-Albuterol Nebulize [Duoneb 0.5 mg-3 mg/3 ml Soln] 3 ml IH RT-QID ampul.neb Ipratropium-Albuterol Nebulize [Duoneb 0.5 mg-3 mg/3 ml Soln] 3 ml IH RT-Q1H PRN ampul.neb PRN Reason: Shortness Of Breath Or Wheezing fentaNYL 25MCG/HR PATCH [Duragesic 25MCG/HR] 1 patch TRANSDERM Q72H #10 patch Heparin Sodium,Porcine [Heparin Sodium] 5,000 unit SQ Q8HR vial Metoprolol Tartrate [Lopressor] 50 mg PEG/G-TUBE BID tab INSULIN ASPART (NovoLOG) [NovoLOG (formulary)] 0 unit SQ Q6H vial Formoterol Fumarate [Perforomist] 20 mcg INHALATION RT-BID nebu Chlorhexidine Gluconate [Peridex] 15 ml MUCOUS MEM BID solution predniSONE 20 mg PO DAILY 4 Days tab Budesonide [Pulmicort] 1 mg INHALATION RT-BID nebu Acetaminophen Tab [Tylenol] 1,000 mg PO Q6HR PRN tab PRN Reason: Fever and/ or Mild Pain Continue Donepezil [Aricept] 5 mg PO HS DULoxetine HCL [Cymbalta] 60 mg PO HS Atorvastatin [Lipitor] 40 mg PO HS ARIPiprazole [Abilify] 30 mg PO HS HYDROcodone/APAP 10-325MG [Vaughan 10-325] 1 tab PO Q6HR PRN #30 tab PRN Reason: Pain ALPRAZolam [Xanax] 1 mg PO BID PRN #60 tab PRN Reason: Anxiety Changed Pantoprazole Sodium [Protonix] 40 mg IV BID #60 Discontinued Nitroglycerin Sl Tabs [Nitrostat] 0.4 mg SUBLINGUAL Q5M PRN PRN Reason: Chest Pain Metoprolol Tartrate [Lopressor] 100 mg PO BID Losartan [Cozaar] 50 mg PO DAILY Clopidogrel [Plavix] 75 mg PO DAILY Cephalexin [Keflex] 500 mg PO Q8HR Aspirin 81 mg PO DAILY Albuterol Inhaler [Ventolin Hfa Inhaler] 1 - 2 puff INHALATION RT-Q6H PRN PRN Reason: Dyspnea Pregabalin [Lyrica] 75 mg PO DAILY Discharge Medication List ARIPiprazole [Abilify] 30 mg PO HS 04/24/19 [History] Atorvastatin [Lipitor] 40 mg PO HS 04/24/19 [History] DULoxetine HCL [Cymbalta] 60 mg PO HS 04/24/19 [History] Donepezil [Aricept] 5 mg PO HS 04/24/19 [History] ALPRAZolam [Xanax] 1 mg PO BID PRN #60 tab 05/28/19 [Rx] Acetaminophen Tab [Tylenol] 1,000 mg PO Q6HR PRN tab 05/28/19 [Rx] Amiodarone [Cordarone] 200 mg PEG/G-TUBE DAILY 7 Days tab 05/28/19 [Rx] Budesonide [Pulmicort] 1 mg INHALATION RT-BID nebu 05/28/19 [Rx] Chlorhexidine Gluconate [Peridex] 15 ml MUCOUS MEM BID solution 05/28/19 [Rx] Formoterol Fumarate [Perforomist] 20 mcg INHALATION RT-BID nebu 05/28/19 [Rx] HYDROcodone/APAP 10-325MG [Vaughan 10-325] 1 tab PO Q6HR PRN #30 tab 05/28/19 [Rx] Heparin Sodium,Porcine [Heparin Sodium] 5,000 unit SQ Q8HR vial 05/28/19 [Rx] INSULIN ASPART (NovoLOG) [NovoLOG (formulary)] 0 unit SQ Q6H vial 05/28/19 [Rx] Ipratropium-Albuterol Nebulize [Duoneb 0.5 mg-3 mg/3 ml Soln] 3 ml IH RT-Q1H PRN ampul.neb 05/28/19 [Rx] Ipratropium-Albuterol Nebulize [Duoneb 0.5 mg-3 mg/3 ml Soln] 3 ml IH RT-QID ampul.neb 05/28/19 [Rx] Metoprolol Tartrate [Lopressor] 50 mg PEG/G-TUBE BID tab 05/28/19 [Rx] Pantoprazole Sodium [Protonix] 40 mg IV BID #60 05/28/19 [Rx] Sucralfate [Carafate] 1 gm PO AC-BID tab 05/28/19 [Rx] fentaNYL 25MCG/HR PATCH [Duragesic 25MCG/HR] 1 patch TRANSDERM Q72H #10 patch 05/28/19 [Rx] predniSONE 20 mg PO DAILY 4 Days tab 05/28/19 [Rx] Follow up Appointment(s)/Referral(s): Evgeny Soliman MD [STAFF PHYSICIAN] - 1 Week (please make appointment upon discharge from [facility] care) Rhys Brock MD [STAFF PHYSICIAN] - 1 Week (please make follow-up appointment upon discharge from care home acute care) Rhys Vanessa MD [Primary Care Provider] - As Needed (please make follow-up appointment upon discharge from [facility] care) Guillermo Blum DO [REFERRING] - 1 Week (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 Please make appointment upon discharge from care home acute care) Patient Instructions/Handouts: Traumatic Pneumothorax (DC), Lung Lobectomy (DC), Video Assisted Thoracoscopic Surgery (DC) Activity/Diet/Wound Care/Special Instructions: DISCHARGE INSTRUCTIONS: 1. Continue trach care per facility policy. Wean from mechanical ventilation as tolerated. 2. Continue tube feeding through PEG tube with Vital AF at a rate of 50 mL/h. Flush PEG tube with 30 mL free water every 4 hours. Facility dietitian may adjust tube feeding as necessary. 3. Continue pain control per as needed orders. 4. Routine incision care. No powders, lotions, ointments on incisions. 5. Please call surgeon/DISC PAD GRINDING MACHINE FEEDER for temp greater than 101 F or purulent drainage from incisions. 6. Labs and x-rays per facility protocol. 7. Increase activity as tolerated. Consult physical and occupational therapist for increased mobility. 8. Change PICC line dressing every 7 days. Flush PICC line with 10 mL normal saline after each use, and weekly when not in use. 9. GI/DVT prophylaxis Discharge Disposition: [facility]
[2019-05-28 10:51] VITALS: BP 99/59; RESP 23
[2019-05-28 11:30] LABS: Glucose,Whole Blood 149 mg/dL (75-99)
[2019-05-28 11:36] VITALS: PULSE 73
--- NOTE | 2019-05-28 13:51 | P.PN ---
Subjective Progress Note Date: 05/28/19 This is a very pleasant 69-year-old gentleman who follows with Dr. Vanessa as his primary care physician. 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 He had been seen and evaluated by Dr. Soliman after being found to have a right lung pulmonary nodule. He performed a PET scan which did show significant hypermetabolic uptake without metastasis and subsequently referred to Dr. Brock. He was admitted here today and had undergone a right thoracoscopy, robotic-assisted thoracoscopic right upper lobectomy and mediastinal lymph node dissection with fiberoptic bronchoscopy. Primary tumor positive for squamous cell carcinoma. The patient had a complicated postoperative course. Note that approximately a week after the surgery the patient developed a right lower lobe pneumonia and subsequently went to respiratory failure. He was also having sign ificant amount of leak from his right-sided chest tube which was kept in for an extended period of time. Ultimately, the air leak stopped, the patient's chest tube has been removed and the patient is currently postop day #26 following his cardiac surgery. Note that during this time, the patient had prolonged respiratory failure requiring intubation mechanical ventilation related to his pneumonia. Currently is a tracheostomy tube in place which is her #8 Shiley tracheostomy tube. His chest x-ray shows some stable patchy opacity in the right midlung area which is stable and that is also improved aeration of the left lung base. There is also volume loss in the right hemithorax related to h is previous thoracic surgery. His blood gases from today showed a pH of 7.44 with a pCO2 of 40 and pO2 of 129. The patient was double stacking. I switched him to a VC plus mode and I sent the tidal volume at 500 with a rate of, rate of 20, with a TI of 0.55 and I also drop down the PEEP down to 5 with an FiO2 of 40%. He was able to tolerate this setting is much more better and he was much more synchronous. I took off the Ativan and put the patient was an excellent history basis. I also stop the Diprivan. His tube feeds are running. He has an FMS system and he is still producing quite a bit of liquidy stool while being on a vital high protein. The patient is hemodynamically stable at this point in time. He is awake. Is able to barely raise his arms against gravity. He has increased swelling in the upper extremities and lower extremities. He'll be receiving a unit of blood for hemoglobin of 7.1 and following that he'll be given Lasix. He is following some simple commands. No other significant events otherwise for now. 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 He remains trached to the vent, yesterday he was placed on a VC plus mode of ventilation, with a rate of 28, tidal volume of 500, FiO2 of 40% and PEEP of 5, patient tolerated quite well, appeared to be more comfortable mode of ventilation for him, today's blood work showed a pO2 of 92, pCO2 of 34, and pH of 7.54, consistent with respiratory alkalosis, and patient's rate has been dropped down to 14. Patient has frequent cough, and at times he is able to clear dark colored sputum. Today's chest x-ray has been reviewed showing stable findings from the prior exam, with multifocal right-sided airspace disease with volume loss in the right hemithorax from prior lobectomy, today's blood work shows improvement in the patient's white blood cell count down to 12.1 from 20.5 on yesterday's labs, hemoglobin is 8.3, patient did receive a unit of packed red blood cells yesterday for hemoglobin of 7.6, platelet count is 128, electrolytes were within normal limits, BUN is 41 and creatinine is 0.61, patient is on 0.45 normal saline at a rate of 20 ML per hour, he is tolerating tube feedings. Castorena catheter is in place, and patient is nonoliguric, urine output in the order of 5200 ML per hour. He is to have liquid dark stools. Hemodynamically stable, non-tachycardic. Today patient was placed on Eliquis episode of atrial fibrillation, but he had to be placed back on hold related to concern of a GI bleeding On 05/28/2019 I'm seeing this patient for a follow-up and the patient is awake and alert and the patient is following commands or answering questions appropriately. He remains on a mechanical ventilator. I had him on a tidal volume of 500 with a rate of 14 and FiO2 of 40% and a PEEP of 5. I further most recent a pressure support of 5 and PEEP of 5 early this morning and the patient was able to tolerate this setting without any major difficulties. He was pulling more than 500 mL of tidal volume. He is tolerating his enteral feeding for nutritional support. No leukocytosis. No fever or chills. Chest x-ray findings are stable. No signs of any GI bleeding. Cardiac rhythm is sinus. The patient is still having liquidy stool and an FMS system is in place. The blood gas showed a pH of 7.51 with a pCO2 of 36 and pO2 of 113. The serum bicarb is 28. The creatinine is stable at 0.56. No other significant events otherwise for now. Objective - Vital Signs Vital signs: Vital Signs Temp 98.9 F 05/28/19 08:00 Pulse 73 05/28/19 11:35 Resp 23 05/28/19 10:00 BP 99/59 05/28/19 10:00 Pulse Ox 100 05/28/19 10:00 Intake & Output 05/27/19 05/28/19 05/28/19 18:59 06:59 18:59 Intake Total 1634 1360 630 Output Total 1115 1800 1925 Balance 519 440 -1295 Weight 85.7 kg 81.7 kg Intake: IV 460 220 180 Calcium Gluconate 1 gm In 100 Sodium Chloride 0.9% 100 ml @ 100 mls/hr IVPB ONCE ONE Rx#:[id number] Levofloxacin 750Mg-D5w 100 100 Pmx 750 mg In Dextrose/ Water 1 150ml.bag @ 100 mls/hr IVPB Q24H [facility] Rx#: [id number] NS 20 Sodium Chloride 0.45% 1, 240 220 80 000 ml @ 20 mls/hr IV . Q24H [facility] Rx#:[id number] Tube Feeding 454 540 250 Other 720 600 200 Output: Urine 1115 1800 1925 Other: Voiding Method Indwelling Catheter Indwelling Catheter Indwelling Catheter ABP, PAP, CO, CI - Last Documented Arterial Blood Pressure 93/52 - Exam GENERAL EXAM: Alert, quite weak, fatigued, 69-year-old gentleman who is trached to the vent, comfortable in no apparent distress. HEAD: Normocephalic/atraumatic. EYES: Normal reaction of pupils, equal size. Conjunctiva pink, sclera white. NOSE: Clear with pink turbinates. THROAT: No erythema or exudates. NECK: No masses, no JVD, no thyroid enlargement, no adenopathy. Midline tracheostomy, patient is trached to the vent, there is a large old blood clot on the trach, is dark colored sputum being suctioned from endotracheal circuit CHEST: No chest wall deformity. Symmetrical expansion. LUNGS: Equal air entry with coarse scattered rhonchi,no wheeze, rhonchi or dullness. CVS: Regular rate and rhythm, normal S1 and S2, no gallops, no murmurs, no rubs ABDOMEN: Soft, nontender. No hepatosplenomegaly, normal bowel sounds, no guarding or rigidity. EXTREMITIES: No clubbing, diffuse generalized edema and upper and lower extremities, hands, scrotum, no cyanosis, 2+ pulses and upper and lower extremities. MUSCULOSKELETAL: Muscle strength and tone normal. SPINE: No scoliosis or deformity SKIN: No rashes CENTRAL NERVOUS SYSTEM: Alert and oriented -1. No focal deficits, tone is normal in all 4 extremities. - Labs CBC & Chem 7: 05/28/19 05:00 05/28/19 05:00 Labs: Abnormal Lab Results - Last 24 Hours (Table) 05/27/19 05/27/19 05/28/19 Range/Units 17:50 23:58 04:22 WBC (3.8-10.6) k/uL RBC (4.30-5.90) m/uL Hgb (13.0-17.5) gm/dL Hct (39.0-53.0) % RDW (11.5-15.5) % Plt Count (150-450) k/uL ABG pH 7.51 H (7.35-7.45) ABG pO2 113 H (83-108) mmHg ABG HCO3 28 H (21-25) mmol/L ABG Total CO2 29 H (19-24) mmol/L ABG O2 Saturation 98.9 H (94-97) % BUN (9-20) mg/dL Creatinine (0.66-1.25) mg/dL POC Glucose (mg/dL) 118 H 104 H (75-99) mg/dL Calcium (8.4-10.2) mg/dL 05/28/19 05/28/19 05/28/19 Range/Units 05:00 05:00 05:47 WBC 11.9 H (3.8-10.6) k/uL RBC 2.92 L (4.30-5.90) m/uL Hgb 8.5 L (13.0-17.5) gm/dL Hct 25.6 L (39.0-53.0) % RDW 20.4 H (11.5-15.5) % Plt Count 141 L (150-450) k/uL ABG pH (7.35-7.45) ABG pO2 (83-108) mmHg ABG HCO3 (21-25) mmol/L ABG Total CO2 (19-24) mmol/L ABG O2 Saturation (94-97) % BUN 29 H (9-20) mg/dL Creatinine 0.56 L (0.66-1.25) mg/dL POC Glucose (mg/dL) 103 H (75-99) mg/dL Calcium 7.4 L (8.4-10.2) mg/dL 05/28/19 Range/Units 11:18 WBC (3.8-10.6) k/uL RBC (4.30-5.90) m/uL Hgb (13.0-17.5) gm/dL Hct (39.0-53.0) % RDW (11.5-15.5) % Plt Count (150-450) k/uL ABG pH (7.35-7.45) ABG pO2 (83-108) mmHg ABG HCO3 (21-25) mmol/L ABG Total CO2 (19-24) mmol/L ABG O2 Saturation (94-97) % BUN (9-20) mg/dL Creatinine (0.66-1.25) mg/dL POC Glucose (mg/dL) 149 H (75-99) mg/dL Calcium (8.4-10.2) mg/dL Assessment and Plan Plan: #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 Status post right thoracoscopy, robotic-assisted thorascopic right upper lobectomy with mediastinal lymph node dissection, fiberoptic bronchoscopy. Suspect squamous cell carcinoma. Postoperative day #28. The patient was found to have an early stage I non-small cell lung cancer. #2 right-sided pneumothorax, expected outcome of surgery, the patient a prolonged an extended air leak and ongoing pneumothorax which ultimately recovered and today's chest x-ray does not show any persistent pneumothorax #3 acute respiratory failure due to complications of pneumonia and thoracic surgery in the setting of non-small cell lung cancer. The patient remains vent dependent and necessary vent changes were done and today's chest x-ray shows a stable right midlung infiltrate. Cultures of been negative thus far. Tracheostomy tube in place and there is no evidence of air leak. The patient is tolerating CPAP trials and the patient was placed on a CPAP trial today. In fac t, the patient was placed on a pressure support of 5 and a PEEP of 5 and he did extremely well tolerating the setting without any major difficulties. #4 Chronic obstructive pulmonary disease #5 Hypertension. #6 sick sinus syndrome status post pacemaker implantation. #7 Anxiety/depression. #8 Hyperlipidemia. #9 bipolar disorder #10 40 pack smoking history #11 postoperative acute blood loss anemia, expected outcome of surgery, receiving a unit of packed RBC today #12 postoperative paroxysmal atrial fibrillation, and expected outcome of surgery #13 known history of coronary artery disease with previous stenting to the circumflex artery #14 bipolar disorder/chronic anxiety #15 PEG tube insertion for enteral feeding and support #16 edema in the upper and lower extremities #17 acute GI bleed posttransfusion with a 4 units of packed RBC and the patient has a component of gastritis and currently is off Eliquis. The patient's cardiac rhythm is sinus and we decided not to restart anticoagulation. #18 diastolic heart failure, currently inactive in stable #19 diarrhea currently has an FMS system in place. Plan Patient remains profoundly weak. The patient needs aggressive physical therapy. The patient will need further weaning from mechanical ventilator and the patient will be sent for select specialty for further weaning to discontinue the Levaquin. Prednisone burst taper at time of discharge. Continue DuoNeb nebulized treatments. No need for anticoagulation. Discharged to long-term acute care setting. This evaluation was done more than 30 minutes and this is a critically care evaluation. Time with Patient: Greater than 30
--- NOTE | 2019-05-28 15:24 | PN ---
PROGRESS NOTE DATE OF SERVICE: 05/28/2019 Patient is a 69-year-old pleasant white male who is being transferred to long-term rehab facility today, as he remains on the vent. He is status post left upper lobectomy 3 weeks ago for squamous cell lung cancer. Presently, he has a PEG tube and trach in place, has been stable. No further bleeding, has an in place, had dark- green colored stools. Tolerating tube feeds very well. PHYSICAL EXAMINATION: He is somewhat awake. VITAL SIGNS: Stable. Blood pressure 132/83, pulse rate 101 per minute and afebrile. HEENT: Examination are unremarkable, conjunctivae are pink, sclerae nonicteric, oral cavity no lesions. NECK: No JVD or lymph node enlargement. CHEST: Clear to auscultation. HEART: Regular rate and rhythm. ABDOMEN: Soft, nontender, nondistended. Bowel sounds are positive. No organomegaly. PEG tube in place. EXTREMITIES: No pedal edema. SKIN: No rashes. NEURO: He is awake, but on the vent and trach. Hemoglobin today is 8.6. IMPRESSION: 1. Acute gastrointestinal bleed, resolved. Hemoglobin remained stable, Eliquis has been on hold, status post 2 units of blood transfusion during this hospitalization. 2. Status post left upper lobectomy presently with acute respiratory failure. Remains on the ventilator, status post tracheostomy a few days ago. 3. Atrial fibrillation, Eliquis on hold. RECOMMENDATION: 1. Continue with Protonix 40 mg daily. 2. CBC on a daily basis. 3. Will sign off at this time. Please call us if needed. Thank you for this consultation. MMODL / IJN: [id number] /
--- NOTE | 2019-06-08 12:19 | CDI ---
Documentation Clarification Form Date: 06/08/2019 11:54:05 AM From: Candy Sheppard Phone: If you have a question about this query, please contact Fatuma Lott, Credit Risk Management Director at [phone] between 8am and 5pm. Admit Date: 04/30/2019 5:58:00 AM Patient Name: Almas James Visit Number: [id number] Discharge Date: 05/28/2019 1:33:00 PM ATTENTION: The Clinical Documentation Specialists (CDI) and [facility] Coding Staff appreciate your assistance in clarifying documentation. Please respond to the clarification below the line at the bottom and electronically sign. The CDI & [facility] Coding staff will review the response and follow-up if needed. Please note: Queries are made part of the Legal Health Record. If you have any questions, please contact the author of this message via ITS. Dr. Rhys Brock The patient has documented expected and unexpected respiratory failure after surgery. Also possible aspiration pneumonia after surgery. please clarify what the respiratory failure was due to. History/Risk Factors: RUL cancer, smoker, Clinical Indicators: respiratory failure post surgery, aspiration pneumonia, vent dependent, tracheostomy Vital signs: on 05/14 88 bpm, 92% on Bipap 79/56 Pulse oximetry: 92% on Bipap ABG/CBG: pH 7.54 [id number] Treatment: vent, tracheostomy O2/Vent/BiPap on bipap then vented 05/14 In your professional opinion, can you please clarify the cause of the respiratory failure. 1. Due to (aspiration) pneumonia or Due to procedure & 2. Specificity of: Respiratory Failure (further specify (if known)): With hypercapnia? (pCO2 >50 and pH <7.35) With hypoxia? (pO2 <60 mm Hg or SpO2 <91% on room air) Other Diagnosis, please specify Unable to determine MTDD
--- NOTE | 2019-06-22 11:35 | CDI ---
Documentation Clarification Form Date: 06/08/2019 11:54:00 AM From: Candy Sheppard Phone: Admit Date: 04/30/2019 5:58:00 AM Patient Name: Almas James Visit Number: [id number] Discharge Date: 05/28/2019 1:33:00 PM ATTENTION: The Clinical Documentation Specialists (CDI) and [facility] Coding Staff appreciate your assistance in clarifying documentation. Please respond to the clarification below the line at the bottom and electronically sign. The CDI & [facility] Coding staff will review the response and follow-up if needed. Please note: Queries are made part of the Legal Health Record. If you have any questions, please contact the author of this message via ITS. Dr. Rhys Brock The patient hasdocumented expected and unexpected respiratory failure after surgery. Pateint also has possible aspiration pneumonia after surgery please clarify what the respiratory failure was do to. History/Risk Factors: RUL cancer, smoker, Clinical Indicators: respiratory failure post surgery, aspiration pneumonia, vent dependent, tracheostomy Vital signs: on 05/14 88 bpm, 92% on Bipap 79/56 Pulse oximetry: 92% on Bipap ABG/CBG: pH 7.54 [id number] Treatment: vent, tracheostomy O2/Vent/BiPap on bipap then vented 05/14 In your professional opinion, can you please clarify the cause of the respiratory failure. Due to (aspiration) pneumonia postprocedural Specificity Respiratory Failure (further specify (if known)): With hypercapnia? (pCO2 >50 and pH <7.35) With hypoxia? (pO2 <60 mm Hg or SpO2 <91% on room air) Other Diagnosis, please specify Unable to determine MTDD
== END 2019-05-28 13:33 | DRG 3 ==
LOC: 2ORMAIN 05:58 → 2SICU 12:42 → 3SCARD 05-04 17:48 → 2SICU 05-10 16:05
PROVIDERS: ADMIT Thoracic Surgery (Cardiothoracic Vascular Surgery); ATTEND Thoracic Surgery (Cardiothoracic Vascular Surgery)
PROC: 0BT Respiratory System, Resection (ICD-10-PCS; 2019-04-30)
PROC: 07B74ZX Excision of Thorax Lymphatic, Percutaneous Endoscopic Approach, Diagnostic (ICD-10-PCS; 2019-04-30)
PROC: 8E0W4CZ Robotic Assisted Procedure of Trunk Region, Percutaneous Endoscopic Approach (ICD-10-PCS; 2019-04-30)
PROC: 0BJ08ZZ Inspection of Tracheobronchial Tree, Via Natural or Artificial Opening Endoscopic (ICD-10-PCS; 2019-04-30)
PROC: 0W9940Z Drainage of Right Pleural Cavity with Drainage Device, Percutaneous Endoscopic Approach (ICD-10-PCS; 2019-04-30)
PROC: 5A09357 Assistance with Respiratory Ventilation, Less than 24 Consecutive Hours, Continuous Positive Airway Pressure (ICD-10-PCS; 2019-05-12)
PROC: 5A1955Z Respiratory Ventilation, Greater than 96 Consecutive Hours (ICD-10-PCS; 2019-05-14)
PROC: 0B9F8ZX Drainage of Right Lower Lung Lobe, Via Natural or Artificial Opening Endoscopic, Diagnostic (ICD-10-PCS; 2019-05-14)
PROC: 0B9G8ZX Drainage of Left Upper Lung Lobe, Via Natural or Artificial Opening Endoscopic, Diagnostic (ICD-10-PCS; 2019-05-14)
PROC: 0B9D8ZX Drainage of Right Middle Lung Lobe, Via Natural or Artificial Opening Endoscopic, Diagnostic (ICD-10-PCS; 2019-05-14)
PROC: 0BH17EZ Insertion of Endotracheal Airway into Trachea, Via Natural or Artificial Opening (ICD-10-PCS; 2019-05-14)
PROC: 03HY32Z Insertion of Monitoring Device into Upper Artery, Percutaneous Approach (ICD-10-PCS; 2019-05-14)
PROC: 4A133B1 Monitoring of Arterial Pressure, Peripheral, Percutaneous Approach (ICD-10-PCS; 2019-05-14)
PROC: 4A133J1 Monitoring of Arterial Pulse, Peripheral, Percutaneous Approach (ICD-10-PCS; 2019-05-14)
PROC: 30233N1 Transfusion of Nonautologous Red Blood Cells into Peripheral Vein, Percutaneous Approach (ICD-10-PCS; 2019-05-20)
PROC: 0B110F4 Bypass Trachea to Cutaneous with Tracheostomy Device, Open Approach (ICD-10-PCS; principal; 2019-05-20 10:05)
PROC: 0DJ08ZZ Inspection of Upper Intestinal Tract, Via Natural or Artificial Opening Endoscopic (ICD-10-PCS; 2019-05-21)
PROC: 0DH63UZ Insertion of Feeding Device into Stomach, Percutaneous Approach (ICD-10-PCS; 2019-05-21)
PROC: 02HV33Z Insertion of Infusion Device into Superior Vena Cava, Percutaneous Approach (ICD-10-PCS; 2019-05-21)
DX: C34.11 Malignant neoplasm of upper lobe, right bronchus or lung (principal); E43 Unspecified severe protein-calorie malnutrition; I50.33 Acute on chronic diastolic (congestive) heart failure; J69.0 Pneumonitis due to inhalation of food and vomit; K29.01 Acute gastritis with bleeding; J96.01 Acute respiratory failure with hypoxia; D62 Acute posthemorrhagic anemia; E87.3 Alkalosis; J95.01 Hemorrhage from tracheostomy stoma; T17.890A Other foreign object in other parts of respiratory tract causing asphyxiation, initial encounter; Z99.11 Dependence on respirator [ventilator] status; J93.83 Other pneumothorax; E78.5 Hyperlipidemia, unspecified; F03.90 Unspecified dementia, unspecified severity, without behavioral disturbance, psychotic disturbance, mood disturbance, and anxiety; F17.210 Nicotine dependence, cigarettes, uncomplicated; F31.9 Bipolar disorder, unspecified; F41.9 Anxiety disorder, unspecified; G40.909 Epilepsy, unspecified, not intractable, without status epilepticus; I11.0 Hypertensive heart disease with heart failure; I25.10 Atherosclerotic heart disease of native coronary artery without angina pectoris; I25.2 Old myocardial infarction; I48.0 Paroxysmal atrial fibrillation; I95.81 Postprocedural hypotension; J44.9 Chronic obstructive pulmonary disease, unspecified; K21.9 Gastro-esophageal reflux disease without esophagitis; K44.9 Diaphragmatic hernia without obstruction or gangrene; N19 Unspecified kidney failure; T50.2X5A Adverse effect of carbonic-anhydrase inhibitors, benzothiadiazides and other diuretics, initial encounter; Y95 Nosocomial condition; Z79.02 Long term (current) use of antithrombotics/antiplatelets; Z79.82 Long term (current) use of aspirin; Z79.899 Other long term (current) drug therapy; Z79.2 Long term (current) use of antibiotics; Z95.0 Presence of cardiac pacemaker; Z95.5 Presence of coronary angioplasty implant and graft; Z88.8 Allergy status to other drugs, medicaments and biological substances; Z91.040 Latex allergy status; Z71.6 Tobacco abuse counseling; M54.9 Dorsalgia, unspecified; G89.29 Other chronic pain; M19.90 Unspecified osteoarthritis, unspecified site; T81.82XA Emphysema (subcutaneous) resulting from a procedure, initial encounter; I73.9 Peripheral vascular disease, unspecified
CPT/HCPCS: 31624; 36415; 36573; 36600; 43246; 71045; 71046; 71275; 80048; 80053; 81003; 82272; 82805; 83605; 83735; 83880; 84100; 84132; 84145; 84484; 85025; 85027; 85379; 85610; 86850; 86900; 86901; 86920; 87040; 87070; 87102; 87116; 87205; 87206; 87252; 87324; 87496; 87498; 87502; 87529; 87634; 87798; 88108; 88305; 88309; 88311; 88312; 88331; 88332; 89050; 93306; 94002; 94003; 94640; 94660; 94760; 94770